=== PATIENT | female | born 1960 | race Caucasian/White ===

== ENCOUNTER 2020-11-21 08:13 | Outpatient (REF) | payer OTHER, SELFPAY ==
--- NOTE | ~2020-11-21 | XR_ITS ---
EXAMINATION: XR KNEES-BILATERAL FRONTAL XR LEFT KNEE CLINICAL INFORMATION: Left knee pain. COMPARISON: None TECHNIQUE: Upright frontal views of both knees, and lateral, and patellofemoral views of the left knee were FINDINGS: Frontal view of both knees shows satisfactory bony alignment and intact cortices. The articular margins, joint space appear relatively well-maintained. Minimal osteophyte formation is noted within the intercondylar groove region on the left side. The lateral and the patellofemoral views shows small suprapatellar effusion and nonspecific suprapatellar soft tissue swelling, and enthesopathy at the insertional site of the quadriceps tendon to the patella. No significant osteoarthrosis of the patellofemoral joint. XR/XR knee standing BI IMPRESSION: 1. Frontal views of both knees shows no significant osteoarthrosis on either side. 2. Lateral and the patellofemoral views of the left knee shows enthesopathy at the insertional site of the quadriceps tendon to the patella and suprapatellar soft tissue swelling, and small suprapatellar effusion.
--- NOTE | ~2020-11-21 | XR_ITS ---
EXAMINATION: XR KNEES-BILATERAL FRONTAL XR LEFT KNEE CLINICAL INFORMATION: Left knee pain. COMPARISON: None TECHNIQUE: Upright frontal views of both knees, and lateral, and patellofemoral views of the left knee were FINDINGS: Frontal view of both knees shows satisfactory bony alignment and intact cortices. The articular margins, joint space appear relatively well-maintained. Minimal osteophyte formation is noted within the intercondylar groove region on the left side. The lateral and the patellofemoral views shows small suprapatellar effusion and nonspecific suprapatellar soft tissue swelling, and enthesopathy at the insertional site of the quadriceps tendon to the patella. No significant osteoarthrosis of the patellofemoral joint. XR/XR knee LT 2V IMPRESSION: 1. Frontal views of both knees shows no significant osteoarthrosis on either side. 2. Lateral and the patellofemoral views of the left knee shows enthesopathy at the insertional site of the quadriceps tendon to the patella and suprapatellar soft tissue swelling, and small suprapatellar effusion.
--- NOTE | ~2020-11-21 | XR_ITS ---
EXAMINATION: XR PELVIS CLINICAL INFORMATION: Pain COMPARISON: None TECHNIQUE: AP view of the pelvis. FINDINGS: Bone alignment is normal. No fracture or dislocation is seen. There is mild joint space narrowing at both hip joints. The hip joints are otherwise normal. Bones of the pelvis are normal. There are degenerative changes of the visualized lower lumbar spine. Soft tissues are unremarkable. XR/XR pelvis 1-2V IMPRESSION: Mild joint space narrowing at both hip joints. Degenerative changes of the lower lumbar spine.
== END 2020-11-21 08:14 | disposition home or self-care (01) ==
LOC: HO.HOSX 08:13
PROVIDERS: Visit Provider Orthopaedic Surgery
DX: M25.562 Pain in left knee (principal); M25.559 Pain in unspecified hip
CPT/HCPCS: 72170; 73560; 73565; 99212

== ENCOUNTER 2020-12-13 09:36 | Outpatient (REF) | payer OTHER, SELFPAY ==
--- NOTE | ~2020-12-13 | MR_ITS ---
EXAMINATION: MR KNEE WITHOUT CONTRAST, LEFT CLINICAL INFORMATION: Knee pain. COMPARISON: None . TECHNIQUE: MRI of the knee without contrast was performed using routine sequences on a high-field scanner. FINDINGS: MENISCI: Medial Meniscus: Vertical superior surface tear in the peripheral aspect of the body. Undersurface fraying/tearing in the posterior horn/body junction. Degenerative signal otherwise in the posterior horn. Lateral Meniscus: Superior surface degenerative fraying/low-grade tear in the body. LIGAMENTS: Cruciate: Slightly thin caliber of the ACL, which may reflect normal variant changes versus partial tear. Intrasubstance signal in the PCL from mucoid degeneration plus/minus sprain. Collateral: Intact. EXTENSOR MECHANISM: Intact. ARTICULAR CARTILAGE/BONE: Patellofemoral Compartment: Mild cartilage fissuring in the central patella. No focal trochlear cartilage loss. Medial Compartment: No focal cartilage loss. Lateral Compartment: No focal cartilage loss. No fracture. JOINT FLUID AND BURSAE: Small cystic focus adjacent to the proximal medial gastrocnemius tendon, probable ganglion cyst. Small Burton's cyst. Trace joint fluid. MR/MR knee LT wo con IMPRESSION: 1. Tear of the medial meniscal body. Undersurface degenerative fraying/tear of the posterior horn/body junction. 2. Superior surface degenerative fraying/tear in the lateral meniscal body. 3. Thin caliber ACL from normal variation versus partial tear. Mucoid degeneration plus/minus sprain PCL. 4. Mild chondromalacia patella. 5. Probable small ganglion cyst adjacent to the proximal medial gastrocnemius tendon.
== END 2020-12-13 09:37 | disposition home or self-care (01) ==
LOC: HO.MRI 09:36
PROVIDERS: Visit Provider Orthopaedic Surgery
DX: M25.562 Pain in left knee (principal)
CPT/HCPCS: 73721

== ENCOUNTER → 2020-12-19 09:29 | Outpatient (BNVA) | payer OTHER, SELFPAY | PROVIDERS: PCP Internal Medicine; Visit Provider Orthopaedic Surgery | DX: M25.562 Pain in left knee (principal) | CPT/HCPCS: 20610; 99212; J1040 ==

== ENCOUNTER → 2021-01-25 10:32 | Outpatient (BNVA) | payer OTHER, SELFPAY | PROVIDERS: PCP Internal Medicine; Visit Provider Nurse Practitioner Family | DX: M25.562 Pain in left knee (principal) | CPT/HCPCS: 99212 ==

== ENCOUNTER 2021-08-30 09:44 | Outpatient (REF) | payer OTHER, SELFPAY ==
--- NOTE | ~2021-08-30 | MM_ITS ---
EXAMINATION: MM SCREENING DIGITAL BREAST TOMOSYNTHESIS, BILATERAL CLINICAL INFORMATION: Screening. Asymptomatic. The lifetime risk of breast cancer based on the Tyrer-Cuzick Model is 5%. COMPARISON: Mammography: 02/03/2019, 01/22/2018, 05/22/2017, 05/08/2016; ultrasound right breast 01/22/2018 TECHNIQUE: Digital breast tomosynthesis is performed in both the craniocaudal and mediolateral oblique views along with computer-aided detection (CAD). Synthesized 2D images are generated from the tomosynthesis. FINDINGS: There are scattered areas of fibroglandular density (ACR BI-RADS breast composition Category b). There are no significant masses, abnormal calcifications, or other abnormalities. There is scattered bilateral smooth nodularity similar to decreased. No developing density. The axilla and skin contours are unremarkable. MM/MM tomosynthesis screening BI IMPRESSION: No significant changes from prior studies. ASSESSMENT: BI-RADS 2: Benign RECOMMENDATION: Routine annual mammography screening. This patient's information was entered into a reminder system with a target due date for their next mammogram.
== END 2021-08-30 09:45 | disposition home or self-care (01) ==
LOC: HO.MAMMO 09:44
PROVIDERS: Visit Provider Internal Medicine
DX: Z12.31 Encounter for screening mammogram for malignant neoplasm of breast (principal)
CPT/HCPCS: 77063; 77067

== ENCOUNTER 2021-11-22 09:18 | Emergency (ER) | payer OTHER, SELFPAY ==
--- NOTE | ~2021-11-22 | XR_ITS ---
EXAMINATION: XR KNEE, LEFT CLINICAL INFORMATION: Knee pain COMPARISON: None TECHNIQUE: Four views of the left knee. FINDINGS: The tricompartment joint space is maintained normal. No visible acute fracture or dislocation. No loose bodies or joint effusion seen. There is anterior superior patellar enthesophyte. XR/XR knee LT 3V IMPRESSION: Small anterior superior patellar enthesophyte. Otherwise unremarkable left knee. No acute fracture or dislocation
[2021-11-22 09:36] VITALS: BP 169/100; PULSE 89; RESP 16; TEMP 36.9; O2SAT 97; BMI 27.4
[2021-11-22] MEDS: Ketorolac Tromethamine 30 MG/ML VIAL IM (11:19)
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
== END 2021-11-22 12:08 | disposition home or self-care (01) ==
PROVIDERS: Emergency Provider Emergency Medicine; PCP Internal Medicine
DX: M25.562 Pain in left knee (principal); Z79.899 Other long term (current) drug therapy
CPT/HCPCS: 73562; 96372; 99284; J1885

== ENCOUNTER → 2022-01-01 13:23 | Outpatient (BNVA) | payer OTHER, SELFPAY | PROVIDERS: PCP Internal Medicine; Visit Provider Orthopaedic Surgery | DX: S83.242D Other tear of medial meniscus, current injury, left knee, subsequent encounter (principal) | CPT/HCPCS: 99212 ==

== ENCOUNTER 2022-09-03 14:38 | Emergency (ER) | payer OTHER, SELFPAY ==
--- NOTE | ~2022-09-03 | XR_ITS ---
EXAMINATION: XR CHEST CLINICAL INFORMATION: Bilateral chest pain. COMPARISON: Chest radiographs 03/07/2017, 11/01/2015 TECHNIQUE: 2 views of the chest were obtained. FINDINGS: The lungs are clear. There is no pneumothorax, airspace consolidation, groundglass opacity, or effusion. No pneumothorax or pleural reaction. The costophrenic sulci are clear. Heart size normal. Vascularity normal. The hilar and mediastinal contours are unremarkable. No acute bony abnormality. There are multilevel degenerative changes again seen thoracic spine. XR/XR chest 2V IMPRESSION: Unremarkable examination.
[2022-09-03 14:50] VITALS: BP 153/79; PULSE 74; RESP 16; TEMP 36.8; O2SAT 95; BMI 23.8
--- NOTE | 2022-09-03 14:50 | ED.GENADULT ---
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 Patient states that both breasts hurt but her right one has a burning sensation along the lateral side. Patient states that she has a mammogram scheduled. Patient denies any history of shingles but states she had chickenpox as a child. Patient denies any dizziness, lightheadedness, abdominal pain, nausea, vomiting, fever, chills, blurry vision, double vision, loss of vision, chest pain, difficulty breathing, shortness of breath, back pain, night sweats, pain with urination, increased urinary frequency, increased urinary urgency, blood in her urine or stool, syncope or a near syncopal episode, recent trauma or falls, bowel incontinence, bladder incontinence, bowel retention, bladder retention, or any other complaints at this time. <CAROL Pinzon - Last Filed: 09/03/22 17:48> Onset (ago): week(s) (2) <CAROL Pinzon - Last Filed: 09/03/22 17:48> Severity: mild <CAROL Pinzon Last Filed: 09/03/22 17:48> Severity scale (1-10): 3 <CAROL Pinzon Last Filed: 09/03/22 17:48> Relieving factors: none <CAROL Pinzon Last Filed: 09/03/22 17:48> Exacerbating factors: none <CAROL Pinzon - Last Filed: 09/03/22 17:48> Associated symptoms: denies other symptoms <CAROL Pinzon - Last Filed: 09/03/22 17:48> Treatments prior to arrival: none <CAROL Pinzon - Last Filed: 09/03/22 17:48> Related Data Home medications: Home Medications Medication Instructions Recorded Confirmed atorvastatin 20 mg tablet 20 mg PO DAILY 11/21/20 01/25/21 cyclobenzaprine 10 mg tablet 10 mg PO TID 11/21/20 01/25/21 lisinopril 20 1 tab PO DAILY 11/21/20 01/25/21 mg-hydrochlorothiazide 12.5 mg tablet montelukast 10 mg tablet 10 mg PO QPM 11/21/20 01/25/21 naproxen 500 mg tablet 500 mg PO BID 11/21/20 01/25/21 sertraline 50 mg tablet 50 mg PO DAILY 11/21/20 01/25/21 trazodone 50 mg tablet 50 mg PO BEDTIME 11/21/20 01/25/21 amlodipine 5 mg tablet 5 mg PO DAILY 02/01/22 diclofenac sodium 1 % topical gel g topical BID 02/01/22 Previous Rx's Medication Instructions Recorded acetaminophen 500 mg tablet 500 mg PO Q6H PRN pain or fever 11/22/21 (Tylenol Extra Strength) #14 tabs naproxen 500 mg tablet 500 mg PO BID PRN pain 10 days #14 11/22/21 tabs valacyclovir 1 gram tablet 1,000 mg PO TID 7 days #21 tabs 09/03/22 <CAROL Pizano - Last Filed: 09/03/22 15:23> Allergies/adverse reactions: Allergies Allergy/AdvReac Type Severity Reaction Status Date / Time No Known Allergies Allergy Verified 09/03/22 14:54 [No Known Allergies*] <CAROL Pizano - Last Filed: 09/03/22 15:23> Review of Systems Constitutional: Constitutional: Reports no additional constitutional complaints, Denies chills, Denies fever(s) and Denies night sweats <CAROL Pinzon - Last Filed: 09/03/22 17:48> Eyes: Eyes: Reports no additional eye complaints, Denies blurry vision, Denies change in vision, Denies diplopia, Denies eye discharge, Denies loss of vision and Denies eye pain <CAROL Pinzon - Last Filed: 09/03/22 17:48> ENT: Denies dizziness <CAROL Pinzon - Last Filed: 09/03/22 17:48> Cardiovascular: Cardiovascular: Reports no additional cardiovascular complaints, Denies chest pain, Denies lightheadedness, Denies Loss of Consciousness and Denies dyspnea <CAROL Pinzon - Last Filed: 09/03/22 17:48> Respiratory: Respiratory: Reports no additional respiratory complaints and Denies dyspnea <CAROL Pinzon - Last Filed: 09/03/22 17:48> Gastrointestinal: Gastrointestinal: Reports no additional gastrointestinal complaints, Denies abdominal pain, Denies melena, Denies hematochezia, Denies change in bowel habits and Denies change in stool character <CAROL Pinzon - Last Filed: 09/03/22 17:48> Genitourinary: Genitourinary: Denies hematuria, Denies urinary frequency, Denies dysuria, Denies urinary incontinence, Denies urinary hesitancy and Denies urinary urgency <CAROL Pinzon - Last Filed: 09/03/22 17:48> Musculoskeletal: Musculoskeletal: Reports no additional musculoskeletal complaints, Denies numbness and Denies tingling <CAROL Pinzon - Last Filed: 09/03/22 17:48> Integumentary/Breasts: Comments: bilateral breast pain - right more so than left with a burning sensation on the right <CAROL Pinzon - Last Filed: 09/03/22 17:48> Neurologic: Denies dizziness, Denies loss of vision, Denies numbness and Denies tingling <CAROL Pinzon - Last Filed: 09/03/22 17:48> Psychiatric: Psychiatric: Reports no additional psychiatric complaints <CAROL Pinzon - Last Filed: 09/03/22 17:48> Endocrine: Endocrine: Reports no additional endocrine complaints <CAROL Pinzon - Last Filed: 09/03/22 17:48> Hematologic/Lymphatic: Hematologic/Lymphatic: Reports no additional hematologic/lymphatic complaints <CAROL Pinzon - Last Filed: 09/03/22 17:48> Allergic/Immunologic: Allergic/Immunologic: Reports no additional allergic/immunologic complaints <CAROL Pinzon - Last Filed: 09/03/22 17:48> PMFSH Past Medical History Attestation statement: The following information was validated with the patient. <CAROL Pinzon - Last Filed: 09/03/22 17:48> Source: old records reviewed and nursing notes reviewed <CAROL Pinzon - Last Filed: 09/03/22 17:48> Medical History: Medical History Asthma Depressed Hypertension Left knee pain <CAROL Pizano - Last Filed: 09/03/22 15:23> Social History Social History: Social History Alcohol intake: never Advance Directives: No Advance Directives Information Provided: No Current occupational status: unemployed Current occupation: left handed <CAROL Pizano - Last Filed: 09/03/22 15:23> Physical Exam ED Vital Signs: Vital Signs - 24 hr 09/03/22 14:50 Temperature 98.2 F Pulse Rate 74 Respiratory Rate 16 Blood Pressure 153/79 H Pulse Oximetry 95 Oxygen Delivery Method Room Air BMI result Body Mass Index 23.8 <CAROL Pizano - Last Filed: 09/03/22 15:23> Vital Signs - 24 hr 09/03/22 14:50 Temperature 98.2 F Pulse Rate 74 Respiratory Rate 16 Blood Pressure 153/79 H Pulse Oximetry 95 Oxygen Delivery Method Room Air BMI result Body Mass Index 23.8 <CAROL Pinzon - Last Filed: 09/03/22 17:48> Const General: cooperative, no acute distress, alert and awake <CAROL Pinzon - Last Filed: 09/03/22 17:48> Nutritional Appearance: well nourished <CAROL Pinzon - Last Filed: 09/03/22 17:48> Orientation/consciousness: patient oriented x3 <CAROL Pinzon - Last Filed: 09/03/22 17:48> Limitations: no limitations <CAROL Pinzon - Last Filed: 09/03/22 17:48> HENMT Head: Yes normal to inspection and Yes atraumatic <Megan Montoyayasmeen PA - Last Filed: 09/03/22 17:48> Ears: hearing grossly normal bilaterally and external ears normal <Megan Montoyayasmeen PA - Last Filed: 09/03/22 17:48> General nose exam: Normal external nose present, no nasal discharge noted and no epistaxis <Meganhugo Montoyayasmeen PA - Last Filed: 09/03/22 17:48> Face and sinus: Yes normal facial exam, No abrasion and No laceration <Megan Montoyayasmeen PA - Last Filed: 09/03/22 17:48> Mouth: Normal oral and palatal mucosa present, no drooling and no muffled voice <Megan Holm PA - Last Filed: 09/03/22 17:48> Eyes General: appearance normal, both eyes and all related structures <Megan Holm PA - Last Filed: 09/03/22 17:48> Periorbital: periorbital findings normal <Megan Holm PA - Last Filed: 09/03/22 17:48> Eyelids: Yes eyelids normal <Megan Montoyayasmeen PA - Last Filed: 09/03/22 17:48> Conjunctivae: conjunctivae normal <Megan Holm, PA - Last Filed: 09/03/22 17:48> Pupils: Equal, round and reactive pupils present <Megan Montoyayasmeen PA - Last Filed: 09/03/22 17:48> EOM: EOMs intact bilaterally <Megan Holm PA - Last Filed: 09/03/22 17:48> Neck Neck: Yes normal visual inspection, Yes full ROM and Yes no lymphadenopathy <Megan Mihai PA - Last Filed: 09/03/22 17:48> Chest Chest palpation & inspection: normal inspection of the chest <Megan Holm PA - Last Filed: 09/03/22 17:48> Resp Effort & Inspection: normal respiratory effort and able to speak in complete sentences <Megan Holm PA - Last Filed: 09/03/22 17:48> Auscultation: clear to auscultation bilaterally <Megan Holm PA - Last Filed: 09/03/22 17:48> Cardio Rate: regular rate <Megan Holm PA - Last Filed: 09/03/22 17:48> Rhythm: regular rhythm <Megan Holm PA - Last Filed: 09/03/22 17:48> GI Inspection: Yes normal to inspection <Megan Holm PA - Last Filed: 09/03/22 17:48> Palpation (GI): Soft to palpation, not firm, nontender, no guarding and not rigid <Megan Holm PA - Last Filed: 09/03/22 17:48> Neuro General: patient oriented x3 and moves all extremities <Megan Holm PA - Last Filed: 09/03/22 17:48> Cranial nerves: Yes Equal, round and reactive pupils present <Megan Holm PA - Last Filed: 09/03/22 17:48> Cognition (Neuro): normal cognition <Megan Holm PA - Last Filed: 09/03/22 17:48> Motor exam (neuro): 5/5 motor strength present throughout <Megan Holm PA - Last Filed: 09/03/22 17:48> Sensory Exam: Normal double simultaneous stimulation for sensation <Megan Holm PA - Last Filed: 09/03/22 17:48> Coordination: [id number] test normal <Megan Holm PA - Last Filed: 09/03/22 17:48> Extrem General: Yes normal to inspection, Yes full ROM and Yes capillary refill normal <Megan Holm PA - Last Filed: 09/03/22 17:48> Psych Appearance: grossly normal <Megan Holm PA - Last Filed: 09/03/22 17:48> Mental Status: mental status grossly normal <Megan Holm PA - Last Filed: 09/03/22 17:48> Affect: normal affect <Megan Holm PA - Last Filed: 09/03/22 17:48> Attitude: cooperative <Megan Holm PA - Last Filed: 09/03/22 17:48> Thought process: Normal thought process present <Megan HolmCAROL - Last Filed: 09/03/22 17:48> Thought content: Normal thought content present <Megan Montoyayasmeen PA - Last Filed: 09/03/22 17:48> Insight: Good insight present (Psych) <CAROL Pinzon - Last Filed: 09/03/22 17:48> Course Course Course Narrative: RME - 61 yo female presenting to the ER for evaluation of bilateral breast pain x2 weeks, right worse than left. Feels small bumps that are tender, especially right lateral breast. Reports subjective fever and chills. Brief exam in triage does not show any infection. No role in ultrasound today. Will check basic labs and CXR. d/w Dr. crane <CAROL Pizano - Last Filed: 09/03/22 15:23> Medical Decision Making Medical Decision Making [facility] Narrative: Patient is a 61 year old assigned female at with no reported medical history presenting to the emergency department today with bilateral breast pain. Patient's physical exam was unremarkable. Patient's blood work was unremarkable. Patient's chest x-ray showed no acute process. Given the patient's description of unilateral burning pain along the lateral right breast, will treat for shingles. I explained my physical exam findings as well as all test results to the patient. I answered all questions asked by the patient . I stressed the importance of the patient taking her medication as prescribed. I stressed the importance of the patient following up with her primary care provider and attending her scheduled mammogram. I stressed the importance of the patient returning to the emergency department immediately if her symptoms were to worsen or if she were to develop any dizziness, shortness of breath, difficulty breathing, chest pain, blurry vision, loss of vision, nausea, vomiting, abdominal pain, fever, chills, back pain, or any other complaints. Patient verbalized agreement and understanding with this treatment plan and discharge. <CAROL Pinzon - Last Filed: 09/03/22 17:48> Differential Diagnosis Differential Diagnoses: The differential diagnosis associated with the presentation includes <CAROL Pinzon Last Filed: 09/03/22 17:48> shingles, breast pain <CAROL Pinzon - Last Filed: 09/03/22 17:48> Lab Data [facility] Lab Attestation statement: I reviewed the patient's lab results. <CAROL Pinzon Last Filed: 09/03/22 17:48> Result Diagrams: 09/03/22 15:35 01/23/23 15:35 <CAROL Pizano - Last Filed: 09/03/22 15:23> Labs: Lab Results 09/03/22 09/03/22 Range/Units 15:35 15:35 WBC 4.7 L (4.8-10.8) X10*3/uL RBC 4.77 (4.20-5.50) X10*6/uL Hgb 13.3 (12.0-16.0) g/dl Hct 40.4 (37.0-47.0) % MCV 84.7 (80.0-98.0) fL MCH 27.9 (27.0-33.0) pg MCHC 32.9 (31.0-35.0) g/dl RDW 12.5 (11.0-16.0) % Plt Count 251 (160-400) X10*3/uL MPV 10.7 (9.4-12.3) fL Immature Gran % (Auto) 0.2 (0.0-0.4) % Neut % (Auto) 54.1 (45-73) % Lymph % (Auto) 25.3 (20-40) % [place] % (Auto) 16.6 H (2-11) % Eos % (Auto) 3.4 (0-4) % Baso % (Auto) 0.4 (0-2) % Lymph # (Auto) 1.2 (1.2-4.9) X10*3/uL [place] # (Auto) 0.8 (0.1-1.2) X10*3/uL Eos # (Auto) 0.2 (0.0-0.4) X10*3/uL Baso # (Auto) 0.0 (0.0-0.2) X10*3/uL Abs Immat Gran (auto) 0.01 (0.00-0.03) X10*3/uL Absolute Neuts (auto) 2.5 (2.0-8.3) x10*3/uL Absolute Nucleated RBC 0.000 (0.0-0.012) X10*3/uL Nucleated RBC % (auto) 0.0 (0.0-0.2) /100WBC Sodium 141 (135-145) mmol/L Potassium 3.9 (3.3-5.1) mmol/L Chloride 107 (96-108) mmol/L Carbon Dioxide 27 (22-29) mmol/L Anion Gap 11 L (12-20) BUN 20 H (9-16) mg/dL Creatinine 0.91 (0.5-1.4) mg/dL Estim Creat Clear Calc 50.0 Estimated GFR > 60 Random Glucose 96 (60-115) mg/dL Calcium 9.0 (8.4-10.2) mg/dL Magnesium 2.1 (1.6-2.6) mg/dL Total Bilirubin 0.4 (0.0-1.0) mg/dL Direct Bilirubin < 0.2 (0.0-0.5) mg/dL AST 21 (5-31) U/L ALT 10 (0-31) U/L Alkaline Phosphatase 101 (39-117) U/L Total Protein 6.9 (6.5-8.0) g/dL Albumin 4.0 (3.5-5.0) g/dL <CAROL Pizano - Last Filed: 09/03/22 15:23> Lab Results 09/03/22 09/03/22 Range/Units 15:35 15:35 WBC 4.7 L (4.8-10.8) X10*3/uL RBC 4.77 (4.20-5.50) X10*6/uL Hgb 13.3 (12.0-16.0) g/dl Hct 40.4 (37.0-47.0) % MCV 84.7 (80.0-98.0) fL MCH 27.9 (27.0-33.0) pg MCHC 32.9 (31.0-35.0) g/dl RDW 12.5 (11.0-16.0) % Plt Count 251 (160-400) X10*3/uL MPV 10.7 (9.4-12.3) fL Immature Gran % (Auto) 0.2 (0.0-0.4) % Neut % (Auto) 54.1 (45-73) % Lymph % (Auto) 25.3 (20-40) % [place] % (Auto) 16.6 H (2-11) % Eos % (Auto) 3.4 (0-4) % Baso % (Auto) 0.4 (0-2) % Lymph # (Auto) 1.2 (1.2-4.9) X10*3/uL [place] # (Auto) 0.8 (0.1-1.2) X10*3/uL Eos # (Auto) 0.2 (0.0-0.4) X10*3/uL Baso # (Auto) 0.0 (0.0-0.2) X10*3/uL Abs Immat Gran (auto) 0.01 (0.00-0.03) X10*3/uL Absolute Neuts (auto) 2.5 (2.0-8.3) x10*3/uL Absolute Nucleated RBC 0.000 (0.0-0.012) X10*3/uL Nucleated RBC % (auto) 0.0 (0.0-0.2) /100WBC Sodium 141 (135-145) mmol/L Potassium 3.9 (3.3-5.1) mmol/L Chloride 107 (96-108) mmol/L Carbon Dioxide 27 (22-29) mmol/L Anion Gap 11 L (12-20) BUN 20 H (9-16) mg/dL Creatinine 0.91 (0.5-1.4) mg/dL Estim Creat Clear Calc 50.0 Estimated GFR > 60 Random Glucose 96 (60-115) mg/dL Calcium 9.0 (8.4-10.2) mg/dL Magnesium 2.1 (1.6-2.6) mg/dL Total Bilirubin 0.4 (0.0-1.0) mg/dL Direct Bilirubin < 0.2 (0.0-0.5) mg/dL AST 21 (5-31) U/L ALT 10 (0-31) U/L Alkaline Phosphatase 101 (39-117) U/L Total Protein 6.9 (6.5-8.0) g/dL Albumin 4.0 (3.5-5.0) g/dL <CAROL Pinzon - Last Filed: 09/03/22 17:48> Radiology Impression Radiologist Impression: My interpretation is in agreement with the radiologist's impression of this imaging study. EXAMINATION: XR CHEST CLINICAL INFORMATION: Bilateral chest pain. COMPARISON: Chest radiographs 03/07/2017, 11/01/2015 TECHNIQUE: 2 views of the chest were obtained. FINDINGS: The lungs are clear. There is no pneumothorax, airspace consolidation, groundglass opacity, or effusion. No pneumothorax or pleural reaction. The costophrenic sulci are clear. Heart size normal. Vascularity normal. The hilar and mediastinal contours are unremarkable. No acute bony abnormality. There are multilevel degenerative changes again seen thoracic spine. XR/XR chest 2V IMPRESSION: Unremarkable examination. Dictated By: Aron Chamberlain MD Signed By: Electronically signed by Aron Chamberlain MD 09/03/22 1642 <CAROL Pinzon - Last Filed: 09/03/22 17:48> Discharge Plan Discharge Clinical Impression: [place] <CAROL Pizano - Last Filed: 09/03/22 15:23> Patient Disposition: Home, Self-Care <CAROL Pizano Last Filed: 09/03/22 15:23> Instructions: Vee (ED) <CAROL Pizano Last Filed: 09/03/22 15:23> Prescriptions: New valacyclovir 1 gram tablet 1,000 mg PO TID 7 Days Qty: 21 0RF No Action acetaminophen [Tylenol Extra Strength] 500 mg tablet 500 mg PO Q6H PRN (Reason: pain or fever) Qty: 14 0RF naproxen 500 mg tablet 500 mg PO BID PRN (Reason: pain) 10 Days Qty: 14 0RF naproxen 500 mg tablet 500 mg PO BID cyclobenzaprine 10 mg tablet 10 mg PO TID sertraline 50 mg tablet 50 mg PO DAILY montelukast 10 mg tablet 10 mg PO QPM lisinopril-hydrochlorothiazide 20-12.5 mg tablet 1 tab PO DAILY trazodone 50 mg tablet 50 mg PO BEDTIME atorvastatin 20 mg tablet 20 mg PO DAILY diclofenac sodium 1 % gel topical BID amlodipine 5 mg tablet 5 mg PO DAILY <CAROL Pizano - Last Filed: 09/03/22 15:23> Interventions: ED Discharge Assessment Last Done: 09/03/22 17:23 <CAROL Pizano - Last Filed: 09/03/22 15:23> Discharge Date/Time: 09/03/22 17:24 <CAROL Pizano - Last Filed: 09/03/22 15:23> Print Language: Chadian <CAROL Pizano - Last Filed: 09/03/22 15:23>
[2022-09-03 15:43] LABS: MANUAL DIFF FLAG NO
[2022-09-03 15:48] LABS: Basophils Percent Auto 0.4 % (0-2); Eosinophils Absolute Auto 0.2 X10*3/uL (0.0-0.4); Eosinophils Percent Auto 3.4 % (0-4); Hematocrit 40.4 % (37.0-47.0); Hemoglobin 13.3 g/dl (12.0-16.0); Imm Gran Abs Auto 0.01 X10*3/uL (0.00-0.03); Imm Gran Pct Auto 0.2 % (0.0-0.4); Lymphocytes Absolute Auto 1.2 X10*3/uL (1.2-4.9); Lymphocytes Percent Auto 25.3 % (20-40); Mean Corpuscular HGB Conc 32.9 g/dl (31.0-35.0); Mean Corpuscular Hemoglobin 27.9 pg (27.0-33.0); Mean Corpuscular Volume 84.7 fL (80.0-98.0); Mean Platelet Volume 10.7 fL (9.4-12.3); Monocytes Absolute Auto 0.8 X10*3/uL (0.1-1.2); Monocytes Percent Auto 16.6 % (2-11); Neutrophils Absolute Auto 2.5 x10*3/uL (2.0-8.3); Neutrophils Percent Auto 54.1 % (45-73); Platelet Count 251 X10*3/uL (160-400); Red Blood Count 4.77 X10*6/uL (4.20-5.50); Red Cell Distribution Width 12.5 % (11.0-16.0); White Blood Count 4.7 X10*3/uL (4.8-10.8)
[2022-09-03 16:04] LABS: Alanine Aminotransferase 10 U/L (0-31); Alkaline Phosphatase 101 U/L (39-117); Anion Gap 11 (12-20); Aspartate Amino Transferase 21 U/L (5-31); Bilirubin Direct < 0.2 mg/dL (0.0-0.5); Bilirubin Total 0.4 mg/dL (0.0-1.0); Blood Urea Nitrogen 20 mg/dL (9-16); Carbon Dioxide 27 mmol/L (22-29); Chloride 107 mmol/L (96-108); Estimated Glomerular Filt Rate > 60; Glucose Random 96 mg/dL (60-115); Magnesium 2.1 mg/dL (1.6-2.6); Potassium 3.9 mmol/L (3.3-5.1); Sodium 141 mmol/L (135-145); Total Protein 6.9 g/dL (6.5-8.0)
== END 2022-09-03 17:24 | disposition home or self-care (01) ==
PROVIDERS: Physician Assistant; Emergency Provider Emergency Medicine; PCP Internal Medicine
DX: B02.9 Zoster without complications (principal); N64.4 Mastodynia; Z79.02 Long term (current) use of antithrombotics/antiplatelets; Z79.899 Other long term (current) drug therapy
CPT/HCPCS: 36415; 71046; 80048; 80076; 83735; 85025; 99282; 99283

== ENCOUNTER 2023-01-03 01:06 | Emergency (ER) | payer OTHER, SELFPAY ==
--- NOTE | ~2023-01-03 | XR_ITS ---
EXAMINATION: XR CHEST CLINICAL INFORMATION: Fall. Evaluate for rib fracture. COMPARISON: None. TECHNIQUE: Portable AP view FINDINGS: Normal symmetric lung volumes. No parenchymal consolidation. No pleural effusion. No pneumothorax. Cardiomediastinal silhouette and pulmonary vascularity are within normal limits. No acute osseous abnormalities. XR/XR chest 1V IMPRESSION: Clear lungs; no pneumothorax. No displaced rib fractures.
[2023-01-03 04:39] LABS: Anion Gap 12 (12-20); Blood Urea Nitrogen 20 mg/dL (9-16); Calcium 9.5 mg/dL (8.4-10.2); Carbon Dioxide 29 mmol/L (22-29); Chloride 106 mmol/L (96-108); Estimated Glomerular Filt Rate > 60; Ethanol < 10 mg/dL; Glucose Random 129 mg/dL (60-115); MANUAL DIFF FLAG NO; Sodium 143 mmol/L (135-145); Troponin-I High Sensitivity 18.2 ng/L (<3.5-17.0)
[2023-01-03 04:59] VITALS: BP 139/74; PULSE 75; RESP 15; TEMP 37.1; O2SAT 97
[2023-01-03 04:59] LABS: Appearance Urine Clear; Color Urine Yellow; Glucose Urine UA Negative (Negative); Leukocyte Esterase Urine Moderate (2+) (Negative); Nitrite Urine Negative (Negative); PH 5.5 (5.0-9.0); UMIC TRIGGER UA YES; Urine Blood Negative (Negative); Urine Ketones Negative (Negative); Urine Protein 30 (1+) mg/dL (Neg-Trace)
[2023-01-03 05:00] LABS: Basophils Percent Auto 0.3 % (0-2); Eosinophils Absolute Auto 0.1 X10*3/uL (0.0-0.4); Hematocrit 38.8 % (37.0-47.0); Hemoglobin 12.5 g/dl (12.0-16.0); Imm Gran Abs Auto 0.21 X10*3/uL (0.00-0.03); Imm Gran Pct Auto 2.2 % (0.0-0.4); Lymphocytes Absolute Auto 1.4 X10*3/uL (1.2-4.9); Mean Corpuscular HGB Conc 32.2 g/dl (31.0-35.0); Mean Corpuscular Hemoglobin 28.2 pg (27.0-33.0); Mean Corpuscular Volume 87.4 fL (80.0-98.0); Mean Platelet Volume 9.7 fL (9.4-12.3); Monocytes Absolute Auto 1.2 X10*3/uL (0.1-1.2); Neutrophils Absolute Auto 6.8 x10*3/uL (2.0-8.3); Neutrophils Percent Auto 70.5 % (45-73); Platelet Count 327 X10*3/uL (160-400); Red Blood Count 4.44 X10*6/uL (4.20-5.50); White Blood Count 9.7 X10*3/uL (4.8-10.8)
--- NOTE | 2023-01-03 05:00 | MHC.EDTECH ---
pt vitals sign taken ,and urine sample collected and sent to lab .
[2023-01-03 05:06] LABS: Bacteria Urine None Seen (None Seen); WBC Urine 21-50 /HPF (0-5)
[2023-01-03 05:09] LABS: Amphetamine Screen Urine Not Detected (Not Detect); Barbiturates, Urine Not Detected (Not Detect); Benzodiazepines Screen Urine Not Detected (Not Detect); Cannabinoid Screen Urine Not Detected (Not Detect); Cocaine Screen Urine POSITIVE (Not Detect); Fentanyl, urine POSITIVE (Not Detect); Opiate Screen Urine Not Detected (Not Detect); Phencyclidine Screen Urine Not Detected (Not Detect)
--- NOTE | 2023-01-03 05:14 | ED_ITS ---
HPI - Overdose General Chief Complaint: Overdose Stated Complaint: OD Time Seen by Provider: 01/03/23 05:14 Source: patient and EMS Mode of arrival: EMS Limitations: other History of Present Illness HPI Narrative: Patient comes emergency room via EMS after having an overdose. Patient admits that she used 2 bags of heroin earlier today. Patient became unresponsive. Patient's family found her, started CPR. Patient awake and alert when she arrived to emergency room complaining of localized chest pain where she had chest compressions done. Patient denies suicidal ideation. Patient given denies using drugs. Related Data Home Medications Medication Instructions Recorded Confirmed atorvastatin 20 mg tablet 20 mg PO DAILY 11/21/20 01/25/21 cyclobenzaprine 10 mg tablet 10 mg PO TID 11/21/20 01/25/21 lisinopril 20 1 tab PO DAILY 11/21/20 01/25/21 mg-hydrochlorothiazide 12.5 mg tablet montelukast 10 mg tablet 10 mg PO QPM 11/21/20 01/25/21 naproxen 500 mg tablet 500 mg PO BID 11/21/20 01/25/21 sertraline 50 mg tablet 50 mg PO DAILY 11/21/20 01/25/21 trazodone 50 mg tablet 50 mg PO BEDTIME 11/21/20 01/25/21 amlodipine 5 mg tablet 5 mg PO DAILY 02/01/22 diclofenac sodium 1 % topical gel g topical BID 02/01/22 Previous Rx's Medication Instructions Recorded acetaminophen 500 mg tablet 500 mg PO Q6H PRN pain or fever 11/22/21 (Tylenol Extra Strength) #14 tabs naproxen 500 mg tablet 500 mg PO BID PRN pain 10 days #14 11/22/21 tabs valacyclovir 1 gram tablet 1,000 mg PO TID 7 days #21 tabs 09/03/22 cefuroxime axetil 500 mg tablet 500 mg PO BID #14 tabs 01/03/23 ondansetron 4 mg disintegrating 4 mg PO Q6H PRN nausea and 01/03/23 tablet vomiting #14 tabs Allergies Allergy/AdvReac Type Severity Reaction Status Date / Time No Known Allergies Allergy Verified 09/03/22 14:54 [No Known Allergies*] Review of Systems Review of Systems: Constitutional : No Weight loss, No Fever, No Chills, No Night Sweats, No Fatigue, No Malaise ENT/Mouth : No Hearing loss, No Ear Pain, No Nasal Congestion, No Sinus Pain, No Hoarseness, No sore throat, No Rhinorrhea, No Swallowing Difficulty Eyes: No Eye Pain, No Swelling, No Redness, No Foreign Body, No Discharge, No Vision Changes Cardiovascular : No Chest Pain, No SOB, No Dyspnea on Exertion, No Orthopnea, No Edema, No Palpitations Respiratory : No Cough, No Sputum, No Wheezing, No Smoke Exposure, No Dyspnea Gastrointestinal : Timing of nausea and vomiting No Diarrhea, No Constipation, No abdominal Pain, No Hematochezia, No Melena Genitourinary : no irregular bleeding, No Dysuria, No Urinary Frequency, No Hematuria, No Urinary Incontinence, No Urgency, No Flank Pain, No Urinary Flow Changes, No Hesitancy Musculoskeletal : Draining of sternal chest pain No joint pain, No Myalgias, No Joint Swelling Skin : No Skin Lesions, No rash Neuro : No Weakness, No Numbness, No Paresthesias, No Loss of Consciousness, No Dizziness, No Headache Psych : No Anxiety/Panic, No Depression, No SI/HI/AH/VH, No Social Issues, Heme/Lymph: No Bruising, No Bleeding,No Lymphadenopathy Endocrine : No Polyuria, No Polydipsia, No Temperature Intolerance [facility] Past Medical History Medical History (Updated 01/03/23 @ 06:25 by Emma Cavanaugh MD) Asthma Depressed Hypertension Left knee pain Substance abuse Social History Social History Alcohol intake: never Advance Directives: No Advance Directives Information Provided: No Current occupational status: unemployed Current occupation: left handed Physical Exam Vital Signs: Vital Signs: Last Vital Signs Temp 98.7 F 01/03/23 06:02 Pulse 66 01/03/23 06:02 Resp 17 01/03/23 06:02 BP 151/70 H 01/03/23 06:02 Pulse Ox 94 01/03/23 06:02 O2 Del Method Room Air 01/03/23 06:02 Const: Other: Appearance: Alert. Oriented X3. No acute distress. Eyes: Pupils equal, round and reactive to light. ENT: Pharynx normal. Neck: Normal inspection. Neck supple. No lymph nodes noted. No crepitus CVS: Normal heart rate and rhythm. Pulses normal. Normal S1 and S2 Respiratory: No respiratory distress. Breath sounds normal. No Wheezing. No rales Abdomen: Soft and nontender. No rigidity. No distention. Skin: Skin warm and dry. Normal skin color. Normal skin turgor. Extremities: No lower extremity edema. No Lacerations. No Rash Neuro: Oriented X 3. No motor deficit. No sensory deficit. Moving all extremities. No slurred speech. CN 2 through 12 grossly intact Psych: calm, cooperative, normal affect Medications Administered Discontinued Medications Generic Name Dose Route Start Last Admin Trade Name Freq PRN Reason Stop Dose Admin Sodium Chloride 1,000 mls @ 999 mls/hr 01/03/23 05:14 01/03/23 05:47 Ns IVCONT 01/03/23 06:14 999 mls/hr .Q1H1M ONE Administration Prochlorperazine Edisylate 10 mg 01/03/23 05:14 01/03/23 05:47 Prochlorperazine Edisylate 10 Mg/2 Ml Vial IVPUSH 01/03/23 05:15 10 mg ONCE ONE Administration Medical Decision Making Medical Decision Making MDM Narrative: -patient vomiting, received fluids, Compazine. -white blood cell count within normal limits, chemistry: Normal -troponin 1. Slightly bumped at 18.2 likely secondary from chest compressions -EKG my interpretation: Normal sinus rhythm, heart rate 77, no ST segment depression or elevation, no T-wave inversion, QTC 418. Patient's EKG has not crossed over, we are on downtime -troponin 2. To be obtained at 05:30 -note patient is awake and alert and oriented x3, patient states that this was an accident, did not mean to hurt herself. Patient states this is the 1st time that she uses drugs -patient has a UTI, Lab Data 01/03/23 02:14 01/03/23 02:14 Labs: Lab Results 01/03/23 01/03/23 01/03/23 Range/Units 02:14 02:14 02:14 WBC 9.7 (4.8-10.8) X10*3/uL RBC 4.44 (4.20-5.50) X10*6/uL Hgb 12.5 (12.0-16.0) g/dl Hct 38.8 (37.0-47.0) % MCV 87.4 (80.0-98.0) fL MCH 28.2 (27.0-33.0) pg MCHC 32.2 (31.0-35.0) g/dl RDW 13.0 (11.0-16.0) % Plt Count 327 D (160-400) X10*3/uL MPV 9.7 (9.4-12.3) fL Immature Gran % (Auto) 2.2 H (0.0-0.4) % Neut % (Auto) 70.5 (45-73) % Lymph % (Auto) 14.0 L (20-40) % [place] % (Auto) 12.0 H (2-11) % Eos % (Auto) 1.0 (0-4) % Baso % (Auto) 0.3 (0-2) % Lymph # (Auto) 1.4 (1.2-4.9) X10*3/uL [place] # (Auto) 1.2 (0.1-1.2) X10*3/uL Eos # (Auto) 0.1 (0.0-0.4) X10*3/uL Baso # (Auto) 0.0 (0.0-0.2) X10*3/uL Abs Immat Gran (auto) 0.21 H (0.00-0.03) X10*3/uL Absolute Neuts (auto) 6.8 (2.0-8.3) x10*3/uL Absolute Nucleated RBC 0.000 (0.0-0.012) X10*3/uL Nucleated RBC % (auto) 0.0 (0.0-0.2) /100WBC Sodium 143 (135-145) mmol/L Potassium 4.0 (3.3-5.1) mmol/L Chloride 106 (96-108) mmol/L Carbon Dioxide 29 (22-29) mmol/L Anion Gap 12 (12-20) BUN 20 H (9-16) mg/dL Creatinine 0.90 (0.5-1.4) mg/dL Estim Creat Clear Calc TNP Estimated GFR > 60 Random Glucose 129 H (60-115) mg/dL Calcium 9.5 (8.4-10.2) mg/dL Troponin I High Sens 18.2 H (<3.5-17.0) ng/L Urine Color Urine Appearance Urine pH (5.0-9.0) Ur Specific [place] (1.005-1.025) Urine Protein (Neg-Trace) mg/dL Urine Glucose (UA) (Negative) mg/dL Urine Ketones (Negative) mg/dL Urine Blood (Negative) Urine Nitrite (Negative) Ur Leukocyte Esterase (Negative) Urine RBC (0-2) /HPF Urine WBC (0-5) /HPF Ur Squamous Epith Cells (0-2) /HPF Urine Bacteria (None Seen) Hyaline Casts (0-2) /LPF Urine Opiates Screen (Not Detect) Urine Fentanyl Screen (Not Detect) Ur Barbiturates Screen (Not Detect) Ur Phencyclidine Scrn (Not Detect) Ur Amphetamines Screen (Not Detect) U Benzodiazepines Scrn (Not Detect) Urine Cocaine Screen (Not Detect) U Marijuana (THC) Screen (Not Detect) Ethyl Alcohol < 10 mg/dL 01/03/23 01/03/23 01/03/23 Range/Units 04:50 04:50 05:45 WBC (4.8-10.8) X10*3/uL RBC (4.20-5.50) X10*6/uL Hgb (12.0-16.0) g/dl Hct (37.0-47.0) % MCV (80.0-98.0) fL MCH (27.0-33.0) pg MCHC (31.0-35.0) g/dl RDW (11.0-16.0) % Plt Count (160-400) X10*3/uL MPV (9.4-12.3) fL Immature Gran % (Auto) (0.0-0.4) % Neut % (Auto) (45-73) % Lymph % (Auto) (20-40) % [place] % (Auto) (2-11) % Eos % (Auto) (0-4) % Baso % (Auto) (0-2) % Lymph # (Auto) (1.2-4.9) X10*3/uL [place] # (Auto) (0.1-1.2) X10*3/uL Eos # (Auto) (0.0-0.4) X10*3/uL Baso # (Auto) (0.0-0.2) X10*3/uL Abs Immat Gran (auto) (0.00-0.03) X10*3/uL Absolute Neuts (auto) (2.0-8.3) x10*3/uL Absolute Nucleated RBC (0.0-0.012) X10*3/uL Nucleated RBC % (auto) (0.0-0.2) /100WBC Sodium (135-145) mmol/L Potassium (3.3-5.1) mmol/L Chloride (96-108) mmol/L Carbon Dioxide (22-29) mmol/L Anion Gap (12-20) BUN (9-16) mg/dL Creatinine (0.5-1.4) mg/dL Estim Creat Clear Calc Estimated GFR Random Glucose (60-115) mg/dL Calcium (8.4-10.2) mg/dL Troponin I High Sens 36.9 H D (<3.5-17.0) ng/L Urine Color Yellow Urine Appearance Clear Urine pH 5.5 (5.0-9.0) Ur Specific [place] 1.020 (1.005-1.025) Urine Protein 30 (1+) H (Neg-Trace) mg/dL Urine Glucose (UA) Negative (Negative) mg/dL Urine Ketones Negative (Negative) mg/dL Urine Blood Negative (Negative) Urine Nitrite Negative (Negative) Ur Leukocyte Esterase Moderate (2+) H (Negative) Urine RBC 6-10 H (0-2) /HPF Urine WBC 21-50 H (0-5) /HPF Ur Squamous Epith Cells 11-20 (0-2) /HPF Urine Bacteria None Seen (None Seen) Hyaline Casts 6-10 (0-2) /LPF Urine Opiates Screen Not Detected (Not Detect) Urine Fentanyl Screen POSITIVE H (Not Detect) Ur Barbiturates Screen Not Detected (Not Detect) Ur Phencyclidine Scrn Not Detected (Not Detect) Ur Amphetamines Screen Not Detected (Not Detect) U Benzodiazepines Scrn Not Detected (Not Detect) Urine Cocaine Screen POSITIVE H (Not Detect) U Marijuana (THC) Screen Not Detected (Not Detect) Ethyl Alcohol mg/dL Discharge Plan Discharge Clinical Impression: Drug overdose, UTI (urinary tract infection), Nausea & vomiting Patient Disposition: Home, Self-Care Instructions: Acute Nausea and Vomiting (ED), Adult Overdose (ED) Additional Instructions: Please follow-up with your primary care physician tomorrow. If you have any worsening or new symptoms, please return to the emergency room or call 911 Prescriptions: New ondansetron 4 mg tablet,disintegrating 4 mg PO Q6H PRN (Reason: nausea and vomiting) Qty: 14 0RF cefuroxime axetil 500 mg tablet 500 mg PO BID Qty: 14 0RF No Action acetaminophen [Tylenol Extra Strength] 500 mg tablet 500 mg PO Q6H PRN (Reason: pain or fever) Qty: 14 0RF naproxen 500 mg tablet 500 mg PO BID PRN (Reason: pain) 10 Days Qty: 14 0RF valacyclovir 1 gram tablet 1,000 mg PO TID 7 Days Qty: 21 0RF naproxen 500 mg tablet 500 mg PO BID cyclobenzaprine 10 mg tablet 10 mg PO TID sertraline 50 mg tablet 50 mg PO DAILY montelukast 10 mg tablet 10 mg PO QPM lisinopril-hydrochlorothiazide 20-12.5 mg tablet 1 tab PO DAILY trazodone 50 mg tablet 50 mg PO BEDTIME atorvastatin 20 mg tablet 20 mg PO DAILY diclofenac sodium 1 % gel topical BID amlodipine 5 mg tablet 5 mg PO DAILY
[2023-01-03] MEDS: 0.9 % Sodium Chloride 1,000 ML 999 ML IVCONT (05:47)
[2023-01-03] MEDS: Prochlorperazine Edisylate 10 MG/2 ML VIAL IVPUSH (05:47)
[2023-01-03 06:02] VITALS: BP 151/70; PULSE 66; RESP 17; TEMP 37.1; O2SAT 94
[2023-01-03 06:13] LABS: Troponin-I High Sensitivity 36.9 ng/L (<3.5-17.0)
--- NOTE | 2023-01-03 06:22 | PC.NURSE ---
late entry - iv line placed, repeat troponin sent. pt medicated per mar for nausea/vomiting. on equipment monitor phototypesetting. family at bedside. will CTM
--- NOTE | 2023-01-03 07:19 | ECG_ITS ---
Test Reason : OVERDOSE Blood Pressure : / mmHG Vent. Rate : 077 BPM Atrial Rate : 077 BPM P-R Int : 178 ms QRS Dur : 090 ms QT Int : 370 ms P-R-T Axes : 000 138 146 degrees QTc Int : 418 ms Normal sinus rhythm Left posterior fascicular block Abnormal ECG When compared to the previous EKG of 01 november 2015, LPFB seen. Referred By: Emma Cavanaugh Electronically Signed By:LUIS DANIEL VENEGAS
== END 2023-01-03 06:45 | disposition home or self-care (01) ==
PROVIDERS: Emergency Provider Emergency Medicine
DX: T40.1X2A Poisoning by heroin, intentional self-harm, initial encounter (principal); T40.1X1A Poisoning by heroin, accidental (unintentional), initial encounter; R94.31 Abnormal electrocardiogram [ECG] [EKG]; N39.0 Urinary tract infection, site not specified; Y92.9 Unspecified place or not applicable; Z71.51 Drug abuse counseling and surveillance of drug abuser; Z79.899 Other long term (current) drug therapy
CPT/HCPCS: 36415; 71045; 80048; 80307; 81001; 81003; 84484; 85025; 93005; 99284

== ENCOUNTER 2023-01-04 11:45 | Emergency (ER) | payer OTHER, SELFPAY ==
--- NOTE | ~2023-01-04 | CT_ITS ---
EXAMINATION: CT CHEST WITH CONTRAST CLINICAL INFORMATION: Chest pain and left upper quadrant pain after compression COMPARISON: Previous chest x-ray from earlier the same day TECHNIQUE: Multidetector volumetric CT imaging of the chest was obtained after the administration of 85 mL of Omnipaque 350 intravenous contrast without immediate adverse reactions. Axial MIP volume rendering provided. Sagittal and coronal reformatted images were obtained. This CT examination was performed using dose optimization techniques as appropriate, variously including the following: *Automated exposure control *Adjustment of mA and/or kV according to patient size (this includes techniques or standardized protocols for targeted exams where dose is matched to indication/reason for exam; i.e. extremities or head) *Use of iterative reconstruction technique DLP: 295 mGy-cm FINDINGS: DIRECTOR SOCIAL SERVICE: LUNGS: Mild subsegmental atelectasis in the lingula. The lungs are otherwise clear. MEDIASTINUM: The mediastinum is normal. PLEURA: Tiny bilateral pleural effusions. No pneumothorax. AXILLA: No lymphadenopathy. UPPER ABDOMEN: Unremarkable OSSEOUS STRUCTURES: Left anterior minimally displaced sixth rib fracture. Question nondisplaced left anterior seventh rib fracture. Degenerative changes of the spine. CT/CT chest w IV con IMPRESSION: Minimally displaced left anterior sixth rib fracture and question nondisplaced adjacent left anterior seventh rib fracture. Fleischner guidelines were followed.
--- NOTE | ~2023-01-04 | XR_ITS ---
EXAMINATION: XR CHEST CLINICAL INFORMATION: Chest pain COMPARISON: None available. TECHNIQUE: 2 views of the chest were obtained. FINDINGS: No significant abnormality is noted involving the heart, lungs, mediastinum, bony thorax or soft tissues. XR/XR chest 2V IMPRESSION: Unremarkable chest examination.
--- NOTE | ~2023-01-04 | CT_ITS ---
EXAMINATION: CT ABDOMEN AND PELVIS WITH CONTRAST CLINICAL INFORMATION: Left upper quadrant pain after compressions. Rule out splenic injury COMPARISON: Previous CT of the abdomen and pelvis from 2013 TECHNIQUE: Multidetector volumetric images were obtained from the superior aspect of the liver through the pubic symphysis following administration 85 mL of Omnipaque 350 intravenous contrast. Sagittal and coronal reformatted images were obtained on the technologist's workstation. Oral contrast: Yes This CT examination was performed using dose optimization techniques as appropriate, variously including the following: *Automated exposure control *Adjustment of mA and/or kV according to patient size (this includes techniques or standardized protocols for targeted exams where dose is matched to indication/reason for exam; i.e. extremities or head) *Use of iterative reconstruction technique DLP: 729 mGy-cm FINDINGS: LUNG BASES: The visualized lung bases are unremarkable. LIVER, GALLBLADDER, AND BILIARY TREE: The liver is normal in size, shape, and attenuation. No focal hepatic lesion or biliary ductal dilatation is present. The gallbladder is unremarkable with no evidence of radiopaque gallstones, gallbladder wall thickening, or obvious pericholecystic inflammatory changes. PANCREAS: Unremarkable. SPLEEN: Unremarkable. No ascites. ADRENAL GLANDS: Unremarkable. KIDNEYS AND URETERS: The kidneys are normal in size, shape, and attenuation. No hydronephrosis, hydroureter, or calculi seen. No perinephric stranding. Tiny cyst in the upper pole of the left kidney. No imaging follow-up recommended. BLADDER: Unremarkable. GASTROINTESTINAL TRACT: Moderate stool burden. Diverticulosis. The small and large bowel are unremarkable. The appendix is unremarkable. ABDOMINAL WALL: Small umbilical hernia containing fat. LYMPH NODES: Normal. VASCULAR: Unremarkable. PELVIC VISCERA: Unremarkable. OSSEOUS STRUCTURES: Degenerative changes of the spine. Left anterior sixth and question seventh rib fractures as described and chest CT report. No other fracture. CT/CT abdomen pelvis w IV con IMPRESSION: No acute findings in the abdomen or pelvis. Normal-appearing spleen. Fleischner guidelines were followed.
--- NOTE | 2023-01-04 11:49 | ECG_ITS ---
Test Reason : chest pain Blood Pressure : / mmHG Vent. Rate : 081 BPM Atrial Rate : 081 BPM P-R Int : 156 ms QRS Dur : 088 ms QT Int : 368 ms P-R-T Axes : 030 066 045 degrees QTc Int : 427 ms Sinus rhythm with occasional Premature ventricular complexes Otherwise normal ECG When compared with ECG of 03-JAN-2023 02:10, Premature ventricular complexes are now Present Referred By: Generic ED Physician Electronically Signed By:LUIS DANIEL VENEGAS
[2023-01-04 12:02] VITALS: BP 140/81; PULSE 81; RESP 20; TEMP 37; O2SAT 97; BMI 26.4
--- NOTE | 2023-01-04 12:02 | ED.GENADULT ---
HPI - General Adult General Chief complaint: Dyspnea Stated complaint: Chest pain/Diff breathing/Bruised chest Time Seen by Provider: 01/04/23 12:57 Source: patient, RN notes reviewed and old records reviewed History of Present Illness HPI narrative: 62-year-old female with a past medical history of substance abuse, asthma, depression, HTN, seen & treated in our ED yesterday s/p overdose with bystander CPR performed, presenting to the ED today complaining of persistent substernal/bilateral rib and back pain since yesterday s/p CPR. Admits pain worse with breathing, movement, palpation with mild SOB. Denies fever, chills, nausea/vomiting, abdominal pain, pedal edema Onset (ago): hour(s) Related Data Home Medications Medication Instructions Recorded Confirmed atorvastatin 20 mg tablet 20 mg PO DAILY 11/21/20 01/25/21 cyclobenzaprine 10 mg tablet 10 mg PO TID 11/21/20 01/25/21 lisinopril 20 1 tab PO DAILY 11/21/20 01/25/21 mg-hydrochlorothiazide 12.5 mg tablet montelukast 10 mg tablet 10 mg PO QPM 11/21/20 01/25/21 naproxen 500 mg tablet 500 mg PO BID 11/21/20 01/25/21 sertraline 50 mg tablet 50 mg PO DAILY 11/21/20 01/25/21 trazodone 50 mg tablet 50 mg PO BEDTIME 11/21/20 01/25/21 amlodipine 5 mg tablet 5 mg PO DAILY 02/01/22 diclofenac sodium 1 % topical gel g topical BID 02/01/22 Previous Rx's Medication Instructions Recorded acetaminophen 500 mg tablet 500 mg PO Q6H PRN pain or fever 11/22/21 (Tylenol Extra Strength) #14 tabs naproxen 500 mg tablet 500 mg PO BID PRN pain 10 days #14 11/22/21 tabs valacyclovir 1 gram tablet 1,000 mg PO TID 7 days #21 tabs 09/03/22 cefuroxime axetil 500 mg tablet 500 mg PO BID #14 tabs 01/03/23 ondansetron 4 mg disintegrating 4 mg PO Q6H PRN nausea and 01/03/23 tablet vomiting #14 tabs acetaminophen 500 mg tablet 500 mg PO Q6H PRN fever or pain 01/04/23 (Tylenol Extra Strength) #14 tabs lidocaine 5 % topical patch 1 patch topical DAILY PRN pain #30 01/04/23 (Lidoderm) ea naproxen 500 mg tablet 500 mg PO BID PRN pain 10 days #20 01/04/23 tabs Allergies Allergy/AdvReac Type Severity Reaction Status Date / Time No Known Allergies Allergy Verified 01/04/23 12:05 [No Known Allergies*] Review of Systems Review of Systems: Constitutional: No Fever, No Chills, No Fatigue, No Malaise ENT/Mouth: No Ear Pain, No Nasal Congestion, No sore throat, No Rhinorrhea, No Swallowing Difficulty Eyes: No Eye Pain, No Swelling, No Redness, No Vision Changes Cardiovascular: + Chest Pain, + SOB, No Dyspnea on Exertion, No Orthopnea, No Edema Respiratory: No Cough, No Sputum, No Dyspnea Gastrointestinal: No Nausea, No Vomiting, No Diarrhea, No Constipation, No Abdominal pain Genitourinary: No irregular bleeding, No Dysuria, No Urinary Frequency, No Hematuria, No Flank Pain Musculoskeletal: No joint pain, No Myalgias, No Joint Swelling Skin: No Skin Lesions, No rash Neuro: No Weakness, No Numbness, No Dizziness, No Headache Yes all other systems are reviewed and are negative Constitutional: Constitutional: Reports as per [facility] Past Medical History Attestation statement: The following information was validated with the patient. Source: old records reviewed Medical History Asthma Depressed Hypertension Left knee pain Substance abuse Social History Social History Alcohol intake: never Smoked in Last 30 Days: No Use of substances other than those prescribed or required for medical reasons: No Advance Directives: No Advance Directives Information Provided: No Current occupational status: unemployed Current occupation: left handed Physical Exam ED Vital Signs: Vital Signs - 24 hr 01/04/23 12:02 01/04/23 16:20 Temperature 98.6 F 99.0 F Pulse Rate 81 83 Respiratory Rate 20 15 Blood Pressure 140/81 H 153/70 H Pulse Oximetry 97 98 Oxygen Delivery Method Room Air Room Air BMI result Body Mass Index 26.4 Const General: cooperative, healthy appearing and no acute distress Orientation/consciousness: patient oriented x3 Limitations: no limitations HENMT Head: Yes normal to inspection and Yes atraumatic Ears: hearing grossly normal bilaterally General nose exam: Normal external nose present Face and sinus: Yes normal facial exam Eyes General: appearance normal, both eyes and all related structures EOM: EOMs intact bilaterally Neck Neck: Yes normal visual inspection and Yes no meningeal signs Chest Other: + healing ecchymosis noted to sternum. Diffuse anterior and bilateral chest wall/rib tenderness to palpation reproducing subjective complaint. No evidence of flail chest Chest palpation & inspection: no crepitus and tenderness Resp Effort & Inspection: normal respiratory effort and no respiratory distress Auscultation: clear to auscultation bilaterally, no crackles and no wheezes Cardio Rate: regular rate Heart sounds: S1 normal heart sound present and S2 normal heart sound present GI Inspection: Yes normal to inspection Palpation (GI): Soft to palpation, Tenderness to palpation present (GI) in the epigastrum and in the LLQ; with no rebound tenderness, no guarding and not rigid Back/Spine/Pelvis Other: No midline cervical/thoracic/lumbar spinous tenderness/step-off or deformity Skin Rashes: no rashes Wounds: no wounds Neuro General: patient oriented x3, tone normal and no meningeal signs Gait exam (Neuro): Normal gait present Extrem General: Yes normal to inspection and Yes no pedal edema Course Course Course Narrative: RME performed by Megan Holm PA-C. Patient is a 62 year old assigned female at presenting to the emergency department with chest pain. Patient states that she was brought in by EMS yesterday after a heroin overdose where her family did CPR. Labs, imaging, and swab ordered. Patient placed back in the waiting room pending room availability and results. XR chest 2V IMPRESSION: Unremarkable chest examination. -troponin 18.8 > improved from yesterday -tox screen positive for fentanyl and cocaine -1630--CT chest w IV con IMPRESSION: Minimally displaced left anterior sixth rib fracture and question nondisplaced adjacent left anterior seventh rib fracture.? Fleischner guidelines were followed. CT abdomen pelvis w IV con IMPRESSION: No acute findings in the abdomen or pelvis. Normal-appearing spleen. Fleischner guidelines were followed. > will discharge patient with incentive spirometer and take home Narcan. Results discussed with patient including worrisome signs and symptoms and strict return precautions, and when to return to the emergency department. They verbalized understanding and feel safe for discharge at this time. Medications Administered Discontinued Medications Generic Name Dose Route Start Last Admin Trade Name Fregalileo PRN Reason Stop Dose Admin Sodium Chloride 1,000 mls @ 999 mls/hr 01/04/23 13:15 01/04/23 15:52 Ns IV 01/04/23 14:15 Infused .Q1H1M SHEILA Infusion Iohexol 85 ml 01/04/23 14:55 01/04/23 14:55 Iohexol 350 Mg/Ml 100 Ml Infus..Btl IV 01/04/23 14:56 85 ml ONCE ONE Administration Medical Decision Making Medical Decision Making MDM Narrative: 62-year-old female with a past medical history of substance abuse, asthma, depression, HTN, seen & treated in our ED yesterday s/p overdose with bystander CPR performed, presenting to the ED today complaining of persistent substernal/bilateral rib and back pain since yesterday s/p CPR. On exam vital signs stable, NAD, nontoxic appearing, physical exam as above with noted healing ecchymosis to sternum and anterior/bilateral rib tenderness to palpation. No evidence of flail chest. Abdomen soft epigastric/LUQ tenderness, no rebound or guarding. Concern for rib fracture/contusion vs intrathoracic/intra-abdominal injury/bleeding s/p CPR. Lower suspicion for ACS/PE Plan: EKG, labs, CXR, CT chest/abdomen/pelvis, pain control Please refer to course for remaining clinical decision making, interpretation of labs/imaging results, and discussions with consultants and/or family members. Differential Diagnosis Differential Diagnoses: The differential diagnosis associated with the presentation includes As above Admission/Observation Consideration of admission/observation: Escalation of care including admission/observation considered Lab Data [facility] Lab Attestation statement: I reviewed the patient's lab results. 01/04/23 12:54 01/04/23 12:54 Labs: Lab Results 01/04/23 01/04/23 01/04/23 Range/Units 12:33 12:54 12:54 WBC 8.1 (4.8-10.8) X10*3/uL RBC 4.41 (4.20-5.50) X10*6/uL Hgb 12.2 (12.0-16.0) g/dl Hct 39.3 (37.0-47.0) % MCV 89.1 (80.0-98.0) fL MCH 27.7 (27.0-33.0) pg MCHC 31.0 (31.0-35.0) g/dl RDW 13.2 (11.0-16.0) % Plt Count 300 (160-400) X10*3/uL MPV 9.7 (9.4-12.3) fL Immature Gran % (Auto) 0.4 (0.0-0.4) % Neut % (Auto) 72.6 (45-73) % Lymph % (Auto) 13.9 L (20-40) % [place] % (Auto) 11.9 H (2-11) % Eos % (Auto) 1.0 (0-4) % Baso % (Auto) 0.2 (0-2) % Lymph # (Auto) 1.1 L (1.2-4.9) X10*3/uL [place] # (Auto) 1.0 (0.1-1.2) X10*3/uL Eos # (Auto) 0.1 (0.0-0.4) X10*3/uL Baso # (Auto) 0.0 (0.0-0.2) X10*3/uL Abs Immat Gran (auto) 0.03 (0.00-0.03) X10*3/uL Absolute Neuts (auto) 5.9 (2.0-8.3) x10*3/uL Absolute Nucleated RBC 0.000 (0.0-0.012) X10*3/uL Nucleated RBC % (auto) 0.0 (0.0-0.2) /100WBC Sodium 142 (135-145) mmol/L Potassium 3.7 (3.3-5.1) mmol/L Chloride 102 (96-108) mmol/L Carbon Dioxide 32 H (22-29) mmol/L Anion Gap 12 (12-20) BUN 18 H (9-16) mg/dL Creatinine 0.92 (0.5-1.4) mg/dL Estim Creat Clear Calc 52.7 Estimated GFR > 60 Random Glucose 130 H (60-115) mg/dL Calcium 9.5 (8.4-10.2) mg/dL Magnesium 2.0 (1.6-2.6) mg/dL Total Bilirubin 0.6 (0.0-1.0) mg/dL AST 22 (5-31) U/L ALT 16 (0-31) U/L Alkaline Phosphatase 97 (39-117) U/L Troponin I High Sens (<3.5-17.0) ng/L Total Protein 7.2 (6.5-8.0) g/dL Albumin 4.0 (3.5-5.0) g/dL Lipase 20 (8-78) U/L Urine Opiates Screen Not Detected (Not Detect) Urine Fentanyl Screen POSITIVE H (Not Detect) Ur Barbiturates Screen Not Detected (Not Detect) Ur Phencyclidine Scrn Not Detected (Not Detect) Ur Amphetamines Screen Not Detected (Not Detect) U Benzodiazepines Scrn Not Detected (Not Detect) Urine Cocaine Screen POSITIVE H (Not Detect) U Marijuana (THC) Screen Not Detected (Not Detect) COVID-19 (LOU) (Negative) COVID-19 Clin Com 01/04/23 01/04/23 Range/Units 12:54 12:54 WBC (4.8-10.8) X10*3/uL RBC (4.20-5.50) X10*6/uL Hgb (12.0-16.0) g/dl Hct (37.0-47.0) % MCV (80.0-98.0) fL MCH (27.0-33.0) pg MCHC (31.0-35.0) g/dl RDW (11.0-16.0) % Plt Count (160-400) X10*3/uL MPV (9.4-12.3) fL Immature Gran % (Auto) (0.0-0.4) % Neut % (Auto) (45-73) % Lymph % (Auto) (20-40) % [place] % (Auto) (2-11) % Eos % (Auto) (0-4) % Baso % (Auto) (0-2) % Lymph # (Auto) (1.2-4.9) X10*3/uL [place] # (Auto) (0.1-1.2) X10*3/uL Eos # (Auto) (0.0-0.4) X10*3/uL Baso # (Auto) (0.0-0.2) X10*3/uL Abs Immat Gran (auto) (0.00-0.03) X10*3/uL Absolute Neuts (auto) (2.0-8.3) x10*3/uL Absolute Nucleated RBC (0.0-0.012) X10*3/uL Nucleated RBC % (auto) (0.0-0.2) /100WBC Sodium (135-145) mmol/L Potassium (3.3-5.1) mmol/L Chloride (96-108) mmol/L Carbon Dioxide (22-29) mmol/L Anion Gap (12-20) BUN (9-16) mg/dL Creatinine (0.5-1.4) mg/dL Estim Creat Clear Calc Estimated GFR Random Glucose (60-115) mg/dL Calcium (8.4-10.2) mg/dL Magnesium (1.6-2.6) mg/dL Total Bilirubin (0.0-1.0) mg/dL AST (5-31) U/L ALT (0-31) U/L Alkaline Phosphatase (39-117) U/L Troponin I High Sens 18.8 H (<3.5-17.0) ng/L Total Protein (6.5-8.0) g/dL Albumin (3.5-5.0) g/dL Lipase (8-78) U/L Urine Opiates Screen (Not Detect) Urine Fentanyl Screen (Not Detect) Ur Barbiturates Screen (Not Detect) Ur Phencyclidine Scrn (Not Detect) Ur Amphetamines Screen (Not Detect) U Benzodiazepines Scrn (Not Detect) Urine Cocaine Screen (Not Detect) U Marijuana (THC) Screen (Not Detect) COVID-19 (LOU) Negative (Negative) COVID-19 Clin Com See Note Radiology Impression Discussion of test interpretation with radiology: I have reviewed the radiologist's reading. External Record Review External record reviewed: Inpatient record, Office record, Outpatient record, Prior outpatient labs, Prior outpatient radiology, Primary care record and Outside ED record Tests considered The following testing was considered but not selected: As above Discharge Plan Discharge Clinical Impression: Multiple rib fractures Patient Disposition: Home, Self-Care Instructions: Rib Fracture (ED) Additional Instructions: Your blood work is reassuring. Her CT scan does show a minimally displaced left 6th anterior rib fracture and a possible left 7th rib fracture Tylenol and Motrin will help with pain In addition Lidoderm patches or numbing patches apply to painful area Follow-up with her doctor If you develop persistent or worsening pain, unbearable cane, shortness of breath, fever or cough return to the ED Cardoza an?lisis de chandan es tranquilizador. Cardoza tomograf?a computarizada muestra arnaldo fractura de la sexta jose anterior izquierda m?nimamente desplazada y arnaldo posible fractura de la s?ptima jose izquierda. Tylenol y Motrin ayudar?n con el dolor Adem?s, se aplican parches de Lidoderm o parches anest?sicos en el ?zeeshan dolorida. Seguimiento con cardoza m?dico Si desarrolla dolor persistente o que empeora, raúl?n insoportable, dificultad para respirar, fiebre o tos, regrese al servicio de urgencias. Prescriptions: New acetaminophen [Tylenol Extra Strength] 500 mg tablet 500 mg PO Q6H PRN (Reason: fever or pain) Qty: 14 0RF lidocaine [Lidoderm] 5 % adhesive patch,medicated 1 patch topical DAILY MDD remove after 12 hours PRN (Reason: pain) Qty: 30 0RF Rx Instructions: leave on most painful area for up to 12 hrs naproxen 500 mg tablet 500 mg PO BID PRN (Reason: pain) 10 Days Qty: 20 0RF No Action acetaminophen [Tylenol Extra Strength] 500 mg tablet 500 mg PO Q6H PRN (Reason: pain or fever) Qty: 14 0RF naproxen 500 mg tablet 500 mg PO BID PRN (Reason: pain) 10 Days Qty: 14 0RF valacyclovir 1 gram tablet 1,000 mg PO TID 7 Days Qty: 21 0RF ondansetron 4 mg tablet,disintegrating 4 mg PO Q6H PRN (Reason: nausea and vomiting) Qty: 14 0RF cefuroxime axetil 500 mg tablet 500 mg PO BID Qty: 14 0RF naproxen 500 mg tablet 500 mg PO BID cyclobenzaprine 10 mg tablet 10 mg PO TID sertraline 50 mg tablet 50 mg PO DAILY montelukast 10 mg tablet 10 mg PO QPM lisinopril-hydrochlorothiazide 20-12.5 mg tablet 1 tab PO DAILY trazodone 50 mg tablet 50 mg PO BEDTIME atorvastatin 20 mg tablet 20 mg PO DAILY diclofenac sodium 1 % gel topical BID amlodipine 5 mg tablet 5 mg PO DAILY Referrals: Shraddha Mustafa MD [Primary Care Provider] - 3 days Print Language: Portuguese
[2023-01-04 12:58] LABS: MANUAL DIFF FLAG NO
[2023-01-04 12:59] LABS: Basophils Percent Auto 0.2 % (0-2); Eosinophils Absolute Auto 0.1 X10*3/uL (0.0-0.4); Hematocrit 39.3 % (37.0-47.0); Hemoglobin 12.2 g/dl (12.0-16.0); Imm Gran Abs Auto 0.03 X10*3/uL (0.00-0.03); Imm Gran Pct Auto 0.4 % (0.0-0.4); Lymphocytes Absolute Auto 1.1 X10*3/uL (1.2-4.9); Lymphocytes Percent Auto 13.9 % (20-40); Mean Corpuscular Hemoglobin 27.7 pg (27.0-33.0); Mean Corpuscular Volume 89.1 fL (80.0-98.0); Mean Platelet Volume 9.7 fL (9.4-12.3); Monocytes Percent Auto 11.9 % (2-11); Neutrophils Absolute Auto 5.9 x10*3/uL (2.0-8.3); Neutrophils Percent Auto 72.6 % (45-73); Platelet Count 300 X10*3/uL (160-400); Red Blood Count 4.41 X10*6/uL (4.20-5.50); Red Cell Distribution Width 13.2 % (11.0-16.0); White Blood Count 8.1 X10*3/uL (4.8-10.8)
[2023-01-04 13:12] LABS: COVID-19 Test Negative (Negative); IDNOW Serial# 6674DD1D
[2023-01-04 13:24] LABS: Alanine Aminotransferase 16 U/L (0-31); Alkaline Phosphatase 97 U/L (39-117); Anion Gap 12 (12-20); Aspartate Amino Transferase 22 U/L (5-31); Bilirubin Total 0.6 mg/dL (0.0-1.0); Blood Urea Nitrogen 18 mg/dL (9-16); Calcium 9.5 mg/dL (8.4-10.2); Carbon Dioxide 32 mmol/L (22-29); Chloride 102 mmol/L (96-108); Creatinine Clr Calc Pharmacy 52.7; Estimated Glomerular Filt Rate > 60; Glucose Random 130 mg/dL (60-115); Potassium 3.7 mmol/L (3.3-5.1); Sodium 142 mmol/L (135-145); Total Protein 7.2 g/dL (6.5-8.0)
[2023-01-04 13:33] LABS: Troponin-I High Sensitivity 18.8 ng/L (<3.5-17.0)
[2023-01-04] MEDS: 0.9 % Sodium Chloride 1,000 ML 999 ML IV (13:39)
[2023-01-04 14:23] LABS: Lipase 20 U/L (8-78)
[2023-01-04] MEDS: iohexoL 350 MG/ML 100 ML INFUS..BTL 85 ML IV (14:55)
[2023-01-04 15:52] LABS: Amphetamine Screen Urine Not Detected (Not Detect); Barbiturates, Urine Not Detected (Not Detect); Benzodiazepines Screen Urine Not Detected (Not Detect); Cannabinoid Screen Urine Not Detected (Not Detect); Cocaine Screen Urine POSITIVE (Not Detect); Fentanyl, urine POSITIVE (Not Detect); Opiate Screen Urine Not Detected (Not Detect); Phencyclidine Screen Urine Not Detected (Not Detect)
--- NOTE | 2023-01-04 15:53 | PC.NURSE ---
Report received from tamela Escobar Pt assisted back in bed from [facility] with help from this RN. Pt is now resting on stretcher, reporting a muscular chest pain she states is due to them doing CPR on her yesterday . Pt appears well on monitor, 70s normal sinus on monitor, O2 98% on room air. Pt reports no difficulty breathing. Awaiting chest CT at this time
[2023-01-04 16:20] VITALS: BP 153/70; PULSE 83; RESP 15; TEMP 37.2; O2SAT 98
[2023-01-04] MEDS: Ketorolac Tromethamine 15 MG/ML VIAL IVPUSH (16:51)
[2023-01-04] MEDS: Lidocaine 4 % Patch ADH..PATCH 1 PATCH TRANSDERMA (16:56)
[2023-01-04] MEDS: Naloxone HCl Nasal TAKE HOME 4 MG SPRAY NOSTRILALT (16:58)
== END 2023-01-04 17:03 | disposition home or self-care (01) ==
PROVIDERS: Physician Assistant; Physician Assistant Medical; Emergency Provider Emergency Medicine; PCP Internal Medicine
DX: S22.42XA Multiple fractures of ribs, left side, initial encounter for closed fracture (principal); X58.XXXA Exposure to other specified factors, initial encounter; F19.10 Other psychoactive substance abuse, uncomplicated; I10 Essential (primary) hypertension; R06.02 Shortness of breath; Z79.02 Long term (current) use of antithrombotics/antiplatelets; Z79.899 Other long term (current) drug therapy; Z20.822 Contact with and (suspected) exposure to COVID-19; Y93.89 Activity, other specified; Y92.039 Unspecified place in apartment as the place of occurrence of the external cause; Y99.9 Unspecified external cause status
CPT/HCPCS: 71046; 71260; 74177; 80053; 80307; 83690; 83735; 84484; 85025; 87635; 93005; 94010; 96361; 96374; 99284; 99285; J1885; Q9967

== ENCOUNTER 2023-06-23 13:53 | Emergency (ER) | payer OTHER, SELFPAY ==
--- NOTE | ~2023-06-23 | XR_ITS ---
EXAMINATION: XR CHEST CLINICAL INFORMATION: Chest pain. COMPARISON: Chest x-ray 01/04/2023 TECHNIQUE: 2 views of the chest were obtained. FINDINGS: The cardiomediastinal silhouette is within normal limits. No vascular congestion or edema. Lungs are well expanded and clear. No consolidation or effusion. No pneumothorax. Mild endplate degenerative changes in the spine. XR/XR chest 2V IMPRESSION: Stable chest x-ray. No acute cardiopulmonary findings.
--- NOTE | ~2023-06-23 | CT_ITS ---
Indication: Question fractures question pneumonia bilateral lower rib pain Diarrhea, question colitis Examination; noncontrast CT of the chest abdomen pelvis. Comparison previous exams dated 01/04/2023. Axial imaging with coronal and sagittal reformatted images. This CT examination was performed using dose optimization techniques as appropriate, variously including the following: *Automated exposure control *Adjustment of mA and/or kV according to patient size (this includes techniques or standardized protocols for targeted exams where dose is matched to indication/reason for exam; i.e. extremities or head) *Use of iterative reconstruction technique. Radiation dose [address] chest; The thoracic inlet is within normal limits. Axillary regions are unremarkable. Centrally no significant coronary calcifications are seen. Minimal. There is no bulky central adenopathy. This is a noncontrast study but the hilar regions are felt to be comparable to previous. Imaging lung ventura. Right lung; This exam is significantly limited from patient motion. No significant area of infiltrate is seen. There is no effusion. Left lung; Again significant limitation from patient motion No significant area of infiltrate or effusion is seen. Upper abdomen; Liver within normal limits. Spleen normal. Region the pancreas within normal limits. The adrenal glands unremarkable. The kidneys are nonhydronephrotic. Bladder within normal limits. Diverticula disease is noted distal descending colon into the sigmoid. No evidence for diverticulitis. The appendix is normal. Atherosclerotic changes noted in the vasculature. No bulky adenopathy. No free fluid in the deep pelvis. The abdominal wall is within normal limits. Region the gallbladder fossa within normal limits. Review of the bone windows does not demonstrate a suspicious bony finding. Old fracture deformities on the right. Rib fracture is seen. Degenerative changes in the thoracic spine CT/CT abdomen pelvis wo IV con IMPRESSION: Motion significantly limits evaluation in the chest. No significant infiltrate or effusion. No acute fracture. No pneumothorax. No acute finding in the abdomen pelvis.
[2023-06-23 13:58] VITALS: BP 165/79; PULSE 88; RESP 18; TEMP 36.6; O2SAT 98; BMI 27.3
--- NOTE | 2023-06-23 13:58 | ED_ITS ---
HPI - General Adult General Chief complaint: General Medical Stated complaint: Rib pain Time Seen by Provider: 06/23/23 16:13 Source: patient Mode of arrival: ambulatory Limitations: no limitations History of Present Illness HPI narrative: 62-year-old female with past medical history of left meniscus tear, substance abuse, and bilateral rib pain due to fractures presents to the Ed for 6 months of bilateral lower rib pain and one week of coughing, bodyaches, chills, diarreha, and cold sweats. Patient denies any recent trauma. patient denies any pleurisy, leg swelling, calf pain, recent surgery, or recent trauma. Related Data Home Medications Medication Instructions Recorded Confirmed atorvastatin 20 mg tablet 20 mg PO DAILY 11/21/20 01/25/21 cyclobenzaprine 10 mg tablet 10 mg PO TID 11/21/20 01/25/21 lisinopril 20 1 tab PO DAILY 11/21/20 01/25/21 mg-hydrochlorothiazide 12.5 mg tablet montelukast 10 mg tablet 10 mg PO QPM 11/21/20 01/25/21 naproxen 500 mg tablet 500 mg PO BID 11/21/20 01/25/21 sertraline 50 mg tablet 50 mg PO DAILY 11/21/20 01/25/21 trazodone 50 mg tablet 50 mg PO BEDTIME 11/21/20 01/25/21 amlodipine 5 mg tablet 5 mg PO DAILY 02/01/22 diclofenac sodium 1 % topical gel g topical BID 02/01/22 Previous Rx's Medication Instructions Recorded acetaminophen 500 mg tablet 500 mg PO Q6H PRN pain or fever 11/22/21 (Tylenol Extra Strength) #14 tabs naproxen 500 mg tablet 500 mg PO BID PRN pain 10 days #14 11/22/21 tabs valacyclovir 1 gram tablet 1,000 mg PO TID 7 days #21 tabs 09/03/22 cefuroxime axetil 500 mg tablet 500 mg PO BID #14 tabs 01/03/23 ondansetron 4 mg disintegrating 4 mg PO Q6H PRN nausea and 01/03/23 tablet vomiting #14 tabs acetaminophen 500 mg tablet 500 mg PO Q6H PRN fever or pain 01/04/23 (Tylenol Extra Strength) #14 tabs lidocaine 5 % topical patch 1 patch topical DAILY PRN pain #30 01/04/23 (Lidoderm) ea naproxen 500 mg tablet 500 mg PO BID PRN pain 10 days #20 01/04/23 tabs ketorolac 10 mg tablet 10 mg PO Q6H PRN pain 5 days #20 06/23/23 tabs Allergies Allergy/AdvReac Type Severity Reaction Status Date / Time No Known Allergies Allergy Verified 01/04/23 12:05 [No Known Allergies*] Review of Systems 2 Review of Systems: 62 yold female presents to the ED for bi lateral lower rib pain for 6 months and one week of coughing, bodyaches, chills, fever, diarrhea, and cold sweats. Yes all other systems are reviewed and are negative PMFSH Past Medical History Medical History Asthma Depressed Hypertension Left knee pain Substance abuse Social History Social History Alcohol intake: never Smoked in Last 30 Days: No Advance Directives: No Advance Directives Information Provided: Yes Current occupational status: unemployed Current occupation: left handed Physical Exam ED Vital Signs: Vital Signs - 24 hr 06/23/23 13:58 06/23/23 19:12 06/23/23 22:31 Temperature 97.8 F 98.2 F 97.8 F Pulse Rate 88 77 75 Respiratory Rate 18 16 18 Blood Pressure 165/79 H 174/81 H 173/85 H Pulse Oximetry 98 98 100 Oxygen Delivery Method Room Air Room Air Room Air BMI result Body Mass Index 27.3 Const General: cooperative, healthy appearing, comfortable, no acute distress, well developed, alert and awake Orientation/consciousness: oriented to person, oriented to place, oriented to time and patient oriented x3 [facility] Head: Yes normal to inspection, Yes No palpable skull fracture present, Yes normocephalic, Yes atraumatic and No abrasion Eyes General: appearance normal, both eyes and all related structures Neck Neck: Yes normal visual inspection, Yes full ROM, Yes no lymphadenopathy, Yes no meningeal signs, Yes trachea midline, Yes supple, No anterior neck swelling and No tender Chest Chest palpation & inspection: normal inspection of the chest and normal palpation of entire chest wall Chest/axillae images: 2 1. positive for tenderness on palpation. Negative for crepitus, ecchymosis, deformity, erythema, or rash. 2. positive for tenderness on palpation. Negative for crepitus, ecchymosis, deformity, erythema, or rash. Resp Effort & Inspection: normal respiratory effort and able to speak in complete sentences Auscultation: clear to auscultation bilaterally Cardio Jugular venous distension: no JVD Heart sounds: S1 normal heart sound present and S2 normal heart sound present GI Inspection: Yes normal to inspection Palpation (GI): Soft to palpation, not firm, nontender, no guarding and not rigid General: No CVA tenderness and Yes no CVA tenderness Back/Spine/Pelvis Back: no CVA tenderness, No CVA tenderness and No back tenderness Skin General skin exam: no rashes or lesions noted, elasticity normal and turgor normal Neuro General: oriented to person, oriented to place, oriented to time, patient oriented x3, gait normal, tone normal, moves all extremities, Normal light touch and pain sensation, no meningeal signs, no focal motor deficits, CN's II-XI intact bilaterally and normal sensation to monofilament Extrem Other: bilateral lower extremites negative for swelling, pitting edema, or calf tenderness General: Yes normal to inspection, Yes full ROM and Yes capillary refill normal Psych Appearance: grossly normal, well kempt and not disheveled Course Course Course Narrative: RME performed by Megan Holm PA-C. Patient is a 62 year old assigned female at presenting to the emergency department with body aches, chills, and diarrhea and chronic rib pain after CPR was done on her in December. Swabs ordered. Patient placed back in the waiting room pending room availability and results. Medications Administered Discontinued Medications Generic Name Dose Route Start Last Admin Trade Name Freq PRN Reason Stop Dose Admin Ketorolac Tromethamine 30 mg 06/23/23 16:41 06/23/23 16:58 Ketorolac Tromethamine 30 Mg/Ml Vial IM 06/23/23 16:42 30 mg ONCE ONE Administration Medical Decision Making Medical Decision Making MDM Narrative: 62-year-old female presents to the ED for bilateral lower rib pain for 6 months after receiving CPR 6 months ago and then states 1 week of coughing, diarrhea, chills, body aches, and cold sweats. be given pain medication. initial labs are normal. patient will be sent for dry CT to rule out any pneumonia from coughing for [address] study sent for colitis due to diarrhea although patient has no abdominal pain or abdominal tenderness. 62: Chest CT shows chronic rib fractures. Negative for any new fratures or pneumonia. Abdominal CT scan negative for any acute etiologies. Troponi pending 11:07pm: patient's 2nd troponin came back negative ( did not increase by 50%). Patient is safe for discharge. Patient refused to give urine states she will follow-up with a primary care provider to check her UA. patient educated on urinary tract infection pyelonephritis sepsis. Differential Diagnosis Differential Diagnoses: The differential diagnosis associated with the presentation includes ( bridge fractures, chronic pain, pneumonia, colitis, diverticulitis, uti, , pneumothorax, hemothorax) Admission/Observation Consideration of admission/observation: Escalation of care including admission/observation considered Lab Data MDM Lab Attestation statement: I reviewed the patient's lab results. 06/23/23 15:30 06/23/23 15:30 Labs: Lab Results 06/23/23 06/23/23 06/23/23 Range/Units 14:07 15:30 19:24 WBC 4.6 L (4.8-10.8) X10*3/uL RBC 4.56 (4.20-5.50) X10*6/uL Hgb 12.7 (12.0-16.0) g/dl Hct 38.7 (37.0-47.0) % MCV 84.9 (80.0-98.0) fL MCH 27.9 (27.0-33.0) pg MCHC 32.8 (31.0-35.0) g/dl RDW 13.6 (11.0-16.0) % Plt Count 237 (160-400) X10*3/uL MPV 9.9 (9.4-12.3) fL Immature Gran % (Auto) 0.0 (0.0-0.4) % Neut % (Auto) 46.3 (45-73) % Lymph % (Auto) 29.5 (20-40) % Hudspeth % (Auto) 18.0 H (2-11) % Eos % (Auto) 5.5 H (0-4) % Baso % (Auto) 0.7 (0-2) % Lymph # (Auto) 1.3 (1.2-4.9) X10*3/uL [place]eth # (Auto) 0.8 (0.1-1.2) X10*3/uL Eos # (Auto) 0.3 (0.0-0.4) X10*3/uL Baso # (Auto) 0.0 (0.0-0.2) X10*3/uL Abs Immat Gran (auto) 0.00 (0.00-0.03) X10*3/uL Absolute Neuts (auto) 2.1 (2.0-8.3) x10*3/uL Absolute Nucleated RBC 0.000 (0.0-0.012) X10*3/uL Nucleated RBC % (auto) 0.0 (0.0-0.2) /100WBC Sodium 143 (135-145) mmol/L Potassium 4.0 (3.3-5.1) mmol/L Chloride 107 (96-108) mmol/L Carbon Dioxide 28 (22-29) mmol/L Anion Gap 12 (12-20) BUN 21 H (9-16) mg/dL Creatinine 0.67 (0.5-1.4) mg/dL Estim Creat Clear Calc 76.5 Estimated GFR > 60 Random Glucose 126 H (60-115) mg/dL Calcium 9.3 (8.4-10.2) mg/dL Troponin I High Sens 17.2 H (<3.5-17.0) ng/L Influenza Type A (PCR) NEGATIVE (Negative) Influenza Type B (PCR) NEGATIVE (Negative) RSV RNA Qual (PCR) NEGATIVE (Negative) SARS-CoV-2 RNA (RT-PCR) NEGATIVE (Negative) 06/23/23 Range/Units 21:00 WBC (4.8-10.8) X10*3/uL RBC (4.20-5.50) X10*6/uL Hgb (12.0-16.0) g/dl Hct (37.0-47.0) % MCV (80.0-98.0) fL MCH (27.0-33.0) pg MCHC (31.0-35.0) g/dl RDW (11.0-16.0) % Plt Count (160-400) X10*3/uL MPV (9.4-12.3) fL Immature Gran % (Auto) (0.0-0.4) % Neut % (Auto) (45-73) % Lymph % (Auto) (20-40) % Hudspeth % (Auto) (2-11) % Eos % (Auto) (0-4) % Baso % (Auto) (0-2) % Lymph # (Auto) (1.2-4.9) X10*3/uL [place]speth # (Auto) (0.1-1.2) X10*3/uL Eos # (Auto) (0.0-0.4) X10*3/uL Baso # (Auto) (0.0-0.2) X10*3/uL Abs Immat Gran (auto) (0.00-0.03) X10*3/uL Absolute Neuts (auto) (2.0-8.3) x10*3/uL Absolute Nucleated RBC (0.0-0.012) X10*3/uL Nucleated RBC % (auto) (0.0-0.2) /100WBC Sodium (135-145) mmol/L Potassium (3.3-5.1) mmol/L Chloride (96-108) mmol/L Carbon Dioxide (22-29) mmol/L Anion Gap (12-20) BUN (9-16) mg/dL Creatinine (0.5-1.4) mg/dL Estim Creat Clear Calc Estimated GFR Random Glucose (60-115) mg/dL Calcium (8.4-10.2) mg/dL Troponin I High Sens 19.7 H (<3.5-17.0) ng/L Influenza Type A (PCR) (Negative) Influenza Type B (PCR) (Negative) RSV RNA Qual (PCR) (Negative) SARS-CoV-2 RNA (RT-PCR) (Negative) Independent Interpretation I performed an independent interpretation of an: EKG (NOrmal Sinus RHythm. Negative STEMI) and CT Scan Radiology Impression Discussion of test interpretation with radiology: I have reviewed the radiologist's reading. External Record Review External record reviewed: Other (Prior visits) Prescription Management I considered prescription management with: Pain Medication Discharge Plan Discharge Clinical Impression: Rib pain, Diarrhea Patient Disposition: Home, Self-Care Instructions: Chest Pain (ED), Acute Diarrhea (ED) Additional Instructions: Regrese al servicio de urgencias inmediatamente: dolor en el pecho, dificultad para respirar, pleures?a, tos con chandan, dolor abdominal, chandan en las heces, diarrea, disuria, hematuria, dolor en el costado, dolor en el pecho, dificultad para respirar, fiebre, escalofr?os o cualquier otro s?ntoma preocupante. .No tome ángel?n otro ABEL mientras est? tomando ketorolaco. Se recomienda realizar un seguimiento con el PCP para comprobar la orina en busca de ITU. Prescriptions: New ketorolac 10 mg tablet 10 mg PO Q6H PRN (Reason: pain) 5 Days Qty: 20 0RF Rx Instructions: PATIEent RECIEVED 30MG IM toradol No Action acetaminophen [Tylenol Extra Strength] 500 mg tablet 500 mg PO Q6H PRN (Reason: pain or fever) Qty: 14 0RF naproxen 500 mg tablet 500 mg PO BID PRN (Reason: pain) 10 Days Qty: 14 0RF valacyclovir 1 gram tablet 1,000 mg PO TID 7 Days Qty: 21 0RF ondansetron 4 mg tablet,disintegrating 4 mg PO Q6H PRN (Reason: nausea and vomiting) Qty: 14 0RF cefuroxime axetil 500 mg tablet 500 mg PO BID Qty: 14 0RF acetaminophen [Tylenol Extra Strength] 500 mg tablet 500 mg PO Q6H PRN (Reason: fever or pain) Qty: 14 0RF lidocaine [Lidoderm] 5 % adhesive patch,medicated 1 patch topical DAILY MDD remove after 12 hours PRN (Reason: pain) Qty: 30 0RF Rx Instructions: leave on most painful area for up to 12 hrs naproxen 500 mg tablet 500 mg PO BID PRN (Reason: pain) 10 Days Qty: 20 0RF naproxen 500 mg tablet 500 mg PO BID cyclobenzaprine 10 mg tablet 10 mg PO TID sertraline 50 mg tablet 50 mg PO DAILY montelukast 10 mg tablet 10 mg PO QPM lisinopril-hydrochlorothiazide 20-12.5 mg tablet 1 tab PO DAILY trazodone 50 mg tablet 50 mg PO BEDTIME atorvastatin 20 mg tablet 20 mg PO DAILY diclofenac sodium 1 % gel topical BID amlodipine 5 mg tablet 5 mg PO DAILY Interventions: ED Discharge Assessment Last Done: 06/24/23 00:12 Discharge Date/Time: 06/24/23 00:17 Print Language: Arabic
[2023-06-23 14:51] LABS: Influenza A PCR NEGATIVE (Negative); Influenza B PCR NEGATIVE (Negative); Resp Syncy Virus RNA Qual PCR NEGATIVE (Negative); SARS COV2 PCR INHOUSE NEGATIVE (Negative)
[2023-06-23 15:34] LABS: MANUAL DIFF FLAG NO
[2023-06-23 15:36] LABS: Basophils Percent Auto 0.7 % (0-2); Eosinophils Absolute Auto 0.3 X10*3/uL (0.0-0.4); Eosinophils Percent Auto 5.5 % (0-4); Hematocrit 38.7 % (37.0-47.0); Hemoglobin 12.7 g/dl (12.0-16.0); Lymphocytes Absolute Auto 1.3 X10*3/uL (1.2-4.9); Lymphocytes Percent Auto 29.5 % (20-40); Mean Corpuscular HGB Conc 32.8 g/dl (31.0-35.0); Mean Corpuscular Hemoglobin 27.9 pg (27.0-33.0); Mean Corpuscular Volume 84.9 fL (80.0-98.0); Mean Platelet Volume 9.9 fL (9.4-12.3); Monocytes Absolute Auto 0.8 X10*3/uL (0.1-1.2); Neutrophils Absolute Auto 2.1 x10*3/uL (2.0-8.3); Neutrophils Percent Auto 46.3 % (45-73); Platelet Count 237 X10*3/uL (160-400); Red Blood Count 4.56 X10*6/uL (4.20-5.50); Red Cell Distribution Width 13.6 % (11.0-16.0); White Blood Count 4.6 X10*3/uL (4.8-10.8)
[2023-06-23 15:48] LABS: Anion Gap 12 (12-20); Blood Urea Nitrogen 21 mg/dL (9-16); Calcium 9.3 mg/dL (8.4-10.2); Carbon Dioxide 28 mmol/L (22-29); Chloride 107 mmol/L (96-108); Creatinine Clr Calc Pharmacy 76.5; Estimated Glomerular Filt Rate > 60; Glucose Random 126 mg/dL (60-115); Sodium 143 mmol/L (135-145)
[2023-06-23] MEDS: Ketorolac Tromethamine 30 MG/ML VIAL IM (16:58)
--- NOTE | 2023-06-23 18:12 | ECG_ITS ---
Test Reason : BILATERAL LOWER RIB PAIN Blood Pressure : / mmHG Vent. Rate : 069 BPM Atrial Rate : 069 BPM P-R Int : 178 ms QRS Dur : 086 ms QT Int : 390 ms P-R-T Axes : 032 057 055 degrees QTc Int : 417 ms Normal sinus rhythm Normal ECG When compared with ECG of 04-JAN-2023 11:51, Premature ventricular complexes are no longer Present Referred By: Krsi Vargas Electronically Signed By:LEVAR MCMAHON MD
[2023-06-23 19:12] VITALS: BP 174/81; PULSE 77; RESP 16; TEMP 36.8; O2SAT 98
[2023-06-23 19:48] LABS: Troponin-I High Sensitivity 17.2 ng/L (<3.5-17.0)
[2023-06-23 21:37] LABS: Troponin-I High Sensitivity 19.7 ng/L (<3.5-17.0)
[2023-06-23 22:31] VITALS: BP 173/85; PULSE 75; RESP 18; TEMP 36.6; O2SAT 100
== END 2023-06-24 00:17 | disposition home or self-care (01) ==
PROVIDERS: Nurse Practitioner Family; Physician Assistant; Physician Assistant Medical; Emergency Provider Student in an Organized Health Care Education/Training Program; PCP Internal Medicine
DX: R07.81 Pleurodynia (principal); R19.7 Diarrhea, unspecified; Z20.822 Contact with and (suspected) exposure to COVID-19; Z20.828 Contact with and (suspected) exposure to other viral communicable diseases
CPT/HCPCS: 0241U; 36415; 71046; 71250; 74176; 80048; 84484; 85025; 93005; 96372; 99284; J1885

== ENCOUNTER 2023-06-25 17:43 | Outpatient (REF) | payer OTHER, SELFPAY ==
[2023-06-25 18:00] LABS: Appearance Urine Clear; Color Urine Dark Yellow; Glucose Urine UA Negative (Negative); Leukocyte Esterase Urine Trace (Negative); Nitrite Urine Negative (Negative); PH 5.5 (5.0-9.0); Specific Gravity - Urine 1.025 (1.005-1.025); UMIC TRIGGER UACC YES; Urine Blood Negative (Negative); Urine Ketones Trace mg/dL (Negative); Urine Protein Trace mg/dL (Neg-Trace)
[2023-06-25 18:10] LABS: Bacteria Urine None Seen (None Seen); Calcium Oxalate Crystals Urine Present; WBC Urine 0-5 /HPF (0-5)
== END 2023-06-25 17:44 | disposition home or self-care (01) ==
LOC: HO.HHCLNP 17:43
PROVIDERS: Visit Provider Internal Medicine
DX: R39.9 Unspecified symptoms and signs involving the genitourinary system (principal); N89.8 Other specified noninflammatory disorders of vagina
CPT/HCPCS: 36415; 81001; 81513; 87086

== ENCOUNTER 2023-09-12 13:45 | Outpatient (REF) | payer OTHER, SELFPAY ==
--- NOTE | ~2023-09-12 | XR_ITS ---
EXAMINATION: XR KNEE, LEFT CLINICAL INFORMATION: Left knee pain. COMPARISON: Left knee 11/21/2020 TECHNIQUE: Four views of the left knee. FINDINGS: No fracture. Trace joint effusion. Alignment is anatomic. Joint spaces are maintained. Minimal osteophyte formation is noted within the intercondylar groove region on the lateral side. No abnormal soft tissue calcification. Quadriceps enthesopathy is noted. XR/XR knee LT 2V IMPRESSION: No acute bony abnormality.
--- NOTE | ~2023-09-12 | XR_ITS ---
EXAMINATION: XR RIBS, BILATERAL CLINICAL INFORMATION: Bilateral rib pain and left knee pain. Patient is complaining about rib pain from mid 2023 after receiving CPR. COMPARISON: PA chest 06/23/2023 TECHNIQUE: PA chest and 3 views of the bilateral ribs were obtained. FINDINGS: Lungs are clear. No consolidation, pneumothorax, or pleural effusion. The cardiomediastinal silhouette and pulmonary vasculature are normal. There is mild loss of height of lower thoracic vertebral bodies, particularly T12, which is not likely acute. Ribs are intact. No fractures are identified. XR/XR ribs BI 3V IMPRESSION: 1. No acute cardiopulmonary disease. 2. No displaced rib fracture.
== END 2023-09-12 13:46 | disposition home or self-care (01) ==
LOC: HO.HHCX 13:45
PROVIDERS: Visit Provider Internal Medicine
DX: R07.81 Pleurodynia (principal); M25.562 Pain in left knee; G89.29 Other chronic pain
CPT/HCPCS: 71110; 73560

== ENCOUNTER 2023-09-23 12:30 | Outpatient (AMB) | payer OTHER, SELFPAY ==
--- NOTE | 2023-09-23 12:34 | A.OFFVIS_ITS ---
Intake Intake Visit Reasons: ov- left knee pain Intake Note: Carina is a 63 year old female who presents today for a follow up of her left knee pain. Patient was previously booked for a left knee Arthroscopy in 2021. Patient reports her pain has been getting worse over the time. HX of using a topical cream with mild relief. Patient is interested in going to PT for her left knee. Allergies No Known Allergies [No Known Allergies*] Allergy (Verified 09/23/23 12:38) HPI ov- left knee pain HPI Details Carina is a 63 year old woman who returns to discuss her left knee pain & MMT. She was scheduled for a left knee on 02/07/22, but this did not proceed. She complains of pain with daily activity. She would like to discuss treatment options. [facility] Medical History Asthma Depressed Hypertension Left knee pain Substance abuse Social History Alcohol intake: never Current occupational status: unemployed Current occupation: left handed Review of Systems Const All systems reviewed & are unremarkable except as noted in HPI and below Physical Exam Const General: no acute distress, alert and awake Orientation/consciousness: patient oriented x3 HEENT Head: Yes normocephalic and Yes atraumatic Eyes EOM: EOMs intact bilaterally Resp Effort & Inspection: normal respiratory effort and able to speak in complete sentences Cardio Jugular venous distension: no JVD Skin General skin exam: turgor normal Rashes: no rashes Neuro General: patient oriented x3 Extrem Other: Medial jopint line ttp + Steinmen's mild gait antalgia no effusion Psych Appearance: grossly normal Affect: normal affect Attitude: cooperative Assessment & Plan Assessment & Plan (1) Tear of medial meniscus of left knee: Code(s): S83.242A - Other tear of medial meniscus, current injury, left knee, initial encounter Plan: PT ordered. Does not want injections or surgery. Plan Prepared for Edwin Egan MD by Parmjit Keating, medical charge entry specialist, on 09/23/23 at 12:41 PM, EST. Orders: Orders PT Evaluation and Treatment Today S83.242A - Other tear of medial meniscus, current injury, left knee, initial encounter Coding Level of Care Code Est Pt Level 3 (80399) Diagnoses Tear of medial meniscus of left knee S83.242A
== END 2023-09-23 12:54 | disposition home or self-care (01) ==
PROVIDERS: PCP Internal Medicine; Visit Provider Orthopaedic Surgery
DX: S83.242A Other tear of medial meniscus, current injury, left knee, initial encounter (principal)
CPT/HCPCS: 99213

== ENCOUNTER → 2023-09-23 12:30 | Outpatient (BNVA) | payer OTHER, SELFPAY | PROVIDERS: PCP Internal Medicine; Visit Provider Orthopaedic Surgery | DX: S83.242D Other tear of medial meniscus, current injury, left knee, subsequent encounter (principal) | CPT/HCPCS: 99212 ==

== ENCOUNTER 2023-11-01 14:30 | Emergency (ER) | payer OTHER, SELFPAY ==
--- NOTE | ~2023-11-01 | XR_ITS ---
EXAMINATION: XR SHOULDER, LEFT CLINICAL INFORMATION: Fall downstairs COMPARISON: None available. TECHNIQUE: Three views of the left shoulder. FINDINGS: No acute fracture or malalignment. Minimal acromioclavicular and glenohumeral osteoarthritis. XR/XR shoulder LT min 2V IMPRESSION: No acute fracture or malalignment.
--- NOTE | ~2023-11-01 | CT_ITS ---
EXAMINATION: CT CHEST, ABDOMEN AND PELVIS WITH CONTRAST CLINICAL INFORMATION: Fall. Pain. COMPARISON: None available. TECHNIQUE: Multidetector volumetric CT imaging of the chest, abdomen and pelvis was obtained after the administration of 85 mL of Omnipaque 350 intravenous contrast without immediate adverse reactions. Axial MIP volume rendering provided. Sagittal and coronal reformatted images were obtained. This CT examination was performed using dose optimization techniques as appropriate, variously including the following: *Automated exposure control *Adjustment of mA and/or kV according to patient size (this includes techniques or standardized protocols for targeted exams where dose is matched to indication/reason for exam; i.e. 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 MEDIASTINUM: The mediastinum is normal. PLEURA: There is no pleural effusion. No pleural mass or thickening. AXILLA: No lymphadenopathy. LIVER, GALLBLADDER, AND BILIARY TREE: The liver is normal in size and attenuation. No focal liver lesion is seen. There is no intrahepatic biliary duct dilatation. The gallbladder is unremarkable with no evidence of radiopaque gallstones, gallbladder wall thickening, or obvious pericholecystic inflammatory changes. PANCREAS: Unremarkable. SPLEEN: Unremarkable. ADRENAL GLANDS: Unremarkable. KIDNEYS AND URETERS: The kidneys are normal in size, shape, and attenuation. No hydronephrosis, hydroureter, or calculi seen. No perinephric stranding. BLADDER: Unremarkable. GASTROINTESTINAL TRACT: There are diverticula of the descending colon without diverticulitis. The appendix is visualized and is within normal limits. ABDOMINAL WALL: No significant hernia is appreciated. LYMPH NODES: Normal. VASCULAR: Unremarkable. PELVIC VISCERA: Unremarkable. OSSEOUS STRUCTURES: Unremarkable. CT/CT abdomen pelvis w IV con IMPRESSION: 1. No evidence of acute traumatic injury in the chest, abdomen or pelvis. 2. Diverticulosis of the descending colon without diverticulitis. Fleischner guidelines were followed.
--- NOTE | ~2023-11-01 | CT_ITS ---
EXAMINATION: CT HEAD WITHOUT CONTRAST CT CERVICAL SPINE WITHOUT CONTRAST CLINICAL INFORMATION: Fall. COMPARISON: No similar priors. TECHNIQUE: Contiguous axial imaging was performed from the skull base to vertex without intravenous administration of contrast. Contiguous axial imaging was performed from the upper chest through the skull base without intravenous administration of contrast. Coronal and sagittal reformats were obtained at the acquisition workstation. This CT examination was performed using dose optimization techniques as appropriate, variously including the following: *Automated exposure control *Adjustment of mA and/or kV according to patient size (this includes techniques or standardized protocols for targeted exams where dose is matched to indication/reason for exam; i.e. extremities or head) *Use of iterative reconstruction technique DLP: 610 and 259 mGy-cm FINDINGS: Head: There is no evidence of acute intracranial hemorrhage or edematous territorial infarction. A few foci of hypoattenuation in the periventricular and deep white matter are consistent with mild microangiopathy. Marley-white matter differentiation is preserved. The ventricles are normal in size and configuration. No evidence for obstructive hydrocephalus. No abnormal mass effect or midline shift. No extra-axial fluid collections. No acute soft tissue or osseous abnormalities. The mastoid air cells and paranasal sinuses are clear. Cervical Spine: The atlantooccipital and atlantoaxial articulations remain well aligned. Straightening of the normal cervical lordosis. Otherwise, there is anatomic alignment of the vertebral bodies and posterior elements. No evidence of acute fracture or subluxation. Mild multilevel cervical spondylosis. There is no prevertebral soft tissue swelling. Coarse calcification in the left lobe of the thyroid. Remaining cervical soft tissues are normal in appearance. The lung apices demonstrate no abnormalities. CT/CT cervical spine wo IV con IMPRESSION: 1. No acute intracranial pathology. 2. No acute cervical spinal fractures or malalignment.
--- NOTE | ~2023-11-01 | CT_ITS ---
EXAMINATION: CT CHEST, ABDOMEN AND PELVIS WITH CONTRAST CLINICAL INFORMATION: Fall. Pain. COMPARISON: None available. TECHNIQUE: Multidetector volumetric CT imaging of the chest, abdomen and pelvis was obtained after the administration of 85 mL of Omnipaque 350 intravenous contrast without immediate adverse reactions. Axial MIP volume rendering provided. Sagittal and coronal reformatted images were obtained. This CT examination was performed using dose optimization techniques as appropriate, variously including the following: *Automated exposure control *Adjustment of mA and/or kV according to patient size (this includes techniques or standardized protocols for targeted exams where dose is matched to indication/reason for exam; i.e. 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 MEDIASTINUM: The mediastinum is normal. PLEURA: There is no pleural effusion. No pleural mass or thickening. AXILLA: No lymphadenopathy. LIVER, GALLBLADDER, AND BILIARY TREE: The liver is normal in size and attenuation. No focal liver lesion is seen. There is no intrahepatic biliary duct dilatation. The gallbladder is unremarkable with no evidence of radiopaque gallstones, gallbladder wall thickening, or obvious pericholecystic inflammatory changes. PANCREAS: Unremarkable. SPLEEN: Unremarkable. ADRENAL GLANDS: Unremarkable. KIDNEYS AND URETERS: The kidneys are normal in size, shape, and attenuation. No hydronephrosis, hydroureter, or calculi seen. No perinephric stranding. BLADDER: Unremarkable. GASTROINTESTINAL TRACT: There are diverticula of the descending colon without diverticulitis. The appendix is visualized and is within normal limits. ABDOMINAL WALL: No significant hernia is appreciated. LYMPH NODES: Normal. VASCULAR: Unremarkable. PELVIC VISCERA: Unremarkable. OSSEOUS STRUCTURES: Unremarkable. CT/CT chest w IV con IMPRESSION: 1. No evidence of acute traumatic injury in the chest, abdomen or pelvis. 2. Diverticulosis of the descending colon without diverticulitis. Fleischner guidelines were followed.
[2023-11-01 15:00] VITALS: BP 153/77; PULSE 90; RESP 19; TEMP 36.5; O2SAT 98; BMI 27.3
--- NOTE | 2023-11-01 15:03 | ED_ITS ---
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 Patient states that on Saturday she slipped and fell her entire staircase, hitting her head multiple times. She is also endorsing that she lost consciousness. She states that since this fall, she has had many episodes of nausea, vomiting, headaches as well as fevers. Also endorsing left shoulder and left-sided neck pain. She has not on blood thinners. Denies taking any medications prior to her arrival. She denies any diarrhea, bloody or black stool. She denies any shortness of breath. She reports that the chest pain has been constant over the last several days. Worsens with palpation. No other complaints or concerns at this time. MD elicited complaint: other (Pain) Onset (ago): day(s) Exacerbating factors: nothing Relieving factors: nothing Associated symptoms: chills, abdominal pain and extremity pain Treatments prior to arrival fever: none Related Data Home Medications Medication Instructions Recorded Confirmed atorvastatin 20 mg tablet 20 mg PO DAILY 11/21/20 01/25/21 cyclobenzaprine 10 mg tablet 10 mg PO TID 11/21/20 01/25/21 lisinopril 20 1 tab PO DAILY 11/21/20 01/25/21 mg-hydrochlorothiazide 12.5 mg tablet montelukast 10 mg tablet 10 mg PO QPM 11/21/20 01/25/21 naproxen 500 mg tablet 500 mg PO BID 11/21/20 01/25/21 sertraline 50 mg tablet 50 mg PO DAILY 11/21/20 01/25/21 trazodone 50 mg tablet 50 mg PO BEDTIME 11/21/20 01/25/21 amlodipine 5 mg tablet 5 mg PO DAILY 02/01/22 diclofenac sodium 1 % topical gel g topical BID 02/01/22 Previous Rx's Medication Instructions Recorded acetaminophen 500 mg tablet 500 mg PO Q6H PRN pain or fever 11/22/21 (Tylenol Extra Strength) #14 tabs naproxen 500 mg tablet 500 mg PO BID PRN pain 10 days #14 11/22/21 tabs valacyclovir 1 gram tablet 1,000 mg PO TID 7 days #21 tabs 09/03/22 cefuroxime axetil 500 mg tablet 500 mg PO BID #14 tabs 01/03/23 ondansetron 4 mg disintegrating 4 mg PO Q6H PRN nausea and 01/03/23 tablet vomiting #14 tabs acetaminophen 500 mg tablet 500 mg PO Q6H PRN fever or pain 01/04/23 (Tylenol Extra Strength) #14 tabs lidocaine 5 % topical patch 1 patch topical DAILY PRN pain #30 01/04/23 (Lidoderm) ea naproxen 500 mg tablet 500 mg PO BID PRN pain 10 days #20 01/04/23 tabs ketorolac 10 mg tablet 10 mg PO Q6H PRN pain 5 days #20 06/23/23 tabs cyclobenzaprine 10 mg tablet 10 mg PO TID PRN Shouler pain #14 11/02/23 tabs Allergies Allergy/AdvReac Type Severity Reaction Status Date / Time No Known Allergies Allergy Verified 09/23/23 12:38 [No Known Allergies*] Review of Systems 2 Review of Systems: Yes all other systems are reviewed and are negative Constitutional: Constitutional: Reports as per [facility] Past Medical History Medical History Asthma Depressed Hypertension Left knee pain Substance abuse Social History Social History Alcohol intake: never Advance Directives: No Advance Directives Information Provided: No Current occupational status: unemployed Current occupation: left handed Physical Exam 2 Vital Signs: Vital Signs: Last Vital Signs Temp 97.6 F 11/01/23 19:24 Pulse 77 11/01/23 19:24 Resp 18 11/01/23 19:24 BP 180/88 H 11/01/23 19:24 Pulse Ox 98 11/01/23 19:24 O2 Del Method Room Air 11/01/23 19:24 BMI result Body Mass Index 27.3 Const: General: cooperative, comfortable and no acute distress O rientation/consciousness: patient oriented x3 Limitations: no limitations HEENT: Head: Yes normal to inspection, Yes normocephalic, Yes atraumatic and No Hobbs's sign Ears: hearing grossly normal bilaterally and TM's normal bilaterally General nose exam: Normal external nose present Face and sinus: Yes normal facial exam Mouth: Normal oral and palatal mucosa present, oropharynx normal and moist mucous membranes Throat: Yes posterior oropharynx normal Eyes: General: appearance normal, both eyes and all related structures E yelids: Yes eyelids normal Conjunctivae: conjunctivae normal Sclerae: s clerae normal Pupils: Equal, round and reactive pupils present EOM: EOMs intact bilaterally Neck: Neck: Yes normal visual inspection, Yes full ROM and Yes no lymphadenopathy Lymphatic: no lymphadenopathy noted Chest: Other: Tenderness palpation along the anterior chest wall, no ecchymosis, step-off or crepitus noted. Chest palpation & inspection: normal inspection of the chest Resp: Effort & Inspection: normal respiratory effort and able to speak in complete sentences Auscultation: clear to auscultation bilaterally, no crackles, no rales, no rhonchi and no wheezes Cardio: Rate: regular rate Rhythm: regular rhythm Heart sounds: S1 normal heart sound present and S2 normal heart sound present GI: Other: Abdomen is soft, with tenderness palpation in the left upper quadrant as well as left side of ribs. No step-off or crepitus, no rebound or guarding. No ecchymosis seen. Inspection: Yes normal to inspection Skin: General skin exam: no rashes or lesions noted Trauma: no lacerations or abrasions Wounds: no wounds Neuro: General: patient oriented x3 and moves all extremities Cranial nerves: Yes Equal, round and reactive pupils present Extrem: General: Yes normal to inspection Right upper extremity: normal to inspection Left upper extremity: normal to inspection Right lower extremity: normal to inspection Left lower extremity: normal to inspection Course Course Course Narrative: This is a rapid medical exam: Additional HPI, ROS, PE not included below will be deferred to primary provider. C/o generalized body aches, headache, fever, n/v/d for the past several days. Fell down the stairs four days ago and reports loss of consciousness and left shoulder and arm pain Reevaluation(s) Reevaluation #1: Troponin returns, is elevated at 19.3. She does have a history of elevated troponins in the past. Patient's chest pain has been constant since this fall, I do not believe that this is cardiac in nature. Will repeat in 3 hours. All other labs within normal limits. CT head, C-spine, and shoulder x-ray are unremarkable. EKG normal sinus rhythm with no acute ST elevation or depression. Patient has remained stable, resting comfortably in room. Sign-out was given to my colleague, Dr. Abbott, pending CT chest, CT abdomen and pelvis and 2nd troponin. Time: 22:05 Reevaluation #2: The patient was signed out to me by the previous provider. The patient was signed out pending results of a CT of the chest and a CT of the abdomen and pelvis to evaluate for possible traumatic injuries from the patient's fall. Both of the CTs are negative. The patient was informed that her CTs are negative. She is very concerned about her left shoulder pain. She seems to have diffuse left shoulder pain and tenderness without deformity. She will be given a sling. I will also prescribe cyclobenzaprine. Medications Administered Discontinued Medications Generic Name Dose Route Start Last Admin Trade Name Makq PRN Reason Stop Dose Admin Acetaminophen 650 mg 11/01/23 20:02 11/01/23 21:52 Acetaminophen 325 Mg Tablet PO 11/01/23 20:03 650 mg ONCE ONE Administration Iohexol 85 ml 11/01/23 21:21 11/01/23 21:21 Iohexol 350 Mg/Ml 100 Ml Infus..Btl IV 11/01/23 21:22 85 ml ONCE ONE Administration Medical Decision Making Medical Decision Making MDM Narrative: This is a 63-year-old female presenting to the emergency department for evaluation of headache, neck pain, chest wall pain, abdominal pain, nausea, vomiting, and subjective fevers status post mechanical fall which occurred 4 days ago. Patient reports that she fell down an entire flight of stairs and lost consciousness. She states that she has had multiple episodes of vomiting. During my assessment, patient is alert and oriented, no focal deficits found on examination. CT head, C-spine, and left shoulder x-ray was obtained, without any acute findings. Upon further review, patient does have tenderness palpation in the left upper quadrant as well as along the anterior chest wall. Given findings as well as traumatic fall, CT chest and abdomen with IV contrast was obtained. Basic labs were also ordered. Plan: CT head, CT neck, CT chest, CT abdomen and pelvis, shoulder x-ray, EKG, labs, viral swabs Differential Diagnosis Differential Diagnoses: The differential diagnosis associated with the presentation includes Cervical spine fracture, ICH, subdural hematoma, shoulder dislocation, ACS- unlikely Admission/Observation Consideration of admission/observation: Escalation of care including admission/observation considered Lab Data MDM Lab Attestation statement: I reviewed the patient's lab results. No leukocytosis, H&H within normal limits. Creatinine with no evidence of MONICA. Troponin is elevated at 19.3. Patient does have a history of elevated troponins in the past 11/01/23 20:05 11/01/23 20:05 Labs: Lab Results 11/01/23 11/01/23 11/01/23 Range/Units 16:03 20:05 22:59 WBC 6.5 (4.8-10.8) X10*3/uL RBC 4.89 (4.20-5.50) X10*6/uL Hgb 13.6 (12.0-16.0) g/dl Hct 42.6 (37.0-47.0) % MCV 87.1 (80.0-98.0) fL MCH 27.8 (27.0-33.0) pg MCHC 31.9 (31.0-35.0) g/dl RDW 12.5 (11.0-16.0) % Plt Count 298 D (160-400) X10*3/uL MPV 10.1 (9.4-12.3) fL Immature Gran % (Auto) 0.2 (0.0-0.4) % Neut % (Auto) 44.2 L (45-73) % Lymph % (Auto) 37.5 (20-40) % Alfalfa % (Auto) 13.6 H (2-11) % Eos % (Auto) 4.0 (0-4) % Baso % (Auto) 0.5 (0-2) % Lymph # (Auto) 2.5 (1.2-4.9) X10*3/uL Alfalfa # (Auto) 0.9 (0.1-1.2) X10*3/uL Eos # (Auto) 0.3 (0.0-0.4) X10*3/uL Baso # (Auto) 0.0 (0.0-0.2) X10*3/uL Abs Immat Gran (auto) 0.01 (0.00-0.03) X10*3/uL Absolute Neuts (auto) 2.9 (2.0-8.3) x10*3/uL Absolute Nucleated RBC 0.000 (0.0-0.012) X10*3/uL Nucleated RBC % (auto) 0.0 (0.0-0.2) /100WBC PT 11.2 (11.1-13.3) SEC INR 0.9 (0.9-1.1) APTT 28.8 (26.0-36.8) SEC Sodium 142 (135-145) mmol/L Potassium 3.6 (3.3-5.1) mmol/L Chloride 102 (96-108) mmol/L Carbon Dioxide 31 H (22-29) mmol/L Anion Gap 13 (12-20) BUN 21 H (9-16) mg/dL Creatinine 0.76 (0.5-1.4) mg/dL Estim Creat Clear Calc 66.5 Estimated GFR > 60 Random Glucose 90 (60-115) mg/dL Calcium 9.7 (8.4-10.2) mg/dL Magnesium 2.1 (1.6-2.6) mg/dL Total Bilirubin 0.4 (0.0-1.0) mg/dL Direct Bilirubin 0.2 (0.0-0.5) mg/dL AST 25 (5-31) U/L ALT 16 (0-31) U/L Alkaline Phosphatase 99 (39-117) U/L Troponin I High Sens 19.3 H 21.0 H (<3.5-17.0) ng/L Total Protein 8.1 H (6.5-8.0) g/dL Albumin 4.4 (3.5-5.0) g/dL Lipase 35 (8-78) U/L Influenza Type A (PCR) NEGATIVE (Negative) Influenza Type B (PCR) NEGATIVE (Negative) RSV RNA Qual (PCR) NEGATIVE (Negative) SARS-CoV-2 RNA (RT-PCR) NEGATIVE (Negative) Independent Interpretation I performed an independent interpretation of an: EKG Interpretation: EKG normal sinus rhythm at a ventricular rate of 69 beats per minute, ME interval 172, QT QTC 380/415. No ST elevation or depression. Radiology Impression Discussion of test interpretation with radiology: I have reviewed the radiologist's reading. Radiologist Impression: FINDINGS: Head: There is no evidence of acute intracranial hemorrhage or edematous territorial infarction. A few foci of hypoattenuation in the periventricular and deep white matter are consistent with mild microangiopathy. Marley-white matter differentiation is preserved. The ventricles are normal in size and configuration. No evidence for obstructive hydrocephalus. No abnormal mass effect or midline shift. No extra-axial fluid collections. No acute soft tissue or osseous abnormalities. The mastoid air cells and paranasal sinuses are clear. Cervical Spine: The atlantooccipital and atlantoaxial articulations remain well aligned. Straightening of the normal cervical lordosis. Otherwise, there is anatomic alignment of the vertebral bodies and posterior elements. No evidence of acute fracture or subluxation. Mild multilevel cervical spondylosis. There is no prevertebral soft tissue swelling. Coarse calcification in the left lobe of the thyroid. Remaining cervical soft tissues are normal in appearance. The lung apices demonstrate no abnormalities. CT/CT cervical spine wo IV con IMPRESSION: 1. No acute intracranial pathology. 2. No acute cervical spinal fractures or malalignment. EXAMINATION: XR SHOULDER, LEFT CLINICAL INFORMATION: Fall downstairs COMPARISON: None available. TECHNIQUE: Three views of the left shoulder. FINDINGS: No acute fracture or malalignment. Minimal acromioclavicular and glenohumeral osteoarthritis. XR/XR shoulder LT min 2V IMPRESSION: No acute fracture or malalignment. Dictated By: Dakotah Pandya MD Independent Historian Clinical information obtained from an independent historian. History obtained from or confirmed by: Spouse Discharge Plan Discharge Clinical Impression: Closed head injury, Cervical paraspinal muscle spasm, Fall, Muscle contusion, Acute pain of left shoulder Patient Disposition: Home, Self-Care Instructions: Head Injury (ED), Muscle Spasm (ED), Bone Bruise (ED) Additional Instructions: You were seen in the emergency department after a fall. Your CT of your head and neck were normal. Your x-ray of your left shoulder was normal. Your workup was reassuring. Please follow-up with your primary care physician. Drink plenty of fluids get plenty of rest. Alternate between ibuprofen or Tylenol as needed for pain. I have sent a prescription for cyclobenzaprine, a muscle relaxant, to your pharmacy. You may use this for the left shoulder pain. Use the sling provided to help rest the arm. Ice can also be helpful. If any new or worsening symptoms occur including but not limited to chest pain, shortness of breath, please return for re-evaluation. Prescriptions: New cyclobenzaprine 10 mg tablet 10 mg PO TID PRN (Reason: Shouler pain) Qty: 14 0RF No Action acetaminophen [Tylenol Extra Strength] 500 mg tablet 500 mg PO Q6H PRN (Reason: pain or fever) Qty: 14 0RF naproxen 500 mg tablet 500 mg PO BID PRN (Reason: pain) 10 Days Qty: 14 0RF valacyclovir 1 gram tablet 1,000 mg PO TID 7 Days Qty: 21 0RF ondansetron 4 mg tablet,disintegrating 4 mg PO Q6H PRN (Reason: nausea and vomiting) Qty: 14 0RF cefuroxime axetil 500 mg tablet 500 mg PO BID Qty: 14 0RF ketorolac 10 mg tablet 10 mg PO Q6H PRN (Reason: pain) 5 Days Qty: 20 0RF Rx Instructions: PATIEent RECIEVED 30MG IM toradol acetaminophen [Tylenol Extra Strength] 500 mg tablet 500 mg PO Q6H PRN (Reason: fever or pain) Qty: 14 0RF lidocaine [Lidoderm] 5 % adhesive patch,medicated 1 patch topical DAILY MDD remove after 12 hours PRN (Reason: pain) Qty: 30 0RF Rx Instructions: leave on most painful area for up to 12 hrs naproxen 500 mg tablet 500 mg PO BID PRN (Reason: pain) 10 Days Qty: 20 0RF naproxen 500 mg tablet 500 mg PO BID cyclobenzaprine 10 mg tablet 10 mg PO TID sertraline 50 mg tablet 50 mg PO DAILY montelukast 10 mg tablet 10 mg PO QPM lisinopril-hydrochlorothiazide 20-12.5 mg tablet 1 tab PO DAILY trazodone 50 mg tablet 50 mg PO BEDTIME atorvastatin 20 mg tablet 20 mg PO DAILY diclofenac sodium 1 % gel topical BID amlodipine 5 mg tablet 5 mg PO DAILY Referrals: Shraddha Mustafa MD [Primary Care Provider] - (fall)
[2023-11-01 16:44] LABS: Influenza A PCR NEGATIVE (Negative); Influenza B PCR NEGATIVE (Negative); Resp Syncy Virus RNA Qual PCR NEGATIVE (Negative); SARS COV2 PCR INHOUSE NEGATIVE (Negative)
[2023-11-01 19:24] VITALS: BP 180/88; PULSE 77; RESP 18; TEMP 36.4; O2SAT 98
--- NOTE | 2023-11-01 19:39 | ECG_ITS ---
Test Reason : FALL Blood Pressure : / mmHG Vent. Rate : 069 BPM Atrial Rate : 069 BPM P-R Int : 172 ms QRS Dur : 084 ms QT Int : 388 ms P-R-T Axes : 028 039 037 degrees QTc Int : 415 ms Normal sinus rhythm Normal ECG When compared with ECG of 23-JUN-2023 18:24, No significant change was found Referred By: Carolynn Crowley Electronically Signed By:LUIS DANIEL VENEGAS
[2023-11-01 20:10] LABS: MANUAL DIFF FLAG NO
[2023-11-01 20:12] LABS: Basophils Percent Auto 0.5 % (0-2); Eosinophils Absolute Auto 0.3 X10*3/uL (0.0-0.4); Hematocrit 42.6 % (37.0-47.0); Hemoglobin 13.6 g/dl (12.0-16.0); Imm Gran Abs Auto 0.01 X10*3/uL (0.00-0.03); Imm Gran Pct Auto 0.2 % (0.0-0.4); Lymphocytes Absolute Auto 2.5 X10*3/uL (1.2-4.9); Lymphocytes Percent Auto 37.5 % (20-40); Mean Corpuscular HGB Conc 31.9 g/dl (31.0-35.0); Mean Corpuscular Hemoglobin 27.8 pg (27.0-33.0); Mean Corpuscular Volume 87.1 fL (80.0-98.0); Mean Platelet Volume 10.1 fL (9.4-12.3); Monocytes Absolute Auto 0.9 X10*3/uL (0.1-1.2); Monocytes Percent Auto 13.6 % (2-11); Neutrophils Absolute Auto 2.9 x10*3/uL (2.0-8.3); Neutrophils Percent Auto 44.2 % (45-73); Platelet Count 298 X10*3/uL (160-400); Red Blood Count 4.89 X10*6/uL (4.20-5.50); Red Cell Distribution Width 12.5 % (11.0-16.0); White Blood Count 6.5 X10*3/uL (4.8-10.8)
[2023-11-01 20:17] LABS: INTERNATIONAL NORM RATIO 0.9 (0.9-1.1); Prothrombin Time 11.2 SEC (11.1-13.3)
[2023-11-01 20:20] LABS: Partial Thromboplastin Time 28.8 SEC (26.0-36.8)
[2023-11-01 20:28] LABS: Alanine Aminotransferase 16 U/L (0-31); Albumin Level 4.4 g/dL (3.5-5.0); Alkaline Phosphatase 99 U/L (39-117); Anion Gap 13 (12-20); Aspartate Amino Transferase 25 U/L (5-31); Bilirubin Direct 0.2 mg/dL (0.0-0.5); Bilirubin Total 0.4 mg/dL (0.0-1.0); Blood Urea Nitrogen 21 mg/dL (9-16); Calcium 9.7 mg/dL (8.4-10.2); Carbon Dioxide 31 mmol/L (22-29); Chloride 102 mmol/L (96-108); Creatinine Clr Calc Pharmacy 66.5; Estimated Glomerular Filt Rate > 60; Glucose Random 90 mg/dL (60-115); Lipase 35 U/L (8-78); Magnesium 2.1 mg/dL (1.6-2.6); Potassium 3.6 mmol/L (3.3-5.1); Sodium 142 mmol/L (135-145); Total Protein 8.1 g/dL (6.5-8.0)
[2023-11-01 20:35] LABS: Troponin-I High Sensitivity 19.3 ng/L (<3.5-17.0)
[2023-11-01] MEDS: iohexoL 350 MG/ML 100 ML INFUS..BTL 85 ML IV (21:21)
[2023-11-01] MEDS: Acetaminophen 325 MG TABLET 650 MG PO (21:52)
[2023-11-02] MEDS: Cyclobenzaprine HCl 10 MG TABLET PO (00:43)
[2023-11-02 00:49] VITALS: BP 160/76; PULSE 78; RESP 19; TEMP 36.6; O2SAT 98
== END 2023-11-02 00:50 | disposition home or self-care (01) ==
PROVIDERS: Nurse Practitioner Family; Physician Assistant Medical; Emergency Provider Emergency Medicine; PCP Internal Medicine
DX: S09.90XA Unspecified injury of head, initial encounter (principal); T14.8XXA Other injury of unspecified body region, initial encounter; M62.830 Muscle spasm of back; M25.512 Pain in left shoulder; I10 Essential (primary) hypertension; W10.9XXA Fall (on) (from) unspecified stairs and steps, initial encounter; Y93.9 Activity, unspecified; Y92.9 Unspecified place or not applicable; Y99.9 Unspecified external cause status; Z11.52 Encounter for screening for COVID-19; Z20.828 Contact with and (suspected) exposure to other viral communicable diseases
CPT/HCPCS: 0241U; 36415; 70450; 71260; 72125; 73030; 74177; 80048; 80076; 83690; 83735; 84484; 85025; 85610; 85730; 93005; 99284; Q9967

== ENCOUNTER → 2023-11-01 19:39 | Outpatient (BNV) | payer OTHER, SELFPAY | PROVIDERS: Emergency Provider Emergency Medicine; PCP Internal Medicine; Visit Provider Internal Medicine | DX: R55 Syncope and collapse (principal) | CPT/HCPCS: 93010 ==

== ENCOUNTER 2024-02-06 13:26 | Outpatient (REF) | payer OTHER, SELFPAY ==
[2024-02-07 12:14] LABS: RPR Rapid Plasma Reagin NON-REACTIVE (NON-REACTIVE)
== END 2024-02-06 13:27 | disposition home or self-care (01) ==
LOC: HO.HHCL 13:26
PROVIDERS: Visit Provider Emergency Medicine
DX: R21 Rash and other nonspecific skin eruption (principal)
CPT/HCPCS: 36415; 86592

== ENCOUNTER 2024-03-04 14:49 | Outpatient (REF) | payer OTHER, SELFPAY ==
--- NOTE | ~2024-03-04 | XR_ITS ---
EXAMINATION: XR HIP, RIGHT CLINICAL INFORMATION: Pain in the right hip COMPARISON: CT abdomen and pelvis from 11/01/2023 and AP pelvis from 11/21/2020 TECHNIQUE: Two views of the right hip. FINDINGS: No fracture. Alignment is anatomic. Hip joint space is maintained. Soft tissues are unremarkable. XR/XR hip RT min 2V IMPRESSION: Normal right hip.
== END 2024-03-04 14:50 | disposition home or self-care (01) ==
LOC: HO.HHCX 14:49
PROVIDERS: Visit Provider Student in an Organized Health Care Education/Training Program
DX: M25.551 Pain in right hip (principal)
CPT/HCPCS: 73502

== ENCOUNTER 2024-04-28 13:11 | Outpatient (REF) | payer OTHER, SELFPAY ==
--- NOTE | ~2024-04-28 | XR_ITS ---
Study: PA chest and right rib series INDICATION: Right-sided chest pain and fall 6 months ago, intermittent asthma, chest wall pain and cough TECHNIQUE: PA chest and 3 view right rib series COMPARISON: 11/01/[address] FINDINGS: Heart, mediastinum and vascularity within normal limits. Minor increased markings at the lung bases. No consolidations, effusions or pneumothoraces. No displaced fracture. XR/XR chest 2V IMPRESSION: Minor bibasilar atelectasis. No displaced fractures. Electronically signed by: Robina Dominguez MD 04/28/2024 05:59 PM EDT
--- NOTE | ~2024-04-28 | XR_ITS ---
Study: PA chest and right rib series INDICATION: Right-sided chest pain and fall 6 months ago, intermittent asthma, chest wall pain and cough TECHNIQUE: PA chest and 3 view right rib series COMPARISON: 11/01/[address] FINDINGS: Heart, mediastinum and vascularity within normal limits. Minor increased markings at the lung bases. No consolidations, effusions or pneumothoraces. No displaced fracture. XR/XR ribs BI 3V IMPRESSION: Minor bibasilar atelectasis. No displaced fractures. Electronically signed by: Robina Dominguez MD 04/28/2024 05:59 PM EDT
== END 2024-04-28 13:12 | disposition home or self-care (01) ==
LOC: HO.HHCX 13:11
PROVIDERS: Visit Provider Internal Medicine
DX: R07.81 Pleurodynia (principal); J45.20 Mild intermittent asthma, uncomplicated
CPT/HCPCS: 71046; 71110

== ENCOUNTER 2024-04-29 | Outpatient (REF) | payer OTHER, SELFPAY ==
[2024-04-30 15:13] LABS: Bacterial Vaginosis PCR NEGATIVE (Negative); Candida Group PCR DETECTED (Not Detect); Candida glab krusei PCR NOT DETECTED (Not Detect); Trichomonas vaginalis PCR NOT DETECTED (Not Detect)
[2024-04-30 15:45] LABS: CT PCR NOT DETECTED (Not Detect.); NG PCR NOT DETECTED (Not Detect.)
== END 2024-04-29 00:01 | disposition home or self-care (01) ==
LOC: HO.HHCLNP
PROVIDERS: Visit Provider Emergency Medicine
DX: N89.8 Other specified noninflammatory disorders of vagina (principal)
CPT/HCPCS: 0352U; 87491; 87591

== ENCOUNTER 2024-07-13 14:28 | Outpatient (AMB) | payer OTHER, SELFPAY ==
[2024-07-13 14:38] VITALS: BP 122/78; BMI 27.8
--- NOTE | 2024-07-13 14:38 | MHC.OFFVIS ---
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 Film Touch Up Inspector Required: Yes Film Touch Up Inspector Services: Film Touch Up Inspector Present Film Touch Up Inspector Name: Samaria [id number] Information Interpreted: clinical only Spooling Machine Operator: Spooling Machine Operator Present (Hieu) Allergies No Known Allergies [No Known Allergies*] Allergy (Verified 07/13/24 14:41) Medication List - Last Reconciled 07/13/24 by Leonarda Peralta CNM amlodipine 5 mg PO DAILY atorvastatin 20 mg PO DAILY cefuroxime axetil 500 mg PO BID cyclobenzaprine 10 mg PO TID PRN cyclobenzaprine 10 mg PO TID lisinopril-hydrochlorothiazide 20-12.5 mg 1 tab PO DAILY montelukast 10 mg PO QPM sertraline 50 mg PO DAILY trazodone 50 mg PO BEDTIME valacyclovir 1,000 mg PO TID 7 days Post menopausal: Yes (unknown) 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 She says she normally sees Dr. Cohen on but she has had vaginal itching for years but she says she has not discussed it with her. She says the last time she was sexually active was a year ago and she wonders if that partner gave her something. The records indicate that she was checked for STIs at the visit at the walk-in clinic at the [facility] where she was referred from. Records of past Paps are not available. Referral indicates differently pigmented vaginal mucosa and attention to be paid to that today. Patient speaks only Northern Irish tablet translation used today to augment my communication in Northern Irish. She says she does not know what material her panties are and she uses a white so and whether she has panties on or off she itches all the time and has done so for years. She denies having diabetes. She says she is on most of her medications for depression and asthma. [facility] Medical History Substance abuse Left knee pain Asthma Depressed Hypertension Social History Alcohol intake: never Current occupational status: unemployed Current occupation: left handed Female Reproductive History Menstrual control method: none Total pregnancies: 5 Full term: 5 History of abnormal pap smear: No (unknown ?) Physical Exam Vital Signs: Last Vital Signs BP 122/78 07/13/24 14:38 BMI result Body Mass Index 27.8 Other: External vulva atrophic consistent with age. There is deep pigmentation at the upper part of her labia minora and bordering on mons pubis surrounding clitoral area which maybe consistent with lichen sclerosis. Evidence of some varicose veins vagina is appropriately atrophic slightly reddened cervix small atrophic. Uterus difficult to palpate nontender nonenlarged fair tone with Kegel adnexa not enlarged. Assessment & Plan Assessment & Plan (1) Vaginal itching: Comment: Steroid cream prescribed at [facility] did not aubrie symptoms. Will try antifungal well patient is awaiting visit rubber down Code(s): N89.8 - Other specified noninflammatory disorders of vagina Category: Medical (2) Lichen sclerosus: Comment: Possible not fully diagnosed. Patient found no relief with steroid cream that was prescribed from [facility]. We will refer for definitive diagnosis. Code(s): L90.0 - Lichen sclerosus et atrophicus Category: Medical Plan While vulva has appearance of lichen sclerosis I did not make that diagnosis, and steroid cream that she was given that the [facility] did not aubrie her symptoms at all. We will try Monistat to see if that makes a difference is in her symptoms while she awaits visit w rubber down for definitive diagnosis and treatment. Orders: Orders Bacterial Vaginosis Panel Today N89.8 - Other specified noninflammatory disorders of vagina CT NG by PCR Today N89.8 - Other specified noninflammatory disorders of vagina Medications: New miconazole nitrate 2% (Miconazole-7) 1 appful vaginal BEDTIME 7 days 45 grams 1RF Coding Level of Care Code New Pt Level 3 (26332) Diagnoses Vaginal itching N89.8 Lichen sclerosus L90.0
== END 2024-07-13 15:31 | disposition home or self-care (01) ==
LOC: HO.HWSM 14:28
PROVIDERS: PCP Internal Medicine; Visit Provider Advanced Practice Midwife
DX: N89.8 Other specified noninflammatory disorders of vagina (principal); L90.0 Lichen sclerosus et atrophicus
CPT/HCPCS: 99203

== ENCOUNTER 2024-07-13 14:28 | Outpatient (REF) | payer OTHER, SELFPAY ==
[2024-07-14 11:37] LABS: Bacterial Vaginosis PCR NEGATIVE (Negative); Candida Group PCR NOT DETECTED (Not Detect); Candida glab krusei PCR NOT DETECTED (Not Detect); Trichomonas vaginalis PCR NOT DETECTED (Not Detect)
[2024-07-14 12:06] LABS: CT PCR NOT DETECTED (Not Detect.); NG PCR NOT DETECTED (Not Detect.)
== END 2024-07-13 14:29 | disposition home or self-care (01) ==
LOC: HO.LAB 14:28
PROVIDERS: PCP Internal Medicine; Visit Provider Advanced Practice Midwife
DX: N89.8 Other specified noninflammatory disorders of vagina (principal); L90.0 Lichen sclerosus et atrophicus
CPT/HCPCS: 0352U; 87491; 87591; 99202

== ENCOUNTER 2024-07-20 13:46 | Outpatient (AMB) | payer OTHER, SELFPAY ==
--- NOTE | 2024-07-20 14:11 | A.OFFVIS_ITS ---
Intake Visit Reasons: vulva eval Orange Peel Operator Required: Yes Orange Peel Operator Language: Photogravure Press Operator Services: Orange Peel Operator Present (in person) Orange Peel Operator Name: ANU Marshall Information Interpreted: non-clinical & clinical Back Maker: Back Maker Present (Rema ANU Moody) Accompanied by: Self / Same As Patient Allergies No Known Allergies [No Known Allergies*] Allergy (Verified 07/20/24 14:21) HPI Comments Details: Presenting referred from Leonarda Peralta CNM regarding vulvovaginal itching/bilateral vulvar leukoplakia. The patient gives a history of bilateral itching no other associated symptoms PFSH Medical History Substance abuse Left knee pain Asthma Depressed Hypertension Social History Alcohol intake: never Current occupational status: unemployed Current occupation: left handed Review of Systems Const All systems reviewed & are unremarkable except as noted in HPI and below Card Reports as per HPI and Reports no additional complaints Resp Reports as per HPI and Reports no additional complaints GI Reports as per HPI and Reports no additional complaints Reports as per HPI Physical Exam Const General: cooperative, healthy appearing and comfortable General: Yes bladder normal to palpation External Female Exam: lesion (Bilateral up labia majora leukoplakias) Speculum Exam - Vagina: normal appearance of the vagina, normal vaginal discharge and not erythematous Speculum Exam - Cervix: Cervix absent Bimanual exam- vagina & uterus: bladder normal to palpation and uterus absent Bimanual Exam- Adnexa, other: Other (No masses detected) Assessment & Plan Assessment & Plan (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 Instructions given to patient to schedule an appointment within 2 weeks for vu lvar biopsy . All questions answered, the patient verbalized understanding. 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
== END 2024-07-20 14:32 | disposition home or self-care (01) ==
LOC: HO.HWS 13:46
PROVIDERS: PCP Internal Medicine; Visit Provider Obstetrics & Gynecology
DX: N90.4 Leukoplakia of vulva (principal)
CPT/HCPCS: 99213

== ENCOUNTER → 2024-07-20 13:46 | Outpatient (BNVA) | payer OTHER, SELFPAY | PROVIDERS: PCP Internal Medicine; Visit Provider Obstetrics & Gynecology | DX: N90.4 Leukoplakia of vulva (principal) | CPT/HCPCS: 99212 ==

== ENCOUNTER 2024-08-18 09:54 | Outpatient (REF) | payer OTHER, SELFPAY ==
[2024-08-18 12:00] LABS: Alanine Aminotransferase 18 U/L (0-31); Albumin Level 4.1 g/dL (3.5-5.0); Anion Gap 10 (12-20); Aspartate Amino Transferase 28 U/L (5-31); Bilirubin Total 0.5 mg/dL (0.0-1.0); Blood Urea Nitrogen 15 mg/dL (9-16); Calcium 8.9 mg/dL (8.4-10.2); Carbon Dioxide 28 mmol/L (22-29); Chloride 107 mmol/L (96-108); Cholesterol 246 mg/dL (<200); Estimated Glomerular Filt Rate > 60; Glucose Random 137 mg/dL (60-115); HDL Cholesterol 44 mg/dL (>40); LDL Cholesterol Calculated 153 mg/dL (<100); Potassium 3.9 mmol/L (3.3-5.1); Sodium 141 mmol/L (135-145); Total Protein 7.4 g/dL (6.5-8.0); Triglycerides 249 mg/dL (<150)
[2024-08-18 12:21] LABS: Alkaline Phosphatase 117 U/L (39-117); TSH reflex Free T4 1.54 uIU/mL (0.32-4.0)
[2024-08-18 13:20] LABS: Reflex LDLD? No
== END 2024-08-18 09:55 | disposition home or self-care (01) ==
LOC: HO.HHCL 09:54
PROVIDERS: Visit Provider Internal Medicine
DX: I10 Essential (primary) hypertension (principal)
CPT/HCPCS: 36415; 80053; 80061; 84443

== ENCOUNTER 2024-08-21 12:43 | Outpatient (REF) | payer OTHER, SELFPAY | END 2024-08-21 12:44 | disposition home or self-care (01) | LOC: HO.LNP 12:43 | PROVIDERS: PCP Internal Medicine; Visit Provider Obstetrics & Gynecology | DX: N90.4 Leukoplakia of vulva (principal) | CPT/HCPCS: 56605; 88305; 88312 ==

== ENCOUNTER 2024-08-21 12:43 | Outpatient (AMB) | payer OTHER, SELFPAY ==
--- NOTE | 2024-08-21 13:05 | A.OFFVIS_ITS ---
Intake Visit Reasons: vulva biopsy Pork Cutlet Maker Required: Yes Pork Cutlet Maker Language: Motorcycle Subassembler Services: Pork Cutlet Maker Present (in person) Pork Cutlet Maker Name: Rema MedranoANU larios Information Interpreted: non-clinical & clinical Traffic Signal Mechanic: Traffic Signal Mechanic Present (ANU Marshall) Accompanied by: Self / Same As Patient Allergies No Known Allergies [No Known Allergies*] Allergy (Verified 08/21/24 13:06) HPI Comments Details: Presenting for vulvar biopsy for vulvar leukoplakia [facility] Medical History Substance abuse Left knee pain Asthma Depressed Hypertension Social History Alcohol intake: never Current occupational status: unemployed Current 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 Preop dx: Bilateral vulvar leukoplakia Op: Right periclitoral labia Majora leukoplakia biopsy Post op: Same Anesthesia: Lidocaine 1% 3cc used Procedure: Using betadine the area was scrubbed and draped in the usual manner. 3 cc of lidocaine was used for anesthesia at the Right periclitoral labia Majora leukoplakia area ; using punch biopsy and pickup the left Right periclitoral labia Majora leukoplakia was biopsied. Pressure was used for hemostasis. The patient tolerated the procedure well. Discharge Instructions: The patient was instructed to schedule an appointment in 2 weeks for follow-up and to call if temp>100.4, area of the biopsy redness or pain, nausea/vomiting. This note was generated with a voice recognition program. Some errors may have been overlooked during the review of this note. Sometimes these errors may affect the content or meaning of a given sentence. 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
== END 2024-08-21 13:12 | disposition home or self-care (01) ==
LOC: HO.HWS 12:43
PROVIDERS: PCP Internal Medicine; Visit Provider Obstetrics & Gynecology
DX: N90.4 Leukoplakia of vulva (principal)
CPT/HCPCS: 56605

== ENCOUNTER 2024-08-24 11:51 | Emergency (ER) | payer OTHER, SELFPAY ==
[2024-08-24 13:45] VITALS: BP 169/98; PULSE 73; RESP 16; TEMP 36.4; O2SAT 99; BMI 27.4
--- NOTE | 2024-08-24 13:45 | ED_ITS ---
HPI - General Adult General Chief complaint: General Medical Stated complaint: Vag Pain X 4 Days Time Seen by Provider: 08/24/24 17:30 Source: patient Mode of arrival: ambulatory Limitations: no limitations History of Present Illness ED Provider: Kris simpson HPI narrative: 63-year-old female history of meniscus tear, depressed, HTN, asthma, substance abuse presents to the ED for vaginal irritation/evaluation. Patient had vaginal labia biopsy done by Dr. Fawn rangel on the and patient states ever since have had discomfort in the area. Patient denies any fever or chills, abdominal pain, nausea, vomiting, vaginal discharge, vaginal bleeding, or vaginal swelling. Related Data Home Medications ?Medication ?Instructions ?Recorded ?Confirmed atorvastatin 20 mg tablet 20 mg PO DAILY 11/21/20 07/13/24 cyclobenzaprine 10 mg tablet 10 mg PO TID 11/21/20 07/13/24 lisinopril 20 1 tab PO DAILY 11/21/20 07/13/24 mg-hydrochlorothiazide 12.5 mg tablet montelukast 10 mg tablet 10 mg PO QPM 11/21/20 07/13/24 sertraline 50 mg tablet 50 mg PO DAILY 11/21/20 07/13/24 trazodone 50 mg tablet 50 mg PO BEDTIME 11/21/20 07/13/24 amlodipine 5 mg tablet 5 mg PO DAILY 02/01/22 07/13/24 Previous Rx's ?Medication ?Instructions ?Recorded valacyclovir 1 gram tablet 1,000 mg PO TID 7 days #21 tabs 09/03/22 cefuroxime axetil 500 mg tablet 500 mg PO BID #14 tabs 01/03/23 cyclobenzaprine 10 mg tablet 10 mg PO TID PRN Shouler pain #14 11/02/23 tabs miconazole nitrate 2 % vaginal 1 appful vaginal BEDTIME 7 days 07/13/24 cream (Miconazole-7) #45 grams Allergies Allergy/AdvReac Type Severity Reaction Status Date / Time No Known Allergies Allergy Verified 08/24/24 13:48 [No Known Allergies*] Review of Systems 2 Review of Systems: Vaginal evaluation Yes all other systems are reviewed and are negative PMFSH Past Medical History Medical History Substance abuse Left knee pain Asthma Depressed Hypertension Social History Social History Alcohol intake: never Advance Directives: No Advance Directives Information Provided: Yes Do you have a plan to hurt others: No Plan Current occupational status: unemployed Current occupation: left handed Physical Exam ED Vital Signs: Vital Signs - 24 hr 08/24/24 13:45 08/24/24 18:50 08/24/24 19:06 Temperature 97.6 F 98.1 F 98.1 F Pulse Rate 73 74 74 Respiratory Rate 16 20 20 Blood Pressure 169/98 H 162/88 H 162/88 H Pulse Oximetry 99 99 99 Oxygen Delivery Method Room Air Room Air Room Air BMI result Body Mass Index 27.4 Const General: cooperative, healthy appearing, comfortable, no acute distress, well developed, alert, awake and Physically active [facility] Head: Yes normal to inspection, Yes No palpable skull fracture present, Yes normocephalic and Yes atraumatic Eyes General: appearance normal, both eyes and all related structures Neck Neck: Yes normal visual inspection, Yes full ROM, Yes no lymphadenopathy, Yes no meningeal signs, Yes trachea midline, Yes supple, No anterior neck swelling and No tender Chest Chest palpation & inspection: normal inspection of the chest and normal palpation of entire chest wall Resp Effort & Inspection: normal respiratory effort and able to speak in complete sentences Auscultation: clear to auscultation bilaterally Cardio Jugular venous distension: no JVD Heart sounds: S1 normal heart sound present and S2 normal heart sound present GI Inspection: Yes normal to inspection Palpation (GI): Soft to palpation, not firm, nontender, no guarding and not rigid Other: Upper valvulas appears like valvular leukoplakia or Lichen Sclerosus General: Yes no CVA tenderness Female genitals images: 2 1. Area of biopsy negative for any erythema, tenderness, pus discharge, ecchymosis, fluctulance, mass, lesions foul odor. Rest of outer vaginal labia is negative for bluish black discoloration, erythema, mass, deformity, lesions, and sores. Inner vaginal exam is negative for any vaginal discharge, lesions, or bleeding. Negative for any cervical motion tenderness or adnexal tenderness. Back/Spine/Pelvis Back: no CVA tenderness and No back tenderness Skin General skin exam: no rashes or lesions noted, elasticity normal and turgor normal Neuro General: gait normal, tone normal, moves all extremities, Normal light touch and pain sensation, no meningeal signs, no focal motor deficits, CN's II-XI intact bilaterally and normal sensation to monofilament Extrem General: Yes normal to inspection, Yes full ROM and Yes capillary refill normal Psych Appearance: grossly normal, well kempt and not disheveled Course Course Course Narrative: This is a rapid medical exam performed by Miladis Dominguez NP: Additional HPI, ROS, PE not included below will be deferred to primary provider. Patient is a 63-year-old female presenting to the ED with complaint of vaginal pain, small amount of bleeding since vulvar biopsy on 08/[address] Augustine. Has not called Dr. Augustine's office. Plan: UA Medical Decision Making Medical Decision Making [facility] Narrative: 63-year-old female presents to ED for evaluation vaginal pain after biopsy. Patient has history of lichen planus involved low leukoplakia being evaluated by Dr. Augustine. Exam negative for signs of infection around biopsy site. No signs of abscess. No lesions or sores. Intra vaginal exam normal negative for any abnormal vaginal discharge, foul odor, or vaginal bleeding. Negative for cervical motion tenderness on palpation or adnexal tenderness. Abdominal exam benign. UA clean. Trich BV GC NG ordered. Patient prefers to wait to be called with results if positive instead of receiving emperic STI treatment. Patient explained worrisome signs and informed to return to the ED immediately. Patient informed to call Dr. Augustine tomorrow for earlier follow-up appointment to re-evlaute patient and manage vulva leukoplakia/Lichen sclerosus. Not suspecting any intra-abdominal emergent etiology, abdominal/uterine peforation, ovarian torsion, ovarian abscess, or any other life-threatening etiology. Differential Diagnosis Differential Diagnoses: The differential diagnosis associated with the presentation includes (UTI) Admission/Observation Consideration of admission/observation: Escalation of care including admission/observation considered Lab Data [facility] Lab Attestation statement: I reviewed the patient's lab results. Labs: Lab Results 08/24/24 Range/Units 18:34 Urine Color Yellow Urine Appearance Clear Urine pH 6.5 (5.0-9.0) Ur Specific [place] 1.025 (1.005-1.025) Urine Protein Trace (Neg-Trace) mg/dL Urine Glucose (UA) Negative (Negative) mg/dL Urine Ketones Negative (Negative) mg/dL Urine Blood Negative (Negative) Urine Nitrite Negative (Negative) Ur Leukocyte Esterase Small (1+) H (Negative) Urine RBC 0-2 (0-2) /HPF Urine WBC 0-5 (0-5) /HPF Ur Squamous Epith Cells 6-10 (0-2) /HPF Urine Bacteria Trace (None Seen) Hyaline Casts 0-2 (0-2) /LPF Independent Historian Clinical information obtained from an independent historian. History obtained from or confirmed by: Other (patient) Discharge Plan Discharge Clinical Impression: Vulvar leukoplakia, Vaginal itching Patient Disposition: Home, Self-Care Instructions: Vaginal Discharge (ED) Additional Instructions: Recommend follow-up with primary care provider and OBGYN. Return to the ED immediately for any vaginal swelling, redness, bluish black discoloration, vaginal discharge, vaginal bleeding, dysuria, hematuria, flank pain, abdominal pain, nausea, or any other concerning symptoms. We recommend calling Dr. Augustine for earlier appointment. Prescriptions: No Action valacyclovir 1 gram tablet 1,000 mg PO TID 7 Days Qty: 21 0RF cefuroxime axetil 500 mg tablet 500 mg PO BID Qty: 14 0RF cyclobenzaprine 10 mg tablet 10 mg PO TID PRN (Reason: Shouler pain) Qty: 14 0RF cyclobenzaprine 10 mg tablet 10 mg PO TID sertraline 50 mg tablet 50 mg PO DAILY montelukast 10 mg tablet 10 mg PO QPM lisinopril-hydrochlorothiazide 20-12.5 mg tablet 1 tab PO DAILY trazodone 50 mg tablet 50 mg PO BEDTIME atorvastatin 20 mg tablet 20 mg PO DAILY amlodipine 5 mg tablet 5 mg PO DAILY miconazole nitrate [Miconazole-7] 2 % cream 1 appful vaginal BEDTIME 7 Days Qty: 45 1RF Referrals: Kenyon Augustine MD [Physician] - (Recommend follow-up for evaluation of post vulvula biopsy vulva leukoplakia) Interventions: ED Discharge Assessment Last Done: 08/24/24 19:06 Discharge Date/Time: 08/24/24 19:06 Print Language: Bhutanese
[2024-08-24 18:42] LABS: Appearance Urine Clear; Color Urine Yellow; Glucose Urine UA Negative (Negative); Leukocyte Esterase Urine Small (1+) (Negative); Nitrite Urine Negative (Negative); PH 6.5 (5.0-9.0); Specific Gravity - Urine 1.025 (1.005-1.025); UMIC TRIGGER UACC YES; Urine Blood Negative (Negative); Urine Ketones Negative (Negative); Urine Protein Trace mg/dL (Neg-Trace)
[2024-08-24 18:50] VITALS: BP 162/88; PULSE 74; RESP 20; TEMP 36.7; O2SAT 99
[2024-08-24 18:52] LABS: Bacteria Urine Trace (None Seen); Hyaline Casts Urine 0-2 /LPF (0-2); RBC Urine 0-2 /HPF (0-2); UACC Culture Trigger YES; WBC Urine 0-5 /HPF (0-5)
[2024-08-24 19:06] VITALS: BP 162/88; PULSE 74; RESP 20; TEMP 36.7; O2SAT 99
[2024-08-25 05:54] LABS: CT PCR NOT DETECTED (Not Detect.); NG PCR NOT DETECTED (Not Detect.)
[2024-08-25 13:05] LABS: Bacterial Vaginosis PCR NEGATIVE (Negative); Candida Group PCR NOT DETECTED (Not Detect); Candida glab krusei PCR NOT DETECTED (Not Detect); Trichomonas vaginalis PCR NOT DETECTED (Not Detect)
== END 2024-08-24 19:06 | disposition home or self-care (01) ==
PROVIDERS: Physician Assistant; Registered Nurse Emergency; Emergency Provider Internal Medicine; PCP Internal Medicine
DX: N90.4 Leukoplakia of vulva (principal); N89.8 Other specified noninflammatory disorders of vagina; R10.2 Pelvic and perineal pain; I10 Essential (primary) hypertension; J45.909 Unspecified asthma, uncomplicated; F19.10 Other psychoactive substance abuse, uncomplicated; Z79.899 Other long term (current) drug therapy
CPT/HCPCS: 81001; 81515; 87086; 87147; 87491; 87591; 99283

== ENCOUNTER 2024-09-01 13:27 | Outpatient (REF) | payer OTHER, SELFPAY ==
--- OUTSIDE RECORDS SUMMARY | 2024-09-01 15:13 | XMS_ITS | Encounter Summary ---
Author Organization [employer] Address [address] [place] [address] Care Team Providers Care Glue Jointer Operator Name Role Phone Shraddha Mustafa MD Primary Care Provider + Mike Kang PharmD Unavailable [phone] Reason for Visit * Reason Onset Date Comments Chart prep 08/18/2024 Encounter Details Date Type Department Care Team ([facility] st Contact Info) Description 08/18/2024 Telephone [facility] [address], [place] [phone] Shraddha Mustafa MD [address] [place], [place] [phone] Chart prep Social History Tobacco Use Types Packs/Day Years Used Date Smoking Tobacco: Former Cigarettes Q uit: 2002 Smokeless Tobacco: Never Alcohol Use Standard Drinks/Week Comments Never 0 (1 standard drink = 0.6 oz pur e alcohol) Housing Stability Answer Date Recorded What is your housing situation today? I have hellen deidra 04/28/[address] you li ve. Do you have problems with any of the following? None of the above 04/28/2024 Food Insecurity Answer Date Recorded Within the past 12 months, y ou worried that your food would run out before you got money to buy more: Never True 04/28/2024 Within the past 12 months,th e food you bought just didn't last and you didn't have enough money to get more: Never True Transportation Answer Date Recorded In the past 12 months, has l ack of transportation kept you from medical appts, meetings, work or from getting things needed for daily living? No 04/28/2024 Utilities Answer Date Recorded In the past 12 months, has t he electric, gas, oil or water company threatened to shut off services in your home? No 04/28/2024 Depression Answer Date Recorded Patient Health Questionnaire-2 Score 4 04/28/2024 Internet Access Answer Date Recorded Internet Access Q1 No 04/28/2024 Internet Access Q2 I do not want or need it 04/12 Comments No Sex and Gender Information Value Date Recorded Sex Assigned at Female 06/11/2022 10:17 AM EDT Legal Sex Female 10:17 AM EDT Gender Identity Female 06/11/2022 10:17 AM EDT Sexual Orientation Choose not to disclose 2021 10:17 AM EDT documented as of this encounter Miscellaneous Notes * Telephone Encounter - Evelia Carlos MA - 08/18/2024 1:57 PM EST Chart Prep Labs: done Images: done Vaccines due: yes Referrals: pending appt Screenings: colonoscopy , mammogram Overdue care gaps: Up to date documented in this encounter Plan of Treatment Not on file documented as of this encounter Goals Goal Patient Goal Type Associated Problems Recent Progress Patient-Stated? Author Blood Pressure < 150/90 Blood Pressure 120/80(2023 2:53 PM EST) No Mike Kang, Tamara Note: Per JNC-8 : Age>60, No history of DM or CKD documented as of this encounter Visit Diagnoses Not on filedocumented in this encounter Care Teams Glue Jointer Operator Relationship Specialty Start Date End Date Shraddha Mustafa MD [address] [place] [address] PCP - General Family Medicine 03/21/17 Mike Kang PharmD [address] [place] [id number] Pharmacist Internal Medicine 12/10/22 documented as of this encounter
--- OUTSIDE RECORDS SUMMARY | 2024-09-01 15:13 | XMS_ITS | Encounter Summary ---
Author Organization [employer] Address [address] [facility] 7[address] [place] [address] Care Team Providers Care Firer Low Pressure Name Role Phone Shraddha Mustafa MD Primary Care Provider + Mike Kang PharmD Unavailable [phone] Encounter Details Date Type Department Care Team (Latest Contact Info) Description 08/19/2024 1:30 PM EST Clinical Support [facility] [address] [place], [place] [phone] Cecy Calvo LPN Exposure to confirmed case of COVID-19 (Primary Dx) Social History Tobacco Use Types Packs/Day Years Used Date Smoking Tobacco: Former Cigarettes Q uit: 2002 Smokeless Tobacco: Never Alcohol Use Standard Drinks/Week Comments Never 0 (1 standard drink = 0.6 oz pur e alcohol) Housing Stability Answer Date Recorded What is your housing situation today? I have hellen gay 04/28/[address] you li [...] AM EDT documented as of this encounter Progress Notes * Cecy Calvo LPN - 08/19/2024 1:30 PM EST Subjective Patient ID: Carina Rivas is a 63 y.o. female who presents for rapid Covid-19 testing done in our Drive[facility] test[facility] site. Pt informed of NEGATIVE test result indicating the ABSENCE of Covid-19 viralparticles. Pt advised to seek immediate medical attention if shortness of breath/chest pain develops. Pt informed of current CDC protocol regarding current isolation/masking recommendations regardingCovid-19 infections. Patient was verified by and name. Education was provided with most up to date CDC Covid-19 materials. Patient expresses understanding and agrees to plan of care. * Shraddha Mustafa MD - 08/19/2024 1:30 PM EST Covid test results reviewed with patient. I told her to continue same precautions as dicussed over the phone, to keep mask on when around people for the next 5d. She will seed cone picker rx for viral syndrome and fu with me prn or go to [facility] if sxs do not improve within next 4d documented in this encounter Plan of Treatment Not on file documented as of this encounter Goals Goal Patient Goal Type Associated Problems Recent Progress Patient-Stated? Author Blood Pressure < 150/90 Blood Pressure 120/80(2023 2:53 PM EST) No Mike Kang, PharmD Note: Per JNC-8 : Age>60, No history of DM or CKD documented as of this encounter Procedures Procedure Name Priority Date/Time Associated Diagnosis Comments POCT RAPID COVID ANTIGEN Routine 08/19/2024 1:45 PM EST Exposure to confirmed case of COVID-19 documented in this encounter Results * POCT Rapid COVID Ag (08/19/2024 1:45 PM EST) Rapid COVID Ag Negative Swab 08/19/2024 1:45 PM EST Tennille Horowitz MD POINT OF CARE TEST ENTER/ED IT ORDERABLES Final Result documented in this encounter Visit Diagnoses Diagnosis Exposure to confirmed case of COVID-19- Primary documented in this encounter Care Teams Firer Low Pressure Relationship Specialty Start Date End Date Shraddha Mustafa MD [address] [place] [address] PCP - General Family Medicine 03/21/17 Mike Kang PharmD [address] [place] [phone] Pharmacist Internal Medicine 12/10/22 documented as of this encounter
--- OUTSIDE RECORDS SUMMARY | 2024-09-01 15:13 | XMS_ITS | Encounter Summary ---
Author Organization [employer] Address [address] [facility] 7t [place] [address] Care Team Providers Care Certified Control Systems Technician Name Role Phone Shraddha Mustafa MD Primary Care Provider + Mike Kang PharmD Unavailable [phone] Encounter Details Date Type Department Care Team (Late st Contact Info) Description 08/24/2024 Orders Only GENERIC EXTERNAL DATA DEPARTMENT Provider, Generic External Data Social History Tobacco Use Types Packs/Day Years Used Date Smoking Tobacco: Former Cigarettes Q uit: 2002 Smokeless Tobacco: Never Alcohol Use Standard Drinks/Week Comments Never 0 (1 standard drink = 0.6 oz pur e alcohol) Housing Stability Answer Date Recorded What is your housing situation today? I have hellen sing 04/28/[address] you li [...] AM EDT documented as of this encounter Plan of Treatment Not on file documented as of this encounter Goals Goal Patient Goal Type Associated Problems Recent Progress Patient-Stated? Author Blood Pressure < 150/90 Blood Pressure 120/80(2023 2:53 PM EST) No Mike Kang, Tamara Note: Per JNC-8 : Age>60, No history of DM or CKD documented as of this encounter Procedures Procedure Name Priority Date/Time Associated Diagnosis Comments CULTURE, URINE, ROUTINE Routine 08/24/2024 6:52 PM EST BACTERIAL VAGINOSIS PANEL Routine 08/24/2024 6:34 PM EST URINALYSIS, COMPLETE, WITH REFLEX TO CULTURE Routine 08/24/2024 6:34 PM EST CHLAMYDIA/N. GONORRHOEAE RNA, TMA, UROGENITAL Routine 08/24/2024 6:34 PM EST WET PREP, GENITAL Routine 08/24/2024 6:3 4 PM EST documented in this encounter Results * Culture, Urine, Routine (08/24/2024 6:52 PM EST) Urine Urine specimen obtained by clean catch procedure / Unknown 08/24/2024 6:52 PM EST 08/24/2024 6:52 PM EST Comment:[facility] - 08/26/2024 10:51 AM EST Strep agalactiae (Grp B) Quant > 100,000 cfu/mL Susc N/A Susceptibility not routinely performed on this isolate. Specimen Source: Urine clean catch us Generic External Data Provider LAB MICROBIOLOGY - GENERAL ORDERABLES Final Result [facility] [address] [place] [phone] * Bacterial Vaginosis (08/24/2024 6:34 PM EST) Pathologist [facility] TRICHOMONAS VAGINALIS DETECTION BY PCR NOT DETECTED Not Detect [facility] BACTERIAL VAGINOSIS DETECTION BY PCR NEGATIVE Negative [facility] Comment:The BV organism targ ets of the Xpert Xpress MVP test can becommensal in women; Xpert Xpress MVP positive results forbacterial vaginosis should be considered in conjunction withother clinical and patient information to determine thedisease status. Organisms that are not detected by the XpertXpress MVP test have also been reported to be associatedwith BV and aerobic vaginitis.The Xpert Xpress MVP test performance has not been evaluatedin patients under the age of 14. BIANKA GROUP DETECTION BY PCR NOT DETECTED Not Detect [facility] Bianka glab krusei PCR NOT DETECTED Not Detect [facility] 08/24/2024 6:34 PM EST 08/24/2024 6:38 PM EST Generic External Data Provider LAB MICROBIOLOGY - GENERAL ORDERABLES Final Result Performing Organization Address [facility]/ZIP Co de Phone Number [facility] [address] [place] [phone] * Chlamydia/N. Gonorrhoeae RNA, TMA, Urogenitial (08/24/2024 6:34 PM EST) Pathologist [facility] CT PCR NOT DETECTED Not Detect. [facility] Comment:A not detected test result does not exclude the possibilityof infection because test results can be affected byimproper specimen collection, concurrent antibiotic therapy,or the number of organisms in the specimen which may bebelow the sensitivity of the test. As with many diagnostictests, results from the Xpert CT/NG assay should beinterpreted in conjunction with other laboratory andclinical data available to the clinician.Xpert CT/NG performance has not been evaluated in patientsless than 14 years of age. The assay should not be used forthe evaluationof suspected sexual abuse or for other medico-legalindications. Additional testing is recommended in anycircumstance when false positive or false negative resultscould lead to adverse medical, social or psychologicalconsequences. NG PCR NOT DETECTED Not Detect. [facility] Comment:A not detected test result does not exclude the possibilityof infection because test results can be affected byimproper specimen collection, concurrent antibiotic therapy,or the number of organisms in the specimen which may bebelow the sensitivity of the test. As with many diagnostictests, results from the Xpert CT/NG assay should beinterpreted in conjunction with other laboratory andclinical data available to the clinician.Xpert CT/NG performance has not been evaluated in patientsless than 14 years of age. The assay should not be used forthe evaluationof suspected sexual abuse or for other medico-legalindications. Additional testing is recommended in anycircumstance when false positive or false negative resultscould lead to adverse medical, social or psychologicalconsequences. 08/24/2024 6:34 PM EST 08/24/2024 6:38 PM EST Narrative [facility] - 08/25/2024 5:54 AM EST Vaginal Generic External Data Provider LAB MICROBIOLOGY - GENERAL ORDERABLES Final Result Performing Organization Address [facility] Co de Phone Number [facility] [address] [place] [phone] * Wet prep, genital (08/24/2024 6:34 PM EST) Vaginal Fluid Vaginal structure / Unknown 08/24/2024 6:34 PM EST 08/24/2024 6:38 PM EST Comment:Vaginal [facility] - 08/24/2024 6:44 PM EST Trichomonas Prep Direct Microscopic Exam Trichomonas Prep No trichomonads or yeast seen Specimen Source: Vaginal Generic External Data Provider LAB MICROBIOLOGY - GENERAL ORDERABLES Final Result Performing Organization Address City/[facility] Co de Phone Number [facility] [address] [place] [phone] * (ABNORMAL) Urinalysis, Complete, with Reflex to Culture (08/24/2024 6:34 PM EST) Color Urine Yellow [facility] Appearance Urine Clear [facility] PH 6.5 5.0 - 9.0 [facility] Glucose Urine UA Negative Negative mg/dL [facility] Urine Blood Negative Negative [facility] Specific [place] - Urine 1.025 1.005 - 1.025 [facility] Urine Protein Trace Neg-Trace mg/dL [facility] Urine Ketones Negative Negative mg/dL [facility] Nitrite Urine Negative Negative [facility] Leukocyte Esterase Urine Small (1+)(A) Negative [facility] RBC Urine 0-2 0 - 2 /HPF [facility] Urine WBC 0-5 0 - 5 /HPF [facility] Urine Squamous Epithelial Cell 6-10 0 - 2 /HPF [facility] Urine Bacteria Trace None Seen [facility] Hyaline Casts, Urine 0-2 0 - 2 /LPF [facility] 08/24/2024 6:34 PM EST 08/24/2024 6:38 PM EST Narrative [facility] - 08/24/2024 6:52 PM EST Urine, Clean Catch us Generic External Data Provider LAB URINE ORDERAB LES Final Result Performing Organization Address City/State/[facility] Co de Phone Number [facility] [address] [place] [phone] documented in this encounter Visit Diagnoses Not on filedocumented in this encounter Care Teams Certified Control Systems Technician Relationship Specialty Start Date End Date Shraddha Mustafa MD [address] [place] [phone] PCP - General Family Medicine 03/21/17 Mike Kang, Tamara [address] [place] [phone] Pharmacist Internal Medicine 12/10/22 documented as of this encounter
--- OUTSIDE RECORDS SUMMARY | 2024-09-01 15:13 | XMS_ITS | Encounter Summary ---
Author Organization [employer] Address [address] [facility] 7t [place] [address] Care Team Providers Care Appointment Setter Name Role Phone Shraddha Mustafa MD Primary Care Provider + Mike Kang PharmD Unavailable [phone] Encounter Details Date Type Department Care Team (Late st Contact Info) Description 08/21/2024 Orders Only GENERIC EXTERNAL DATA DEPARTMENT Provider, [...] Pressure 120/80(2023 2:53 PM EST) No Mike Kang PharmD Note: Per JNC-8 : Age>60, No history of DM or CKD documented as of this encounter Procedures Procedure Name Priority Date/Time Associated Diagnosis Comments HEMATOXYLIN AND EOSIN STAIN Routine 08/21/2024 1:43 PM EST documented in this encounter Results * Hematoxylin and Eosin Stain (08/21/2024 1:43 PM EST) 08/21/2024 1:43 PM EST 08/24/2024 8:03 AM EST Narrative [facility] - 08/27/2024 3:07 PM EST ----- ------- Name: Carina Rivas ? Age/Sex: 63/F ? : 1960 Unit#: [id number] ?? Attend Dr: Kenyon Augustine MD ?Re08/21/24 ?Status: DEP REF ? Location: HO.LNP ?Disch: ? ----- ------- SPEC : [id number] ?RECD: 08/24/24 ? STATUS: ??SOUT ? REQ NUM: [id number] ? CARLO: 08/21/24 ? SUBM DR: Kenyon Augustine MD ? ENTERED: ??08/24/24 ?SP TYPE: Surgical ? OTHR DR: Shraddha Mustafa MD ? ORDERED: ??HE Stain/3, Gross Micro L4 ? Diagnosis ?? Vulva, biopsy: ??Small fragment of spongiotic skin with mild chronic inflammation and ?? features of lichen simplex chronicus; no atypia seen. ??See comment. ? Comment: ??Multiple additional levels are examined through the block. ??The sample is quite ?? small; insufficient tissue remains for fungal studies. ??If there is a persistent lesion ?? or if there are other concerns, consider resampling (as clinically appropriate). ?Clinical History Vulvar lesion ?Microscopic Description Microscopic sections reviewed. ??No fungi are seen with PAS stain. ? Material Received ?? Vulvar lesion ? Gross Description Received in formalin labeled ?r. labia lesion? is a 0.1 cm in diameter punch biopsy of barrera- bruno skin versus squamous mucosa and subjacent fibrous tissue excised to a maximum depth of 0.2cm, submitted in toto a cassette labeled A. ??CEDS Special studies ordered and performed: PAS stain Copies To: ?? Shraddha Mustafa MD ?? [facility] ?? [address] ?? [place] [address] ?? [phone] ?? Kenyon Augustine MD ?? [facility] ?? [address] ?? [place] [address] ?? [phone] ? CONTINUED ON NEXT PAGE ----- ------- Name: Carina Rivas ? Age/Sex: 63/F ? : 1960 Unit#: [id number] ?? Attend Dr: Kenyon Augustine MD ?Re08/21/24 ?Status: DEP REF ? Location: HO.LNP ?Disch: ? ----- ------- SPEC : [id number] ?RECD: 08/24/24 ? STATUS: ??SOUT ? REQ NUM: [id number] ? CARLO: 08/21/24-1342 ? SUBM DR: Kenyon Augustine MD ? ENTERED: ??08/24/24 ?SP TYPE: Surgical ? OTHR DR: Shraddha Mustafa MD ? ORDERED: ??HE Stain/3, Gross Micro L4 ? ----- ------- Signed (signature on file) Teofilo Nuñez MD 08/27/24 [id number] ? ----- ------- ? END OF REPORT ? us Generic External Data Provider LAB BLOOD ORDERAB LES Final Result Performing Organization Address City/State/[facility] Co de Phone Number [facility] [address] [place] [address] [phone] documented in this encounter Visit Diagnoses Not on filedocumented in this encounter Care Teams Appointment Setter Relationship Specialty Start Date End Date Shraddha Mustafa MD [address] [place] [phone] PCP - General Family Medicine 03/21/17 Mike Kang PharmD [address] [place] [phone] Pharmacist Internal Medicine 12/10/22 documented as of this encounter
--- OUTSIDE RECORDS SUMMARY | 2024-09-01 15:13 | XMS_ITS | Encounter Summary ---
Author Organization [employer] Address [address] [facility] [address] [place] [address] Care Team Providers Care Strap Machine Operator Name Role Phone Shraddha Mustafa MD Primary Care Provider + Mike Kang PharmD Unavailable [phone] Encounter Details Date Type Department Care Team (Latest Contact Info) Description 08/19/2024 Travel Social History Tobacco Use Types Packs/Day Years [...] on filedocumented in this encounter Care Teams Strap Machine Operator Relationship Specialty Start Date End Date Shraddha Mustafa MD [address] [place] [address] PCP - General Family Medicine 03/21/17 Mike Kang, PharmD [address] [place] [phone] Pharmacist Internal Medicine 12/10/22 documented as of this encounter
--- OUTSIDE RECORDS SUMMARY | 2024-09-01 15:13 | XMS_ITS | Encounter Summary ---
Author Organization [employer] Address [address] [facility] [address] [place] [address] Care Team Providers Care Gis Physical Scientist Name Role Phone Shraddha Mustafa MD Primary Care Provider + Mike Kang PharmD Unavailable [phone] Reason for Visit * Reason Comments Lab Orders Encounter Details Date Type Department Care Team (Late st Contact Info) Description 08/19/2024 11:30 AM EST Telemedicine [facility] [address] [place], [place] [phone] Shraddha Mustafa MD [address] [place], [place] [phone] Mild intermittent asthma without complication (Primary Dx); Viral gastroenteritis; Viral URI Social History Tobacco Use Types Packs/Day Years Used Date Smoking Tobacco: Former Cigarettes Q uit: 2002 Smokeless Tobacco: Never Tobacco Cessation:Counseling Given: Not Answered Alcohol Use Standard Drinks/Week Comments Never 0 [...] as of this encounter Progress Notes * Shraddha Mustafa MD - 08/19/2024 11:30 AM EST SUBJECTIVE: Carina Rivas is a 63 y.o. year old female who presents for follow up of Asthma. Denies recent illness, injury, or hospitalization. Patient today on a telehelath visit for fu on Asthma and labs completed. Labs on 08/18/2024 showed normal CMP except for IFG, hyperlipidemia, and normal TSH. Acute Concerns: Viral infection - Patient states that she has a viral infection causing her to have fever, chills, nausea, vomiting, diarrhea for the past 2-3 days. There are no sick contacts in her household. Pt has not gone to [facility] to be checked out. She also reports decreased appetite. Social History Social History Narrative Not on file Patient Active Problem List Diagnosis Allergic conjunctivitis Arthritis of knee Benign essential hypertension Calcaneal spur Chronic constipation Mild intermittent asthma IFG (impaired fasting glucose) Obstructive sleep apnea syndrome Pain of breast Photosensitivity dermatitis due to sun Primary osteoarthritis of left knee Pruritus of vagina Recurrent major depression in partial remission (CMS/HCC) Seasonal allergic rhinitis Ulcer of nasal septum Varicose veins of lower extremity Vasomotor rhinitis Weight loss Missing teeth, acquired Dental plaque Dental calculus Periodontal disease Localized gingival recession Other chest pain Dyspnea on exertion UTI symptoms Colitis Rib pain Chronic pain of left knee Atelectasis of both lungs Overweight Viral gastroenteritis Viral URI No family history on file. Review of Systems Constitutional: Positive for appetite change (decreased), chills and fever. Negative for fatigue. HENT: Positive for congestion. Negative for ear pain, nosebleeds, rhinorrhea, sinus pressure, sore throat and trouble swallowing. Eyes: Negative for pain and discharge. Respiratory: Negative for cough, chest tightness and shortness of breath. Cardiovascular: Negative for chest pain, palpitations and leg swelling. Gastrointestinal: Positive for diarrhea and nausea. Negative for abdominal pain, blood in stool andconstipation. Endocrine: Negative for polydipsia and polyuria. Genitourinary: Negative for dysuria, frequency, genital sores, pelvic pain and vaginal discharge. Musculoskeletal: Negative for back pain and neck pain. Skin: Negative for rash. Allergic/Immunologic: Negative for environmental allergies. Neurological: Negative for dizziness, seizures, weakness, light-headedness and headaches. Hematological: Negative for adenopathy. Psychiatric/Behavioral: Negative for agitation, behavioral problems, self-injury and suicidal ideas. OBJECTIVE: There were no vitals filed for this visit. Physical Exam ASSESSMENT/PLAN Problem List Items Addressed This Visit Mild intermittent asthma - Primary Patient seems to be doing better on Dulera, no change in medications. Use Albuterol PRN asthma exacerbations only. Patient does not have Flu or COVID immunizations at this time. FU in 3 months. Viral gastroenteritis Patient most likely has Norovirus, rule out COVID or Flu. Prescription for Zofran 8mg/TID AC meals PRN nausea or vomiting. Advised liquid diet today and advance to BRAT diet as tolerated once diarrhea stops. Advised to come in person and get tested for COVID and Flu at the vaccine clinic. Patient is advised to come between 1-3pm today and call phone number listed at the entrance of the vaccine clinic. Viral URI Pt advised to be tested for Covid and flu as above. Rest (sleep at least 8 hours a night). Hydrate with plenty of water (avoid caffeine and alcohol). Use saline nose drops to loosen mucus + Flonase. Take Acetaminophen (Tylenol??)/Ibuprofen as needed to reduce fever, headache, body aches or discomfort Gargle with salt water and use throat sprays/lozenges for throat pain. Use heated, humidified air. If you do not have a humidifier, take hot showers. Cover coughs and sneezes using the crook of your elbow. If you have a fever, stay home and away from others (self isolation) until fever-free for 72 hours (temperature should be less than 100??F without medication). Will call pt prn positive viral results and prescribe medications if needed. Relevant Medications acetaminophen (Tylenol) 500 MG tablet Other Visit Diagnoses Symptomatic irreversible pulpitis Follow Up: Current Outpatient Medications on File Prior to Visit Medication Sig Dispense Refill albuterol (2.5 MG/3ML) 0.083% nebulizer solution INHALE 1 AMPULE USING A NEBULIZER THREE TIMES DAILY NEEDED FOR ASTHMA / SHORTNESS OF BREATH 90 mL 5 amLODIPine (Norvasc) 5 MG tablet TAKE 1 TABLET BY MOUTH EVERY DAY 30 tablet 3 atorvastatin (Lipitor) 20 MG tablet TAKE 1 TABLET BY MOUTH EVERY DAY 90 tablet 1 cetirizine (ZyrTEC) 10 MG tablet TAKE 1 TABLET BY MOUTH EVERY MORNING 90 tablet 1 chlorhexidine (Peridex) 0.12 % solution Swish 15 mL morning and night for 1 minute. Spit, do not swallow. Do not eat or drink for 30 minutes following use. 473 mL 0 Diclofenac Sodium 1 % gel APPLY 2 GRAMS TOPICALLY TWICE DAILY 100 g 3 docusate sodium (Colace) 100 MG capsule TAKE 1 CAPSULE BY MOUTH TWICE DAILY NEEDED hydrocortisone 2.5 % cream APPLY TO THE AFFECTED AREA(S) TWICE DAILY 20 g 1 lidocaine (Lidoderm) 5 % patch Apply 1 patch topically in the morning. Remove & discard patch within 12 hours or as directed by MD. 30 patch 0 meloxicam (Mobic) 7.5 MG tablet Take 1 tablet (7.5 mg) by mouth 2 times daily. 60 tablet 11 mometasone-formoterol (Dulera 100) 100-5 MCG/ACT inhaler Inhale 2 puffs in the morning and at bedtime. Rinse mouth with water after use to reduce aftertaste and incidence of candidiasis. Do not swallow. 13 g 11 montelukast (Singulair) 10 MG tablet TAKE 1 TABLET BY MOUTH EVERY EVENING 90 tablet 1 naproxen (Naprosyn) 500 MG tablet TAKE 1 TABLET BY MOUTH TWICE DAILY WITH BREAKFAST AND WITH OMMODU70 tablet 1 sertraline (Zoloft) 50 MG tablet TAKE 1 TABLET BY MOUTH EVERY DAY 30 tablet 3 traZODone (Desyrel) 50 MG tablet TAKE 1 TABLET BY MOUTH AT BEDTIME 30 tablet 3 triamcinolone (Kenalog) 0.1 % cream Apply topically 2 times daily. 15 g 1 valACYclovir (Valtrex) 1 g tablet TAKE 1 TABLET BY MOUTH THREE TIMES DAILY FOR 7 DAYS Ventolin HFA 108 (90 Base) MCG/ACT inhaler INHALE 2 PUFFS BY MOUTH EVERY 4 TO 6 HOURS NEEDED 18 g 3 [DISCONTINUED] acetaminophen (Tylenol) 500 MG tablet Take 1 tablet (500 mg) by mouth every 6 (six) hours if needed for mild pain for up to 20 doses. 20 tablet 0 No current facility-administered medications on file prior to visit. I, Elise German, am serving as a scribe to document services personally performed by Dr. Shraddha Mustafa, based on the patient's response to questions by provider and provider's statements to me. documented in this encounter Miscellaneous Notes * Assessment & Plan Note - Elise German MA - 08/19/2024 1:59 PM EST Associated Problem(s): Viral gastroenteritis Patient most likely has Norovirus, rule out COVID or Flu. Prescription for Zofran 8mg/TID AC meals PRN nausea or vomiting. Advised liquid diet today and advance to BRAT diet as tolerated once diarrhea stops. Advised to come in person and get tested for COVID and Flu at the vaccine clinic. Patient is advised to come between 1-3pm today and call phone number listed at the entrance of the vaccine clinic. * Assessment & Plan Note - Elise German MA - 08/19/2024 1:55 PM EST Associated Problem(s): Mild intermittent asthma Patient seems to be doing better on Dulera, no change in medications. Use Albuterol PRN asthma exacerbations only. Patient does not have Flu or COVID immunizations at this time. FU in 3 months. * Assessment & Plan Note - Claire Dorantes - 08/19/2024 11:48 AM ESTAssociated Problem(s): Viral URI Pt advised to be tested for Covid and flu as above. Rest (sleep at least 8 hours a night). Hydrate with plenty of water (avoid caffeine and alcohol). Use saline nose drops to loosen mucus + Flonase. Take Acetaminophen (Tylenol??)/Ibuprofen as needed to reduce fever, headache, body aches or discomfort Gargle with salt water and use throat sprays/lozenges for throat pain. Use heated, humidified air. If you do not have a humidifier, take hot showers. Cover coughs and sneezes using the crook of your elbow. If you have a fever, stay home and away from others (self isolation) until fever-free for 72 hours (temperature should be less than 100??F without medication). Will call pt prn positive viral results and prescribe medications if needed. documented in this encounter Plan of Treatment Not on file documented as of this encounter Goals Goal Patient Goal Type Associated Problems Recent Progress Patient-Stated? Author Blood Pressure < 150/90 Blood Pressure 120/80(2023 2:53 PM EST) No Mike Kang PharmD Note: Per JNC-8 : Age>60, No history of DM or CKD documented as of this encounter Visit Diagnoses Diagnosis Mild intermittent asthma without complication- Primary Viral gastroenteritis Intestinal infection due to other organism, NEC Viral URI Acute upper respiratory infections of unspecified site documented in this encounter Care Teams Gis Physical Scientist Relationship Specialty Start Date End Date Shraddha Mustafa MD [address] [place] [address] PCP - General Family Medicine 03/21/17 Mike Kang PharmD [address] [place] [address] Pharmacist Internal Medicine 12/10/22 documented as of this encounter
--- OUTSIDE RECORDS SUMMARY | 2024-09-01 15:13 | XMS_ITS | Encounter Summary ---
Author Organization [employer] Address [address] [facility] [address] [place] [address] Care Team Providers Care Retail Security Professional Name Role Phone Shraddha Mustafa MD Primary Care Provider + Mike Kang PharmD Unavailable [phone] Reason for Visit * Reason Onset Date Comments Call Back Request 05/06/2024 Encounter Details Date Type Department Care Team ([facility] st Contact Info) Description 05/06/2024 Telephone [facility] [address] [place], [place] [phone] Shraddha Mustafa MD [address] [place], [place] [phone] Call Back Request Social History Tobacco Use Types Packs/Day Years [...] encounter Miscellaneous Notes * Telephone Encounter - Pancho Pal - 05/06/2024 10:28 AM EDT Tc from Kathrine from [facility] requesting a call back to obtain any information regarding the patients mental stability states is under the suspension of Hoarding and is planning to enter the patient residency on or after 05/08 any information would help please call Kathrine at [phone] documented in this encounter Plan of Treatment Not on file documented as of this encounter Goals Goal Patient Goal Type Associated Problems Recent Progress Patient-Stated? Author Blood Pressure < 150/90 Blood Pressure 120/80(2023 2:53 PM EST) No Mike aKng PharmD Note: Per JNC-8 : Age>60, No history of DM or CKD documented as of this encounter Visit Diagnoses Not on filedocumented in this encounter Care Teams Retail Security Professional Relationship Specialty Start Date End Date Shraddha Mustafa MD [address] [place] [address] PCP - General Family Medicine 03/21/17 Mike Kang PharmD [address] [place] [address] Pharmacist Internal Medicine 12/10/22 documented as of this encounter
--- OUTSIDE RECORDS SUMMARY | 2024-09-01 15:13 | XMS_ITS | Encounter Summary ---
Author Organization [employer] Address [address] [facility] [address] [place] [address] Care Team Providers Care Locum Tenens Psychiatrist Name Role Phone Shraddha Mustafa MD Primary Care Provider + Mike Kang PharmD Unavailable [phone] Reason for Visit * Reason Comments Med Refill Encounter Details Date Type Department Care Team ([facility] st Contact Info) Description 12/10/2022 Refill [facility] [address] [place] [address] Trish Gonzalez MD [address] [place] [address] Social History Tobacco Use Types Packs/Day Years Used Date Smoking Tobacco: Former Cigarettes Q uit: 2002 Smokeless Tobacco: Never Alcohol Use Standard Drinks/Week Comments Never 0 (1 standard drink = 0.6 oz pur e alcohol) Comments Unknown Sex and Gender Information Value Date Recorded Sex Assigned at Female 06/11/2022 10:17 AM EDT Legal Sex Female 10:17 AM EDT Gender Identity Female 06/11/2022 10:17 AM EDT Sexual Orientation Choose not to disclose 2021 10:17 AM EDT COVID-19 Exposure Response Date Recorded In the last 10 days, have yo u been in contact with someone who was confirmed or suspected to have Coronavirus/COVID-19? No / Unsure 12/07/2022 11:02 AM EDT documented as of this encounter [...] on filedocumented in this encounter Care Teams Locum Tenens Psychiatrist Relationship Specialty Start Date End Date Shraddha Mustafa MD [address] [place] [address] PCP - General Family Medicine 03/21/17 Mike Kang, JuliánD [address] [place] [id number] Pharmacist Internal Medicine 12/10/22 documented as of this encounter
--- OUTSIDE RECORDS SUMMARY | 2024-09-01 15:13 | XMS_ITS | Encounter Summary ---
Author Organization [email or web address] Address [address] [facility] [address]t [place] [address] Care Team Providers Care Auto Body Service Mechanic Name Role Phone Shraddha Mustafa MD Primary Care Provider + Mike Kang PharmD Unavailable [phone] Reason for Visit * Reason Comments Med Refill Encounter Details Date Type Department Care Team (Late st Contact Info) Description 08/03/2024 Refill [facility] [address] [place] [address] Shraddha Mustafa MD [address] [place] [address] Social History Tobacco Use Types Packs/Day Years [...] on filedocumented in this encounter Care Teams Auto Body Service Mechanic Relationship Specialty Start Date End Date Shraddha Mustafa MD [address] [place] [address] PCP - General Family Medicine 03/21/17 Mike Kang, PharmD [address] [place] [address] Pharmacist Internal Medicine 12/10/22 documented as of this encounter
--- OUTSIDE RECORDS SUMMARY | 2024-09-01 15:13 | XMS_ITS | Clinical Summary ---
Author Organization [employer] Address [address] [facility] [address] [place] [address] Care Team Providers Care Recruiter Name Role Phone Shraddha Mustafa MD Primary Care Provider + Mike Kang PharmD Unavailable [phone] Allergies No known active allergies Medications docusate sodium (Colace) 100 MG capsule TAKE 1 CAPSULE BY MOUTH TWICE DAILY NEEDED 06/07/20 22 Active valACYclovir (Valtrex) 1 g tablet TAKE 1 TABLET BY MOUTH THREE TIMES DAILY FOR 7 DAYS 09/03/19 23 Active Diclofenac Sodium 1 % gelIndications: Chronic low back pain, unspecified back pain laterality, unspecified whether sciatica present APPLY 2 GRAMS TOPICALLY TWICE DAILY 100 g 3 05/27/20 23 Active lidocaine (Lidoderm) 5 % patchIndication s:Rib pain Apply 1 patch topically in the morning. Remove & discard patch within 12 hours or as directed by . 30 patch 09/12/19 24 Active naproxen (Naprosyn) 500 MG tabletIndicatio ns:Chronic pain of left knee,Rib pain TAKE 1 TABLET BY MOUTH TWICE DAILY WITH BREAKFAST AND WITH DINNER 30 tablet 1 11/12/19 24 Active chlorhexidine (Peridex) 0.12 % solutionIndicat ions:Symptomati c irreversible pulpitis Swish 15 mL morning and night for 1 minute. Spit, do not swallow. Do not eat or drink for 30 minutes following use. 473 mL 01/16/20 24 Active atorvastatin (Lipitor) 20 MG tablet TAKE 1 TABLET BY MOUTH EVERY DAY 90 tablet 1 01/27/20 24 Active montelukast (Singulair) 10 MG tablet TAKE 1 TABLET BY MOUTH EVERY EVENING 90 tablet 1 01/27/20 24 Active triamcinolone (Kenalog) 0.1 % cream Apply topically 2 times daily. 15 g 1 02/06/20 24 Active meloxicam (Mobic) 7.5 MG tablet Take 1 tablet (7.5 mg) by mouth 2 times daily. 60 tablet 11 03/04/20 24 025 Active amLODIPine (Norvasc) 5 MG tablet TAKE 1 TABLET BY MOUTH EVERY DAY 30 tablet 3 03/27/20 24 Active sertraline (Zoloft) 50 MG tablet TAKE 1 TABLET BY MOUTH EVERY DAY 30 tablet 3 03/27/20 24 Active albuterol (2.5 MG/3ML) 0.083% nebulizer solution INHALE 1 AMPULE USING A NEBULIZER THREE TIMES DAILY NEEDED FOR ASTHMA / SHORTNESS OF BREATH 90 mL 5 03/31/20 24 Active cetirizine (ZyrTEC) 10 MG tabletIndicatio ns:Influenza A TAKE 1 TABLET BY MOUTH EVERY MORNING 90 tablet 1 04/15/20 24 Active hydrocortisone 2.5 % cream APPLY TO THE AFFECTED AREA(S) TWICE DAILY 20 g 1 05/18/20 24 Active mometasone-form oterol (Dulera 100) 100-5 MCG/ACT inhaler Inhale 2 puffs in the morning and at bedtime. Rinse mouth with water after use to reduce aftertaste and incidence of candidiasis. Do not swallow. 13 g 11 06/30/20 24 025 Active traZODone (Desyrel) 50 MG tablet TAKE 1 TABLET BY MOUTH AT BEDTIME 30 tablet 3 07/24/20 24 Active Ventolin HFA 108 (90 Base) MCG/ACT inhaler INHALE 2 PUFFS BY MOUTH EVERY 4 TO 6 HOURS NEEDED 18 g 3 08/04/20 24 Active fluticasone (Flonase) 50 MCG/ACT nasal spray Administer 1 spray into each nostril Once per day. 16 g 2 08/19/19 25 025 Active sodium chloride ([place] Nasal [place]) 0.65 % nasal spray Administer 1 spray into each nostril if needed for congestion. 30 mL 08/19/19 25 026 Active acetaminophen (Tylenol) 500 MG tabletIndicatio ns:Viral URI Take 1 tablet (500 mg) by mouth every 6 (six) hours if needed for mild pain, headaches or fever. 60 tablet 08/19/19 25 Active acetaminophen (Tylenol) 500 MG tabletIndicatio ns:Symptomatic irreversible pulpitis Take 1 tablet (500 mg) by mouth every 6 (six) hours if needed for mild pain for up to 20 doses. 20 tablet 01/16/20 24 025 Discontinued(R eorder (will not trigger notification to Pharmacy)) Ventolin HFA 108 (90 Base) MCG/ACT inhaler INHALE 2 PUFFS BY MOUTH EVERY 4 TO 6 HOURS NEEDED 18 g 3 04/08/20 24 024 Discontinued pseudoephedrine -Naproxen Na ER (Sinus & Cold-D) 120-220 MG tablet sustained-relea se 12 hour Take 1 tablet by mouth if needed in the morning and at bedtime (cold/sinus symptoms) for up to 3 days. 6 tablet 08/19/19 25 025 ondansetron (Zofran) 8 MG tablet Take 1 tablet (8 mg) by mouth every 8 (eight) hours if needed for nausea or vomiting for up to 7 days. 20 tablet 08/19/19 25 025 loperamide (Imodium A-D) 2 MG tablet Take 1-2 tablets (2-4 mg) by mouth if needed in the morning, at noon, in the evening, and at bedtime for diarrhea for up to 10 days. 30 tablet 08/19/19 25 025 Active Problems Problem Noted Date Diagnosed Date Viral gastroenteritis 08/19/2024 Assessment & Plan (08/19/2024 2:04 PM EST): Patient most likely has Norovirus, rule out [...] entrance of the vaccine clinic. Viral URI 08/19/2024 Assessment & Plan (08/19/2024 11:48 AM EST): Pt advised to be tested for Covid [...] viral results and prescribe medications if needed. Overweight 06/30/2024 Assessment & Plan (06/30/2024 1:25 PM EST): Discussed re weight reduction options including exercise, life style modifications, and diet. Recommended to decrease soda and sugary beverage consumption, increase protein intake with meals (at least 1 portion of protein with each meal) to assist with satiety, increase dietary fiber Recommended at least 150 min/week of moderate intensity exercise. Atelectasis of both lungs 05/07/2024 Assessment & Plan (06/30/2024 1:29 PM EST): Pt needs to use incentive spirometer, we gave her information regarding DME provider to call for delivery. Advised regarding optimal control of asthma. Re consult prn increased phlegm, pleuritic chest pain, or worsening cough. Chronic pain of left knee 09/12/2023 Assessment & Plan (04/28/2024 10:40 AM EDT): - declined total knee replacement and additional steroid injections - refer to PT - take Tylenol or Naproxen PRN Other chest pain 06/25/2023 Dyspnea on exertion 06/25/2023 UTI symptoms 06/25/2023 Colitis 06/25/2023 Rib pain 06/25/2023 Assessment & Plan (04/28/2024 11:15 AM EDT): - could be related to asthama, r/o fracture from last year's fall - order x-ray of ribs - f/u at next appointment, take Tylenol PRN Assessment & Plan (06/25/2023 3:37 PM EST): Take ketorolac as prescribed by ED provider Missing teeth, acquired 04/19/2023 Dental plaque 04/19/2023 Dental calculus 04/19/2023 Periodontal disease 04/19/2023 Localized gingival recession 04/19/2023 Allergic conjunctivitis 10/16/2022 Arthritis of knee 10/16/2022 Chronic constipation 10/16/2022 Obstructive sleep apnea syndrome 10/16/2022 Primary osteoarthritis of left knee 10/16/2022 Pruritus of vagina 10/16/2022 Recurrent major depression in partial remission 10/16/2022 Assessment & Plan (04/28/2024 11:16 AM EDT): - advised to f/u closely with therapist - continue Sertraline same dose and f/u in 3 months - pt feels safe at home and is able to reach out for safety - denies drug use, unable to explain previous positive urine tox - discussed importance of avoiding any inadvertent drug use Weight loss 10/16/2022 Calcaneal spur 01/09/2019 Vasomotor rhinitis 12/11/2018 Seasonal allergic rhinitis 11/13/2018 Ulcer of nasal septum 11/13/2018 Pain of breast 11/04/2018 IFG (impaired fasting glucose) 09/09/2018 Varicose veins of lower extremity 09/09/2018 Photosensitivity dermatitis due to sun 8 Benign essential hypertension 12/30/2017 Assessment & Plan (06/30/2024 2:55 PM EST): Controlled. Compliant w/meds Continue amlodipine same dose Counseled re low salt diet/increase moderate physical activity. Check home BP BIW and prn CP/SALCEDO/HERNANDEZ Non smoking patient. Order labs to evaluate CV risk Fu in 4 weeks. Assessment & Plan (04/28/2024 11:14 AM EDT): Uncontrolled today, she did not take her medications Advised to take medications daily, bring medications to next appointment Continue amlodipine 5 mg same dose Counseled re low salt diet/increase moderate physical activity. Check home BP BIW and prn CP/SALCEDO/HERNANDEZ Non smoking patient. Mild intermittent asthma 12/30/2017 Assessment & Plan (08/19/2024 2:07 PM EST): Patient seems to be doing better on Dulera, no change in medications. Use Albuterol PRN asthma exacerbations only. Patient does not have Flu or COVID immunizations at this time. FU in 3 months. Assessment & Plan (06/30/2024 2:54 PM EST): Will start Dulera BID, advised to continue using Albuterol prn only. Fu in 4 weeks. We gave her information regarding nebulizer, she has not gotten it delivered yet. She needs to use it prn for asthma attacks. She declined Covid immunization. Assessment & Plan (04/28/2024 3:08 PM EDT): - seems to be doing well, has approx. 1 exacerbation per month - continue Albuterol PRN, advised to use nebulizer at home Q 4 hours PRN SOB to prevent ED visits, I will rx one as hers apparently broke. - order chest x-ray - agreed to have PCV 20 + influenza IZ today Resolved Problems Problem Noted Date Diagnosed Date Resolved Date Acute rhinosinusitis 11/04/2018 024 Encounters Date Type Department Care Team Description 08/24/2024 Orders Only GENERIC EXTERNAL DATA DEPARTMENT Provider, Generic External Data 08/21/2024 Orders Only GENERIC EXTERNAL DATA DEPARTMENT Provider, Generic External Data 08/19/2024 1:30 PM EST Clinical Support [address] [address] Cecy Calvo LPN Exposure to confirmed case of COVID-19 (Primary Dx) 08/19/2024 11:30 AM EST Telemedicine [address] [address] Shraddha Mustafa MD Mild intermittent asthma without complication (Primary Dx); Viral gastroenteritis; Viral URI 08/19/2024 Travel 08/18/[address] [address] Shraddha Mustafa MD Chart prep 08/03/2024 Refill [facility] [address] [place] [phone] Shraddha Mustafa MD 07/23/2024 Refill [facility] [address] [place] [phone] Shraddha Mustafa MD 07/22/2024 Telephone [facility] [address] [place] [phone] Shraddha Mustafa MD Durable Medical Equipment 07/21/[address] [address] Evelia Carlos [place] Durable Medical Equipment 07/14/[address] [address] Evelia Carlos [place] Durable Medical Equipment 07/13/2024 Orders Only GENERIC EXTERNAL DATA DEPARTMENT Provider, Generic External Data 07/08/[address] [address] Shraddha Mustafa MD Durable Medical Equipment 06/30/2024 11:15 AM EST Office Visit [address] [address] Shraddha Mustafa MD Benign essential hypertension (Primary Dx); Dietary counseling; Exercise counseling; Overweight; Mild intermittent asthma without complication; Atelectasis of both lungs 06/30/2024 Travel from Last 3 Months Immunizations Name Administration Dates Next Due Influenza injectable quadriv alent IIV4 with preservative 06/17/2018 Influenza injectable quadrivalent preservative f ree 06/07/2022 Influenza, High Dose Seasonal, Preservative Free 04/28/2024 Pneumococcal Conjugate PCV 20 04/28/2024 Rabies, intramuscular 04/25/2013,04/11/2013 Td (adult), 5 Lf tetanus tox oid, preservative free, adsorbed 04/11/2013 Tdap 02/27/2018 Zoster, Recombinant 11/29/2022,09/27/2022 Social History Tobacco Use Types Packs/Day Years Used Date Smoking Tobacco: Former Cigarettes Q uit: 2003 Smokeless Tobacco: Never Tobacco Cessation:Counseling Given: Not [...] not to disclose 2021 10:17 AM EDT Last Filed Vital Signs Vital Sign Reading Time Taken Comments Blood Pressure 120/80 06/30/2024 2:53 PM EST Pulse 88 06/30/2024 11:20 AM EST Temperature 35.9 ??C (96.6 ??F) 06/30/2024 11:[address] Respiratory Rate 12 06/30/2024 11:20 AM EST Oxygen Saturation 98% 06/30/2024 11:20 AM EST Inhaled Oxygen Concentration - - Weight 68.2 kg (150 lb 6 oz) 06/30/2024 11:20 AM EST Height 157.5 cm (5' 2 ) 06/30/2024 11:20 AM EST Body Mass Index 27.5 06/30/2024 11:20 AM EST Plan of Treatment Health Maintenance Due Date Last Done Comments CT Colonography 1960 Colonoscopy 1960 Colorectal Cancer Screening 1960 FIT DNA/Cologuard 1960 FIT 1960 FOBT 1960 Sigmoidoscopy 1960 Alcohol/Substance Use Screening 1970 Hepatitis C Screening 1976 RSV Patients and Patients Aged 60 years or older (1 - Risk 60-74 years 1-dose series) 2018 Mammogram 08/30/2023 08/30/2021, 02/04/2019, 01/22/2018 Dental Oral Exam 10/19/2023 04/19/2023, 05/15/2021, 03/11/2012 Dental Prophylaxis 10/19/2023 04/19/2023, 05/15/2021 COVID-19 Vaccine (2023-2 5 season) 2024 06/07/2022, 11/01/2020, 10/11/2020 Dental X-Ray: Full Mouth 04/22/2024 021, 03/11/2012 Dental X-Ray: Bitewings 01/16/2025 01/16/20 24, 05/09/2023, 03/11/2012 Depression Screening 04/28/2025 04/28/2024, 04/28/2024 SDOH Screening 04/28/2025 04/28/2024 Tobacco Screening 08/19/2025 08/19/2024 DTaP/Tdap/Td Vaccines (2 - T d or Tdap) 02/28/2028 02/27/2018, 04/11/2013 Lipid Panel 08/18/2029 08/18/2024 Zoster Vaccines Completed 11/29/2022, 09/27/2022 Influenza Vaccine Completed 04/28/2024, 06/07/2022, 06/17/2018 Pneumococcal Vaccine: 65+ Years Completed 04/28/2024 HIB Vaccines Aged Out No longer eligi ble based on patient's age to complete this topic HPV Vaccines Aged Out No longer eligi ble based on patient's age to complete this topic Hepatitis A Vaccines Aged Out No long er eligible based on patient's age to complete this topic Hepatitis B Vaccines Aged Out No long er eligible based on patient's age to complete this topic IPV Vaccines Aged Out No longer eligi ble based on patient's age to complete this topic Meningococcal Vaccine Aged Out No ihma david eligible based on patient's age to complete this topic RSV under 20 months Aged Out No longe r eligible based on patient's age to complete this topic Rotavirus Vaccines Aged Out No longer eligible based on patient's age to complete this topic Goals Goal Patient Goal Type Associated Problems Recent Progress Patient-Stated? Author Blood Pressure < 150/90 Blood Pressure 120/80(2023 2:53 PM EST) No Mike Kang, PharmD Note: Per JNC-8 : Age>60, No history of DM or CKD Procedures Procedure Name Priority Date/Time Associated Diagnosis Comments CULTURE, URINE, ROUTINE Routine 08/24/2024 6:52 PM EST URINALYSIS, COMPLETE, WITH REFLEX TO CULTURE Routine 08/24/2024 6:34 PM EST BACTERIAL VAGINOSIS PANEL Routine 08/24/2024 6:34 PM EST CHLAMYDIA/N. GONORRHOEAE RNA, TMA, UROGENITAL Routine 08/24/2024 6:34 PM EST WET PREP, GENITAL Routine 08/24/2024 6:3 4 PM EST HEMATOXYLIN AND EOSIN STAIN Routine 08/21/2024 1:43 PM EST POCT RAPID COVID ANTIGEN Routine 08/19/2024 1:45 PM EST Exposure to confirmed case of COVID-19 TSH W/REFLEX TO FT4 Routine 08/18/2024 9 :56 AM EST Benign essential hypertension LIPID PANEL WITH REFLEX TO DIRECT LDL Routine 08/18/2024 9:56 AM EST Benign essential hypertension COMPREHENSIVE METABOLIC PANEL Routine 08/18/2024 9:56 AM EST Benign essential hypertension CHLAMYDIA/N. GONORRHOEAE RNA, TMA, UROGENITAL Routine 07/13/2024 12:00 AM EST BACTERIAL VAGINOSIS PANEL Routine 07/13/2024 12:00 AM EST BITEWING - SINGLE RADIOGRAPHIC IMAGE Routine 01/16/2024 3:30 PM EDT Vertical fracture of root of tooth Full PROPHYLAXIS - ADULT Routine 04/19/2023 3:00 PM EDT Missing teeth, acquired Dental plaque Dental calculus Periodontal disease PERIODIC ORAL EVALUATION - ESTABLISHED PATIENT Routine 04/19/2023 3:00 PM EDT MAMMOGRAM GENERIC Routine 08/30/2021 10: 14 AM EST PANORAMIC RADIOGRAPHIC IMAGE Routine 04/21/2021 12:00 AM EDT from Last 3 Months or Most Recently Relevant to Health Maintenance Results * Culture, Urine, Routine (08/24/2024 6:52 PM EST) Urine Urine specimen obtained by clean catch procedure / Unknown 08/24/2024 6:52 PM EST 08/24/2024 6:52 PM EST Comment:UACC Narrative [facility] - 08/26/2024 10:51 AM EST Strep agalactiae (Grp B) Quant > 100,000 cfu/mL Susc N/A Susceptibility not routinely performed on this isolate. Specimen Source: Urine clean catch us Generic External Data Provider LAB MICROBIOLOGY - GENERAL ORDERABLES Final Result [facility] [address] [place] [phone] * Bacterial Vaginosis (08/24/2024 6:34 PM EST) Only the most recent of2 resultswithin the time period is included. TRICHOMONAS VAGINALIS DETECTION BY PCR NOT DETECTED Not Detect [facility] BACTERIAL VAGINOSIS DETECTION BY PCR NEGATIVE Negative [facility] Comment:The BV organism targ ets of [...] DETECTION BY PCR NOT DETECTED Not Detect [facility] Bianka glab krusei PCR NOT DETECTED Not Detect [facility] 08/24/2024 6:34 PM EST 08/24/2024 6:38 PM EST us Generic External Data Provider LAB MICROBIOLOGY - GENERAL ORDERABLES Final Result [facility] [address] [place] [phone] * (ABNORMAL) Urinalysis, Complete, with Reflex to Culture (08/24/2024 6:34 PM EST) Color Urine Yellow [facility] Appearance Urine Clear [facility] PH 6.5 5.0 - 9.0 [facility] Glucose Urine UA Negative Negative mg/dL [facility] Urine Blood Negative Negative [facility] Specific [place] - Urine 1.025 1.005 - 1.025 [facility] Urine Protein Trace Neg-Trace mg/dL [facility] Urine Ketones Negative Negative mg/dL [facility] Nitrite Urine Negative Negative [facility] Leukocyte Esterase Urine Small (1+)(A) Negative [facility] RBC Urine 0-2 0 - 2 /HPF [facility] Urine WBC 0-5 0 - 5 /HPF [facility] Urine Squamous Epithelial Cell 6-10 0 - 2 /HPF [facility] Urine Bacteria Trace None Seen [facility] Hyaline Casts, Urine 0-2 0 - 2 /LPF [facility] 08/24/2024 6:34 PM EST 08/24/2024 6:38 PM EST Narrative [facility] - 08/24/2024 6:52 PM EST Urine, Clean Catch us Generic External Data Provider LAB URINE ORDERAB LES Final Result [facility] [address] [place] [phone] * Chlamydia/N. Gonorrhoeae RNA, TMA, Urogenitial (08/24/2024 6:34 PM EST) Only the most recent of2 resultswithin the time period is included. CT PCR NOT DETECTED Not Detect. [facility] Comment:A not detected test result does [...] psychologicalconsequences. NG PCR NOT DETECTED Not Detect. [facility] Comment:A not detected test result does [...] PM EST 08/24/2024 6:38 PM EST Narrative [facility] - 08/25/2024 5:54 AM EST Vaginal Generic External Data Provider LAB MICROBIOLOGY - GENERAL ORDERABLES Final Result Performing Organization Address [facility] de Phone Number [facility] [address] [place] [phone] * Wet prep, genital (08/24/2024 6:34 PM EST) Vaginal Fluid Vaginal structure / Unknown 08/24/2024 6:34 PM EST 08/24/2024 6:38 PM EST Comment:Vaginal Narrative [facility] - 08/24/2024 6:44 PM EST Trichomonas Prep Direct Microscopic Exam Trichomonas Prep No trichomonads or yeast seen Specimen Source: Vaginal Generic External Data Provider LAB MICROBIOLOGY - GENERAL ORDERABLES Final Result Performing Organization Address [facility] de Phone Number [facility] [address] [place] [phone] * Hematoxylin and Eosin Stain (08/21/2024 1:43 PM EST) 08/21/2024 1:43 PM EST 08/24/2024 8:03 AM EST [facility] - 08/27/2024 3:07 PM EST ----- ------- Name: Carina Rivas ? Age/Sex: 63/F ? : 1960 Unit#: [id number] ?? Attend Dr: Kenyon Augustine MD ?Re08/21/24 ?Status: DEP REF ? Location: HO.LNP ?Disch: ? ----- ------- SPEC : [id number] ?RECD: 08/24/24 ? STATUS: ??SOUT ? REQ NUM: [id number] ? CARLO: 08/21/243 ? SUBM DR: Kenyon Augustine MD ? [...] Copies To: ?? Shraddha Mustafa MD ?? [facility] ?? [address] ?? [place] [address] ?? [phone] ?? Kenyon Augustine MD ?? [facility] ?? [address] ?? [place] [address] ?? [phone] ? CONTINUED ON NEXT PAGE ----- ------- Name: Carina Rivas ? Age/Sex: 63/F ? : 1960 Unit#: [id number] ?? Attend Dr: Kenyon Augustine MD ?Re08/21/24 ?Status: DEP REF ? Location: HO.LNP ?Disch: ? ----- ------- SPEC : [id number] ?RECD: 08/24/24 ? STATUS: ??SOUT ? REQ NUM: [id number] ? CARLO: 08/21/24-0516 ? SUBM DR: Kenyon Augustine MD ? ENTERED: ??08/24/24 ?SP TYPE: Surgical ? OTHR : Shraddha Mustafa MD ? ORDERED: ??LAURE Stain/3, Gross Micro L4 ? ----- ------- Signed (signature on file) Teofilo Nuñez MD 08/27/24 0522 ? ----- ------- ? END OF REPORT ? us Generic External Data Provider LAB BLOOD ORDERAB LES Final Result Performing Organization Address [facility]/ZIP Co de Phone Number [facility] [address] [place] [phone] * POCT Rapid COVID Ag (08/19/2024 1:45 PM EST) Rapid COVID Ag Negative Swab 08/19/2024 1:45 PM EST us Tennille Horowitz MD POINT OF CARE TEST ENTER/ED IT ORDERABLES Final Result * TSH with Reflex to Free T4 (08/18/2024 9:56 AM EST) Pathologist [facility] TSH reflex Free T4 1.54 0.32 - 4.0 uIU/mL [facility] Blood 08/18/2024 9:56 AM EST 08/18/2024 11:15 AM EST us Shraddha Mustafa MD LAB BLOOD ORDERABLES Fin al Result Performing Organization Address [facility]/ZIP Co de Phone Number [facility] [address] [place] [phone] * (ABNORMAL) Lipid Panel with Reflex to Direct LDL (08/18/2024 9:56 AM EST) Pathologist [facility] Triglycerides 249(H) <150 mg/dL [facility] Comment:Desirable Triglyceri de: less than 150 mg/dLBorderline High Triglyceride 150-199 mg/dLHigh Triglyceride: 200-499 mg/dLVery High Triglyceride: greater than or equal to 5OO mg/dL Cholesterol 246(H) <200 mg/dL [facility] Comment:Desirable Cholestero l: less than 200 mg/dLBorderline High Cholesterol: 200-239 mg/dLHigh Cholesterol: greater than 239 mg/dL LDL Cholesterol Calculated 153(H) <100 mg/dL [facility] Comment:Desirable LDL: less than 100 mg/dLNear Optimal/Above Optimal LDL: 110- 129 mg/dLBorderline High LDL: 130-159 mg/dLHigh LDL: 160-189 mg/dLVery High LDL: greater than or equal to 190 mg/dL HDL Cholesterol 44 >40 mg/dL [facility] Comment:Desirable HDL: great er than 40 mg/dL Note: This HDL assay may give artificially low results in patients with liver disease. Blood 08/18/2024 9:56 AM EST 08/18/2024 11:15 AM EST us Shraddha Mustafa MD LAB BLOOD ORDERABLES Fin al Result [facility] [address] [place] [phone] * (ABNORMAL) Comprehensive Metabolic Panel (08/18/2024 9:56 AM EST) Sodium 141 135 - 145 mmol/L [facility] Potassium 3.9 3.3 - 5.1 mmol/L [facility] Chloride 107 96 - 108 mmol/L [facility] Carbon Dioxide 28 22 - 29 mmol/L [facility] Anion Gap 10(L) 12 - 20 [facility] Urea Nitrogen (BUN) 15 9 - 16 mg/dL [facility] Creatinine, Serum 0.77 0.5 - 1.4 mg/dL [facility] Estimated Glomerular Filt Rate >60 [facility] Comment:Chronic Kidney Disea se: Estimated GFR < 60 mL/min/1.01u0[place] Kidney Disease: Estimated GFR < 15 mL/min/1.73m2 Glucose 137(H) 60 - 115 mg/dL [facility] Calcium 8.9 8.4 - 10.2 mg/dL [facility] Bilirubin, Total 0.5 0.0 - 1.0 mg/dL [facility] Aspartate Amino Transferase 28 5 - 31 U/L [facility] Alanine Aminotransferase 18 0 - 31 U/L [facility] Total Protein 7.4 6.5 - 8.0 g/dL [facility] Albumin Level 4.1 3.5 - 5.0 g/dL [facility] Alkaline Phosphatase 117 39 - 117 U/L [facility] Blood Venous blood specimen / Unknown 08/18/2024 9:56 AM EST 08/18/2024 11:15 AM EST Shraddha Mustafa MD LAB BLOOD ORDERABLES Fin al Result Performing Organization Address City/State/[facility] Co de Phone Number [facility] [address] [place] [address] [phone] * Mammography Report 1 (08/30/2021 10:14 AM EST) Anatomical Region Laterality Modality Breast Bilateral Mammography 08/30/2021 10:1 4 AM EST Narrative 08/31/2021 8:16 AM EST Refer to the Notes tab for result details Legacy Procedure: Mammography Report 1 Procedure Note Provider, MD Lauren - 11/04/2022 Refer to the Notes tab for result details Legacy Procedure: Mammography Report 1 us Shraddha Mustafa MD IMG BI PROCEDURES Final Result from Last 3 Months or Most Recently Relevant to Health Maintenance Insurance [facility] - ONE CARE * Guarantor: Carina Rivas Account Type Relation to Patient Date of Phone Billing Address Dental Self [address] [place] [address] DENTAL - [facility] Care Teams Recruiter Relationship Specialty Start Date End Date Shraddha Mustafa MD [address] [place] [address] PCP - General Family Medicine 03/21/17 Mike Kang, Tamara [address] [place] [address] Pharmacist Internal Medicine 12/10/22
--- OUTSIDE RECORDS SUMMARY | 2024-09-01 15:13 | XMS_ITS | Encounter Summary ---
Author Organization [employer] Address [address] [facility] [address] [place] [address] Care Team Providers Care Pig Machine Operator Helper Name Role Phone Shraddha Mustafa MD Primary Care Provider + Mike Kang PharmD Unavailable [phone] Encounter Details Date Type Department Care Team (Late st Contact Info) Description 09/19/2022 Orders Only [facility] [address] [place], [place] [phone] Nohemi Panchal LPN Social History Tobacco Use Types Packs/Day Years Used Date Smoking Tobacco: Never Assessed Comments Unknown Sex and Gender Information Value Date Recorded Sex Assigned at Female 06/11/2022 10:17 AM EDT Legal Sex Female 10:17 AM EDT Gender Identity Female 06/11/2022 10:17 AM EDT Sexual Orientation Choose not to disclose 2021 10:17 AM EDT documented as of this encounter Plan of Treatment Not on file documented as of this encounter Visit Diagnoses Not on filedocumented in this encounter Care Teams Pig Machine Operator Helper Relationship Specialty Start Date End Date Shraddha Mustafa MD [address] [place] [address] PCP - General Family Medicine 03/21/17 Mike Kang, PharmD [address] [place], [place] [phone] Pharmacist Internal Medicine 12/10/22 documented as of this encounter
--- OUTSIDE RECORDS SUMMARY | 2024-09-01 15:13 | XMS_ITS | Encounter Summary ---
Author Organization [employer] Address [address] [facility] 7t [place] [address] Care Team Providers Care Teacher Education Instructor Name Role Phone Shraddha Mustafa MD Primary Care Provider + Mike Kang PharmD Unavailable [phone] Encounter Details Date Type Department Care Team (Late st Contact Info) Description 04/25/2023 Abstract [facility] [address] [place] [address] Gordy Calderon DDS [address] [place], [place] [phone] Social History Tobacco Use Types Packs/Day Years [...] on filedocumented in this encounter Care Teams Teacher Education Instructor Relationship Specialty Start Date End Date Shraddha Mustafa MD [address] [place] [address] PCP - General Family Medicine 03/21/17 Mike Kang, JuliánD [address] [place] [address] Pharmacist Internal Medicine 12/10/22 documented as of this encounter
--- OUTSIDE RECORDS SUMMARY | 2024-09-01 15:13 | XMS_ITS | Encounter Summary ---
Author Organization [facility] Address [address] [facility] 7t [place] [address] Care Team Providers Care Endless Belt Finisher Name Role Phone Shraddha Mustafa MD Primary Care Provider + Mike Kang PharmD Unavailable [phone] Encounter Details Date Type Department Care Team (Latest Contact Info) Description 05/15/2021 Abstract [facility] CONVERSIONS Dental, Provider, DDS Social History Tobacco Use Types Packs/Day Years [...] on filedocumented in this encounter Care Teams Endless Belt Finisher Relationship Specialty Start Date End Date Shraddha Mustafa MD [address] [place] [address] PCP - General Family Medicine 03/21/17 Mike Kang, PharmD [address] [place], [place] [phone] Pharmacist Internal Medicine 12/10/22 documented as of this encounter
--- OUTSIDE RECORDS SUMMARY | 2024-09-01 15:13 | XMS_ITS | Encounter Summary ---
Author Organization [employer] Address [address] [facility] 7t [place] [address] Care Team Providers Care Sewing Machines Salesperson Name Role Phone Shraddha Mustafa MD Primary Care Provider + Mike Kang PharmD Unavailable [phone] Encounter Details Date Type Department Care Team (Late st Contact Info) Description 04/30/2024 Orders Only [facility] [address] [place], [place] [phone] Bala Mcdonald MD [address] [place], [place] [phone] Social History Tobacco Use Types Packs/Day Years [...] on filedocumented in this encounter Care Teams Sewing Machines Salesperson Relationship Specialty Start Date End Date Shraddha Mustafa MD [address] [place] [address] PCP - General Family Medicine 03/21/17 Mike Kang, PharmD [address] [place] [address] Pharmacist Internal Medicine 12/10/22 documented as of this encounter
== END 2024-09-01 13:28 | disposition home or self-care (01) ==
LOC: HO.MAMMO 13:27
PROVIDERS: PCP Internal Medicine; Visit Provider Internal Medicine
DX: Z12.31 Encounter for screening mammogram for malignant neoplasm of breast (principal)
CPT/HCPCS: 77063; 77067

== ENCOUNTER → 2024-09-01 14:00 | Outpatient (BNV) | payer OTHER, SELFPAY | PROVIDERS: PCP Internal Medicine; Visit Provider Internal Medicine | DX: Z12.31 Encounter for screening mammogram for malignant neoplasm of breast (principal) | CPT/HCPCS: 77063; 77067 ==

== ENCOUNTER 2024-09-03 13:13 | Outpatient (REF) | payer OTHER, SELFPAY ==
[2024-09-03 19:24] LABS: Bacterial Vaginosis PCR NEGATIVE (Negative); Candida Group PCR NOT DETECTED (Not Detect); Candida glab krusei PCR NOT DETECTED (Not Detect); Trichomonas vaginalis PCR NOT DETECTED (Not Detect)
== END 2024-09-03 13:14 | disposition home or self-care (01) ==
LOC: HO.LAB 13:13
PROVIDERS: PCP Internal Medicine; Visit Provider Advanced Practice Midwife
DX: N89.8 Other specified noninflammatory disorders of vagina (principal)
CPT/HCPCS: 81515; 99212

== ENCOUNTER 2024-09-03 13:13 | Outpatient (AMB) | payer OTHER, SELFPAY ==
[2024-09-03 13:27] VITALS: BP 116/66; BMI 30.2
--- NOTE | 2024-09-03 13:27 | A.OFFVIS_ITS ---
Vital Signs 09/03/24 13:27 Height 5 ft 2 in Weight 165 lb BMI 30.2 BP 116/66 Intake Visit Reasons: vaginal itching Revenue Accounting Manager Services: Revenue Accounting Manager Present Information Interpreted: clinical only Highway Painter: Highway Painter Present Allergies No Known Allergies [No Known Allergies*] Allergy (Verified 08/24/24 13:48) Medication List - Last Reconciled 09/03/24 by Leonarda Peralta CNM amlodipine 5 mg PO DAILY atorvastatin 20 mg PO DAILY cyclobenzaprine 10 mg PO TID PRN cyclobenzaprine 10 mg PO TID lisinopril-hydrochlorothiazide 20-12.5 mg 1 tab PO DAILY miconazole nitrate 2% (Miconazole-7) 1 appful vaginal BEDTIME 7 days montelukast 10 mg PO QPM sertraline 50 mg PO DAILY trazodone 50 mg PO BEDTIME valacyclovir 1,000 mg PO TID 7 days Post menopausal: Yes HPI HPI vaginal itching: Details: Patient was seen by this provider for complaint of vaginal itching in early July. Exam revealed changes to labia that I could not evaluate so I referred her to manager of photography for evaluation she saw Dr. Augustine and she subsquently had a biopsy done with him 13 days ago, but the appointment for results has not occurred at this juncture yet, and is scheduled. Meanwhile the patient says that the cream that I gave her which was Monistat did help her but she still is having itching elsewhere out side on her labia majora and mons pubis and it abbott her. She had previously been given hydrocortisone cream of some strength which had not relieved any of her symptoms at all. Her primary care provider's here at the [facility], Dr. Gary, the patient denies any diabetes [facility] Medical History Substance abuse Left knee pain Asthma Depressed Hypertension Social History Alcohol intake: never Current occupational status: unemployed Current occupation: left handed Female Reproductive History Menstrual control method: none Total pregnancies: 5 Full term: 5 Physical Exam Vital Signs: Last Vital Signs BP 116/66 09/03/24 13:27 BMI result Body Mass Index 30.2 Other: Vagina atrophic postmenopausal clear discharge with scant white internally. External labia exhibit deep pigmentation in upper labia majora and clitoral area. This is the area the patient complains of most itching. Results Reviewed Results Reviewed: Name: Carina Rivas Age/Sex: 63/F Attending: Kenyon Augustine MD : 1960 Submitted by: Kenyon Augustine MD Copies to: Shraddha Mustafa MD MR #: [id number] Status: DEP REF Collected: 08/21/24 Location: [facility] Received: 08/24/24 Diagnosis Vulva, biopsy: Small fragment of spongiotic skin with mild chronic inflammation and features of lichen simplex chronicus; no atypia seen. See comment. Comment: Multiple additional levels are examined through the block. The sample is quite small; insufficient tissue remains for fungal studies. If there is a persistent lesion or if there are other concerns, consider resampling (as clinically appropriate). Clinical History Vulvar lesion Microscopic Description Microscopic sections reviewed. No fungi are seen with PAS stain. Material Received Vulvar lesion Gross Description Received in formalin labeled ?r. labia lesion? is a 0.1 cm in diameter punch biopsy of barrera-bruno skin versus squamous mucosa and subjacent fibrous tissue excised to a maximum depth of 0.2cm, submitted in toto a cassette labeled A. CEDS Special studies ordered and performed: PAS stain Copies To Shraddha Mustafa MD [address] [address] Kenyon Augustine MD [facility] Women's Services [address] [place] [address] [address] [place] [id number] Patient: Carina Rivas Age/Sex: 63/F MR#: [id number] Page 1 of 2 Surgical Pathology [id number] NOTE: Unless otherwise stated, all tissue is formalin-fixed and paraffin- embedded. Some or all of the immunohistochemical tests reported herein may have been developed and their performance characteristics determined by [facility]. They have not been cleared or approved by the U.S. Food and Drug Administration (FDA). However, the FDA has determined that such clearance or approval is not necessary. This laboratory is certified under the Clinical Laboratory Improvement Amendments of 1988 (CLIA) as qualified to perform high complexity clinical laboratory testing. Electronically Signed By: Teofilo Nuñez MD 08/27/24 8833 Patient: Carina Rivas Age/Sex: 63/F MR#: [id number] Assessment & Plan Assessment & Plan (1) Vaginal itching: Comment: Steroid cream prescribed at [facility] did not aubrie symptoms. 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 Patient found no relief with steroid cream that was prescribed from [facility]. We will refer for definitive diagnosis. Code(s): L90.0 - Lichen sclerosus et atrophicus Category: Medical Plan Patient needs to complete follow-up with Dr. Augustine and have the follow-up visit as scheduled to review the results of his biopsy and discuss any other plan he might recommend.. In the meantime, I will repeat the Monistat cream which she says did help her and consider what could help her with the external symptoms. We will treat with clotrimazole azole betamethasone cream externally pending follow-up visit with manager of photography. Really stressed the importance of keeping the follow-up appointment with him to review the results. Keep/possibly move up follow-up appointment with Dr. Augustine for results Medications: New clotrimazole-betamethasone 1-0.05 % 1 appl topical BID 2 weeks 45 grams 1RF Coding Level of Care Code Est Pt Level 3 (48856) Diagnoses Vaginal itching N89.8 Vulvar leukoplakia N90.4 Lichen sclerosus L90.0
== END 2024-09-03 15:09 | disposition home or self-care (01) ==
LOC: HO.HWSM 13:13
PROVIDERS: PCP Internal Medicine; Visit Provider Advanced Practice Midwife
DX: N89.8 Other specified noninflammatory disorders of vagina (principal); N90.4 Leukoplakia of vulva; L90.0 Lichen sclerosus et atrophicus
CPT/HCPCS: 99213

== ENCOUNTER 2024-09-16 09:32 | Outpatient (REF) | payer OTHER, SELFPAY ==
--- NOTE | ~2024-09-16 | XR_ITS ---
EXAMINATION: XR HIP, LEFT CLINICAL INFORMATION: PAIN COMPARISON: 03/04/2024. TECHNIQUE: AP pelvis, and single view left hip of the left hip. FINDINGS: No fracture, dislocation, or suspicious bone lesion. Normal alignment. Suspect subtle chondrocalcinosis in both hip joints with hazy calcification of the superior hip labrum. Findings suggest CPPD. Minimal degenerative arthritis in both hip joints. Normal acetabular coverage. Femoral heads are normal in contour without AVN. Sacrum is intact. SI joints demonstrate mild degenerative changes. Soft tissues demonstrate mild vascular calcifications. XR/XR hip LT w PEL1V IMPRESSION: 1. No acute findings left hip. 2. 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 Electronically signed by: Shawn Steen MD 09/16/2024 10:01 AM SHAI
--- OUTSIDE RECORDS SUMMARY | 2024-09-16 10:03 | XMS_ITS | Encounter Summary ---
Author Organization [employer] Address 75 [facility] 7t [place] [address] Care Team Providers Care Airplane Pilot Commercial Name Role Phone Shraddha Mustafa MD Primary Care Provider + Mike Kang PharmD Unavailable [phone] Encounter Details Date Type Department Care Team (Late st Contact Info) Description 09/01/2024 Orders Only [facility] [address] [place], [place] [phone] Shraddha Mustafa MD [address] [place], [place] [phone] Social History Tobacco Use Types Packs/Day Years Used Date Smoking Tobacco: Former Cigarettes Q uit: 2002 Smokeless Tobacco: Never Alcohol Use Standard Drinks/Week Comments Never 0 (1 standard drink = 0.6 oz pur e alcohol) Housing Stability Answer Date Recorded What is your housing situation today? I have [employer] 04/28/[address] you [...] Author Blood Pressure < 150/90 Blood Pressure 180/96(2024 2:58 PM EST) Mike Crook, PharmD Note: Per JNC-8 : Age>60, No history of DM or CKD documented as of this encounter Procedures Procedure Name Priority Date/Time Associated Diagnosis Comments BI MAMMOGRAM SCREENING TOMOSYNTHESIS BILATERAL Routine 09/01/2024 1:35 PM EST documented in this encounter Results * BI Mammogram Screening Tomosynthesis Bilateral (09/01/2024 1:35 PM EST) Anatomical Region Laterality Modality Breast Bilateral Mammography 09/01/2024 1:35 PM EST Narrative 09/10/2024 9:58 AM EST ? [facility] [place] [facility] [address] [facility] ?[place] [address] ? Mammography Report ? Signed ? Patient: Rob,Carina ?MR#: [id number] ?? 1500 ? : 1960 ?Acct:[id number] ? Age/Sex: 63 / F ?ADM Date: 01/21/25 ? Loc: HO.MAMMO ? Attending Dr: Shraddha Mustafa MD ? Ordering Physician: Shraddha Mustafa MD ?Results: 2Be ?? nign Findings ? Date of Service: 09/01/24 ?Follow Up: 1 Year From Orig ?? inal Mammogram ? Procedure(s): MM tomosynthesis screening BI ?? Accession Number(s): [id number] ? cc: Shraddha Mustafa MD ? EXAMINATION: ?? MM SCREENING DIGITAL BREAST TOMOSYNTHESIS, BILATERAL ? CLINICAL INFORMATION: ? Screening. Asymptomatic. ? COMPARISON: ?? Mammography: Comparison is made with available priors ? TECHNIQUE: ?? Digital breast mammography with tomosynthesis is performed in both the ?? craniocaudal and mediolateral oblique views along with computer-aided ?? detection (CAD). ? FINDINGS: ?? There are scattered areas of fibroglandular density (ACR BI-RADS breast ?? composition Category b). ?? Bilateral circumscribed oval masses are stable. ?? There are no significant masses, abnormal calcifications, or other ?? abnormalities. ? MM/MM tomosynthesis screening BI ?? IMPRESSION: ?? No mammographic evidence of malignancy. ? ASSESSMENT: ? BI-RADS BI-RADS 2 - Benign Findings ? RECOMMENDATION: ?? Routine annual mammography screening. ? 1 year F/U ? This examination should not preclude the clinical evaluation of a ?? suspicious palpable abnormality. ? This patient's information was entered into a reminder system with a ?? target due date for their next mammogram. ? Electronically signed by: ??Loly Cuello DO ??09/10/2024 09:55 AM EST ?? RP ? Dictated By: ?Loly Cuello DO ? Signed By: ?<Electronically signed by Loly Cuello, DO in OV> ? 09/10/24 0955 ? DD/ 1335 ? TD/TT: 09/01/24 1350 ? Piling Cutter: ? Procedure Note Donotchiquitainterpreter, Image - 09/10/2024 [facility] [address] [place] [address] Mammography Report Signed Patient: Jakub Rivas#: [id number] 1500 : 9Acct:[id number] Age/Sex: 63 / FADM Date: 09/01/24 Loc: HO.MAMMO Attending Dr: Shraddha Mustafa MD Ordering Physician: Shraddha Mustafa MDResults: 2Be nign Findings Date of Service: 09/01/24Follow Up: 1 Year From Orig inal Mammogram Procedure(s): MM tomosynthesis screening BI Accession Number(s): [id number] cc: Shraddha Mustafa MD EXAMINATION: MM SCREENING DIGITAL BREAST TOMOSYNTHESIS, BILATERAL CLINICAL INFORMATION: Screening. Asymptomatic. COMPARISON: Mammography: Comparison is made with available priors TECHNIQUE: Digital breast mammography with tomosynthesis is performed in both the craniocaudal and mediolateral oblique views along with computer-aided detection (CAD). FINDINGS: There are scattered areas of fibroglandular density (ACR BI-RADS breast composition Category b). Bilateral circumscribed oval masses are stable. There are no significant masses, abnormal calcifications, or other abnormalities. MM/MM tomosynthesis screening BI IMPRESSION: No mammographic evidence of malignancy. ASSESSMENT: BI-RADS BI-RADS 2 - Benign Findings RECOMMENDATION: Routine annual mammography screening. 1 year F/U This examination should not preclude the clinical evaluation of a suspicious palpable abnormality. This patient's information was entered into a reminder system with a target due date for their next mammogram. Electronically signed by: Loly Cuello DO 09/10/2024 09:55 AM EST Dictated By: Loly Cuello DO Signed By: <Electronically signed by Loly Cuello DO in OV> 09/10/24 0955 DD/ 1335 TD/TT: 09/01/24 1350 Piling Cutter: Shraddha Mustafa MD IMG BI PROCEDURES Final Result documented in this encounter Visit Diagnoses Not on filedocumented in this encounter Care Teams Airplane Pilot Commercial Relationship Specialty Start Date End Date Shraddha Mustafa MD [address] [place] [address] PCP - General Family Medicine 03/21/17 Mike Kang PharmD [address] [place] [address] Pharmacist Internal Medicine 12/10/22 documented as of this encounter
--- OUTSIDE RECORDS SUMMARY | 2024-09-16 10:03 | XMS_ITS | Encounter Summary ---
Author Organization [employer] Address 75 [facility] 7t [place] [address] Care Team Providers Care Production Weigher Name Role Phone Shraddha Mustafa MD Primary Care Provider + Mike Kang PharmD Unavailable Reason for Visit * Reason Comments Med Refill Encounter Details Date Type Department Care Team (Late st Contact Info) Description 09/15/2024 Refill [facility] [address] [place] [address] Shraddha Mustafa MD [address] [place], [place] [phone] Social History Tobacco Use Types Packs/Day Years [...] 150/90 Blood Pressure 180/96(2024 2:58 PM EST) No Mike Kang, PharmD Note: Per JNC-8 : Age>60, No history of DM or CKD documented as of this encounter Visit Diagnoses Not on filedocumented in this encounter Care Teams Production Weigher Relationship Specialty Start Date End Date Shraddha Mustafa MD [address] [place] [address] PCP - General Family Medicine 03/21/17 Mike Kang, PharmD [address] [place] [address] Pharmacist Internal Medicine 12/10/22 documented as of this encounter
--- OUTSIDE RECORDS SUMMARY | 2024-09-16 10:03 | XMS_ITS | Encounter Summary ---
Author Organization [employer] Address 75 [facility] 7t [place] [address] Care Team Providers Care Hotel Or Motel Receptionist Name Role Phone Shraddha Mustafa MD Primary Care Provider + Mike Kang PharmD Unavailable [phone] Encounter Details Date Type Department Care Team (Late st Contact Info) Description 09/15/2024 2:40 PM EST Office Visit [facility] [address] [place] [address] Luz Neville MD [address] [place], [place] [phone] Acute pain of left thigh (Primary Dx); Bilateral leg edema; Hypertension, essential Social History Tobacco Use Types Packs/Day Years [...] AM EDT documented as of this encounter Last Filed Vital Signs Vital Sign Reading Time Taken Comments Blood Pressure 180/96 09/15/2024 2:58 PM EST Pulse 70 09/15/2024 2:57 PM EST Temperature 36.2 ??C (97.1 ??F) 09/15/2024 2:57 PM ES T Respiratory Rate 20 09/15/2024 2:57 PM EST Oxygen Saturation 97% 09/15/2024 2:57 PM EST Inhaled Oxygen Concentration - - Weight 70.2 kg (154 lb 12.8 oz) 09/15/2024 2:57 PM EST Height 157.5 cm (5' 2 ) 09/15/2024 2:57 PM EST Body Mass Index 28.31 09/15/2024 2:57 PM EST documented in this encounter Progress Notes * Luz Neville MD - 09/15/2024 2:40 PM EST Subjective Patient ID: Carina Rivas is a 64 y.o. female who presents for left lower extremity pain. [facility] is here because of marked pain in her right thigh, knee and leg for the past 2 weeks. Painstarted gradually without any clear precipitant. Pain is constant, worse with walking. Says it feels like a pinched nerve or poor circulation but denies numbness. Also reports cramps in both legs at night and swelling in both ankles. Had an injury to her left knee a few years ago and reports that she has arthritis in that knee and may have it in her hands because they get stiff at times. Has somemild back pain. No weakness, bladder or bowel incontinence. Review of Systems Constitutional: Negative for chills and fever. Cardiovascular: Positive for leg swelling. Negative for palpitations. Gastrointestinal: Negative for constipation. Genitourinary: Negative for difficulty urinating. Musculoskeletal: Positive for back pain. Left lower extremity pain per HPI. Leg cramps per HPI Skin: Negative for pallor and rash. Neurological: Negative for numbness. Objective BP (!) 180/96 (BP Location: Left arm, Patient Position: Sitting, BP Cuff Size: Adult) Pulse 70 Temp 97.1 ??F (36.2 ??C) (Temporal) Resp 20 Ht 5' 2 (1.575 m) Wt 154 lb 12.8 oz (70.2 kg) SpO2 97% BMI 28.31 kg/m?? Physical Exam Constitutional: General: She is in acute distress (mild). Appearance: She is not toxic-appearing. HENT: Mouth/Throat: Mouth: Mucous membranes are moist. Cardiovascular: Rate and Rhythm: Normal rate and regular rhythm. Comments: Multiple superficial varicosities present R>L lower extremities. Pulmonary: Effort: Pulmonary effort is normal. Musculoskeletal: General: Tenderness (bilateral calf, left medial thigh) present. Lumbar back: No tenderness or bony tenderness. Negative right straight leg raise test and negative left straight leg raise test. Right hip: No bony tenderness or crepitus. Normal range of motion. Left hip: No bony tenderness or crepitus. Normal range of motion. Left upper leg: Tenderness (medial thigh) present. Right lower leg: Edema (1+) present. Left lower leg: Edema (1+) present. Skin: General: Skin is warm. Capillary Refill: Capillary refill takes less than 2 seconds. Neurological: General: No focal deficit present. Mental Status: She is alert. Psychiatric: Mood and Affect: Mood normal. Behavior: Behavior normal. Assessment/Plan Diagnoses and all orders for this visit: Acute pain of left thigh: Pain not c/w lumbar radiculopathy and she has tenderness of left thigh. Tenderness in left groin as well. Pain could be due to left hip OA, less likely statin-induced myositis. Will check hip x-ray and CK. Advised Tylenol 1000 mg every 12 hours - Creatine Kinase, Total; Future - XR Hip left with Pelvis 1 view; Future Bilateral leg edema: Has bilateral leg edema which could be due to amlodipine or possible renal or liver disease. Had normal thyroid and normal albumin one month ago. Will check BMP to see if she hashad an acute worsening or renal function (normal one month ago) and check UA for renal disease. - Basic Metabolic Panel; Future - Urinalysis Complete; Future Essential hypertension BP uncontrolled today. Reports not taking her antihypertensives today. Urgedher to take her medications daily and to f/u with her PCP to re-evaluate. documented in this encounter Plan of Treatment Scheduled Orders Name Type Priority Associated Diagnoses Orde r Schedule Basic Metabolic Panel Lab Routine Bilateral leg edema Expected: 09/15/2024 (Approximate), Expires: 09/15/2025 Creatine Kinase, Total Lab Routine Acute pain of left thigh Expected: 09/15/2024, Expires: 09/15/2025 Urinalysis Complete Lab Routine Bilateral leg edema Expected: 09/15/2024, Expires: 09/15/2025 XR Hip left with Pelvis 1 view Imaging Routine Acute pain of left thigh Expected: 09/15/2024, Expires: 09/15/2025 documented as of this encounter Goals Goal Patient Goal Type Associated Problems Recent Progress Patient-Stated? Author Blood Pressure < 150/90 Blood Pressure 180/96(2024 2:58 PM EST) Mike Crook, Tamara Note: Per JNC-8 : Age>60, No history of DM or CKD documented as of this encounter Visit Diagnoses Diagnosis Acute pain of left thigh- Primary Bilateral leg edema Edema Hypertension, essential Unspecified essential hypertension documented in this encounter Care Teams Hotel Or Motel Receptionist Relationship Specialty Start Date End Date Shraddha Mustafa MD [address] [place] [address] PCP - General Family Medicine 03/21/17 Mike Kang, PharmD [address] [place] [address] Pharmacist Internal Medicine 12/10/22 documented as of this encounter
--- OUTSIDE RECORDS SUMMARY | 2024-09-16 10:03 | XMS_ITS | Encounter Summary ---
Author Organization [employer] Address [address] [facility] [address] [place] [address] Care Team Providers Care Ict Business Analyst Name Role Phone Shraddha Mustafa MD Primary Care Provider + Mike Kang PharmD Unavailable [phone] Encounter Details Date Type Department Care Team [...] Pressure 180/96(2024 2:58 PM EST) No Mike Kang PharmD Note: Per JNC-8 : Age>60, No history of DM or CKD documented as of this encounter Procedures Procedure Name Priority Date/Time Associated Diagnosis Comments HEMATOXYLIN AND EOSIN STAIN Routine 08/21/2024 1:43 PM EST documented in this encounter Results * Hematoxylin and Eosin Stain (08/21/2024 1:43 PM EST) 08/21/2024 1:43 PM EST 08/24/2024 8:03 AM EST Narrative [facility] - 08/27/2024 3:07 PM EST ----- ------- Name: Carina Rivas ? Age/Sex: 63/F ? : 1960 Unit#: [id number] ?? Attend Dr: Kenyon Augustine MD ?Re08/21/24 ?Status: DEP REF ? Location: HO.LNP ?Disch: ? ----- ------- SPEC : [id number] ?RECD: 08/24/24 ? STATUS: ??SOUT ? REQ NUM: [id number] ? CARLO: 08/21/24 ? SUBM DR: Kenyon [...] To: ?? Shraddha Mustafa MD ?? [facility] ?? [address] ?? [place] [address] ?? [phone] ?? Kenyon Augustine MD ?? [facility] ?? [address] ?? [place] [address] ?? [phone] ? CONTINUED ON NEXT PAGE ----- ------- Name: Carina Rivas ? Age/Sex: 63/F ? : 1960 Unit#: [id number] ?? Attend Dr: Kenyon Augustine MD ?Re08/21/24 ?Status: DEP REF ? Location: HO.LNP ?Disch: ? ----- ------- SPEC : [id number] ?RECD: 08/24/24 ? STATUS: ??SOUT ? REQ NUM: [id number] ? CARLO: 08/21/24-1342 ? SUBM DR: Kenyon Augustine MD ? ENTERED: ??08/24/24 ?SP TYPE: Surgical ? OTHR DR: Shraddha Mustafa MD ? ORDERED: ??HE Stain/3, Gross Micro L4 ? ----- ------- Signed (signature on file) Teofilo Nuñez MD 08/27/24 0177 ? ----- ------- ? END OF REPORT ? us Generic External Data Provider LAB BLOOD ORDERAB LES Final Result Performing Organization Address City/State/[facility] Co de Phone Number [facility] [address] [place] [address] [phone] documented in this encounter Visit Diagnoses Not on filedocumented in this encounter Care Teams Ict Business Analyst Relationship Specialty Start Date End Date Shraddha Mustafa MD [address] [place] [phone] PCP - General Family Medicine 03/21/17 Mike Kang PharmD [address] [place] [address] Pharmacist Internal Medicine 12/10/22 documented as of this encounter
--- OUTSIDE RECORDS SUMMARY | 2024-09-16 10:03 | XMS_ITS | Encounter Summary ---
Author Organization [employer] Address [address] [facility] 7t [place] [address] Care Team Providers Care Medical Technologist Hematology Name Role Phone Shraddha Mustafa MD Primary Care Provider + Mike Kang PharmD Unavailable [phone] Reason for Visit * Reason Onset Date Comments Chart prep 08/18/2024 Encounter Details Date Type Department Care Team ([facility] st Contact Info) Description 08/18/2024 Telephone [facility] [address] [place], [place] [phone] Shraddha Mustafa MD [address] [place], [place] [phone] Chart prep Social History Tobacco Use Types [...] 180/96(2024 2:58 PM EST) No Mike Kang, Tamara Note: Per JNC-8 : Age>60, No history of DM or CKD documented as of this encounter Visit Diagnoses Not on filedocumented in this encounter Care Teams Medical Technologist Hematology Relationship Specialty Start Date End Date Shraddha Mustafa MD [address] [place] [address] PCP - General Family Medicine 03/21/17 Mike Kang, Tamara [address] [place] [address] Pharmacist Internal Medicine 12/10/22 documented as of this encounter
--- OUTSIDE RECORDS SUMMARY | 2024-09-16 10:03 | XMS_ITS | Encounter Summary ---
Author Organization [employer] Address [address] [facility] 7t [place] [address] Care Team Providers Care Quarter Folder Name Role Phone Shraddha Mustafa MD Primary Care Provider + Mike Kang PharmD Unavailable [phone] Encounter Details Date Type Department Care [...] 6:52 PM EST 08/24/2024 6:52 PM EST Comment:[facility] - 08/26/2024 10:51 AM EST Strep agalactiae (Grp B) Quant > 100,000 cfu/mL Susc N/A Susceptibility not routinely performed on this isolate. Specimen Source: Urine clean catch us Generic External Data Provider LAB MICROBIOLOGY - GENERAL ORDERABLES Final Result [facility] [address] [place] [phone] * Bacterial Vaginosis (08/24/2024 6:34 PM EST) Pathologist [facility] TRICHOMONAS VAGINALIS DETECTION BY PCR NOT DETECTED Not Detect [facility] BACTERIAL VAGINOSIS DETECTION BY PCR NEGATIVE Negative [facility] Comment:The BV organism targ ets of [...] DETECTION BY PCR NOT DETECTED Not Detect [facility] Bianka glab krusei PCR NOT DETECTED Not Detect [facility] 08/24/2024 6:34 PM EST 08/24/2024 6:38 PM EST Generic External Data Provider LAB MICROBIOLOGY - GENERAL ORDERABLES Final Result Performing Organization Address [facility]/ZIP Co de Phone Number [facility] [address] [place] [phone] * Chlamydia/N. Gonorrhoeae RNA, TMA, Urogenitial (08/24/2024 6:34 PM EST) Pathologist [facility] CT PCR NOT DETECTED Not Detect. [facility] Comment:A not detected test result does [...] psychologicalconsequences. NG PCR NOT DETECTED Not Detect. [facility] Comment:A not detected test result does [...] PM EST 08/24/2024 6:38 PM EST Narrative [facility] - 08/25/2024 5:54 AM EST Vaginal Generic External Data Provider LAB MICROBIOLOGY - GENERAL ORDERABLES Final Result Performing Organization Address [facility] Co de Phone Number [facility] [address] [place] [phone] * Wet prep, genital (08/24/2024 6:34 PM EST) Vaginal Fluid Vaginal structure / Unknown 08/24/2024 6:34 PM EST 08/24/2024 6:38 PM EST Comment:Vaginal [facility] - 08/24/2024 6:44 PM EST Trichomonas Prep Direct Microscopic Exam Trichomonas Prep No trichomonads or yeast seen Specimen Source: Vaginal Generic External Data Provider LAB MICROBIOLOGY - GENERAL ORDERABLES Final Result Performing Organization Address City/[facility] Co de Phone Number [facility] [address] [place] [phone] * (ABNORMAL) Urinalysis, Complete, with Reflex to Culture (08/24/2024 6:34 PM EST) Color Urine Yellow [facility] Appearance Urine Clear [facility] PH 6.5 5.0 - 9.0 [facility] Glucose Urine UA Negative Negative mg/dL [facility] Urine Blood Negative Negative [facility] Specific [place] - Urine 1.025 1.005 - 1.025 [facility] Urine Protein Trace Neg-Trace mg/dL [facility] Urine Ketones Negative Negative mg/dL [facility] Nitrite Urine Negative Negative [facility] Leukocyte Esterase Urine Small (1+)(A) Negative [facility] RBC Urine 0-2 0 - 2 /HPF [facility] Urine WBC 0-5 0 - 5 /HPF [facility] Urine Squamous Epithelial Cell 6-10 0 - 2 /HPF [facility] Urine Bacteria Trace None Seen [facility] Hyaline Casts, Urine 0-2 0 - 2 /LPF [facility] 08/24/2024 6:34 PM EST 08/24/2024 6:38 PM EST Narrative [facility] - 08/24/2024 6:52 PM EST Urine, Clean Catch us Generic External Data Provider LAB URINE ORDERAB LES Final Result Performing Organization Address City/State/[facility] Co de Phone Number [facility] [address] [place] [phone] documented in this encounter Visit Diagnoses Not on filedocumented in this encounter Care Teams Quarter Folder Relationship Specialty Start Date End Date Shraddha Mustafa MD [address] [place] [address] PCP - General Family Medicine 03/21/17 Mike Kang, Tamara [address] [place] [address] Pharmacist Internal Medicine 12/10/22 documented as of this encounter
--- OUTSIDE RECORDS SUMMARY | 2024-09-16 10:03 | XMS_ITS | Encounter Summary ---
Author Organization [employer] Address [address] [facility] [address] [place] [address] Care Team Providers Care Western Felt Hat Blocker Name Role Phone Shraddha Mustafa MD Primary Care Provider + Mike Kang PharmD Unavailable [phone] Encounter Details Date Type Department Care Team (Late st Contact Info) Description 09/19/2022 Orders Only [facility] [address] [place], [place] [phone] Nohemi Panchal LPN Social History Tobacco Use [...] on filedocumented in this encounter Care Teams Western [employer] Hat Blocker Relationship Specialty Start Date End Date Shraddha Mustafa MD [address] [place] [phone] PCP - General Family Medicine 03/21/17 Mike Kang, PharmD [address] [place], [place] [phone] Pharmacist Internal Medicine 12/10/22 documented as of this encounter
--- OUTSIDE RECORDS SUMMARY | 2024-09-16 10:03 | XMS_ITS | Encounter Summary ---
Author Organization [employer] Address [address] [facility] 7t [place] [address] Care Team Providers Care System Support Administrator Name Role Phone Shraddha Mustafa MD Primary Care Provider + Mike Kang PharmD Unavailable [phone] Reason for Visit * Reason Comments Med Refill Encounter Details Date Type Department Care Team (Late st Contact Info) Description 09/09/2024 Refill [facility] [address] [place], [place] [phone] Shraddha Mustafa MD [address] [place], [place] [phone] Social History Tobacco Use Types Packs/Day Years [...] on filedocumented in this encounter Care Teams System Support Administrator Relationship Specialty Start Date End Date Shraddha Mustafa MD [address] [place] [address] PCP - General Family Medicine 03/21/17 Mike Kang, PharmD [address] [place] [address] Pharmacist Internal Medicine 12/10/22 documented as of this encounter
--- OUTSIDE RECORDS SUMMARY | 2024-09-16 10:03 | XMS_ITS | Encounter Summary ---
Author Organization [employer] Address [address] [facility] 7t [place] [address] Care Team Providers Care [employer] Union Business Representative Name Role Phone Shraddha Mustafa MD Primary Care Provider + Mike Kang PharmD Unavailable [phone] Reason for Visit * Reason Onset Date Comments Call Back Request 05/06/2024 Encounter Details Date Type Department Care Team ([facility] st Contact Info) Description 05/06/2024 Telephone [facility] [address] [place], [place] [phone] Shraddha Mustafa MD [address] [place], [place] [phone] Call Back Request Social History Tobacco Use [...] 10:28 AM EDT Tc from Kathrine from [facility] requesting a call back to obtain any information regarding the patients mental stability states is under the suspension of Hoarding and is planning to enter the patient residency on or after 05/08 any information would help please call Kathrine at [phone] documented in this encounter Plan of Treatment Not on file documented as of this encounter Goals Goal Patient Goal Type Associated Problems Recent Progress Patient-Stated? Author Blood Pressure < 150/90 Blood Pressure 180/96(2024 2:58 PM EST) Mike Crook PharmD Note: Per JNC-8 : Age>60, No history of DM or CKD documented as of this encounter Visit Diagnoses Not on filedocumented in this encounter Care Teams [employer] Business Representative Relationship Specialty Start Date End Date Shraddha Mustafa MD [address] [place] [address] PCP - General Family Medicine 03/21/17 Mike Kang PharmD [address] [place] [address] Pharmacist Internal Medicine 12/10/22 documented as of this encounter
--- OUTSIDE RECORDS SUMMARY | 2024-09-16 10:03 | XMS_ITS | Encounter Summary ---
Author Organization [employer] Address [address] [facility] [address] [place] [address] Care Team Providers Care Train Operator Name Role Phone Shraddha Mustafa MD Primary Care Provider + Mike Kang PharmD Unavailable [phone] Encounter Details Date Type Department Care [...] on filedocumented in this encounter Care Teams Train Operator Relationship Specialty Start Date End Date Shraddha Mustafa MD [address] [place] [address] PCP - General Family Medicine 03/21/17 Mike Kang, PharmD [address] [place] [address] Pharmacist Internal Medicine 12/10/22 documented as of this encounter
--- OUTSIDE RECORDS SUMMARY | 2024-09-16 10:03 | XMS_ITS | Clinical Summary ---
Author Organization [employer] Address [address] [facility] 7[address] [place] [address] Care Team Providers Care Ecologist Technician Name Role Phone Shraddha Mustafa MD Primary Care Provider + Mike Kang PharmD Unavailable [phone] Allergies No known active allergies Medications docusate [...] or as directed by MD. 30 patch 09/12/19 24 Active chlorhexidine (Peridex) 0.12 % solutionIndicat [...] 60 tablet 11 03/04/20 24 025 Active albuterol (2.5 MG/3ML) 0.083% nebulizer solution [...] 2 08/19/19 25 025 Active sodium chloride ([place] Nasal [place]) 0.65 % nasal spray Administer 1 spray into each nostril if needed for congestion. 30 mL 08/19/19 25 026 Active acetaminophen (Tylenol) 500 MG tabletIndicatio ns:Viral URI Take 1 tablet (500 mg) by mouth every 6 (six) hours if needed for mild pain, headaches or fever. 60 tablet 08/19/19 25 Active amLODIPine (Norvasc) 5 MG tablet TAKE 1 TABLET BY MOUTH EVERY DAY 30 tablet 3 09/09/19 25 Active sertraline (Zoloft) 50 MG tablet TAKE 1 TABLET BY MOUTH EVERY DAY 30 tablet 3 09/09/19 25 Active naproxen (Naprosyn) 500 MG tabletIndicatio ns:Chronic pain of left knee,Rib pain TAKE 1 TABLET BY MOUTH TWICE DAILY WITH BREAKFAST AND WITH DINNER 30 tablet 1 11/12/19 025 Discontinued(I neffective) acetaminophen (Tylenol) 500 MG tabletIndicatio ns:Symptomatic irreversible pulpitis Take 1 tablet (500 mg) by mouth every 6 (six) hours if needed for mild pain for up to 20 doses. 20 tablet 01/16/20 24 025 Discontinued(R eorder (will not trigger notification to Pharmacy)) amLODIPine (Norvasc) 5 MG tablet TAKE 1 TABLET BY MOUTH EVERY DAY 30 tablet 3 03/27/20 24 025 Discontinued sertraline (Zoloft) 50 MG tablet TAKE 1 TABLET BY MOUTH EVERY DAY 30 tablet 3 03/27/20 24 025 Discontinued pseudoephedrine -Naproxen Na ER (Sinus & [...] Encounters Date Type Department Care Team Description 09/15/2024 2:40 PM EST Office Visit [facility] [address], [place] [phone] Luz Neville MD Acute pain of left thigh (Primary Dx); Bilateral leg edema; Hypertension, essential 09/15/2024 Refill [facility] [address], [place] [phone] Shraddha Mustafa MD 09/09/2024 Refill [facility] [address] [place] [address] Shraddha Mustafa MD 09/03/2024 Orders Only GENERIC EXTERNAL DATA DEPARTMENT Provider, Generic External Data 09/01/2024 Orders Only [facility] [address] [place] [address] Shraddha Mustafa MD 08/24/2024 Orders Only GENERIC EXTERNAL DATA DEPARTMENT Provider, Generic External Data 08/21/2024 Orders Only GENERIC EXTERNAL DATA DEPARTMENT Provider, Generic External Data 08/19/2024 1:30 PM EST Clinical Support [facility] [address] [place] [address] Cecy Calvo LPN Exposure to confirmed case of COVID-19 (Primary Dx) 08/19/2024 11:30 AM EST Telemedicine [facility] [address] [place] [address] Shraddha Mustafa MD Mild intermittent asthma without complication (Primary Dx); Viral gastroenteritis; Viral URI 08/19/2024 Travel 08/18/2024 Telephone [facility] [address] [place] [phone] Shraddha Mustafa MD Chart prep 08/03/2024 Refill [facility] [address] [place] [address] Shraddha Mustafa MD 07/23/2024 Refill [facility] [address] [place] [address] Shraddha Mustafa MD 07/22/2024 Telephone [facility] [address] [place] [address] Shraddha Mustafa MD Durable Medical Equipment 07/21/2024 Telephone [facility] [address] [place] [address] Evelia Carlos MA Durable Medical Equipment 07/14/2024 Telephone [facility] [address] [place] [address] Evelia Carlos MA Durable Medical Equipment 07/13/2024 Orders Only GENERIC EXTERNAL DATA DEPARTMENT Provider, Generic External Data 07/08/2024 Telephone [facility] [address] [place] [address] Shraddha Mustafa MD Durable Medical Equipment 06/30/2024 11:15 AM EST Office Visit [facility] [address] [place] [address] Shraddha Mustafa MD Benign essential hypertension (Primary [...] Mass Index 28.31 09/15/2024 2:57 PM EST Plan of Treatment Health Maintenance Due Date Last Done Comments CT Colonography 1960 Colonoscopy 1960 Colorectal Cancer Screening 1960 FIT DNA/Cologuard 1960 FIT 1960 FOBT 1960 Sigmoidoscopy 1960 Alcohol/Substance Use Screening 1970 Hepatitis C Screening 1976 RSV Patients and Patients Aged 60 years or older (1 - Risk 60-74 years 1-dose series) 2018 Dental Oral Exam 10/19/2023 04/19/2023, 11/2020, 03/11/2012 Dental Prophylaxis 10/19/2023 04/19/2023, 05/15/2021 COVID-19 Vaccine ( season) 2024 06/07/2022, 11/01/2020, 10/11/2020 Dental X-Ray: Full Mouth 04/22/2024 04/21/2021, 02/11 Dental X-Ray: Bitewings 01/16/2025 01/16/20 24, 05/09/2023, 03/11/2012 Depression Screening 04/28/2025 04/28/2024, 04/28/20 SDOH Screening 04/28/2025 04/28/2024 Mammogram 09/01/2025 09/01/2024, 08/12, 02/04/2019, Additional history exists Tobacco Screening 09/15/2025 09/15/2024 DTaP/Tdap/Td Vaccines (2 - Td or Tdap) 02/28/2028 02/27/2018, 04/11/2013 Lipid Panel 08/18/2029 08/18/2024 Zoster Vaccines Completed 11/29/2022, 09/27/2022 Influenza Vaccine Completed 04/28/2024, , 06/17/2018 Pneumococcal Vaccine: 50+ Years Completed 04/28/2024 HIB Vaccines Aged Out [...] this topic Meningococcal Vaccine Aged Out No hima david eligible based on patient's age to [...] Procedure Name Priority Date/Time Associated Diagnosis Comments BACTERIAL VAGINOSIS PANEL Routine 09/03/2024 12:00 AM EST BI MAMMOGRAM SCREENING TOMOSYNTHESIS BILATERAL Routine 09/01/2024 1:35 PM EST CULTURE, URINE, ROUTINE Routine 08/24/2024 6:52 PM [...] ESTABLISHED PATIENT Routine 04/19/2023 3:00 PM EDT PANORAMIC RADIOGRAPHIC IMAGE Routine 04/21/2021 12:00 AM EDT from Last 3 Months or Most Recently Relevant to Health Maintenance Results * Bacterial Vaginosis (09/03/2024 12:00 AM EST) Only the most recent of3 resultswithin the time period is included. TRICHOMONAS VAGINALIS DETECTION BY PCR NOT DETECTED Not Detect [facility] BACTERIAL VAGINOSIS DETECTION BY PCR NEGATIVE Negative [facility] Comment:The BV organism targ ets of [...] DETECTION BY PCR NOT DETECTED Not Detect [facility] Bianka glab krusei PCR NOT DETECTED Not Detect [facility] 09/03/2024 09/03/2024 us Generic External Data Provider LAB MICROBIOLOGY - GENERAL ORDERABLES Final Result [facility] [address] [place] [phone] [phone] * BI Mammogram Screening Tomosynthesis Bilateral (09/01/2024 1:35 PM EST) Anatomical Region Laterality Modality Breast Bilateral Mammography 09/01/2024 1:35 PM EST Narrative 09/10/2024 9:58 AM EST ? [facility] ? [address] ?[place] [address] ? Mammography Report ? Signed ? Patient: Rob,Carina ?MR#: [id number] ?? 1500 ? : 1960 ?Acct:[id number] ? Age/Sex: 63 / F ?ADM Date: 01/21/25 ? Loc: HO.MAMMO ? Attending Dr: Shraddha Mustafa MD ? Ordering Physician: Shraddha Mustafa MD ?Results: 2Be ?? nign Findings ? Date of Service: 09/01/24 ?Follow Up: 1 Year From Orig ?? inal Mammogram ? Procedure(s): MM tomosynthesis screening BI ?? Accession Number(s): [id number] ? cc: Shraddha Mustafa MD ? EXAMINATION: [...] by Loly Cuello, DO in OV> ? 09/10/24954 ? DD/ 1335 ? TD/TT: 09/01/24 1350 ? Gear Grinding Machine Operator: ? Procedure Note Donotuseinterpreter, Image - 09/10/2024 Dontae [facility] [address] [place] [address] Mammography Report Signed Patient: Jakub Rivas#: [id number] 1500 : 9Acct:[id number] Age/Sex: 63 / FADM Date: 09/01/24 Loc: HO.MAMMO Attending Dr: Shraddha Mustafa MD Ordering Physician: Shraddha Mustafa MDResults: 2Be nign Findings Date of Service: 09/01/24Follow Up: 1 Year From Orig inal Mammogram Procedure(s): MM tomosynthesis screening BI Accession Number(s): [id number] cc: Sharddha Mustafa MD EXAMINATION: MM SCREENING DIGITAL BREAST [...] by: Loly Cuello DO 09/10/2024 09:55 AM [facility] Dictated By: Loly Cuello DO Signed By: <Electronically signed by Loly Cuello DO in OV> 09/10/24 0955 DD/ 1335 TD/TT: 09/01/24 1350 Gear Grinding Machine Operator: us Shraddha Mustafa MD IMG BI PROCEDURES Final Result * Culture, Urine, Routine (08/24/2024 6:52 PM EST) Urine Urine specimen obtained by clean catch procedure / Unknown 08/24/2024 6:52 PM EST 08/24/2024 6:52 PM EST Comment:UACC Narrative [facility] - 08/26/2024 10:51 AM EST Strep agalactiae (Grp B) Quant > 100,000 cfu/mL Susc N/A Susceptibility not routinely performed on this isolate. Specimen Source: Urine clean catch us Generic External Data Provider LAB MICROBIOLOGY - GENERAL ORDERABLES Final Result Performing Organization Address City/State/[facility] Co de Phone Number [facility] [address] [place] [phone] * (ABNORMAL) Urinalysis, Complete, with Reflex to Culture (08/24/2024 6:34 PM EST) Color Urine Yellow [facility] Appearance Urine Clear [facility] PH 6.5 5.0 - 9.0 [facility] Glucose Urine UA Negative Negative mg/dL [facility] Urine Blood Negative Negative [facility] Specific [place] - Urine 1.025 1.005 - 1.025 [facility] Urine Protein Trace Neg-Trace mg/dL [facility] Urine Ketones Negative Negative mg/dL [facility] Nitrite Urine Negative Negative [facility] Leukocyte Esterase Urine Small (1+)(A) Negative [facility] RBC Urine 0-2 0 - 2 /HPF [facility] Urine WBC 0-5 0 - 5 /HPF [facility] Urine Squamous Epithelial Cell 6-10 0 - 2 /HPF [facility] Urine Bacteria Trace None Seen [facility] Hyaline Casts, Urine 0-2 0 - 2 /LPF [facility] 08/24/2024 6:34 PM EST 08/24/2024 6:38 PM EST Narrative [facility] - 08/24/2024 6:52 PM EST Urine, Clean Catch us Generic External Data Provider LAB URINE ORDERAB LES Final Result [facility] [address] [place] [address] [phone] * Chlamydia/N. Gonorrhoeae RNA, TMA, Urogenitial (08/24/2024 6:34 PM EST) Only the most recent of2 resultswithin the time period is included. CT PCR NOT DETECTED Not Detect. [facility] Comment:A not detected test result does [...] psychologicalconsequences. NG PCR NOT DETECTED Not Detect. [facility] Comment:A not detected test result does [...] 6:34 PM EST 08/24/2024 6:38 PM EST [facility] - 08/25/2024 5:54 AM EST Vaginal Generic External Data Provider LAB MICROBIOLOGY - GENERAL ORDERABLES Final Result Performing Organization Address [facility] de Phone Number [facility] [address] [place] [phone] * Wet prep, genital (08/24/2024 6:34 PM EST) Vaginal Fluid Vaginal structure / Unknown 08/24/2024 6:34 PM EST 08/24/2024 6:38 PM EST Comment:Vaginal [facility] - 08/24/2024 6:44 PM EST Trichomonas Prep Direct Microscopic Exam Trichomonas Prep No trichomonads or yeast seen Specimen Source: Vaginal Generic External Data Provider LAB MICROBIOLOGY - GENERAL ORDERABLES Final Result Performing Organization Address [facility] de Phone Number [facility] [address] [place] [phone] * Hematoxylin and Eosin Stain (08/21/2024 1:43 PM EST) 08/21/2024 1:43 PM EST 08/24/2024 8:03 AM EST [facility] - 08/27/2024 3:07 PM EST ----- ------- Name: Carina Rivas ? Age/Sex: 63/F ? : 1960 Unit#: [id number] ?? Attend Dr: Kenyon Augustine MD ?Re08/21/24 ?Status: DEP REF ? Location: HO.LNP ?Disch: ? ----- ------- SPEC : [id number] ?RECD: 08/24/24 ? STATUS: ??SOUT ? REQ NUM: [id number] ? CARLO: 08/21/24 ? SUBM DR: Kenyon [...] Copies To: ?? Shraddha Mustafa MD ?? [facility] ?? [address] ?? [place] [address] ?? [phone] ?? Kenyon Augustine MD ?? [facility] ?? [address] ?? [place] [address] ?? [phone] ? CONTINUED ON NEXT PAGE ----- ------- Name: Carina Rivas ? Age/Sex: 63/F ? : 1960 Unit#: [id number] ?? Attend Dr: Kenyon Augustine MD ?Re08/21/24 ?Status: DEP REF ? Location: HO.LNP ?Disch: ? ----- ------- SPEC : [id number] ?RECD: 08/24/24 ? STATUS: ??SOUT ? REQ NUM: [id number] ? CARLO: 08/21/24 ? SUBM DR: Kenyon Augustine MD ? ENTERED: ??08/24/24 ?SP TYPE: Surgical ? OTHR DR: Shraddha Mustafa MD ? ORDERED: ??HE Stain/3, Gross Micro L4 ? ----- ------- Signed (signature on file) Teofilo Nuñez MD 08/27/24 1507 ? ----- ------- ? END OF REPORT ? us Generic External Data Provider LAB BLOOD ORDERAB LES Final Result Performing Organization Address [facility] de Phone Number [facility] [address] [place] [address] [phone] * POCT Rapid COVID Ag (08/19/2024 1:45 PM EST) [facility] Rapid COVID Ag Negative Swab 08/19/2024 1:45 PM EST us Tennille Horowitz MD POINT OF CARE TEST ENTER/ED IT ORDERABLES Final Result * TSH with Reflex to Free T4 (08/18/2024 9:56 AM EST) [facility] TSH reflex Free T4 1.54 0.32 - 4.0 uIU/mL [facility] Blood 08/18/2024 9:56 AM EST 08/18/2024 11:15 AM EST us Shraddha Mustafa MD LAB BLOOD ORDERABLES Fin al Result Performing Organization Address [facility] Co de Phone Number [facility] [address] [place] [address] [phone] * (ABNORMAL) Lipid Panel with Reflex to Direct LDL (08/18/2024 9:56 AM EST) Triglycerides 249(H) <150 mg/dL [facility] Comment:Desirable Triglyceri de: less than 150 mg/dLBorderline High Triglyceride 150-199 mg/dLHigh Triglyceride: 200-499 mg/dLVery High Triglyceride: greater than or equal to 5OO mg/dL Cholesterol 246(H) <200 mg/dL [facility] Comment:Desirable Cholestero l: less than 200 mg/dLBorderline High Cholesterol: 200-239 mg/dLHigh Cholesterol: greater than 239 mg/dL LDL Cholesterol Calculated 153(H) <100 mg/dL [facility] Comment:Desirable LDL: less than 100 mg/dLNear Optimal/Above Optimal LDL: 110- 129 mg/dLBorderline High LDL: 130-159 mg/dLHigh LDL: 160-189 mg/dLVery High LDL: greater than or equal to 190 mg/dL HDL Cholesterol 44 >40 mg/dL [facility] Comment:Desirable HDL: great er than 40 mg/dL Note: This HDL assay may give artificially low results in patients with liver disease. Blood 08/18/2024 9:56 AM EST 08/18/2024 11:15 AM EST us Shraddha Mustafa MD LAB BLOOD ORDERABLES Fin al Result [facility] [address] [place] [phone] * (ABNORMAL) Comprehensive Metabolic Panel (08/18/2024 9:56 AM EST) Sodium 141 135 - 145 mmol/L [facility] Potassium 3.9 3.3 - 5.1 mmol/L [facility] Chloride 107 96 - 108 mmol/L [facility] Carbon Dioxide 28 22 - 29 mmol/L [facility] Anion Gap 10(L) 12 - 20 [facility] Urea Nitrogen (BUN) 15 9 - 16 mg/dL [facility] Creatinine, Serum 0.77 0.5 - 1.4 mg/dL [facility] Estimated Glomerular Filt Rate >60 [facility] Comment:Chronic Kidney Disea se: Estimated GFR < 60 mL/min/1.69c1Awfery Kidney Disease: Estimated GFR < 15 mL/min/1.73m2 Glucose 137(H) 60 - 115 mg/dL [facility] Calcium 8.9 8.4 - 10.2 mg/dL [facility] Bilirubin, Total 0.5 0.0 - 1.0 mg/dL [facility] Aspartate Amino Transferase 28 5 - 31 U/L [facility] Alanine Aminotransferase 18 0 - 31 U/L [facility] Total Protein 7.4 6.5 - 8.0 g/dL [facility] Albumin Level 4.1 3.5 - 5.0 g/dL [facility] Alkaline Phosphatase 117 39 - 117 U/L [facility] Blood Venous blood specimen / Unknown 08/18/2024 9:56 AM EST 08/18/2024 11:15 AM EST us Shraddha Mustafa MD LAB BLOOD ORDERABLES Fin al Result [facility] [address] [place] [phone] from Last 3 Months Insurance [facility] * Guarantor: Carina Rivas Account Type Relation to Patient Date of Phone Billing Address Dental Self 1960 [address] [place] [address] [facility] Care Teams Ecologist Technician Relationship Specialty Start Date End Date Shraddha Mustafa MD [address] [place] [address] PCP - General Family Medicine 03/21/17 Mike Kang PharmD [address] [place] [address] Pharmacist Internal Medicine 12/10/22
--- OUTSIDE RECORDS SUMMARY | 2024-09-16 10:03 | XMS_ITS | Encounter Summary ---
Author Organization [employer] Address [address] [facility] [place] [address] Care Team Providers Care Surplus Property Disposal Agent Name Role Phone Shraddha Mustafa MD Primary Care Provider + Mike Kang PharmD Unavailable [phone] Reason for Visit * Reason Comments Med Refill Encounter Details Date Type Department Care Team ([facility] st Contact Info) Description 12/10/2022 Refill [facility] [address] [place] [address] Trish Gonzalez MD [address] [place] [address] Social History Tobacco Use Types Packs/Day Years [...] on filedocumented in this encounter Care Teams Surplus Property Disposal Agent Relationship Specialty Start Date End Date Shraddha Mustafa MD [address] [place] [address] PCP - General Family Medicine 03/21/17 Mike Kang, JuliánD [address] [place] [phone] Pharmacist Internal Medicine 12/10/22 documented as of this encounter
--- OUTSIDE RECORDS SUMMARY | 2024-09-16 10:03 | XMS_ITS | Encounter Summary ---
Author Organization [employer] Address [address] [facility] [address]t [place] [address] Care Team Providers Care Repairer Kiln Car Name Role Phone Shraddha Mustafa MD Primary Care Provider + Mike Kang PharmD Unavailable [phone] Encounter Details Date Type Department Care Team (Latest Contact Info) Description 08/19/2024 1:30 PM EST Clinical Support [facility] [address] [place], [place] [phone] Cecy Calvo LPN Exposure to confirmed case of COVID-19 (Primary Dx) Social History Tobacco Use Types Packs/Day Years Used Date Smoking Tobacco: Former Cigarettes Q uit: 2002 Smokeless Tobacco: Never Alcohol Use Standard Drinks/Week Comments Never 0 (1 standard drink = 0.6 oz pur e alcohol) Housing Stability Answer Date Recorded What is your housing situation today? I have hellen agy 04/28/[address] you li [...] people for the next 5d. She will medicinal plant picker rx for viral syndrome and fu [...] Primary documented in this encounter Care Teams Repairer Kiln Car Relationship Specialty Start Date End Date Shraddha Mustafa MD [address] [place] [address] PCP - General Family Medicine 03/21/17 Mike Kang PharmD [address] [place] [address] Pharmacist Internal Medicine 12/10/22 documented as of this encounter
--- OUTSIDE RECORDS SUMMARY | 2024-09-16 10:03 | XMS_ITS | Encounter Summary ---
Author Organization [employer] Address [address] [facility] [address] [place] [address] Care Team Providers Care Accountancy Professor Name Role Phone Shraddha Mustafa MD Primary Care Provider + Mike Kang PharmD Unavailable [phone] Encounter Details Date Type Department Care Team (Late st Contact Info) Description 04/25/2023 Abstract [facility] [address] [place] [address] Gordy Calderon DDS [address] [place], [place] [phone] Social History Tobacco Use Types Packs/Day Years [...] on filedocumented in this encounter Care Teams Accountancy Professor Relationship Specialty Start Date End Date Shraddha Mustafa MD [address] [place] [address] PCP - General Family Medicine 03/21/17 Mike Kang, JuliánD [address] [place] [phone] Pharmacist Internal Medicine 12/10/22 documented as of this encounter
--- OUTSIDE RECORDS SUMMARY | 2024-09-16 10:03 | XMS_ITS | Encounter Summary ---
Author Organization [employer] [facility] Address [address] [place] [address] Care Team Providers Care Fountain Attendant Name Role Phone Shraddha Mustafa MD Primary Care Provider + Mike Kang PharmD Unavailable [phone] Encounter Details Date Type Department Care Team (Latest Contact Info) Description 05/15/2021 Abstract [facility] Dental, Provider, DDS Social History [...] on filedocumented in this encounter Care Teams Fountain Attendant Relationship Specialty Start Date End Date Shraddha Mustafa MD [address] [place] [address] PCP - General Family Medicine 03/21/17 Mike Kang, PharmD [address] [place], [place] [phone] Pharmacist Internal Medicine 12/10/22 documented as of this encounter
--- OUTSIDE RECORDS SUMMARY | 2024-09-16 10:03 | XMS_ITS | Encounter Summary ---
Author Organization [employer] Address [address] [facility] [address] [place] [address] Care Team Providers Care Ict Customer Support Officer Name Role Phone Shraddha Mustafa MD Primary Care Provider + Mike Kang PharmD Unavailable [phone] Encounter Details Date Type Department Care Team (Late st Contact Info) Description 04/30/2024 Orders Only [facility] [address] [place], [place] [phone] Bala Mcdonald MD [address] [place], [place] [phone] Social History Tobacco Use Types Packs/Day Years [...] filedocumented in this encounter Care Teams Ict Customer Support Officer Relationship Specialty Start Date End Date Shraddha Mustafa MD [address] [place] [address] PCP - General Family Medicine 03/21/17 Mike Kang, PharmD [address] [place] [address] Pharmacist Internal Medicine 12/10/22 documented as of this encounter
--- OUTSIDE RECORDS SUMMARY | 2024-09-16 10:03 | XMS_ITS | Encounter Summary ---
Author Organization [employer] Address [address] [facility] [address] [place] [address] Care Team Providers Care Metal Spray Operator Name Role Phone Shraddha Mustafa MD Primary Care Provider + Mike Kang PharmD Unavailable [phone] Encounter Details Date Type Department Care Team (Late st Contact Info) Description 09/03/2024 Orders Only GENERIC EXTERNAL DATA DEPARTMENT [...] VAGINOSIS PANEL Routine 09/03/2024 12:00 AM EST documented in this encounter Results * Bacterial Vaginosis (09/03/2024 12:00 AM EST) TRICHOMONAS VAGINALIS DETECTION BY PCR NOT DETECTED Not Detect [facility] BACTERIAL VAGINOSIS DETECTION BY PCR NEGATIVE Negative [facility] Comment:The BV organism targ ets of [...] DETECTION BY PCR NOT DETECTED Not Detect [facility] Bianka glab krusei PCR NOT DETECTED Not Detect [facility] 09/03/2024 09/03/2024 us Generic External Data Provider LAB MICROBIOLOGY - GENERAL ORDERABLES Final Result [facility] [address] [place] [phone] documented in this encounter Visit Diagnoses Not on filedocumented in this encounter Care Teams Metal Spray Operator Relationship Specialty Start Date End Date Shraddha Mustafa MD [address] [place] [address] PCP - General Family Medicine 03/21/17 Mike Kang, JuliánD [address] [place] [address] Pharmacist Internal Medicine 12/10/22 documented as of this encounter
--- OUTSIDE RECORDS SUMMARY | 2024-09-16 10:03 | XMS_ITS | Encounter Summary ---
Author Organization [employer] Address [address] [facility] 7t [place] [address] Care Team Providers Care Satellite Communications Engineer Name Role Phone Shraddha Mustafa MD Primary Care Provider + Mike aKng PharmD Unavailable [phone] Reason for Visit * Reason Comments Lab Orders Encounter Details Date Type Department Care Team (Late st Contact Info) Description 08/19/2024 11:30 AM EST Telemedicine [facility] [address] [place], [place] [phone] Shraddha Mustafa MD [address] [place], [place] [phone] Mild intermittent asthma without complication (Primary Dx); [...] MOUTH TWICE DAILY WITH BREAKFAST AND WITH [id number] tablet 1 sertraline (Zoloft) 50 MG tablet [...] site documented in this encounter Care Teams Satellite Communications Engineer Relationship Specialty Start Date End Date Shraddha Mustafa MD [address] [place] [address] PCP - General Family Medicine 03/21/17 Mike Kang PharmD [address] [place] [address] Pharmacist Internal Medicine 12/10/22 documented as of this encounter
== END 2024-09-16 09:33 | disposition home or self-care (01) ==
LOC: HO.HHCX 09:32
PROVIDERS: Visit Provider Internal Medicine
DX: Z13.89 Encounter for screening for other disorder (principal)
CPT/HCPCS: 73502

== ENCOUNTER → 2024-09-16 09:33 | Outpatient (BNV) | payer OTHER, SELFPAY | PROVIDERS: Visit Provider Radiology Diagnostic Radiology | DX: M16.0 Bilateral primary osteoarthritis of hip (principal) | CPT/HCPCS: 73502 ==

== ENCOUNTER 2024-09-16 10:02 | Outpatient (REF) | payer OTHER, SELFPAY ==
--- OUTSIDE RECORDS SUMMARY | 2024-09-16 10:54 | XMS_ITS | Encounter Summary ---
Author Organization [employer] [facility] Address [address] [facility] 7t [place] [address] Care Team Providers Care Obiee Architect Name Role Phone Shraddha Mustafa MD Primary Care Provider + Mike Kang PharmD Unavailable [phone] Encounter Details Date Type Department Care Team (Latest Contact Info) Description 05/15/2021 Abstract [facility] CONVERSIONS Dental, Provider, DDS Social [...] on filedocumented in this encounter Care Teams Obiee Architect Relationship Specialty Start Date End Date Shraddha Mustafa MD 230 [place] [address] PCP - General Family Medicine 03/21/17 Mike Kang, PharmD 230 [place], [place] [phone] Pharmacist Internal Medicine 12/10/22 documented as of this encounter
--- OUTSIDE RECORDS SUMMARY | 2024-09-16 10:54 | XMS_ITS | Encounter Summary ---
Author Organization [employer] Address [address] [facility] 7t [place] [address] Care Team Providers Care Cotton Machine Operator Name Role Phone Shraddha Mustafa MD Primary Care Provider + Mike Kang PharmD Unavailable Reason for Visit * Reason Comments Med Refill Encounter Details Date Type Department Care Team (Late st Contact Info) Description 09/15/[address] [facility] MEDICINE [address] [place] [address] Shraddha Mustafa MD 230 [place], [place] [phone] Social History Tobacco Use Types Packs/Day Years [...] on filedocumented in this encounter Care Teams Cotton Machine Operator Relationship Specialty Start Date End Date Shraddha Mustafa MD [address] [place] [address] PCP - General Family Medicine 03/21/17 Mike Kang, PharmD [address] [place] [address] Pharmacist Internal Medicine 12/10/22 documented as of this encounter
--- OUTSIDE RECORDS SUMMARY | 2024-09-16 10:55 | XMS_ITS | Encounter Summary ---
Author Organization [employer] Address [address] [facility] 7t [place] [address] Care Team Providers Care Wirer Name Role Phone Shraddha Mustafa MD Primary Care Provider + Mike Kang PharmD Unavailable [phone] Encounter Details Date Type Department Care Team (Late st Contact Info) Description 09/01/2024 Orders Only [facility] MEDICINE 230 [place], [place] [phone] Shraddha Mustafa MD [address] [place], [place] [phone] Social History Tobacco Use Types Packs/Day Years [...] EST Narrative 09/10/2024 9:58 AM EST ? [facility] [place] ? [facility] ?[place] [address] ? Mammography Report ? Signed ? Patient: Rob,Carina ?MR#: [id number] ?? 1500 ? : 1960 ?Acct:[id number] ? Age/Sex: 63 / F ?ADM Date: 01/21/25 ? Loc: HO.MAMMO ? Attending Dr: Shraddha Mustafa MD ? Ordering Physician: Shraddha Mustafa MD ?Results: 2Be ?? nign Findings ? Date of Service: 09/01/24 ?Follow Up: 1 Year From Orig ?? inal Mammogram ? Procedure(s): MM tomosynthesis screening BI ?? Accession Number(s): [id number] ? cc: Shraddha Mustafa MD ? EXAMINATION: [...] DD/ 1335 ? TD/TT: 09/01/24 1350 ? Desktop Publishing Operator: ? Procedure Note Donotchiquitainterpreter, Image - 09/10/2024 [facility] [address] [place] [address] Mammography Report Signed Patient: Jakub Rivas#: [id number] 1500 : 9Acct:[id number] Age/Sex: 63 / FADM Date: 09/01/24 Loc: HO.MAMMO Attending Dr: Shraddha Mustafa MD Ordering Physician: Shraddha Mustafa MDResults: 2Be nign Findings Date of Service: 09/01/24Follow Up: 1 Year From Orig inal Mammogram Procedure(s): MM tomosynthesis screening BI Accession Number(s): [id number] cc: Shraddha Mustafa MD EXAMINATION: MM SCREENING [...] 09/10/24 0955 DD/ 1335 TD/TT: 09/01/24 1350 Desktop Publishing Operator: Shraddha Mustafa MD IMG BI PROCEDURES Final Result documented in this encounter Visit Diagnoses Not on filedocumented in this encounter Care Teams Wirer Relationship Specialty Start Date End Date Shraddha Mustafa MD [address] [place] [address] PCP - General Family Medicine 03/21/17 Mike Kang PharmD [address] [place] [address] Pharmacist Internal Medicine 12/10/22 documented as of this encounter
--- OUTSIDE RECORDS SUMMARY | 2024-09-16 10:55 | XMS_ITS | Encounter Summary ---
Author Organization [employer] Address 75 [facility] 7t [place] [address] Care Team Providers Care Claim Service Representative Name Role Phone Shraddha Mustafa MD Primary Care Provider + Mike Kang PharmD Unavailable [phone] Encounter Details Date Type Department Care Team (Late st Contact Info) Description 04/25/2023 Abstract [facility] [address] [place] [address] Gordy Calderon DDS [address] [place], [place] [phone] Social History Tobacco Use Types Packs/Day Years [...] on filedocumented in this encounter Care Teams Claim Service Representative Relationship Specialty Start Date End Date Shraddha Mustafa MD 230 [place] [address] PCP - General Family Medicine 03/21/17 Mike Kang, JuliánD [address] [place] [address] Pharmacist Internal Medicine 12/10/22 documented as of this encounter
--- OUTSIDE RECORDS SUMMARY | 2024-09-16 10:55 | XMS_ITS | Encounter Summary ---
Author Organization [employer] Address 75 [facility] 7t [place] [address] Care Team Providers Care Pulmonologist Name Role Phone Shraddha Mustafa MD Primary Care Provider + Mike Kang PharmD Unavailable [phone] Encounter Details Date Type Department Care Team [...] 6:52 PM EST 08/24/2024 6:52 PM EST Comment:[facility] - 08/26/2024 10:51 AM EST Strep agalactiae (Grp B) Quant > 100,000 cfu/mL Susc N/A Susceptibility not routinely performed on this isolate. Specimen Source: Urine clean catch us Generic External Data Provider LAB MICROBIOLOGY - GENERAL ORDERABLES Final Result [facility] [address] [place] [phone] * Bacterial Vaginosis (08/24/2024 6:34 PM EST) Pathologist [facility] TRICHOMONAS VAGINALIS DETECTION BY PCR NOT DETECTED Not Detect [facility] BACTERIAL VAGINOSIS DETECTION BY PCR NEGATIVE Negative [facility] Comment:The BV organism [...] DETECTION BY PCR NOT DETECTED Not Detect [facility] Bianka glab krusei PCR NOT DETECTED Not Detect [facility] 08/24/2024 6:34 PM EST 08/24/2024 6:38 PM EST Generic External Data Provider LAB MICROBIOLOGY - GENERAL ORDERABLES Final Result Performing Organization Address [facility]/ZIP Co de Phone Number [facility] [address] [place] [phone] * Chlamydia/N. Gonorrhoeae RNA, TMA, Urogenitial (08/24/2024 6:34 PM EST) Pathologist [facility] CT PCR NOT DETECTED Not Detect. [facility] Comment:A not detected [...] psychologicalconsequences. NG PCR NOT DETECTED Not Detect. [facility] Comment:A not detected [...] PM EST 08/24/2024 6:38 PM EST Narrative [facility] - 08/25/2024 5:54 AM EST Vaginal Generic External Data Provider LAB MICROBIOLOGY - GENERAL ORDERABLES Final Result Performing Organization Address [facility] Co de Phone Number [facility] [address] [place] [phone] * Wet prep, genital (08/24/2024 6:34 PM EST) Vaginal Fluid Vaginal structure / Unknown 08/24/2024 6:34 PM EST 08/24/2024 6:38 PM EST Comment:Vaginal [facility] - 08/24/2024 6:44 PM EST Trichomonas Prep Direct Microscopic Exam Trichomonas Prep No trichomonads or yeast seen Specimen Source: Vaginal Generic External Data Provider LAB MICROBIOLOGY - GENERAL ORDERABLES Final Result Performing Organization Address City/[facility] Co de Phone Number [facility] [address] [place] [phone] * (ABNORMAL) Urinalysis, Complete, with Reflex to Culture (08/24/2024 6:34 PM EST) Color Urine Yellow [facility] Appearance Urine Clear [facility] PH 6.5 5.0 - 9.0 [facility] Glucose Urine UA Negative Negative mg/dL [facility] Urine Blood Negative Negative [facility] Specific [place] - Urine 1.025 1.005 - 1.025 [facility] Urine Protein Trace Neg-Trace mg/dL [facility] Urine Ketones Negative Negative mg/dL [facility] Nitrite Urine Negative Negative [facility] Leukocyte Esterase Urine Small (1+)(A) Negative [facility] RBC Urine 0-2 0 - 2 /HPF [facility] Urine WBC 0-5 0 - 5 /HPF [facility] Urine Squamous Epithelial Cell 6-10 0 - 2 /HPF [facility] Urine Bacteria Trace None Seen [facility] Hyaline Casts, Urine 0-2 0 - 2 /LPF [facility] 08/24/2024 6:34 PM EST 08/24/2024 6:38 PM EST Narrative [facility] - 08/24/2024 6:52 PM EST Urine, Clean Catch us Generic External Data Provider LAB URINE ORDERAB LES Final Result Performing Organization Address City/State/[facility] Co de Phone Number [facility] [address] [place] [phone] documented in this encounter Visit Diagnoses Not on filedocumented in this encounter Care Teams Pulmonologist Relationship Specialty Start Date End Date Shraddha Mustafa MD [address] [place] [address] PCP - General Family Medicine 03/21/17 Mike Kang, Tamara [address] [place] [address] Pharmacist Internal Medicine 12/10/22 documented as of this encounter
--- OUTSIDE RECORDS SUMMARY | 2024-09-16 10:55 | XMS_ITS | Encounter Summary ---
Author Organization [employer] Address [address] [facility] [address] 7t [place] [address] Care Team Providers Care Veneer Stock Grader Name Role Phone Shraddha Mustafa MD Primary Care Provider + Mike Kang PharmD Unavailable [phone] Encounter Details Date Type Department Care [...] on filedocumented in this encounter Care Teams Veneer Stock Grader Relationship Specialty Start Date End Date Shraddha Mustafa MD [address] [place] [address] PCP - General Family Medicine 03/21/17 Mike Kang, PharmD [address] [place] [address] Pharmacist Internal Medicine 12/10/22 documented as of this encounter
--- OUTSIDE RECORDS SUMMARY | 2024-09-16 10:55 | XMS_ITS | Encounter Summary ---
Author Organization [employer] Address 75 [facility] 7t [place] [address] Care Team Providers Care Silverware Supervisor Name Role Phone Shraddha Mustafa MD Primary Care Provider + Mike Kang PharmD Unavailable [phone] Reason for Visit * Reason Onset Date Comments Chart prep 08/18/2024 Encounter Details Date Type Department Care Team ([facility] st Contact Info) Description 08/18/2024 Telephone [facility] MEDICINE 230 [place], [place] [phone] Shraddha Mustafa MD 230 [place], [place] [phone] Chart prep Social History Tobacco Use Types [...] on filedocumented in this encounter Care Teams Silverware Supervisor Relationship Specialty Start Date End Date Shraddha Mustafa MD 230 [place] [address] PCP - General Family Medicine 03/21/17 Mike Kang, Tamara [address] [place] [address] Pharmacist Internal Medicine 12/10/22 documented as of this encounter
--- OUTSIDE RECORDS SUMMARY | 2024-09-16 10:55 | XMS_ITS | Encounter Summary ---
Author Organization [employer] Address 75 [facility] 7t [place] [address] Care Team Providers Care Medicaid Service Coordinator Name Role Phone Shraddha Mustafa MD Primary Care Provider + Mike Kang PharmD Unavailable [phone] Reason for Visit * Reason Comments Med Refill Encounter Details Date Type Department Care Team (Late st Contact Info) Description 09/09/[address] [facility] MEDICINE 230 [place], [place] [phone] Shraddha Mustafa MD [address] [place], [place] [phone] Social History Tobacco Use Types Packs/Day Years [...] on filedocumented in this encounter Care Teams Medicaid Service Coordinator Relationship Specialty Start Date End Date Shraddha Mustafa MD [address] [place] [address] PCP - General Family Medicine 03/21/17 Mike Kang, PharmD [address] [place] [address] Pharmacist Internal Medicine 12/10/22 documented as of this encounter
--- OUTSIDE RECORDS SUMMARY | 2024-09-16 10:55 | XMS_ITS | Encounter Summary ---
Author Organization [employer] Address [address] [facility] 7t [place] [address] Care Team Providers Care Stove Refinisher Name Role Phone Shraddha Mustafa MD Primary Care Provider + Mike Kang PharmD Unavailable [phone] Reason for Visit * Reason Comments Lab Orders Encounter Details Date Type Department Care Team (Late st Contact Info) Description 08/19/2024 11:30 AM EST Telemedicine [facility] MEDICINE 230 [place], [place] [phone] Shraddha Mustafa MD [address] [place], [place] [phone] Mild intermittent asthma without complication (Primary Dx); [...] MOUTH TWICE DAILY WITH BREAKFAST AND WITH [id number] tablet 1 sertraline (Zoloft) 50 MG tablet [...] site documented in this encounter Care Teams Stove Refinisher Relationship Specialty Start Date End Date Shraddha Mustafa MD [address] [place] [address] PCP - General Family Medicine 03/21/17 Mike Kang PharmD [address] [place] [address] Pharmacist Internal Medicine 12/10/22 documented as of this encounter
--- OUTSIDE RECORDS SUMMARY | 2024-09-16 10:55 | XMS_ITS | Encounter Summary ---
Author Organization [employer] Address [address] [facility] 7[address] [place] [address] Care Team Providers Care Window Shade Installer Name Role Phone Shraddha Mustafa MD Primary Care Provider + Mike Kang PharmD Unavailable [phone] Encounter Details Date Type Department Care Team (Late st Contact Info) Description 09/19/2022 Orders Only [facility] [address] [place], [place] [phone] Nohemi Panchal LPN Social History Tobacco Use [...] on filedocumented in this encounter Care Teams Window Shade Installer Relationship Specialty Start Date End Date Shraddha Mustafa MD [address] [place] [address] PCP - General Family Medicine 03/21/17 Mike Kang, PharmD [address] [place], [place] [phone] Pharmacist Internal Medicine 12/10/22 documented as of this encounter
--- OUTSIDE RECORDS SUMMARY | 2024-09-16 10:55 | XMS_ITS | Encounter Summary ---
Author Organization [employer] Address 75 [facility] 7t [place] [address] Care Team Providers Care Conservation Biology Professor Name Role Phone Shraddha Mustafa MD Primary Care Provider + Mike Kang PharmD Unavailable [phone] Encounter Details Date Type Department Care Team (Late st Contact Info) Description 09/15/2024 2:40 PM EST Office Visit [facility] [address] [place] [address] Luz Neville MD [address] [place], [place] [phone] Acute pain of left thigh (Primary Dx); [...] Bilateral leg edema Expected: 09/15/2024, Expires: 09/15/2025 documented as of this encounter Goals Goal Patient Goal Type Associated Problems Recent Progress Patient-Stated? Author Blood Pressure < 150/90 Blood Pressure 180/96(2024 2:58 PM EST) No Mike Kang, PharmD Note: Per JNC-8 : Age>60, No history of DM or CKD documented as of this encounter Procedures Procedure Name Priority Date/Time Associated Diagnosis Comments XR HIP LEFT WITH PELVIS 1 VIEW Routine 09/16/2024 9:33 AM EST Acute pain of left thigh documented in this encounter Results * XR Hip left with Pelvis 1 view (09/16/2024 9:33 AM EST) Anatomical Region Laterality Modality Lower Extremities, Hip Bilateral Radiograp hic Imaging 09/16/2024 9:33 AM EST Narrative 09/16/2024 10:04 AM EST ?[facility] ?[address] ?[place] [address] ?XRay Report ? Signed ? Patient: Rob,Carina ?MR#: [id number] ?? 1500 ? : 1960 ?Acct:[id number] ? Age/Sex: 64 / F ?ADM Date: 09/16/24 ? Loc: HO.HHCX ? Attending Dr: Luz Neville MD ? Ordering Physician: Luz Neville MD ?? Date of Service: 09/16/24 ?? Procedure(s): XR hip LT w PEL1V ?? Accession Number(s): [id number] ? cc: Luz Neville MD ? EXAMINATION: ?? XR HIP, LEFT ? CLINICAL INFORMATION: ?? PAIN ? COMPARISON: ?? 03/04/2024. ? TECHNIQUE: ?? AP pelvis, and single view left hip of the left hip. ? FINDINGS: ?? No fracture, dislocation, or suspicious bone lesion. Normal alignment. ?? Suspect subtle chondrocalcinosis in both hip joints with hazy ?? calcification of the superior hip labrum. Findings suggest CPPD. ?? Minimal degenerative arthritis in both hip joints. ?? Normal acetabular coverage. ?? Femoral heads are normal in contour without AVN. ? Sacrum is intact. SI joints demonstrate mild degenerative changes. ? Soft tissues demonstrate mild vascular calcifications. ? XR/XR hip LT w PEL1V ?? IMPRESSION: ?? 1. No acute findings left hip. ?? 2. 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 suspect CPPD. ? Electronically signed by: ??Shawn Steen MD ??09/16/2024 10:01 AM EST RP ? Dictated By: ?Shawn Steen MD ? Signed By: ?<Electronically signed by Shawn Steen MD in OV> ?09/16/24 1001 ? DD/ 0933 ? TD/TT: 09/16/24 0940 ? [place] Attorney: ? Procedure Note Debra Greene - 09/16/[address] [address] XRay Report Signed Patient: Jakub Rivas#: [id number] 1500 : 9Acct:[id number] Age/Sex: 64 / FADM Date: 09/16/24 Loc: HO.HHCX Attending Dr: Luz Neville MD Ordering Physician: Luz Neville MD Date of Service: 09/16/24 Procedure(s): XR hip LT w PEL1V Accession Number(s): [id number] cc: Luz Neville MD EXAMINATION: XR HIP, LEFT CLINICAL INFORMATION: PAIN COMPARISON: 03/04/2024. TECHNIQUE: AP pelvis, and single view left hip of the left hip. FINDINGS: No fracture, dislocation, or suspicious bone lesion. Normal alignment. Suspect subtle chondrocalcinosis in both hip joints with hazy calcification of the superior hip labrum. Findings suggest CPPD. Minimal degenerative arthritis in both hip joints. Normal acetabular coverage. Femoral heads are normal in contour without AVN. Sacrum is intact. SI joints demonstrate mild degenerative changes. Soft tissues demonstrate mild vascular calcifications. XR/XR hip LT w PEL1V IMPRESSION: 1. No acute findings left hip. 2. 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 Electronically signed by: Shawn Steen MD 09/16/2024 10:01 AM EST Dictated By: Shawn Steen MD Signed By: <Electronically signed by Shawn Steen MD in OV> 09/16/24 1001 DD/ 0933 TD/TT: 09/16/24 0940 [place] Attorney: Luz Neville MD IMG XR PROCEDURES Edited Resu lt - Final documented in this encounter Visit Diagnoses Diagnosis Acute pain of left thigh- Primary Bilateral leg edema Edema Hypertension, essential Unspecified essential hypertension documented in this encounter Care Teams Conservation Biology Professor Relationship Specialty Start Date End Date Shraddha Mustafa MD [address] [place] [address] PCP - General Family Medicine 03/21/17 Mike Kang, Tamara [address] [place] [address] Pharmacist Internal Medicine 12/10/22 documented as of this encounter
--- OUTSIDE RECORDS SUMMARY | 2024-09-16 10:55 | XMS_ITS | Encounter Summary ---
Author Organization [employer] Address 75 [facility] 7[place] [address] Care Team Providers Care Engraved Roller Inspector Name Role Phone Shraddha Mustafa MD Primary Care Provider + Mike Kang PharmD Unavailable [phone] Reason for Visit * Reason Comments Med Refill Encounter Details Date Type Department Care Team ([facility] st Contact Info) Description 12/10/2022 Refill [facility] MEDICINE 230 [place] [address] Trish Gonzalez MD [address] [place] [address] Social History Tobacco Use Types Packs/Day Years [...] on filedocumented in this encounter Care Teams Engraved Roller Inspector Relationship Specialty Start Date End Date Shraddha Mustafa MD [address] [place] [address] PCP - General Family Medicine 03/21/17 Mike Kang, JuliánD [address] [place] [address] Pharmacist Internal Medicine 12/10/22 documented as of this encounter
--- OUTSIDE RECORDS SUMMARY | 2024-09-16 10:55 | XMS_ITS | Encounter Summary ---
Author Organization [employer] Address 75 [facility] 7t [place] [address] Care Team Providers Care Microfilm Equipment Inspector Name Role Phone Shraddha Mustafa MD Primary Care Provider + Mike Kang PharmD Unavailable [phone] Encounter Details Date Type Department Care Team [...] DETECTION BY PCR NOT DETECTED Not Detect [facility] BACTERIAL VAGINOSIS DETECTION BY PCR NEGATIVE Negative [facility] Comment:The BV organism targ ets [...] DETECTION BY PCR NOT DETECTED Not Detect [facility] Bianka glab krusei PCR NOT DETECTED Not Detect [facility] 09/03/2024 09/03/2024 us Generic External Data Provider LAB MICROBIOLOGY - GENERAL ORDERABLES Final Result [facility] [address] [place] [phone] documented in this encounter Visit Diagnoses Not on filedocumented in this encounter Care Teams Microfilm Equipment Inspector Relationship Specialty Start Date End Date Shraddha Mustafa MD 230 [place] [address] PCP - General Family Medicine 03/21/17 Mike Kang, JuliánD [address] [place] [address] Pharmacist Internal Medicine 12/10/22 documented as of this encounter
--- OUTSIDE RECORDS SUMMARY | 2024-09-16 10:55 | XMS_ITS | Encounter Summary ---
Author Organization [employer] Address 75 [facility] 7t [place] [address] Care Team Providers Care Aerial Lineman Name Role Phone Shraddha Mustafa MD Primary Care Provider + Mike Kang PharmD Unavailable [phone] Reason for Visit * Reason Onset Date Comments Call Back Request 05/06/2024 Encounter Details Date Type Department Care Team ([facility] st Contact Info) Description 05/06/2024 Telephone [facility] [address] [place], [place] [phone] Shraddha Mustafa MD [address] [place], [place] [phone] Call Back Request Social History Tobacco Use [...] 10:28 AM EDT Tc from Kathrine from [facility] requesting a call back to obtain any information regarding the patients mental stability states is under the suspension of Hoarding and is planning to enter the patient residency on or after 05/08 any information would help please call Kathrine at [phone] documented in this encounter Plan of Treatment [...] on filedocumented in this encounter Care Teams Aerial Lineman Relationship Specialty Start Date End Date Shraddha Mustafa MD [address] [place] [address] PCP - General Family Medicine 03/21/17 Mike Kang PharmD [address] [place] [address] Pharmacist Internal Medicine 12/10/22 documented as of this encounter
--- OUTSIDE RECORDS SUMMARY | 2024-09-16 10:55 | XMS_ITS | Encounter Summary ---
Author Organization [employer] Address [address] [facility] 7t [place] [address] Care Team Providers Care Philosophy Lecturer Name Role Phone Shraddha Mustafa MD Primary Care Provider + Mike Kang PharmD Unavailable [phone] Encounter Details Date Type Department Care Team (Late st Contact Info) Description 04/30/2024 Orders Only [facility] [address] [place], [place] [phone] Bala Mcdonald MD [address] [place], [place] [phone] Social History Tobacco Use Types Packs/Day Years [...] on filedocumented in this encounter Care Teams Philosophy Lecturer Relationship Specialty Start Date End Date Shraddha Mustafa MD [address] [place] [address] PCP - General Family Medicine 03/21/17 Mike Kang, PharmD [address] [place] [address] Pharmacist Internal Medicine 12/10/22 documented as of this encounter
--- OUTSIDE RECORDS SUMMARY | 2024-09-16 10:55 | XMS_ITS | Clinical Summary ---
Author Organization [employer] Address 75 [facility] 7t [place] [address] Care Team Providers Care Commercial Announcer Name Role Phone Shraddha Mustafa MD Primary Care Provider + Mike Kang PharmD Unavailable Allergies No known active allergies Medications docusate [...] 2 08/19/19 25 025 Active sodium chloride (Nye Nasal [place]) 0.65 % nasal spray Administer 1 spray [...] Description 09/15/2024 2:40 PM EST Office Visit [facility] [address] [place], [place] [phone] Luz Neville MD Acute pain of left thigh (Primary Dx); Bilateral leg edema; Hypertension, essential 09/15/2024 Refill [facility] [address] [place], [place] [phone] Shraddha Mustafa MD 09/09/2024 Refill [facility] [address] [place] [address] Shraddha Mustafa MD 09/03/2024 Orders Only GENERIC EXTERNAL DATA DEPARTMENT Provider, Generic External Data 09/01/2024 Orders Only [facility] [address] [place] [address] Shraddha Mustafa MD 08/24/2024 Orders Only GENERIC EXTERNAL DATA DEPARTMENT Provider, Generic External Data 08/21/2024 Orders Only GENERIC EXTERNAL DATA DEPARTMENT Provider, Generic External Data 08/19/2024 1:30 PM EST Clinical Support [facility] [address] [place] [address] Cecy Calvo LPN Exposure to confirmed case of COVID-19 (Primary Dx) 08/19/2024 11:30 AM EST Telemedicine [facility] [address] [place] [address] Shraddha Mustafa MD Mild intermittent asthma without complication (Primary Dx); Viral gastroenteritis; Viral URI 08/19/2024 Travel 08/18/2024 Telephone [facility] [address] [place] [phone] Shraddha Mustafa MD Chart prep 08/03/2024 Refill [facility] [address] [place] [address] Shraddha Mustafa MD 07/23/2024 Refill [facility] [address] [place] [address] Shraddha Mustafa MD 07/22/2024 Telephone [facility] [address] [place] [phone] Shraddha Mustafa MD Durable Medical Equipment 07/21/2024 Telephone [facility] [address] [place] [address] Evelia Carlos MA Durable Medical Equipment 07/14/2024 Telephone [facility] [address] [place] [address] Evelia Carlos MA Durable Medical Equipment 07/13/2024 Orders Only GENERIC EXTERNAL DATA DEPARTMENT Provider, Generic External Data 07/08/2024 Telephone [facility] [address] [place] [phone] Shraddha Mustafa MD Durable Medical Equipment 06/30/2024 11:15 AM EST Office Visit [facility] [address] [place] [address] Shraddha Mustafa MD Benign essential hypertension (Primary [...] AM EST Acute pain of left thigh BACTERIAL VAGINOSIS PANEL Routine 09/03/2024 12:00 AM [...] Recently Relevant to Health Maintenance Results * XR Hip left with Pelvis 1 view (09/16/2024 9:33 AM EST) Anatomical Region Laterality Modality Lower Extremities, Hip Bilateral Radiograp hic Imaging 09/16/2024 9:33 AM EST Narrative 09/16/2024 10:04 AM EST ?[facility] ?[address] ?[place] [address] ?XRay Report ? Signed ? Patient: Rob,Carina ?MR#: [id number] ?? 1500 ? : 1960 ?Acct:[id number] ? Age/Sex: 64 / F ?ADM Date: 09/16/24 ? Loc: HO.HHCX ? Attending Dr: Luz Neville MD ? Ordering Physician: Luz Neville MD ?? Date of Service: 09/16/24 ?? Procedure(s): XR hip LT w PEL1V ?? Accession Number(s): [id number] ? cc: Luz Neville MD ? EXAMINATION: [...] DD/ 0933 ? TD/TT: 09/16/24 0940 ? Curriculum Manager: ? Procedure Note Donotlubater, Image - 09/16/2024 [facility] [address] [place] [address] XRay Report Signed Patient: Jakub Rivas#: [id number] 1500 : 9Acct:[id number] Age/Sex: 64 / FADM Date: 09/16/24 Loc: HO.HHCX Attending Dr: Luz Neville MD Ordering Physician: Luz Neville MD Date of Service: 09/16/24 Procedure(s): XR hip LT w PEL1V Accession Number(s): [id number] cc: Luz Neville MD EXAMINATION: XR HIP, [...] 09/16/24 1001 DD/ 0933 TD/TT: 09/16/24 0940 Curriculum Manager: Luz Neville MD IMG XR PROCEDURES Edited Resu lt - Final * Bacterial Vaginosis (09/03/2024 12:00 AM EST) Only the most recent of3 resultswithin the time period is included. TRICHOMONAS VAGINALIS DETECTION BY PCR NOT DETECTED Not Detect [facility] BACTERIAL VAGINOSIS DETECTION BY PCR NEGATIVE Negative [facility] Comment:The BV organism targ ets [...] DETECTION BY PCR NOT DETECTED Not Detect [facility] Bianka glab krusei PCR NOT DETECTED Not Detect [facility] 09/03/2024 09/03/2024 us Generic External Data Provider LAB MICROBIOLOGY - GENERAL ORDERABLES Final Result [facility] [address] [place] [phone] [phone] * BI Mammogram Screening Tomosynthesis Bilateral (09/01/2024 1:35 PM EST) Anatomical Region Laterality Modality Breast Bilateral Mammography 09/01/2024 1:35 PM EST Narrative 09/10/2024 9:58 AM EST ? [facility] ? [address] ?[place] [address] ? Mammography Report ? Signed ? Patient: Rob,Carina ?MR#: [id number] ?? 1500 ? : 1960 ?Acct:[id number] ? Age/Sex: 63 / F ?ADM Date: 01/21/25 ? Loc: HO.MAMMO ? Attending Dr: Shraddha Mustafa MD ? Ordering Physician: Shraddha Mustafa MD ?Results: 2Be ?? nign Findings ? Date of Service: 09/01/24 ?Follow Up: 1 Year From Orig ?? inal Mammogram ? Procedure(s): MM tomosynthesis screening BI ?? Accession Number(s): [id number] ? cc: Shraddha Mustafa MD ? EXAMINATION: [...] Loly Cuello, DO in OV> ? 09/10/24 09 ? DD/ 1335 ? TD/TT: 09/01/24 1350 ? Curriculum Manager: ? Procedure Note Donotuseinterpreter, Image - 09/10/2024 [facility] [address] [place] [address] Mammography Report Signed Patient: Jakub Rivas#: [id number] 1500 : 9Acct:[id number] Age/Sex: 63 / FADM Date: 09/01/24 Loc: HO.MAMMO Attending Dr: Shraddha Mustafa MD Ordering Physician: Shraddha Mustafa MDResults: 2Be nign Findings Date of Service: 09/01/24Follow Up: 1 Year From Orig [facility] Mammogram Procedure(s): MM tomosynthesis screening BI Accession Number(s): [id number] cc: Shraddha Mustafa MD EXAMINATION: MM SCREENING [...] DO Signed By: <Electronically signed by Loly Cuello, in OV> 09/10/24 0955 DD/ 1335 TD/TT: 09/01/24 1350 Curriculum Manager: us Shraddha Mustafa MD IMG BI PROCEDURES Final Result * Culture, Urine, Routine (08/24/2024 6:52 PM EST) Urine Urine specimen obtained by clean catch procedure / Unknown 08/24/2024 6:52 PM EST 08/24/2024 6:52 PM EST Comment:UA Narrative [facility] - 08/26/2024 10:51 AM EST Strep agalactiae (Grp B) Quant > 100,000 cfu/mL Susc N/A Susceptibility not routinely performed on this isolate. Specimen Source: Urine clean catch us Generic External Data Provider LAB MICROBIOLOGY - GENERAL ORDERABLES Final Result [facility] [address] [place] [phone] * (ABNORMAL) Urinalysis, Complete, with Reflex to Culture (08/24/2024 6:34 PM EST) Color Urine Yellow [facility] Appearance Urine Clear [facility] PH 6.5 5.0 - 9.0 [facility] Glucose Urine UA Negative Negative mg/dL [facility] Urine Blood Negative Negative [facility] Specific [place] - Urine 1.025 1.005 - 1.025 [facility] Urine Protein Trace Neg-Trace mg/dL [facility] Urine Ketones Negative Negative mg/dL [facility] Nitrite Urine Negative Negative [facility] Leukocyte Esterase Urine Small (1+)(A) Negative [facility] RBC Urine 0-2 0 - 2 /HPF [facility] Urine WBC 0-5 0 - 5 /HPF [facility] Urine Squamous Epithelial Cell 6-10 0 - 2 /HPF [facility] Urine Bacteria Trace None Seen [facility] Hyaline Casts, Urine 0-2 0 - 2 /LPF [facility] 08/24/2024 6:34 PM EST 08/24/2024 6:38 PM EST Narrative [facility] - 08/24/2024 6:52 PM EST Urine, Clean Catch us Generic External Data Provider LAB URINE ORDERAB LES Final Result [facility] [address] [place] [phone] * Chlamydia/N. Gonorrhoeae RNA, TMA, Urogenitial (08/24/2024 6:34 PM EST) Only the most recent of2 resultswithin the time period is included. CT PCR NOT DETECTED Not Detect. [facility] Comment:A not detected test result [...] psychologicalconsequences. NG PCR NOT DETECTED Not Detect. [facility] Comment:A not detected test result [...] 6:34 PM EST 08/24/2024 6:38 PM EST [facility] - 08/25/2024 5:54 AM EST Vaginal Generic External Data Provider LAB MICROBIOLOGY - GENERAL ORDERABLES Final Result Performing Organization Address [facility] Co de Phone Number [facility] [address] [place] [phone] * Wet prep, genital (08/24/2024 6:34 PM EST) Vaginal Fluid Vaginal structure / Unknown 08/24/2024 6:34 PM EST 08/24/2024 6:38 PM EST Comment:Vaginal [facility] - 08/24/2024 6:44 PM EST Trichomonas Prep Direct Microscopic Exam Trichomonas Prep No trichomonads or yeast seen Specimen Source: Vaginal Generic External Data Provider LAB MICROBIOLOGY - GENERAL ORDERABLES Final Result Performing Organization Address [facility] de Phone Number [facility] [address] [place] [phone] * Hematoxylin and Eosin Stain (08/21/2024 1:43 PM EST) 08/21/2024 1:43 PM EST 08/24/2024 8:03 AM EST [facility] - 08/27/2024 3:07 PM EST ----- ------- Name: Carina Rivas ? Age/Sex: 63/F ? : 1960 Unit#: [id number] ?? Attend Dr: Kenyon Augustine MD ?Re08/21/24 ?Status: DEP REF ? Location: HO.LNP ?Disch: ? ----- ------- SPEC : [id number] ?RECD: 08/24/24 ? STATUS: ??SOUT ? REQ NUM: [id number] ? CARLO: 08/21/24 ? SUBM DR: Kenyon [...] Copies To: ?? Shraddha Mustafa MD ?? [facility] ?? [address] [facility] ?? [place] [address] ?? [phone] ?? Kenyon Augustine MD ?? [facility] ?? [address] [facility] [address] ?? [place] [address] ?? [phone] ? CONTINUED ON NEXT PAGE ----- ------- Name: Carina Rivas ? Age/Sex: 63/F ? : 1960 Unit#: [id number] ?? Attend Dr: Kenyon Augustine MD ?Re08/21/24 ?Status: DEP REF ? Location: HO.LNP ?Disch: ? ----- ------- SPEC : [id number] ?RECD: 08/24/24 ? STATUS: ??SOUT ? REQ NUM: [id number] ? CARLO: 08/21/24 ? SUBM DR: Kenyon Augustine MD ? ENTERED: ??08/24/24 ?SP TYPE: Surgical ? OTHR DR: Shraddha Mustafa MD ? ORDERED: ??HE Stain/3, Gross Micro L4 ? ----- ------- Signed (signature on file) Teofilo Nuñez MD 08/27/24 1507 ? ----- ------- ? END OF REPORT ? us Generic External Data Provider LAB BLOOD ORDERAB LES Final Result Performing Organization Address [facility] Co de Phone Number [facility] [address] [place] [phone] * POCT Rapid COVID Ag (08/19/2024 1:45 PM EST) Rapid COVID Ag Negative Swab 08/19/2024 1:45 PM EST us Tennille Horowitz MD POINT OF CARE TEST ENTER/ED IT ORDERABLES Final Result * TSH with Reflex to Free T4 (08/18/2024 9:56 AM EST) TSH reflex Free T4 1.54 0.32 - 4.0 uIU/mL [facility] Blood 08/18/2024 9:56 AM EST 08/18/2024 11:15 AM EST us Shraddha Mustafa MD LAB BLOOD ORDERABLES Fin al Result Performing Organization Address [facility] Co de Phone Number [facility] [address] [place] [address] [phone] * (ABNORMAL) Lipid Panel with Reflex to Direct LDL (08/18/2024 9:56 AM EST) Triglycerides 249(H) <150 mg/dL [facility] Comment:Desirable Triglyceri de: less than 150 mg/dLBorderline High Triglyceride 150-199 mg/dLHigh Triglyceride: 200-499 mg/dLVery High Triglyceride: greater than or equal to 5OO mg/dL Cholesterol 246(H) <200 mg/dL [facility] Comment:Desirable Cholestero l: less than 200 mg/dLBorderline High Cholesterol: 200-239 mg/dLHigh Cholesterol: greater than 239 mg/dL LDL Cholesterol Calculated 153(H) <100 mg/dL [facility] Comment:Desirable LDL: less than 100 mg/dLNear Optimal/Above Optimal LDL: 110- 129 mg/dLBorderline High LDL: 130-159 mg/dLHigh LDL: 160-189 mg/dLVery High LDL: greater than or equal to 190 mg/dL HDL Cholesterol 44 >40 mg/dL [facility] Comment:Desirable HDL: great er than 40 mg/dL Note: This HDL assay may give artificially low results in patients with liver disease. Blood 08/18/2024 9:56 AM EST 08/18/2024 11:15 AM EST us Shraddha Mustafa MD LAB BLOOD ORDERABLES Fin al Result [facility] [address] [place] [phone] * (ABNORMAL) Comprehensive Metabolic Panel (08/18/2024 9:56 AM EST) Sodium 141 135 - 145 mmol/L [facility] Potassium 3.9 3.3 - 5.1 mmol/L [facility] Chloride 107 96 - 108 mmol/L [facility] Carbon Dioxide 28 22 - 29 mmol/L [facility] Anion Gap 10(L) 12 - 20 [facility] Urea Nitrogen (BUN) 15 9 - 16 mg/dL [facility] Creatinine, Serum 0.77 0.5 - 1.4 mg/dL [facility] Estimated Glomerular Filt Rate >60 [facility] Comment:Chronic Kidney Disea se: Estimated GFR < 60 mL/min/1.53s2Dptder Kidney Disease: Estimated GFR < 15 mL/min/1.73m2 Glucose 137(H) 60 - 115 mg/dL [facility] Calcium 8.9 8.4 - 10.2 mg/dL [facility] Bilirubin, Total 0.5 0.0 - 1.0 mg/dL [facility] Aspartate Amino Transferase 28 5 - 31 U/L [facility] Alanine Aminotransferase 18 0 - 31 U/L [facility] Total Protein 7.4 6.5 - 8.0 g/dL [facility] Albumin Level 4.1 3.5 - 5.0 g/dL [facility] Alkaline Phosphatase 117 39 - 117 U/L [facility] Blood Venous blood specimen / Unknown 08/18/2024 9:56 AM EST 08/18/2024 11:15 AM EST us Shraddha Mustafa MD LAB BLOOD ORDERABLES Fin al Result [facility] [address] [place] [phone] [phone] from Last 3 Months Insurance [facility] - ONE CARE * Guarantor: Carina Rivas Account Type Relation to Patient Date of Phone Billing Address Dental Self [address] [place] [address] DENTAL - [facility] Care Teams Commercial Announcer Relationship Specialty Start Date End Date Shraddha Mustafa MD [address] [place] [address] PCP - General Family Medicine 03/21/17 Mike Kang, JuliánD [address] [place] [address] Pharmacist Internal Medicine 12/10/22
--- OUTSIDE RECORDS SUMMARY | 2024-09-16 10:55 | XMS_ITS | Encounter Summary ---
Author Organization [employer] Address 75 [facility] 7t [place] [address] Care Team Providers Care Accounting Administrator Name Role Phone Shraddha Mustafa MD Primary Care Provider + Mike Kang PharmD Unavailable [phone] Encounter Details Date Type Department Care [...] PM EST 08/24/2024 8:03 AM EST Narrative [facility] - 08/27/2024 3:07 PM EST ----- ------- Name: Carina Rivsa ? Age/Sex: 63/F ? : 1960 Unit#: [id number] ?? Attend Dr: Kenyon Augustine MD ?Re08/21/24 ?Status: DEP REF ? Location: HO.LNP ?Disch: ? ----- ------- SPEC : [id number] ?RECD: 08/24/24 ? STATUS: ??SOUT ? REQ NUM: [id number] ? CARLO: 08/21/24 ? SUBM DR: Kenyon [...] Copies To: ?? Shraddha Mustafa MD ?? [facility] ?? [address] ?? [place] [address] ?? [phone] ?? Kenyon Augustine MD ?? [facility] ?? [address] [facility] [address] [facility] [address] ?? [place] [address] ?? [phone] ? CONTINUED ON NEXT PAGE ----- ------- Name: Carina Rivas ? Age/Sex: 63/F ? : 1960 Unit#: [id number] ?? Attend Dr: Kenyon Augustine MD ?Re08/21/24 ?Status: DEP REF ? Location: HO.LNP ?Disch: ? ----- ------- SPEC : [id number] ?RECD: 08/24/24 ? STATUS: ??SOUT ? REQ NUM: [id number] ? CALRO: 08/21/24-1342 ? SUBM DR: Kenyon Augustine MD ? ENTERED: ??08/24/24 ?SP TYPE: Surgical ? OTHR DR: Shraddha Mustafa MD ? ORDERED: ??HE Stain/3, Gross Micro L4 ? ----- ------- Signed (signature on file) Teofilo Nuñez MD 08/27/24 0077 ? ----- ------- ? END OF REPORT ? us Generic External Data Provider LAB BLOOD ORDERAB LES Final Result Performing Organization Address City/State/[facility] Co de Phone Number [facility] [address] [place] [phone] documented in this encounter Visit Diagnoses Not on filedocumented in this encounter Care Teams Accounting Administrator Relationship Specialty Start Date End Date Shraddha Mustafa MD [address] [place] [phone] PCP - General Family Medicine 03/21/17 Mike Kang PharmD [address] [place] [phone] Pharmacist Internal Medicine 12/10/22 documented as of this encounter
--- OUTSIDE RECORDS SUMMARY | 2024-09-16 10:55 | XMS_ITS | Encounter Summary ---
Author Organization [employer] Address [address] [facility] 7t [place] [address] Care Team Providers Care Product Controller Name Role Phone Shraddha Mustafa MD Primary Care Provider + Mike Kang PharmD Unavailable [phone] Encounter Details Date Type Department Care Team (Latest Contact Info) Description 08/19/2024 1:30 PM EST Clinical Support [facility] [address] [place], [place] [phone] Cecy Calvo LPN Exposure to confirmed case [...] people for the next 5d. She will pharmacy picking tech rx for viral syndrome and fu with [...] Primary documented in this encounter Care Teams Product Controller Relationship Specialty Start Date End Date Shraddha Mustafa MD [address] [place] [address] PCP - General Family Medicine 03/21/17 Mike Kang PharmD [address] [place] [address] Pharmacist Internal Medicine 12/10/22 documented as of this encounter
[2024-09-16 11:12] LABS: Anion Gap 10 (12-20); Blood Urea Nitrogen 19 mg/dL (9-16); Calcium 9.3 mg/dL (8.4-10.2); Carbon Dioxide 29 mmol/L (22-29); Chloride 104 mmol/L (96-108); Estimated Glomerular Filt Rate > 60; Glucose Random 134 mg/dL (60-115); Potassium 4.4 mmol/L (3.3-5.1); Sodium 139 mmol/L (135-145)
[2024-09-16 11:21] LABS: Appearance Urine Clear; Color Urine Yellow; Glucose Urine UA Negative (Negative); Leukocyte Esterase Urine Moderate (2+) (Negative); Nitrite Urine Negative (Negative); Specific Gravity - Urine 1.025 (1.005-1.025); UMIC TRIGGER UA YES; Urine Blood Negative (Negative); Urine Ketones Negative (Negative); Urine Protein 30 (1+) mg/dL (Neg-Trace)
[2024-09-16 11:28] LABS: Bacteria Urine Trace (None Seen); Hyaline Casts Urine 0-2 /LPF (0-2); RBC Urine 0-2 /HPF (0-2)
== END 2024-09-16 10:03 | disposition home or self-care (01) ==
LOC: HO.HHCL 10:02
PROVIDERS: Visit Provider Internal Medicine
DX: M79.652 Pain in left thigh (principal); R60.0 Localized edema; R82.90 Unspecified abnormal findings in urine
CPT/HCPCS: 36415; 73502; 80048; 81001; 82550; 87086; 87147

== ENCOUNTER 2024-12-02 13:31 | Outpatient (AMB) | payer OTHER, SELFPAY ==
--- NOTE | 2024-12-02 13:37 | MHC.OFFVIS ---
Vital Signs 12/02/24 13:42 Height 5 ft 2 in Weight 165 lb BMI 30.2 Intake Visit Reasons: biopsy results [employer] Special Education Teacher Required: Yes [employer] Special Education Teacher Language: Core Winder Services: [employer] Special Education Teacher Present (in person) [employer] Special Education Teacher Name: Rema BRENNAN Information Interpreted: non-clinical & clinical Accompanied by: Self / Same As Patient Allergies No Known Allergies [No Known Allergies*] Allergy (Verified 12/02/24 13:42) Post menopausal: Yes HPI Comments Details: Presenting post vulvar biopsy with no complaints. The pathology showed the following: Vulva, biopsy: Small fragment of spongiotic skin with mild chronic inflammation and features of lichen simplex chronicus; no atypia seen PFS Medical History Substance abuse Left knee pain Asthma Depressed Hypertension Social History Alcohol intake: never Current occupational status: unemployed Current occupation: left handed Review of Systems Const All systems reviewed & are unremarkable except as noted in HPI and below Reports as per HPI and Reports no additional complaints GI Reports no additional complaints Reports no additional complaints Physical Exam Vital Signs: BMI result Body Mass Index 30.2 Assessment & Plan Assessment & Plan (1) Lichen sclerosus: Code(s): L90.0 - Lichen sclerosus et atrophicus Category: Medical Plan: Discussed with the patient the pathology results showing lichen sclerosis. Explained to the patient that Lichen sclerosus refers to a benign, chronic, progressive dermatologic condition characterized by marked inflammation, epithelial thinning accompanied by pruritus and pain. In addition, discussed with the patient that there is a small increased risk of squamous cell cancer of the vulva in patients with lichen sclerosus. Adequate treatment of the disease seems to be associated with a reduced risk of development of neoplasia. Instructed the patient to schedule an appointment in a year to examine the affected area, with possible biopsy of suspicious lesions, in addition explained to the patient that she should look at the skin of the affected area and touch with fingertips monthly to search for thickened lumps or sores that do not heal & to report such findings for inspection & possible biopsy to rule out vulvar cancer Will prescribe Clobetasol propionate 0.05% ointment to be applied daily at night for 2 weeks, followed by maintenance therapy two to three times per week . Instructions given the patient is schedule 1 year inspection appointment. Medications: New clobetasol 0.05% Then maintenance therapy for 2-3 times per week 1 appl topical BID 2 weeks 45 grams 1RF Discontinued clotrimazole-betamethasone 1-0.05 % Use externally only Discontinued Reason: Doctor's Order 1 appl topical BID 2 weeks 45 grams 1RF Coding Level of Care Code Est Pt Level 3 (07422) Diagnoses Lichen sclerosus L90.0
[2024-12-02 13:42] VITALS: BMI 30.2
--- OUTSIDE RECORDS SUMMARY | 2024-12-02 16:02 | XMS_ITS | Encounter Summary ---
Author Organization [employer] Address [address] [facility] [address] [place] [address] Care Team Providers Care Hot Repairman Name Role Phone Shraddha Mustafa MD Primary Care Provider + Mike Kang PharmD Unavailable [phone] Reason for Visit * Reason Comments Med Refill Encounter Details Date Type Department Care Team ([facility] st Contact Info) Description 12/10/2022 Refill [facility] MEDICINE [address] [place] [address] Trish Gonzalez MD [address] [place] [address] Social History Tobacco Use Types Packs/Day Years [...] on filedocumented in this encounter Care Teams Hot Repairman Relationship Specialty Start Date End Date Shraddha Mustafa MD [address] [place] [address] PCP - General Family Medicine 03/21/17 Mike Kang, JuliánD [address] [place] [address] Pharmacist Internal Medicine 12/10/22 documented as of this encounter
--- OUTSIDE RECORDS SUMMARY | 2024-12-02 16:02 | XMS_ITS | Encounter Summary ---
Author Organization [employer] [facility] Address [address] [facility] [address] [place] [address] Care Team Providers Care Front Office Associate Name Role Phone Shraddha Mustafa MD Primary Care Provider + Mike Kang PharmD Unavailable [phone] Encounter Details Date Type Department Care Team (Latest Contact Info) Description 05/15/2021 Abstract [facility] CONVERSIONS Dental, Provider, DDS Social History Tobacco [...] on filedocumented in this encounter Care Teams Front Office Associate Relationship Specialty Start Date End Date Shraddha Mustafa MD [address] [place] [address] PCP - General Family Medicine 03/21/17 Mike Kang, PharmD [address] [place], [place] [phone] Pharmacist Internal Medicine 12/10/22 documented as of this encounter
--- OUTSIDE RECORDS SUMMARY | 2024-12-02 16:02 | XMS_ITS | Encounter Summary ---
Author Organization [employer] Address [address] [facility] [address] [place] [address] Care Team Providers Care Green Building Architect Name Role Phone Shraddha Mustafa MD Primary Care Provider + Mike Kang PharmD Unavailable [phone] Reason for Visit * Reason Comments Med Refill Encounter Details Date Type Department Care Team (Late st Contact Info) Description 09/23/2024 Refill [facility] MEDICINE [address] [place] [address] Shraddha Mustafa MD [address] [place], [place] [phone] Social History Tobacco Use Types Packs/Day Years [...] on filedocumented in this encounter Care Teams Green Building Architect Relationship Specialty Start Date End Date Shraddha Mustafa MD [address] [place] [address] PCP - General Family Medicine 03/21/17 Mike Kang, PharmD [address] [place] [address] Pharmacist Internal Medicine 12/10/22 documented as of this encounter
--- OUTSIDE RECORDS SUMMARY | 2024-12-02 16:02 | XMS_ITS | Encounter Summary ---
Author Organization [employer] Address [address] [facility] [address] [place] [address] Care Team Providers Care Lan Manager Name Role Phone Shraddha Mustafa MD Primary Care Provider + Mike Kang PharmD Unavailable [phone] Reason for Visit * Reason Comments Med Refill Encounter Details Date Type Department Care Team (Late st Contact Info) Description 09/17/2024 Refill [facility] MEDICINE [address] [place] [address] Shraddha Mustafa MD [address] [place], [place] [phone] Social History Tobacco Use Types Packs/Day Years [...] on filedocumented in this encounter Care Teams Lan Manager Relationship Specialty Start Date End Date Shraddha Mustafa MD [address] [place] [address] PCP - General Family Medicine 03/21/17 Mike Kang, PharmD [address] [place] [address] Pharmacist Internal Medicine 12/10/22 documented as of this encounter
--- OUTSIDE RECORDS SUMMARY | 2024-12-02 16:02 | XMS_ITS | Encounter Summary ---
Author Organization [employer] Address [address] [facility] [address] [place] [address] Care Team Providers Care Baby Formula Mixer Name Role Phone Shraddha Mustafa MD Primary Care Provider + Mike Kang PharmD Unavailable [phone] Encounter Details Date Type Department Care Team (Late st Contact Info) Description 09/19/2022 Orders Only [facility] MED & PEDS [address] [place], [place] [phone] Nohemi Panchal LPN Social History Tobacco Use [...] on filedocumented in this encounter Care Teams Baby Formula Mixer Relationship Specialty Start Date End Date Shraddha Mustafa MD [address] [place] [address] PCP - General Family Medicine 03/21/17 Mike Kang, PharmD [address] [place], [place] [phone] Pharmacist Internal Medicine 12/10/22 documented as of this encounter
--- OUTSIDE RECORDS SUMMARY | 2024-12-02 16:02 | XMS_ITS | Encounter Summary ---
Author Organization [employer] Address [address] [facility] [address] [place] [address] Care Team Providers Care Freight Coordinator Name Role Phone Shraddha Mustafa MD Primary Care Provider + Mike Kang PharmD Unavailable [phone] Reason for Visit * Reason Comments Med Refill Encounter Details Date Type Department Care Team (Late st Contact Info) Description 09/15/2024 Refill [facility] MEDICINE [address] [place] [address] Shraddha Mustafa MD [address] [place], [place] [phone] Social History Tobacco Use Types Packs/Day Years [...] on filedocumented in this encounter Care Teams Freight Coordinator Relationship Specialty Start Date End Date Shraddha Mustafa MD [address] [place] [address] PCP - General Family Medicine 03/21/17 Mike Kang, PharmD [address] [place] [address] Pharmacist Internal Medicine 12/10/22 documented as of this encounter
--- OUTSIDE RECORDS SUMMARY | 2024-12-02 16:02 | XMS_ITS | Encounter Summary ---
Author Organization [employer] Address [address] [facility] [address] [place] [address] Care Team Providers Care Department Head Name Role Phone Shraddha Mustafa MD Primary Care Provider + Mike Kang PharmD Unavailable [phone] Reason for Visit * Reason Comments Med Refill Encounter Details Date Type Department Care Team ([facility] st Contact Info) Description 09/23/2024 Refill [facility] MED & PEDS [address] [place], [place] [phone] Luz Neville MD [address] [place], [place] [phone] Social History Tobacco Use Types Packs/Day Years [...] on filedocumented in this encounter Care Teams Department Head Relationship Specialty Start Date End Date Shraddha Mustafa MD [address] [place] [address] PCP - General Family Medicine 03/21/17 Mike Kang, PharmD [address] [place] [address] Pharmacist Internal Medicine 12/10/22 documented as of this encounter
--- OUTSIDE RECORDS SUMMARY | 2024-12-02 16:02 | XMS_ITS | Encounter Summary ---
Author Organization [employer] Address [address] [facility] [address] [place] [address] Care Team Providers Care Bead Maker Name Role Phone Shraddha Mustafa MD Primary Care Provider + Mike Kang PharmD Unavailable [phone] Encounter Details Date Type Department Care Team (Late st Contact Info) Description 04/25/2023 Abstract [facility] [address] [place] [address] Gordy Calderon DDS [address] [place], [place] [phone] Social History Tobacco Use Types Packs/Day Years [...] on filedocumented in this encounter Care Teams Bead Maker Relationship Specialty Start Date End Date Shraddha Mustafa MD [address] [place] [address] PCP - General Family Medicine 03/21/17 Mike Kang, JuliánD [address] [place] [address] Pharmacist Internal Medicine 12/10/22 documented as of this encounter
--- OUTSIDE RECORDS SUMMARY | 2024-12-02 16:02 | XMS_ITS | Encounter Summary ---
Author Organization [employer] Address [address] [facility] [address] [place] [address] Care Team Providers Care Process Mechanic Name Role Phone Shraddha Mustafa MD Primary Care Provider + Mike Kang PharmD Unavailable [phone] Encounter Details Date Type Department Care Team (Late st Contact Info) Description 04/30/2024 Orders Only [facility] [address] [place], [place] [phone] Bala Mcdonald MD [address] [place], [place] [phone] Social History Tobacco Use Types Packs/Day Years [...] on filedocumented in this encounter Care Teams Process Mechanic Relationship Specialty Start Date End Date Shraddha Mustafa MD [address] [place] [address] PCP - General Family Medicine 03/21/17 Mike Kang, PharmD [address] [place] [address] Pharmacist Internal Medicine 12/10/22 documented as of this encounter
--- OUTSIDE RECORDS SUMMARY | 2024-12-02 16:02 | XMS_ITS | Encounter Summary ---
Author Organization [employer] Address [address] [facility] [address] [place] [address] Care Team Providers Care Data Capture Specialist Name Role Phone Shraddha Mustafa MD Primary Care Provider + Mike Kang PharmD Unavailable [phone] Reason for Visit * Reason Onset Date Comments Call Back Request 05/06/2024 Encounter Details Date Type Department Care Team ([facility] st Contact Info) Description 05/06/2024 Telephone [facility] MEDICINE [address] [place], [place] [phone] Shraddha Mustafa MD [address] [place], [place] [phone] Call Back Request Social History Tobacco Use [...] 10:28 AM EDT Tc from Kathrine from [facility] requesting a call back to obtain any information regarding the patients mental stability states is under the suspension of Hoarding and is planning to enter the patient residency on or after 05/08 any information would help please call Kathrine at [phone] documented in this encounter Plan of Treatment [...] on filedocumented in this encounter Care Teams Data Capture Specialist Relationship Specialty Start Date End Date Shraddha Mustafa MD [address] [place] [address] PCP - General Family Medicine 03/21/17 Mike Kang PharmD [address] [place] [address] Pharmacist Internal Medicine 12/10/22 documented as of this encounter
--- OUTSIDE RECORDS SUMMARY | 2024-12-02 16:02 | XMS_ITS | Clinical Summary ---
Author Organization [employer] Address [address] [facility] [address] [place] [address] Care Team Providers Care Last Scourer Name Role Phone Shraddha Mustafa MD Primary Care Provider + Mike Kang PharmD Unavailable Allergies No known active allergies Medications docusate sodium (Colace) 100 MG capsule TAKE 1 CAPSULE BY MOUTH TWICE DAILY NEEDED 06/07/20 22 Active valACYclovir (Valtrex) 1 g tablet TAKE 1 TABLET BY MOUTH THREE TIMES DAILY FOR 7 DAYS 09/03/19 23 Active Diclofenac Sodium 1 % gelIndications:C hronic low back pain, unspecified back pain laterality, unspecified whether sciatica present APPLY 2 GRAMS TOPICALLY TWICE DAILY 100 g 3 05/27/20 23 Active lidocaine (Lidoderm) 5 % patchIndications :Rib pain Apply 1 patch topically in the morning. Remove & discard patch within 12 hours or as directed by MD. 30 patch 09/12/19 24 Active chlorhexidine (Peridex) 0.12 % solutionIndicati ons:Symptomatic irreversible pulpitis Swish 15 mL morning and night for 1 minute. Spit, do not swallow. Do not eat or drink for 30 minutes following use. 473 mL 01/16/20 24 Active triamcinolone (Kenalog) 0.1 % cream Apply topically 2 times daily. 15 g 1 02/06/20 24 Active meloxicam (Mobic) 7.5 MG tablet Take 1 tablet (7.5 mg) by mouth 2 times daily. 60 tablet 11 03/04/20 24 025 Active mometasone-formo terol (Dulera 100) 100-5 MCG/ACT inhaler Inhale 2 [...] per day. 16 g 2 08/19/19 25 Active sodium chloride (Nambe Nasal Bovill) 0.65 % nasal spray Administer 1 spray into each nostril if needed for congestion. 30 mL 08/19/19 25 026 Active acetaminophen (Tylenol) 500 MG tabletIndication s:Viral URI Take 1 tablet (500 mg) by mouth every 6 (six) hours if needed for mild pain, headaches or fever. 60 tablet 08/19/19 25 Active amLODIPine (Norvasc) 5 MG tablet TAKE 1 TABLET BY MOUTH EVERY DAY 30 tablet 3 09/09/19 25 Active sertraline (Zoloft) 50 MG tablet TAKE 1 TABLET BY MOUTH EVERY DAY 30 tablet 3 09/09/19 25 Active albuterol (2.5 MG/3ML) 0.083% nebulizer solution INHALE 1 AMPULE USING A NEBULIZER THREE TIMES DAILY NEEDED FOR ASTHMA / SHORTNESS OF BREATH 90 mL 5 09/18/19 25 Active atorvastatin (Lipitor) 20 MG tablet TAKE 1 TABLET BY MOUTH EVERY DAY 90 tablet 1 09/22/19 25 Active montelukast (Singulair) 10 MG tablet TAKE 1 TABLET BY MOUTH EVERY DAY IN THE EVENING 90 tablet 1 09/22/19 25 Active hydrocortisone 2.5 % cream APPLY TO THE AFFECTED AREA(S) TWICE DAILY 20 g 1 10/06/19 25 Active cetirizine (ZyrTEC) 10 MG tabletIndication s:Influenza A TAKE 1 TABLET BY MOUTH EVERY DAY IN THE MORNING 90 tablet 1 11/10/19 25 Active cetirizine (ZyrTEC) 10 MG tabletIndication s:Influenza A TAKE 1 TABLET BY MOUTH EVERY MORNING 90 tablet 1 04/15/20 24 03/31/2 025 Discontinued Active Problems Problem Noted Date Diagnosed Date [...] Encounters Date Type Department Care Team Description 11/08/[address] [facility] [address] [place] [address] [phone] Shraddha Mustafa MD Influenza A 10/05/[address] [facility] [address] [place] [address] [phone] Shraddha Mustafa MD 09/24/[address] [facility] [address] [place] [address] [phone] Shraddha Mustafa MD May recall 09/23/2024 Refill [facility] [address] [place] [address] Luz Neville MD 09/23/[address] [facility] [address] [place] [phone] Shraddha Mustafa MD 09/21/[address] [facility] [address] [place] [phone] Shraddha Mustafa MD 09/18/[address] [facility] [address] [place] [phone] Katerin Diaz, WILLIAM Results 09/18/2024 Orders Only [facility] [address] [place] [address] Luz Neville MD Group B streptococcal UTI (Primary Dx) 09/18/[address] [facility] [address] [place] [phone] Shraddha Mustafa MD 09/17/[address] [facility] [address] [place] [phone] Shraddha Mustafa MD 09/16/[address] [facility] [address] [place] [phone] Sofia Michel FNP Results 09/15/2024 2:40 PM EST Office Visit [facility] [address] [place] [phone] Luz Neville MD Acute pain of left thigh (Primary Dx); Bilateral leg edema; Hypertension, essential 09/15/[address] [facility] [address] [facility] [place] [address] Shraddha Mustafa MD 09/09/[address] [facility] [address] [facility] [place] [address] Shraddha Mustafa MD 09/03/2024 Orders Only GENERIC EXTERNAL DATA DEPARTMENT Provider, Generic External Data from Last 3 Months Immunizations Name Administration [...] PM ES T Respiratory Rate 20 09/15/2024 2:5 7 PM EST Oxygen Saturation 97% 09/15/2024 2:57 [...] Procedure Name Priority Date/Time Associated Diagnosis Comments URINALYSIS, COMPLETE Routine 09/16/2024 10:05 AM EST Bilateral leg edema CREATINE KINASE, TOTAL Routine 09/16/2024 10:05 AM EST Acute pain of left thigh BASIC METABOLIC PANEL Routine 09/16/2024 10:05 AM EST Bilateral leg edema CULTURE, URINE, ROUTINE Routine 09/16/2024 10:05 AM EST Abnormal urinalysis XR HIP LEFT WITH PELVIS 1 VIEW Routine 09/16/2024 9:33 AM EST Acute pain of left thigh BACTERIAL VAGINOSIS PANEL Routine 09/03/2024 12:00 AM EST BI MAMMOGRAM SCREENING TOMOSYNTHESIS BILATERAL Routine 09/01/2024 1:35 PM EST LIPID PANEL WITH REFLEX TO DIRECT LDL Routine 08/18/2024 9:56 AM EST Benign essential hypertension BITEWING - SINGLE RADIOGRAPHIC IMAGE Routine 01/16/2024 [...] Recently Relevant to Health Maintenance Results * (ABNORMAL) Urinalysis Complete (09/16/2024 10:05 AM EST) Color Urine Yellow [facility] Appearance Urine Clear [facility] PH 6.0 5.0 - 9.0 [facility] Glucose Urine UA Negative Negative mg/dL [facility] Urine Blood Negative Negative [facility] Specific [place] - Urine 1.025 1.005 - 1.025 [facility] Urine Protein 30 (1+)(A) Neg-Trace mg/dL [facility] Urine Ketones Negative Negative mg/dL [facility] Nitrite Urine Negative Negative [facility] Leukocyte Esterase Urine Moderate (2+)(A) Negative [facility] RBC Urine 0-2 0 - 2 /HPF [facility] Urine WBC 6-10(A) 0 - 5 /HPF [facility] Urine Squamous Epithelial Cell 11-20 0 - 2 /HPF [facility] Urine Bacteria Trace None Seen [facility] Hyaline Casts, Urine 0-2 0 - 2 /LPF [facility] Urine (Urine, Random) 09/16/2024 10:05 AM EST 09/16/2024 10:56 AM EST us Luz Neville MD LAB URINE ORDERABLES Final Re sult Performing Organization Address City/[facility]/ZIP Co de Phone Number [facility] [address] [place] [phone] * Culture, Urine, Routine (09/16/2024 10:05 AM EST) Urine Urine specimen obtained by clean catch procedure / Unknown 09/16/2024 10:05 AM EST 09/16/2024 5:26 PM EST Comment:UACC Narrative [facility] - 09/18/2024 1:42 PM EST Strep agalactiae (Grp B) Quant > 100,000 cfu/mL Susc N/A Susceptibility not routinely performed on this isolate. Specimen Source: Urine clean catch us Sofia Michel [employer] LAB MICROBIOLOGY - GENERAL ORD ERABLES Final Result Performing Organization Address [facility] Co de Phone Number [facility] [address] [place] [phone] * (ABNORMAL) Creatine Kinase, Total (09/16/2024 10:05 AM EST) Creatine Kinase Total 155(H) 26 - 140 U/L [facility] Blood Venous blood specimen / Unknown 09/16/2024 10:05 AM EST 09/16/2024 10:51 AM EST us Luz Neville MD LAB BLOOD ORDERABLES Final Re sult [facility] [address] [place] [phone] [phone] * (ABNORMAL) Basic Metabolic Panel (09/16/2024 10:05 AM EST) Sodium 139 135 - 145 mmol/L [facility] Potassium 4.4 3.3 - 5.1 mmol/L [facility] Chloride 104 96 - 108 mmol/L [facility] Carbon Dioxide 29 22 - 29 mmol/L [facility] Anion Gap 10(L) 12 - 20 [facility] Urea Nitrogen (BUN) 19(H) 9 - 16 mg/dL [facility] Creatinine, Serum 0.76 0.5 - 1.4 mg/dL [facility] Estimated Glomerular Filt Rate >60 [facility] Comment:Chronic Kidney Disea se: Estimated GFR < 60 mL/min/1.05n7Hrlcld Kidney Disease: Estimated GFR < 15 mL/min/1.73m2 Glucose 134(H) 60 - 115 mg/dL [facility] Calcium 9.3 8.4 - 10.2 mg/dL [facility] Blood Venous blood specimen / Unknown 09/16/2024 10:05 AM EST 09/16/2024 10:51 AM EST us Luz Neville MD LAB BLOOD ORDERABLES Final Re sult [facility] [address] [place] [phone] * XR Hip left with Pelvis 1 view (09/16/2024 9:33 AM EST) Anatomical Region Laterality Modality Lower Extremities, Hip Bilateral Radiograp hic Imaging 09/16/2024 9:33 AM EST Narrative 09/16/2024 10:04 AM EST ?[facility] ?[address] ?[place] [address] ?XRay Report ? Signed ? Patient: Rob,Carina ?MR#: [id number] ?? 1500 ? : 1960 ?Acct:[id number] ? Age/Sex: 64 / F ?ADM Date: 09/16/24 ? Loc: HO.HHCX ? Attending Dr: Luz Neville MD ? Ordering Physician: Luz Neville MD ?? Date of Service: 09/16/24 ?? Procedure(s): XR hip LT w PEL1V ?? Accession Number(s): [id number] ? cc: Luz Neville MD ? EXAMINATION: [...] DD/ 0933 ? TD/TT: 09/16/24 0940 ? Deliver Driver: ? Procedure Note Ramona, Image - 09/16/[address] [address] XRay Report Signed Patient: Jakub Rivas#: [id number] 1500 : 9Acct:[id number] Age/Sex: 64 / FADM Date: 09/16/24 Loc: HO.HHCX Attending Dr: Luz Neville MD Ordering Physician: Luz Neville MD Date of Service: 09/16/24 Procedure(s): XR hip LT w PEL1V Accession Number(s): [id number] cc: Luz Neville MD EXAMINATION: XR HIP, [...] 09/16/24 1001 DD/ 0933 TD/TT: 09/16/24 0940 Deliver Driver: Luz Neville MD IMG XR PROCEDURES Edited Resu lt - Final * Bacterial Vaginosis (09/03/2024 12:00 AM EST) TRICHOMONAS VAGINALIS DETECTION BY PCR NOT DETECTED Not Detect [facility] BACTERIAL VAGINOSIS DETECTION BY PCR NEGATIVE Negative [facility] Comment:The BV organism targ ets [...] DETECTION BY PCR NOT DETECTED Not Detect [facility] Bianka glab krusei PCR NOT DETECTED Not Detect [facility] 09/03/2024 09/03/2024 us Generic External Data Provider LAB MICROBIOLOGY - GENERAL ORDERABLES Final Result [facility] [address] [place] [phone] * BI Mammogram Screening Tomosynthesis Bilateral (09/01/2024 1:35 PM EST) Anatomical Region Laterality Modality Breast Bilateral Mammography 09/01/2024 1:35 PM EST Narrative 09/10/2024 9:58 AM EST ? [facility] ? [address] ?[place] [address] ? Mammography Report ? Signed ? Patient: Rob,Carina ?MR#: [id number] ?? 1500 ? : 1960 ?Acct:[id number] ? Age/Sex: 63 / F ?ADM Date: 09/01/ ? Loc: HO.MAMMO ? Attending Dr: Shraddha Mustafa MD ? Ordering Physician: Shraddha Mustafa MD ?Results: 2Be ?? nign Findings ? Date of Service: 09/01/ ?Follow Up: 1 Year From Orig ?? inal Mammogram ? Procedure(s): MM tomosynthesis screening BI ?? Accession Number(s): [id number] ? cc: Shraddha Mustafa MD ? EXAMINATION: [...] DD/ 1335 ? TD/TT: 09/01/24 1350 ? Deliver Driver: ? Procedure Note Ramona, Debra - 09/10/2024 [facility] [address] [place] [address] Dr. [place]gs, ONI [address] Mammography Report Signed Patient: Jakub Rivas#: [id number] 1500 : 9Acct:[id number] Age/Sex: 63 / FADM Date: 09/01/24 Loc: HO.MAMMO Attending Dr: Shraddha Mustafa MD Ordering Physician: Shraddha Mustafa MDResults: 2Be nign Findings Date of Service: 09/01/24Follow Up: 1 Year From Orig ina Mammogram Procedure(s): MM tomosynthesis screening BI Accession Number(s): [id number] cc: Shraddha Mustafa MD EXAMINATION: MM SCREENING [...] 09/10/24 0955 DD/ 1335 TD/TT: 09/01/24 1350 Deliver Driver: us Shraddha Mustafa MD IMG BI PROCEDURES Final Result * (ABNORMAL) Lipid Panel with Reflex to Direct LDL (08/18/2024 9:56 AM EST) Triglycerides 249(H) <150 mg/dL [facility] Comment:Desirable Triglyceri de: less than 150 mg/dLBorderline High Triglyceride 150-199 mg/dLHigh Triglyceride: 200-499 mg/dLVery High Triglyceride: greater than or equal to 5OO mg/dL Cholesterol 246(H) <200 mg/dL [facility] Comment:Desirable Cholestero l: less than 200 mg/dLBorderline High Cholesterol: 200-239 mg/dLHigh Cholesterol: greater than 239 mg/dL LDL Cholesterol Calculated 153(H) <100 mg/dL [facility] Comment:Desirable LDL: less than 100 mg/dLNear Optimal/Above Optimal LDL: 110- 129 mg/dLBorderline High LDL: 130-159 mg/dLHigh LDL: 160-189 mg/dLVery High LDL: greater than or equal to 190 mg/dL HDL Cholesterol 44 >40 mg/dL [facility] Comment:Desirable HDL: great er than 40 mg/dL Note: This HDL assay may give artificially low results in patients with liver disease. Blood 08/18/2024 9:56 AM EST 08/18/2024 11:15 AM EST Shraddha Mustafa MD LAB BLOOD ORDERABLES Fin al Result [facility] [address] [place] [address] [phone] from Last 3 Months or Most Recently Relevant to Health Maintenance Insurance [facility] - [facility] Care Teams Last Scourer Relationship Specialty Start Date End Date Shraddha Mustafa MD [address] [place] [address] PCP - General Family Medicine 03/21/17 Mike Kang, JuliánD [address] [place] [address] Pharmacist Internal Medicine 12/10/22
== END 2024-12-02 13:54 | disposition home or self-care (01) ==
LOC: HO.HWS 13:31
PROVIDERS: Visit Provider Obstetrics & Gynecology
DX: L90.0 Lichen sclerosus et atrophicus (principal)
CPT/HCPCS: 99213

== ENCOUNTER → 2024-12-02 13:31 | Outpatient (BNVA) | payer OTHER, SELFPAY | PROVIDERS: Visit Provider Obstetrics & Gynecology | DX: L90.0 Lichen sclerosus et atrophicus (principal) | CPT/HCPCS: 99212 ==

== ENCOUNTER 2024-12-04 15:04 | Emergency (ER) | payer OTHER, SELFPAY ==
[2024-12-04] VITALS (9 sets, daily range): BP systolic 152–178; BP diastolic 80–91; PULSE 64–81; RESP 16–20; TEMP 36.6–37.1; O2SAT 95–99; BMI 25.8
--- NOTE | ~2024-12-04 | XR_ITS ---
EXAMINATION: XR RIBS, BILATERAL CLINICAL INFORMATION: Bilateral lower rib pain hx fractures no new injur COMPARISON: 04/28/2024. TECHNIQUE: PA chest, and 3 views of the bilateral ribs were obtained. FINDINGS: Lungs are clear. No consolidation, pneumothorax, or pleural effusion. The cardiomediastinal silhouette and pulmonary vasculature are normal. Acute appearing minimally displaced fractures of the right anterolateral fourth through seventh ribs. No definitive left rib fractures identified. XR/XR ribs BI min 4V w CXR1V IMPRESSION: 1. Acute minimally displaced fractures of the right anterolateral fourth through seventh ribs. 2. No definite acute fractures of the left ribs identified. 3. The lungs are clear without pneumothorax or effusion. Electronically signed by: Shawn Steen MD 12/04/2024 04:00 PM EDT
--- NOTE | ~2024-12-04 | XR_ITS ---
CLINICAL HISTORY: pain 1 view abdomen Comparison: None Findings: No pneumoperitoneum or pneumatosis. Moderate fecal loading in the colon. No abnormal calcifications. No acute fractures. There is contrast material in the collecting systems of the kidneys, ureters and urinary bladder consistent with recent IV contrast administration. Lung bases are clear. IMPRESSION: The bowel gas pattern is normal This document has been electronically signed by: Ovi Garcia MD on 12/04/2024 19:39:27
--- NOTE | ~2024-12-04 | CT_ITS ---
CLINICAL HISTORY: atraumatic right ribfxs --- Additional Notes or Special Instructions: lytic lesions ?? CT chest with contrast Comparison: None Findings: The heart size is normal. No pericardial effusion. No aneurysm of the thoracic aorta. Evaluation of lungs limited by motion/breathing artifact. No consolidation, pleural effusion or pneumothorax. No adenopathy. Thyroid and thoracic esophagus within normal limits. The visualized upper abdomen demonstrates no acute findings. Low attenuation of liver parenchyma suggestive of steatosis. No acute fractures. No rib fracture. Degenerative changes of the thoracic spine. IMPRESSION: 1. No acute findings. No rib fracture. This document has been electronically signed by: Cecile Hernandez MD on 12/04/2024 18:45:43
--- NOTE | 2024-12-04 15:08 | ED.GENADULT ---
HPI - General Adult General Chief complaint: General Medical Stated complaint: Burning Sensation In Stomach Area Time Seen by Provider: 12/04/24 16:47 Source: patient Limitations: language barrier History of Present Illness ED Provider: Hiwot Rowe PA-C HPI narrative: 64 y/o F with hx of substance abuse, asthma, depression, HTN presents with right-sided lateral chest discomfort. Patient states she spontaneously broke her left ribs 3 years ago, and now she is having similar pain on the right side. Denies recent cough or cold symptoms, fever, shortness of breath or trauma. Pain worse with movement and palpation of chest wall. Related Data Home Medications ?Medication ?Instructions ?Recorded ?Confirmed atorvastatin 20 mg tablet 20 mg PO DAILY 11/21/20 09/03/24 cyclobenzaprine 10 mg tablet 10 mg PO TID 11/21/20 09/03/24 lisinopril 20 1 tab PO DAILY 11/21/20 09/03/24 mg-hydrochlorothiazide 12.5 mg tablet montelukast 10 mg tablet 10 mg PO QPM 11/21/20 09/03/24 sertraline 50 mg tablet 50 mg PO DAILY 11/21/20 09/03/24 trazodone 50 mg tablet 50 mg PO BEDTIME 11/21/20 09/03/24 amlodipine 5 mg tablet 5 mg PO DAILY 02/01/22 09/03/24 Previous Rx's ?Medication ?Instructions ?Recorded valacyclovir 1 gram tablet 1,000 mg PO TID 7 days #21 tabs 09/03/22 cyclobenzaprine 10 mg tablet 10 mg PO TID PRN Shouler pain #14 11/02/23 tabs miconazole nitrate 2 % vaginal 1 appful vaginal BEDTIME 7 days 09/03/24 cream (Miconazole-7) #45 grams clobetasol 0.05 % topical cream 1 appl topical BID 2 weeks #45 12/02/24 grams docusate sodium 100 mg capsule 100 mg PO BID #14 caps 12/04/24 (Colace) polyethylene glycol 3350 17 17 g PO TID #119 grams 12/04/24 gram/dose oral powder (Miralax) Allergies Allergy/AdvReac Type Severity Reaction Status Date / Time No Known Allergies Allergy Verified 12/04/24 15:10 [No Known Allergies*] Review of Systems Review of Systems: Yes all other systems are reviewed and are negative Constitutional: Constitutional: Denies fatigue and Denies fever(s) Cardiovascular: Cardiovascular: Reports chest pain and Denies dyspnea Respiratory: Respiratory: Denies cough and Denies dyspnea Gastrointestinal: Gastrointestinal: Denies abdominal pain, Denies nausea and Denies vomiting Endocrine: Endocrine: Denies fatigue [facility] Past Medical History Attestation statement: The following information was validated with the patient. Medical History Substance abuse Left knee pain Asthma Depressed Hypertension Social History Social History Alcohol intake: never Smoked in Last 30 Days: No Advance Directives: No Advance Directives Information Provided: Yes Current occupational status: unemployed Current occupation: left handed Physical Exam ED Vital Signs: Vital Signs - 24 hr 12/04/24 15:07 12/04/24 16:38 12/04/24 18:26 Temperature 97.8 F 98.7 F 98.7 F Pulse Rate 81 67 64 Respiratory Rate 20 16 16 Blood Pressure 152/83 H 168/80 H 166/80 H Pulse Oximetry 98 96 95 Oxygen Delivery Method Room Air Room Air Room Air 12/04/24 19:37 12/04/24 19:54 12/04/24 19:55 Temperature 98.4 F Pulse Rate 67 Respiratory Rate 16 Blood Pressure 178/91 H 178/91 H 178/91 H Pulse Oximetry 97 Oxygen Delivery Method Room Air 12/04/24 19:56 12/04/24 22:04 Temperature 96.5 F L Pulse Rate 79 Respiratory Rate 16 Blood Pressure 178/91 H 166/80 H Pulse Oximetry 99 Oxygen Delivery Method Room Air BMI result Body Mass Index 25.8 Const Other: Alert well-appearing Orientation/consciousness: patient oriented x3 Chest Other: No deformity no redness no ecchymosis noted over right lateral chest wall Resp Effort & Inspection: normal respiratory effort Cardio Other: Normal peripheral perfusion Skin Other: Warm dry no rash Neuro General: patient oriented x3, gait normal, no focal motor deficits and CN's II-XI intact bilaterally Psych Other: Calm cooperative Course Course Course Narrative: This is a Rapid Medical Examination (RME) performed by [place] Triana PA-C in triage. Full HPI, ROS, assessment and treatment plan per primary provider in the Main ED. 12/04/24 1515 CAROL Mccormack Hx: 64 yo syriac speaking female hx of substance abuse, asthma, depression, HTN here for eval of acute on chronic rib pain since fracturing her ribs during cardiac resuscitation in 2022. Reports pain has been intermittent over the last few years, now more severe. Located to left lower ribs radiating to right lower ribs. no new injury or trauma. Taking Tylenol Motrin at home without improvement. pain is worse w/ deep breathing PE/vitals: Vital stable. She was well-appearing speaking complete sentences Plan: xr, labs, ekg Medications Administered Discontinued Medications Generic Name Dose Route Start Last Admin Trade Name Freq PRN Reason Stop Dose Admin Amlodipine Besylate 5 mg 12/04/24 19:42 12/04/24 19:56 Amlodipine Besylate 5 Mg Tablet PO 12/04/24 19:43 5 mg ONCE ONE Administration Protocol Gabapentin 100 mg 12/04/24 17:17 12/04/24 17:41 Gabapentin 100 Mg Capsule PO 12/04/24 17:18 100 mg ONCE ONE Administration Hydrochlorothiazide 12.5 mg 12/04/24 19:42 12/04/24 19:55 Hydrochlorothiazide 12.5 Mg Tablet PO 12/04/24 19:43 12.5 mg ONCE ONE Administration Protocol Iohexol 100 ml 12/04/24 17:49 12/04/24 17:50 Iohexol 350 Mg/Ml 100 Ml Infus..Btl IV 12/04/24 17:50 65 ml ONCE ONE Administration Ketorolac Tromethamine 15 mg 12/04/24 17:17 12/04/24 17:41 Ketorolac Tromethamine 15 Mg/Ml Vial IVPUSH 12/04/24 17:18 15 mg ONCE ONE Administration Lisinopril 20 mg 12/04/24 19:42 12/04/24 19:54 Lisinopril 20 Mg Tablet PO 12/04/24 19:43 20 mg ONCE ONE Administration Protocol Oxycodone HCl 5 mg 12/04/24 17:17 12/04/24 17:41 Oxycodone Hcl Immed Release 5 Mg Tablet PO 12/04/24 17:18 5 mg ONCE ONE Administration Medical Decision Making Medical Decision Making MDM Narrative: 64 y/o F with hx of polysubstance abuse, asthma, depression, HTN presents with right-sided lateral chest discomfort. Patient states she spontaneously broke her left ribs 3 years ago, and now she is having similar pain on the right side. Denies recent cough or cold symptoms, fever, shortness of breath or trauma. Pain worse with movement and palpation of chest wall. Denies abdominal pain, nausea vomiting or postprandial discomfort. Problem: Polysubstance abuse, asthma , age hypertension History: Per patient I have considered the following differential diagnoses: Rib fracture, chest wall strain, ACS, biliary colic, cholecystitis, pneumonia Plan: Screening labs including cardiac enzymes EKG and chest x-ray were obtained from triage. This is not ACS, her pain is right lateral ribcage in his highly reproducible. Surprisingly it appears on the chest x-ray that she does have rib fractures. I am concerned for lytic lesions for her to spontaneously fracture her ribs. We will obtain a CT scan of the chest for better differentiation. Thought about underlying biliary pathology given right-sided symptoms, however she is not having abdominal pain no active GI symptoms, and no postprandial symptoms. Doubtful to be pneumonia, she has not had any cough or cold symptoms no fever. I have independently reviewed the following tests: Labs: No leukocytosis, not anemic, no electrolyte abnormality, troponin x2 are flat CXR: Findings: The heart size is normal. No pericardial effusion. No aneurysm of the thoracic aorta. Evaluation of lungs limited by motion/breathing artifact. No consolidation, pleural effusion or pneumothorax. No adenopathy. Thyroid and thoracic esophagus within normal limits. The visualized upper abdomen demonstrates no acute findings. Low attenuation of liver parenchyma suggestive of steatosis. No acute fractures. No rib fracture. Degenerative changes of the thoracic spine. IMPRESSION: 1. No acute findings. No rib fracture. CR chest: Findings: The heart size is normal. No pericardial effusion. No aneurysm of the thoracic aorta. Evaluation of lungs limited by motion/breathing artifact. No consolidation, pleural effusion or pneumothorax. No adenopathy. Thyroid and thoracic esophagus within normal limits. The visualized upper abdomen demonstrates no acute findings. Low attenuation of liver parenchyma suggestive of steatosis. No acute fractures. No rib fracture. Degenerative changes of the thoracic spine. IMPRESSION: 1. No acute findings. No rib fracture. Lab Data 12/04/24 15:32 12/04/24 15:32 Labs: Lab Results 04/25/25 04/25/25 Range/Units 15:32 19:33 WBC 5.8 (4.8-10.8) X10*3/uL RBC 4.83 (4.20-5.50) X10*6/uL Hgb 13.3 (12.0-16.0) g/dl Hct 41.4 (37.0-47.0) % MCV 85.7 (80.0-98.0) fL MCH 27.5 (27.0-33.0) pg MCHC 32.1 (31.0-35.0) g/dl RDW 12.9 (11.0-16.0) % Plt Count 243 (160-400) X10*3/uL MPV 10.3 (9.4-12.3) fL Immature Gran % (Auto) 0.3 (0.0-0.4) % Neut % (Auto) 47.9 (45-73) % Lymph % (Auto) 34.8 (20-40) % Sanborn % (Auto) 14.1 H (2-11) % Eos % (Auto) 2.4 (0-4) % Baso % (Auto) 0.5 (0-2) % Lymph # (Auto) 2.0 (1.2-4.9) X10*3/uL Sanborn # (Auto) 0.8 (0.1-1.2) X10*3/uL Eos # (Auto) 0.1 (0.0-0.4) X10*3/uL Baso # (Auto) 0.0 (0.0-0.2) X10*3/uL Abs Immat Gran (auto) 0.02 (0.00-0.03) X10*3/uL Absolute Neuts (auto) 2.8 (2.0-8.3) x10*3/uL Absolute Nucleated RBC 0.000 (0.0-0.012) X10*3/uL Nucleated RBC % (auto) 0.0 (0.0-0.2) /100WBC Sodium 139 (135-145) mmol/L Potassium 4.5 (3.3-5.1) mmol/L Chloride 105 (96-108) mmol/L Carbon Dioxide 26 (22-29) mmol/L Anion Gap 13 (12-20) BUN 20 H (9-16) mg/dL Creatinine 0.79 (0.5-1.4) mg/dL Estim Creat Clear Calc 66.4 Estimated GFR > 60 Random Glucose 80 (60-115) mg/dL Calcium 9.6 (8.4-10.2) mg/dL Magnesium 2.2 (1.6-2.6) mg/dL Total Bilirubin 0.5 (0.0-1.0) mg/dL AST 26 (5-31) U/L ALT 18 (0-31) U/L Alkaline Phosphatase 117 (39-117) U/L Troponin I High Sens 10.9 11.4 (<3.5-17.0) ng/L Total Protein 7.5 (6.5-8.0) g/dL Albumin 4.2 (3.5-5.0) g/dL Discharge Plan Discharge Clinical Impression: Chest wall pain, Constipation Patient Disposition: Home, Self-Care Additional Instructions: You did not sustain any rib fractures, this was confirmed by a CT scan of your chest. You also had no lab abnormalities, including 2 cardiac enzymes. There were no concerning changes on your EKG. You can use barf-pzz-[id number] ibuprofen 600 mg taken every 6 hours with food for your chest wall pain. On the x-ray of your abdomen it shows that you have a moderate stool burden. Use the Colace in the MiraLax as directed. Follow up with your primary care provider in 1 week. Prescriptions: New docusate sodium [Colace] 100 mg capsule 100 mg PO BID Qty: 14 0RF polyethylene glycol 3350 [Miralax] 17 gram/dose powder 17 g PO TID Qty: 119 0RF No Action valacyclovir 1 gram tablet 1,000 mg PO TID 7 Days Qty: 21 0RF cyclobenzaprine 10 mg tablet 10 mg PO TID PRN (Reason: Shouler pain) Qty: 14 0RF cyclobenzaprine 10 mg tablet 10 mg PO TID sertraline 50 mg tablet 50 mg PO DAILY montelukast 10 mg tablet 10 mg PO QPM lisinopril-hydrochlorothiazide 20-12.5 mg tablet 1 tab PO DAILY trazodone 50 mg tablet 50 mg PO BEDTIME atorvastatin 20 mg tablet 20 mg PO DAILY amlodipine 5 mg tablet 5 mg PO DAILY miconazole nitrate [Miconazole-7] 2 % cream 1 appful vaginal BEDTIME 7 Days Qty: 45 1RF clobetasol 0.05 % cream 1 appl topical BID 14 Days Qty: 45 1RF Rx Instructions: Then maintenance therapy for 2-3 times per week Interventions: ED Discharge Assessment Last Done: 12/04/24 22:35 Discharge Date/Time: 12/04/24 22:36 Print Language: [place] Citizen
--- NOTE | 2024-12-04 15:14 | ECG_ITS ---
Test Reason : rib pain Blood Pressure : */* mmHG Vent. Rate : 71 BPM Atrial Rate : 71 BPM P-R Int : 166 ms QRS Dur : 78 ms QT Int : 364 ms P-R-T Axes : 33 36 43 degrees QTcB Int : 395 ms Normal sinus rhythm Normal ECG When compared with ECG of 01-Nov-2023 19:44, No significant change was found Referred By: Alison Triana Electronically Signed By: LUIS DANIEL VENEGAS
[2024-12-04 15:36] LABS: MANUAL DIFF FLAG NO
[2024-12-04 15:37] LABS: Basophils Percent Auto 0.5 % (0-2); Eosinophils Absolute Auto 0.1 X10*3/uL (0.0-0.4); Eosinophils Percent Auto 2.4 % (0-4); Hematocrit 41.4 % (37.0-47.0); Hemoglobin 13.3 g/dl (12.0-16.0); Imm Gran Abs Auto 0.02 X10*3/uL (0.00-0.03); Imm Gran Pct Auto 0.3 % (0.0-0.4); Lymphocytes Percent Auto 34.8 % (20-40); Mean Corpuscular HGB Conc 32.1 g/dl (31.0-35.0); Mean Corpuscular Hemoglobin 27.5 pg (27.0-33.0); Mean Corpuscular Volume 85.7 fL (80.0-98.0); Mean Platelet Volume 10.3 fL (9.4-12.3); Monocytes Absolute Auto 0.8 X10*3/uL (0.1-1.2); Monocytes Percent Auto 14.1 % (2-11); Neutrophils Absolute Auto 2.8 x10*3/uL (2.0-8.3); Neutrophils Percent Auto 47.9 % (45-73); Platelet Count 243 X10*3/uL (160-400); Red Blood Count 4.83 X10*6/uL (4.20-5.50); Red Cell Distribution Width 12.9 % (11.0-16.0); White Blood Count 5.8 X10*3/uL (4.8-10.8)
[2024-12-04 15:57] LABS: Troponin-I High Sensitivity 10.9 ng/L (<3.5-17.0)
[2024-12-04 16:01] LABS: Alanine Aminotransferase 18 U/L (0-31); Albumin Level 4.2 g/dL (3.5-5.0); Alkaline Phosphatase 117 U/L (39-117); Anion Gap 13 (12-20); Aspartate Amino Transferase 26 U/L (5-31); Bilirubin Total 0.5 mg/dL (0.0-1.0); Blood Urea Nitrogen 20 mg/dL (9-16); Calcium 9.6 mg/dL (8.4-10.2); Carbon Dioxide 26 mmol/L (22-29); Chloride 105 mmol/L (96-108); Creatinine Clr Calc Pharmacy 66.4; Estimated Glomerular Filt Rate > 60; Glucose Random 80 mg/dL (60-115); Magnesium 2.2 mg/dL (1.6-2.6); Potassium 4.5 mmol/L (3.3-5.1); Sodium 139 mmol/L (135-145); Total Protein 7.5 g/dL (6.5-8.0)
--- OUTSIDE RECORDS SUMMARY | 2024-12-04 16:36 | XMS_ITS | Encounter Summary ---
Author Organization [employer] Address [address] [facility] 7t [place] [address] Care Team Providers Care Network Associate Name Role Phone Shraddha Mustafa MD Primary Care Provider + Mike Kang PharmD Unavailable [phone] Reason for Visit * Reason Comments Med Refill Encounter Details Date Type Department Care Team ([facility] st Contact Info) Description 09/23/2024 Refill [facility] CHC MED & PEDS [address] [place], [place] [phone] Luz Neville MD [address] [place], [place] [phone] Social History Tobacco Use Types Packs/Day Years [...] as of this encounter Plan of Treatment Upcoming Encounters Date Type Department Care Team (Late st Contact Info) Description 12/11/2024 12:00 PM EDT Office Visit [facility] MEDICINE [address] [place] [phone] Shraddha Mustafa MD [address] [place] [phone] documented as of this encounter Goals Goal Patient Goal Type Associated Problems Recent Progress Patient-Stated? Author Blood Pressure < 150/90 Blood Pressure 180/96(2024 2:58 PM EST) No Mike Kang PharmD Note: Per JNC-8 : Age>60, No history of DM or CKD documented as of this encounter Visit Diagnoses Not on filedocumented in this encounter Care Teams Network Associate Relationship Specialty Start Date End Date Shraddha Mustafa MD [address] [place] [phone] PCP - General Family Medicine 03/21/17 Mike Kang, Tamara [address] [place] [address] [phone] Pharmacist Internal Medicine 12/10/22 documented as of this encounter
--- OUTSIDE RECORDS SUMMARY | 2024-12-04 16:36 | XMS_ITS | Encounter Summary ---
Author Organization [employer] Address [address] [facility] 7[address] [place] [address] Care Team Providers Care Rack Puncher Name Role Phone Shraddha Mustafa MD Primary Care Provider + Mike Kang PharmD Unavailable Reason for Visit * Reason Comments Med Refill Encounter Details Date Type Department Care Team (Late st Contact Info) Description 09/15/2024 Refill [facility] MEDICINE [address] [place] [address] Shraddha Mustafa MD [address] [place], [place] [phone] Social History Tobacco Use Types Packs/Day Years [...] Description 12/11/2024 12:00 PM EDT Office Visit [facility] MEDICINE [address] [place] [phone] Shraddha Mustafa MD [address] [place] [phone] documented as of this encounter Goals Goal Patient Goal Type Associated Problems Recent Progress Patient-Stated? Author Blood Pressure < 150/90 Blood Pressure 180/96(2024 2:58 PM EST) No Mike Kang PharmD Note: Per JNC-8 : Age>60, No history of DM or CKD documented as of this encounter Visit Diagnoses Not on filedocumented in this encounter Care Teams Rack Puncher Relationship Specialty Start Date End Date Shraddha Mustafa MD [address] [place] [phone] PCP - General Family Medicine 03/21/17 Mike Kang, Tamara [address] [place] [address] [phone] Pharmacist Internal Medicine 12/10/22 documented as of this encounter
--- OUTSIDE RECORDS SUMMARY | 2024-12-04 16:36 | XMS_ITS | Encounter Summary ---
Author Organization [email or web address] [facility] Address [address] [facility] [address] [place] [address] Care Team Providers Care Fashion Stylist Name Role Phone Shraddha Mustafa MD Primary Care Provider + Mike Kang PharmD Unavailable [phone] Encounter Details Date Type Department Care Team (Latest Contact Info) Description 05/15/2021 Abstract [facility] CONVERSIONS Dental, Provider, DDS Social History [...] Description 12/11/2024 12:00 PM EDT Office Visit [facility] MEDICINE [address] [place] [phone] Shraddha Mustafa MD [address] [place] [phone] documented as of this encounter Visit Diagnoses Not on filedocumented in this encounter Care Teams Fashion Stylist Relationship Specialty Start Date End Date Shraddha Mustafa MD [address] [place] [phone] PCP - General Family Medicine 03/21/17 Mike Kang, JuliánD [address] [place] [phone] Pharmacist Internal Medicine 12/10/22 documented as of this encounter
--- OUTSIDE RECORDS SUMMARY | 2024-12-04 16:36 | XMS_ITS | Encounter Summary ---
Author Organization [employer] Address [address] [facility] 7t [place] [address] Care Team Providers Care Special Education Math Teacher Name Role Phone Shraddha Mustafa MD Primary Care Provider + Mike Kang PharmD Unavailable [phone] Reason for Visit * Reason Comments Med Refill Encounter Details Date Type Department Care Team (Late st Contact Info) Description 09/23/2024 Refill [facility] MEDICINE [address] [place] [address] Shraddha Mustafa MD [address] [place], [place] [phone] Social History Tobacco Use Types Packs/Day Years [...] Description 12/11/2024 12:00 PM EDT Office Visit [facility] MEDICINE [address] [place] [address] Shraddha Mustafa MD [address] [place] [phone] documented as of this encounter Goals Goal Patient Goal Type Associated Problems Recent Progress Patient-Stated? Author Blood Pressure < 150/90 Blood Pressure 180/96(2024 2:58 PM EST) No Mike Kang PharmD Note: Per JNC-8 : Age>60, No history of DM or CKD documented as of this encounter Visit Diagnoses Not on filedocumented in this encounter Care Teams Special Education Math Teacher Relationship Specialty Start Date End Date Shraddha Mustafa MD [address] [place] [phone] PCP - General Family Medicine 03/21/17 Mike Kang, Tamara [address] [place] [address] [phone] Pharmacist Internal Medicine 12/10/22 documented as of this encounter
--- OUTSIDE RECORDS SUMMARY | 2024-12-04 16:36 | XMS_ITS | Encounter Summary ---
Author Organization [employer] Address [address] [facility] 7t [place] [address] Care Team Providers Care Hospital Nurse Name Role Phone Shraddha Mustafa MD Primary Care Provider + Mike Kang PharmD Unavailable [phone] Reason for Visit * Reason Comments Med Refill Encounter Details Date Type Department Care Team (Late st Contact Info) Description 09/17/2024 Refill [facility] MEDICINE [address] [place], [place] [phone] Shraddha Mustafa MD [address] [place], [place] [phone] Social History Tobacco Use Types Packs/Day Years [...] Description 12/11/2024 12:00 PM EDT Office Visit [facility] MEDICINE [address] [place] [phone] Shraddha Mustafa MD [address] [place] [phone] documented as of this encounter Goals Goal Patient Goal Type Associated Problems Recent Progress Patient-Stated? Author Blood Pressure < 150/90 Blood Pressure 180/96(2024 2:58 PM EST) No Mike Kang PharmD Note: Per JNC-8 : Age>60, No history of DM or CKD documented as of this encounter Visit Diagnoses Not on filedocumented in this encounter Care Teams Hospital Nurse Relationship Specialty Start Date End Date Shraddha Mustafa MD [address] [place] [phone] PCP - General Family Medicine 03/21/17 Mike Kang, Tamara [address] [place] [address] [phone] Pharmacist Internal Medicine 12/10/22 documented as of this encounter
--- OUTSIDE RECORDS SUMMARY | 2024-12-04 16:37 | XMS_ITS | Encounter Summary ---
Author Organization [employer] Address [address] [facility] [place] [address] [place] [address] Care Team Providers Care Crm Specialist Name Role Phone Shraddha Mustafa MD Primary Care Provider + Mike Kang PharmD Unavailable [phone] Encounter Details Date Type Department Care Team (Late st Contact Info) Description 09/19/2022 Orders Only [facility] CHC MED & PEDS [address] [place] [address] Nohemi Panchal LPN Social History Tobacco Use [...] Description 12/11/2024 12:00 PM EDT Office Visit [facility] MEDICINE [address] [place] [address] Shraddha Mustafa MD [address] [place] [address] documented as of this encounter Visit Diagnoses Not on filedocumented in this encounter Care Teams Crm Specialist Relationship Specialty Start Date End Date Shraddha Mustafa MD [address] [place] [phone] PCP - General Family Medicine 03/21/17 Mike Kang, PharmD [address] [place] [phone] Pharmacist Internal Medicine 12/10/22 documented as of this encounter
--- OUTSIDE RECORDS SUMMARY | 2024-12-04 16:37 | XMS_ITS | Encounter Summary ---
Author Organization [employer] Address [address] [facility] 7t [place] [address] Care Team Providers Care Wide Area Network Systems Administrator Name Role Phone Shraddha Mustafa MD Primary Care Provider + Mike Kang PharmD Unavailable [phone] Encounter Details Date Type Department Care Team (Late st Contact Info) Description 12/04/2024 Orders Only GENERIC EXTERNAL DATA DEPARTMENT Provider, [...] Description 12/11/2024 12:00 PM EDT Office Visit [facility] [address] [place] [address] Shraddha Mustafa MD [address] [place], [place] [phone] documented as of this encounter Goals Goal Patient Goal Type Associated Problems Recent Progress Patient-Stated? Author Blood Pressure < 150/90 Blood Pressure 180/96(2024 2:58 PM EST) No Mike Kang, PharmD Note: Per JNC-8 : Age>60, No history of DM or CKD documented as of this encounter Procedures Procedure Name Priority Date/Time Associated Diagnosis Comments HIGH SENSITIVITY TROPONIN I Routine 12/04/2024 3:32 PM EDT CBC WITH AUTO DIFFERENTIAL Routine 12/04/2024 3:32 PM EDT MAGNESIUM Routine 12/04/2024 3:32 PM EDT COMPREHENSIVE METABOLIC PANEL Routine 12/04/2024 3:32 PM EDT XR RIBS BILATERAL 4+ VW W PA CHEST Routine 12/04/2024 3:12 PM EDT documented in this encounter Results * Magnesium (12/04/2024 3:32 PM EDT) Magnesium 2.2 1.6 - 2.6 mg/dL [facility] 12/04/2024 3:32 PM EDT 12/04/2024 3:34 PM EDT us Generic External Data Provider LAB BLOOD ORDERAB LES Final Result [facility] [address] [place] [phone] * (ABNORMAL) Comprehensive Metabolic Panel (12/04/2024 3:32 PM EDT) Sodium 139 135 - 145 mmol/L [facility] Potassium 4.5 3.3 - 5.1 mmol/L [facility] Chloride 105 96 - 108 mmol/L [facility] Carbon Dioxide 26 22 - 29 mmol/L [facility] Anion Gap 13 12 - 20 [facility] Urea Nitrogen (BUN) 20(H) 9 - 16 mg/dL [facility] Creatinine, Serum 0.79 0.5 - 1.4 mg/dL [facility] Creatinine Clr Calc Pharmacy 66.4 [facility] Comment:Provided height and weight: 162.56 cm,68.2 kg.eGFR (calculated from the MDRD study equation) and eCrCl(calculated from the Cockcroft-Gault equation) are based ondifferent parameters and may not yield comparable results.If eCrCl result is absurd, please check patient'sheight/weight. Estimated Glomerular Filt Rate >60 [facility] Comment:Chronic Kidney Disea se: Estimated GFR < 60 mL/min/1.94c7Phuqte Kidney Disease: Estimated GFR < 15 mL/min/1.73m2 Glucose 80 60 - 115 mg/dL [facility] Calcium 9.6 8.4 - 10.2 mg/dL [facility] Bilirubin, Total 0.5 0.0 - 1.0 mg/dL [facility] Aspartate Amino Transferase 26 5 - 31 U/L [facility] Alanine Aminotransferase 18 0 - 31 U/L [facility] Total Protein 7.5 6.5 - 8.0 g/dL [facility] Albumin Level 4.2 3.5 - 5.0 g/dL [facility] Alkaline Phosphatase 117 39 - 117 U/L [facility] 12/04/2024 3:32 PM EDT 12/04/2024 3:34 PM EDT Generic External Data Provider LAB BLOOD ORDERAB LES Final Result Performing Organization Address [facility] Co de Phone Number [facility] [address] [place] [phone] * High Sensitivity Troponin I (12/04/2024 3:32 PM EDT) [facility] TROPONIN I HIGH SENSITIVITY 10.9 <3.5 - 17.0 ng/L [facility] Comment:The Brown high sens itivity Troponin-I results should beused in conjunction with other diagnostic information suchas ECG, clinical observations and information, and patientsymptoms to aid in the diagnosis of [place]. 12/04/2024 3:32 PM EDT 12/04/2024 3:34 PM EDT Generic External Data Provider LAB BLOOD ORDERAB LES Final Result Performing Organization Address [facility] Co de Phone Number [facility] [address] [place] [phone] * (ABNORMAL) CBC auto differential (12/04/2024 3:32 PM EDT) [facility] White Blood Count 5.8 4.8 - 10.8 X10*3/uL [facility] Red Blood Count 4.83 4.20 - 5.50 X10*6/uL [facility] Hemoglobin 13.3 12.0 - 16.0 g/dl [facility] Hematocrit 41.4 37.0 - 47.0 % [facility] Mean Corpuscular Volume 85.7 80.0 - 98.0 fL [facility] Mean Corpuscular Hemoglobin 27.5 27.0 - 33.0 pg [facility] Mean Corpuscular HGB Conc 32.1 31.0 - 35.0 g/dl [facility] Red Cell Distribution Width 12.9 11.0 - 16.0 % [facility] Platelet Count 243 160 - 400 X10*3/uL [facility] Mean Platelet Volume 10.3 9.4 - 12.3 fL [facility] Neutrophils Percent Auto 47.9 45 - 73 % [facility] Imm Gran Pct Auto 0.3 0.0 - 0.4 % [facility] Lymphocytes Percent Auto 34.8 20 - 40 % [facility] Monocytes Percent Auto 14.1(H) 2 - 11 % [facility] Eosinophils Percent Auto 2.4 0 - 4 % [facility] Basophils Percent Auto 0.5 0 - 2 % [facility] NRBC Pct Auto 0.0 0.0 - 0.2 /100WBC [facility] Neutrophils Absolute Auto 2.8 2.0 - 8.3 x10*3/uL [facility] Imm Gran Abs Auto 0.02 0.00 - 0.03 X10*3/uL [facility] Lymphocytes Absolute Auto 2.0 1.2 - 4.9 X10*3/uL [facility] Monocytes Absolute Auto 0.8 0.1 - 1.2 X10*3/uL [facility] Eosinophils Absolute Auto 0.1 0.0 - 0.4 X10*3/uL [facility] Basophils Absolute Auto 0.0 0.0 - 0.2 X10*3/uL [facility] NRBC Abs Auto 0.000 0.0 - 0.012 X10*3/uL [facility] 12/04/2024 3:32 PM EDT 12/04/2024 3:34 PM EDT us Generic External Data Provider LAB BLOOD ORDERAB LES Final Result [facility] [address] [place] [phone] * XR RIBS BILATERAL 4+ VW W PA CHEST (12/04/2024 3:12 PM EDT) Anatomical Region Laterality Modality Rib, Abdomen Bilateral Radiographic Tayla ging 12/04/2024 3:12 PM EDT Narrative 12/04/2024 4:03 PM EDT ? [facility] ?[address] ?[place] [address] ?XRay Report ? Signed ? Patient: Rob,Carina ?MR#: [id number] ?? 1500 ? : 1960 ?Acct:[id number] ? Age/Sex: 64 / F ?ADM Date: 12/04/24 ? Loc: HO.ED ? Attending Dr: ? Ordering Physician: Alison Triana ?? Date of Service: 12/04/24 ?? Procedure(s): XR ribs BI min 4V w CXR1V ?? Accession Number(s): [id number] ? cc: Shraddha Mustafa MD; Alison Triana ? EXAMINATION: ?? XR RIBS, BILATERAL ? CLINICAL INFORMATION: ?? Bilateral lower rib pain hx fractures no new injur ? COMPARISON: ?? 04/28/2024. ? TECHNIQUE: ?? PA chest, and 3 views of the bilateral ribs were obtained. ? FINDINGS: ?? Lungs are clear. No consolidation, pneumothorax, or pleural effusion. ?? The cardiomediastinal silhouette and pulmonary vasculature are normal. ? Acute appearing minimally displaced fractures of the right ?? anterolateral fourth through seventh ribs. No definitive left rib ?? fractures identified. ? XR/XR ribs BI min 4V w CXR1V ?? IMPRESSION: ?? 1. Acute minimally displaced fractures of the right anterolateral ?? fourth through seventh ribs. ?? 2. No definite acute fractures of the left ribs identified. ?? 3. The lungs are clear without pneumothorax or effusion. ? Electronically signed by: ??Shawn Steen MD ??12/04/2024 04:00 PM EDT RP ? Dictated By: ?Shawn Steen MD ? Signed By: ?<Electronically signed by Shawn Steen MD in OV> ?12/04/24 1600 ? DD/ 1512 ? TD/TT: 12/04/24 1545 ? Book Publisher: ? Procedure Note Ramona, Image - 12/04/2024 [facility] [address] [place] [address] XRay Report Signed Patient: Jakub Rivas#: [id number] 1500 : 1960cct:[id number] Age/Sex: 64 / FADM Date: 12/04/24 Loc: HO.ED Attending Dr: Ordering Physician: Alison Triana Date of Service: 12/04/24 Procedure(s): XR ribs BI min 4V w CXR1V Accession Number(s): [id number] cc: Shraddha Mustafa MD; Alison Triana EXAMINATION: XR RIBS, BILATERAL CLINICAL INFORMATION: Bilateral lower rib pain hx fractures no new injur COMPARISON: 04/28/2024. TECHNIQUE: PA chest, and 3 views of the bilateral ribs were obtained. FINDINGS: Lungs are clear. No consolidation, pneumothorax, or pleural effusion. The cardiomediastinal silhouette and pulmonary vasculature are normal. Acute appearing minimally displaced fractures of the right anterolateral fourth through seventh ribs. No definitive left rib fractures identified. XR/XR ribs BI min 4V w CXR1V IMPRESSION: 1. Acute minimally displaced fractures of the right anterolateral fourth through seventh ribs. 2. No definite acute fractures of the left ribs identified. 3. The lungs are clear without pneumothorax or effusion. Electronically signed by: Shawn Steen MD 12/04/2024 04:00 PM EDT Dictated By: Shawn Steen MD Signed By: <Electronically signed by Shawn Steen MD in OV> 12/04/24 1600 DD/ 1512 TD/TT: 12/04/24 1545 Book Publisher: [facility] External Provider IMG XR PROCEDURES Final Result documented in this encounter Visit Diagnoses Not on filedocumented in this encounter Care Teams Wide Area Network Systems Administrator Relationship Specialty Start Date End Date Shraddha Mustafa MD [address] [place] [phone] PCP - General Family Medicine 03/21/17 Mike Kang, PharmD [address] [place] [phone] Pharmacist Internal Medicine 12/10/22 documented as of this encounter
--- OUTSIDE RECORDS SUMMARY | 2024-12-04 16:37 | XMS_ITS | Encounter Summary ---
Author Organization [employer] Address [address] [facility] 7t [place] [address] Care Team Providers Care Supervisor Crack Off Name Role Phone Shraddha Mustafa MD Primary Care Provider + Mike Kang PharmD Unavailable [phone] Reason for Visit * Reason Onset Date Comments Call Back Request 05/06/2024 Encounter Details Date Type Department Care Team ([facility] st Contact Info) Description 05/06/2024 Telephone [facility] [address] [place], [place] [phone] Shraddha Mustafa MD [address] [place], [place] [phone] Call Back Request Social History Tobacco Use [...] 10:28 AM EDT Tc from Kathrine from [facility] requesting a call back to obtain any information regarding the patients mental stability states is under the suspension of Hoarding and is planning to enter the patient residency on or after 05/08 any information would help please call Kathrine at [phone] documented in this encounter Plan of Treatment Upcoming Encounters Date Type Department Care Team (Late st Contact Info) Description 12/11/2024 12:00 PM EDT Office Visit [facility] [address] [place] [phone] Shraddha Mustafa MD [address] [place] [phone] documented as of this encounter Goals Goal Patient Goal Type Associated Problems Recent Progress Patient-Stated? Author Blood Pressure < 150/90 Blood Pressure 180/96(2024 2:58 PM EST) Mike Crook, PharmD Note: Per JNC-8 : Age>60, No history of DM or CKD documented as of this encounter Visit Diagnoses Not on filedocumented in this encounter Care Teams Supervisor Crack Off Relationship Specialty Start Date End Date Shraddha Mustafa MD [address] [place] [phone] PCP - General Family Medicine 03/21/17 Mike Kang, JuliánD [address] [place] [phone] Pharmacist Internal Medicine 12/10/22 documented as of this encounter
--- OUTSIDE RECORDS SUMMARY | 2024-12-04 16:37 | XMS_ITS | Encounter Summary ---
Author Organization [employer] Address [address] [facility] [address] [place] [address] Care Team Providers Care Master In Chancery Name Role Phone Shraddha Mustafa MD Primary Care Provider + Mike Kang PharmD Unavailable [phone] Encounter Details Date Type Department Care Team (Late st Contact Info) Description 04/25/2023 Abstract [facility] [address] [place] [address] Gordy Calderon DDS [address] [place], [place] [phone] Social History Tobacco Use Types Packs/Day Years [...] 12/11/2024 12:00 PM EDT Office Visit [facility] [address] [place], [place] [phone] Shraddha Mustafa MD [address] [place] [phone] documented as of this encounter Goals Goal Patient Goal Type Associated Problems Recent Progress Patient-Stated? Author Blood Pressure < 150/90 Blood Pressure 180/96(2024 2:58 PM EST) No Mike Kang, PharmD Note: Per JNC-8 : Age>60, No history of DM or CKD documented as of this encounter Visit Diagnoses Not on filedocumented in this encounter Care Teams Master In Chancery Relationship Specialty Start Date End Date Shraddha Mustafa MD [address] [place] [address] PCP - General Family Medicine 03/21/17 Mike Kang, PharmD [address] [place] [phone] Pharmacist Internal Medicine 12/10/22 documented as of this encounter
--- OUTSIDE RECORDS SUMMARY | 2024-12-04 16:37 | XMS_ITS | Encounter Summary ---
Author Organization [employer] Address [address] [facility] 7t [place] [address] Care Team Providers Care Factory Focus Technician Name Role Phone Shraddha Mustafa MD Primary Care Provider + Mike Kang PharmD Unavailable [phone] Reason for Visit * Reason Comments Med Refill Encounter Details Date Type Department Care Team (Late st Contact Info) Description 12/04/2024 Refill [facility] [address] [place], [place] [phone] Shraddha Mustafa MD [address] [place], [place] [phone] Social History Tobacco Use Types Packs/Day Years [...] Description 12/11/2024 12:00 PM EDT Office Visit [facility] [address] [place] [phone] Shraddha Mustafa MD [address] [place] [phone] documented as of this encounter Goals Goal Patient Goal Type Associated Problems Recent Progress Patient-Stated? Author Blood Pressure < 150/90 Blood Pressure 180/96(2024 2:58 PM EST) No Mike Kang PharmD Note: Per JNC-8 : Age>60, No history of DM or CKD documented as of this encounter Visit Diagnoses Not on filedocumented in this encounter Care Teams Factory Focus Technician Relationship Specialty Start Date End Date Shraddha Mustafa MD [address] [place] [phone] PCP - General Family Medicine 03/21/17 Mike Kang, Tamara [address] [place] [phone] Pharmacist Internal Medicine 12/10/22 documented as of this encounter
--- OUTSIDE RECORDS SUMMARY | 2024-12-04 16:37 | XMS_ITS | Clinical Summary ---
Author Organization [employer] Address [address] [facility] [address] [place] [address] Care Team Providers Care Fun House Attendant Name Role Phone Shraddha Mustafa MD Primary Care Provider + Mike Kang PharmD Unavailable [phone] Allergies No known active allergies Medications docusate [...] BEDTIME 30 tablet 3 07/24/20 24 Active fluticasone (Flonase) 50 MCG/ACT nasal spray Administer 1 spray into each nostril Once per day. 16 g 2 08/19/19 25 Active sodium chloride ([place] Nasal [place]) 0.65 % nasal spray Administer 1 spray [...] MORNING 90 tablet 1 11/10/19 25 Active Ventolin HFA 108 (90 Base) MCG/ACT inhaler INHALE 2 PUFFS BY MOUTH EVERY 4 TO 6 HOURS NEEDED 18 g 3 12/05/19 25 Active cetirizine (ZyrTEC) 10 MG tabletIndication s:Influenza A TAKE 1 TABLET BY MOUTH EVERY MORNING 90 tablet 1 04/15/20 24 03/31/2 025 Discontinued Ventolin HFA 108 (90 Base) MCG/ACT inhaler INHALE 2 PUFFS BY MOUTH EVERY 4 TO 6 HOURS NEEDED 18 g 3 08/04/20 24 025 Discontinued Active Problems Problem Noted Date [...] Encounters Date Type Department Care Team Description 12/04/2024 Orders Only GENERIC EXTERNAL DATA DEPARTMENT Provider, Generic External Data 12/04/2024 Refill [facility] [address] [place] [address] Shraddha Mustafa MD 11/08/2024 Refill [facility] [address] [place] [phone] Shraddha Mustafa MD Influenza A 10/05/2024 Refill [facility] [address] [place] [phone] Shraddha Mustafa MD 09/24/2024 Telephone [facility] [address] [place] [phone] Shraddha Mustafa MD May recall 09/23/2024 Refill [facility] [address] [place] [address] Luz Neville MD 09/23/2024 Refill [facility] [address] [place] [address] Shraddha Mustafa MD 09/21/2024 Refill [facility] [address] [place] [phone] Shraddha Mustafa MD 09/18/2024 Telephone [facility] [address] [place] [phone] Katerin Diaz RN Results 09/18/2024 Orders Only [facility] [address] [place] [address] Luz Neville MD Group B streptococcal UTI (Primary Dx) 09/18/2024 Refill [facility] [address] [place] [address] Shraddha Mustafa MD 09/17/2024 Refill [facility] [address] [place] [address] Shraddha Mustafa MD 09/16/2024 Telephone [facility] [address] [place] [address] Sofia Michel FNP Results 09/15/2024 2:40 PM EST Office Visit [facility] [address] [place] [address] Luz Neville MD Acute pain of left thigh (Primary Dx); Bilateral leg edema; Hypertension, essential 09/15/2024 Refill [facility] [address] [place] [address] Shraddha Mustafa MD 09/09/2024 Refill [facility] [address] [place], [place] [phone] Shraddha Mustafa MD from Last 3 Months Immunizations Name Administration [...] Height 157.5 cm (5' 2 ) 09/15/2024 2:5 7 PM EST Body Mass Index 28.31 09/15/2024 2:57 PM EST Plan of Treatment Upcoming Encounters Date Type Department Care Team (Late st Contact Info) Description 12/11/2024 12:00 PM EDT Office Visit [facility] [address] [place] [address] Shraddha Mustafa MD [address] [place] [address] Health Maintenance Due Date Last Done Comments [...] 05/09/2023, 03/11/2012 Depression Screening 04/28/2025 04/28/2024, 04/28/20 24 SDOH Screening 04/28/2025 04/28/2024 Mammogram 09/01/2025 09/01/2024, [...] Procedure Name Priority Date/Time Associated Diagnosis Comments MAGNESIUM Routine 12/04/2024 3:32 PM EDT COMPREHENSIVE METABOLIC PANEL Routine 12/04/2024 3:32 PM EDT HIGH SENSITIVITY TROPONIN I Routine 12/04/2024 3:32 PM EDT CBC WITH AUTO DIFFERENTIAL Routine 12/04/2024 3:32 PM EDT XR RIBS BILATERAL 4+ VW W PA CHEST Routine 12/04/2024 3:12 PM EDT URINALYSIS, COMPLETE Routine 09/16/2024 10:05 AM EST Bilateral leg edema CREATINE KINASE, TOTAL Routine 09/16/2024 10:05 AM EST Acute pain of left thigh BASIC METABOLIC PANEL Routine 09/16/2024 10:05 AM EST Bilateral leg edema CULTURE, URINE, ROUTINE Routine 09/16/2024 10:05 AM EST Abnormal urinalysis XR HIP LEFT WITH PELVIS 1 VIEW Routine 09/16/2024 9:33 AM EST Acute pain of left thigh BI MAMMOGRAM SCREENING TOMOSYNTHESIS BILATERAL Routine 09/01/2024 [...] Recently Relevant to Health Maintenance Results * High Sensitivity Troponin I (12/04/2024 3:32 PM EDT) [facility] TROPONIN I HIGH SENSITIVITY 10.9 <3.5 - 17.0 ng/L [facility] Comment:The Brown high sens itivity Troponin-I results should beused in conjunction with other diagnostic information suchas ECG, clinical observations and information, and patientsymptoms to aid in the diagnosis of OR. 12/04/2024 3:32 PM EDT 12/04/2024 3:34 PM EDT us Generic External Data Provider LAB BLOOD ORDERAB LES Final Result [facility] [address] [place] [address] [phone] * (ABNORMAL) CBC auto differential (12/04/2024 3:32 PM EDT) [facility] White Blood Count 5.8 4.8 - 10.8 X10*3/uL [facility] Red Blood Count 4.83 4.20 - 5.50 X10*6/uL [facility] Hemoglobin 13.3 12.0 - 16.0 g/dl [facility] Hematocrit 41.4 37.0 - 47.0 % [facility] Mean Corpuscular Volume 85.7 80.0 - 98.0 fL [facility] Mean Corpuscular Hemoglobin 27.5 27.0 - 33.0 pg [facility] Mean Corpuscular HGB Conc 32.1 31.0 - 35.0 g/dl [facility] Red Cell Distribution Width 12.9 11.0 - 16.0 % [facility] Platelet Count 243 160 - 400 X10*3/uL [facility] Mean Platelet Volume 10.3 9.4 - 12.3 fL [facility] Neutrophils Percent Auto 47.9 45 - 73 % [facility] Imm Gran Pct Auto 0.3 0.0 - 0.4 % [facility] Lymphocytes Percent Auto 34.8 20 - 40 % [facility] Monocytes Percent Auto 14.1(H) 2 - 11 % [facility] Eosinophils Percent Auto 2.4 0 - 4 % [facility] Basophils Percent Auto 0.5 0 - 2 % [facility] NRBC Pct Auto 0.0 0.0 - 0.2 /100WBC [facility] Neutrophils Absolute Auto 2.8 2.0 - 8.3 x10*3/uL [facility] Imm Gran Abs Auto 0.02 0.00 - 0.03 X10*3/uL [facility] Lymphocytes Absolute Auto 2.0 1.2 - 4.9 X10*3/uL [facility] Monocytes Absolute Auto 0.8 0.1 - 1.2 X10*3/uL [facility] Eosinophils Absolute Auto 0.1 0.0 - 0.4 X10*3/uL [facility] Basophils Absolute Auto 0.0 0.0 - 0.2 X10*3/uL [facility] NRBC Abs Auto 0.000 0.0 - 0.012 X10*3/uL [facility] 12/04/2024 3:32 PM EDT 12/04/2024 3:34 PM EDT us Generic External Data Provider LAB BLOOD ORDERAB LES Final Result [facility] [address] [place] [phone] * Magnesium (12/04/2024 3:32 PM EDT) Magnesium 2.2 1.6 - 2.6 mg/dL [facility] 12/04/2024 3:32 PM EDT 12/04/2024 3:34 PM EDT us Generic External Data Provider LAB BLOOD ORDERAB LES Final Result [facility] [address] [place] [address] [phone] * (ABNORMAL) Comprehensive Metabolic Panel (12/04/2024 3:32 PM EDT) Sodium 139 135 - 145 mmol/L [facility] Potassium 4.5 3.3 - 5.1 mmol/L [facility] Chloride 105 96 - 108 mmol/L [facility] Carbon Dioxide 26 22 - 29 mmol/L [facility] Anion Gap 13 12 - 20 [facility] Urea Nitrogen (BUN) 20(H) 9 - 16 mg/dL [facility] Creatinine, Serum 0.79 0.5 - 1.4 mg/dL [facility] Creatinine Clr Calc Pharmacy 66.4 [facility] Comment:Provided height and weight: 162.56 cm,68.2 kg.eGFR (calculated from the MDRD study equation) and eCrCl(calculated from the Cockcroft-Gault equation) are based ondifferent parameters and may not yield comparable results.If eCrCl result is absurd, please check patient'sheight/weight. Estimated Glomerular Filt Rate >60 [facility] Comment:Chronic Kidney Disea se: Estimated GFR < 60 mL/min/1.25a6Anpktu Kidney Disease: Estimated GFR < 15 mL/min/1.73m2 Glucose 80 60 - 115 mg/dL [facility] Calcium 9.6 8.4 - 10.2 mg/dL [facility] Bilirubin, Total 0.5 0.0 - 1.0 mg/dL [facility] Aspartate Amino Transferase 26 5 - 31 U/L [facility] Alanine Aminotransferase 18 0 - 31 U/L [facility] Total Protein 7.5 6.5 - 8.0 g/dL [facility] Albumin Level 4.2 3.5 - 5.0 g/dL [facility] Alkaline Phosphatase 117 39 - 117 U/L [facility] 12/04/2024 3:32 PM EDT 12/04/2024 3:34 PM EDT us Generic External Data Provider LAB BLOOD ORDERAB LES Final Result [facility] [address] [place] [address] [phone] * XR RIBS BILATERAL 4+ VW W PA CHEST (12/04/2024 3:12 PM EDT) Anatomical Region Laterality Modality Rib, Abdomen Bilateral Radiographic Tayla ging 12/04/2024 3:12 PM EDT Narrative 12/04/2024 4:03 PM EDT ? [facility] ?[address] ?[place] [address] ?XRay Report ? Signed ? Patient: Rob,Carina ?MR#: [id number] ?? 1500 ? : 1960 ?Acct:[id number] ? Age/Sex: 64 / F ?ADM Date: 12/04/24 ? Loc: HO.ED ? Attending Dr: ? Ordering Physician: Alison Triana ?? Date of Service: 12/04/24 ?? Procedure(s): XR ribs BI min 4V w CXR1V ?? Accession Number(s): [id number] ? cc: Shraddha Mustafa MD; Alison Triana [...] DD/ 1512 ? TD/TT: 12/04/24 1545 ? Physician: ? Procedure Note Donmayank, Image - 12/04/[address] [address] XRay Report Signed Patient: Jakub Rivas#: [id number] 1500 : 9Acct:[id number] Age/Sex: 64 / FADM Date: 12/04/24 Loc: HO.ED Attending Dr: Ordering Physician: Alison Triana Date of Service: 12/04/24 Procedure(s): XR ribs BI min 4V w CXR1V Accession Number(s): [id number] cc: Shraddha Mustafa MD; Alison Triana EXAMINATION: [...] Shawn Steen MD 12/04/2024 04:00 PM EDT RP Dictated By: Shawn Steen MD Signed By: <Electronically signed by Shawn Steen MD in OV> 12/04/24 1600 DD/ 1512 TD/TT: 12/04/24 1545 Physician: [facility] External Provider IMG XR PROCEDURES Final Result * (ABNORMAL) Urinalysis Complete (09/16/2024 10:05 AM EST) Color Urine Yellow [facility] Appearance Urine Clear [facility] PH 6.0 5.0 - 9.0 [facility] Glucose Urine UA Negative Negative mg/dL [facility] Urine Blood Negative Negative [facility] Specific [place] - Urine 1.025 1.005 - 1.025 [facility] Urine Protein 30 (1+)(A) Neg-Trace mg/dL [facility] Urine Ketones Negative Negative mg/dL [facility] Nitrite Urine Negative Negative [facility] Leukocyte Esterase Urine Moderate (2+)(A) Negative [facility] RBC Urine 0-2 0 - 2 /HPF [facility] Urine WBC 6-10(A) 0 - 5 /HPF [facility] Urine Squamous Epithelial Cell 11-20 0 - 2 /HPF [facility] Urine Bacteria Trace None Seen [facility] Hyaline Casts, Urine 0-2 0 - 2 /LPF [facility] Urine (Urine, Random) 09/16/2024 10:05 AM EST 09/16/2024 10:56 AM EST Luz Neville MD LAB URINE ORDERABLES Final Re sult [facility] [address] [place] [address] [phone] * Culture, Urine, Routine (09/16/2024 10:05 AM EST) Urine Urine specimen obtained by clean catch procedure / Unknown 09/16/2024 10:05 AM EST 09/16/2024 5:26 PM EST Comment:UACC Narrative [facility] - 09/18/2024 1:42 PM EST Strep agalactiae (Grp B) Quant > 100,000 cfu/mL Susc N/A Susceptibility not routinely performed on this isolate. Specimen Source: Urine clean catch us Sofia Michel PRODUCT CONSULTANT LAB MICROBIOLOGY - GENERAL ORD ERABLES Final Result Performing Organization Address City/[facility]/ZIP Co de Phone Number [facility] [address] [place] [phone] * (ABNORMAL) Creatine Kinase, Total (09/16/2024 10:05 AM EST) Creatine Kinase Total 155(H) 26 - 140 U/L [facility] Blood Venous blood specimen / Unknown 09/16/2024 10:05 AM EST 09/16/2024 10:51 AM EST us Luz Neville MD LAB BLOOD ORDERABLES Final Re sult Performing Organization Address [facility] Co de Phone Number [facility] [address] [place] [phone] * (ABNORMAL) Basic Metabolic Panel (09/16/2024 10:05 AM EST) Sodium 139 135 - 145 mmol/L [facility] Potassium 4.4 3.3 - 5.1 mmol/L [facility] Chloride 104 96 - 108 mmol/L [facility] Carbon Dioxide 29 22 - 29 mmol/L [facility] Anion Gap 10(L) 12 - 20 [facility] Urea Nitrogen (BUN) 19(H) 9 - 16 mg/dL [facility] Creatinine, Serum 0.76 0.5 - 1.4 mg/dL [facility] Estimated Glomerular Filt Rate >60 [facility] Comment:Chronic Kidney Disea se: Estimated GFR < 60 mL/min/1.61z8Wblsjj Kidney Disease: Estimated GFR < 15 mL/min/1.73m2 Glucose 134(H) 60 - 115 mg/dL [facility] Calcium 9.3 8.4 - 10.2 mg/dL [facility] Blood Venous blood specimen / Unknown 09/16/2024 10:05 AM EST 09/16/2024 10:51 AM EST us Luz Neville MD LAB BLOOD ORDERABLES Final Re sult [facility] [address] [place] [address] [phone] * XR Hip left with Pelvis 1 view (09/16/2024 9:33 AM EST) Anatomical Region Laterality Modality Lower Extremities, Hip Bilateral Radiograp hic Imaging 09/16/2024 9:33 AM EST Narrative 09/16/2024 10:04 AM EST ?[facility] ?[address] ?[place] [address] ?XRay Report ? Signed ? Patient: Carina Rivas ?MR#: [id number] ?? 1500 ? : 1960 ?Acct:[id number] ? Age/Sex: 64 / F ?ADM Date: 09/16/24 ? Loc: HO.HHCX ? Attending Dr: Luz Neville MD ? Ordering Physician: Luz Neville MD ?? Date of Service: 09/16/24 ?? Procedure(s): XR hip LT w PEL1V ?? Accession Number(s): [id number] ? cc: Luz Neville MD ? EXAMINATION: [...] MD in OV> ?09/16/24 1001 ? DD/ ? TD/TT: 09/16/2440 ? Physician: ? Procedure Note Ramona, Image - 09/16/2024 [place] [address] XRay Report Signed Patient: Jakub Rivas#: [id number] 1500 : 9Acct:[id number] Age/Sex: 64 / FADM Date: 09/16/24 Loc: HO.HHCX Attending Dr: Luz Neville MD Ordering Physician: Luz Neville MD Date of Service: 09/16/24 Procedure(s): XR hip LT w PEL1V Accession Number(s): [id number] cc: Luz Neville MD EXAMINATION: XR HIP, [...] Shawn Steen MD 09/16/2024 10:01 AM EST RP Dictated By: Shawn Steen MD Signed By: <Electronically signed by Shawn Steen MD in OV> 09/16/24 1001 DD/ 0933 TD/TT: 09/16/24 0940 Physician: us Luz Neville MD IMG XR PROCEDURES Edited Resu lt - Final * BI Mammogram Screening Tomosynthesis Bilateral (09/01/2024 1:35 PM EST) Anatomical Region Laterality Modality Breast Bilateral Mammography 09/01/2024 1:35 PM EST Narrative 09/10/2024 9:58 AM EST ? [facility] [place] ? [address] ?[place] [address] ? Mammography Report ? Signed ? Patient: Rob,Carina ?MR#: [id number] ?? 1500 ? : 1960 ?Acct:[id number] ? Age/Sex: 63 / F ?ADM Date: 09/01/ ? Loc: HO.MAMMO ? Attending Dr: Shraddha Mustafa MD ? Ordering Physician: Shraddha Mustafa. MD ?Results: 2Be ?? nign Findings ? Date of Service: 09/01/ ?Follow Up: 1 Year From Orig ?? inal Mammogram ? Procedure(s): MM tomosynthesis screening BI ?? Accession Number(s): [id number] ? cc: Shraddha Mustafa MD ? EXAMINATION: [...] DD/ 1335 ? TD/TT: 09/01/24 1350 ? Physician: ? Procedure Note Ramona, Image - 09/10/2024 [facility] [address] [place] [address] [place] [address] Mammography Report Signed Patient: Jakub Rivas#: [id number] 1500 : 9Acct:[id number] Age/Sex: 63 / FADM Date: 09/01/24 Loc: HO.MAMMO Attending Dr: Shraddha Mustafa MD Ordering Physician: Shraddha Mustafa MDResults: 2Be nign Findings Date of Service: 09/01/24Follow Up: 1 Year From Orig inal Mammogram Procedure(s): MM tomosynthesis screening BI Accession Number(s): [id number] cc: Shraddha Mustafa MD EXAMINATION: MM SCREENING [...] 09/10/24 0955 DD/ 1335 TD/TT: 09/01/24 1350 Physician: us Shraddha Mustafa MD IMG BI PROCEDURES Final Result * (ABNORMAL) Lipid Panel with Reflex to Direct LDL (08/18/2024 9:56 AM EST) Triglycerides 249(H) <150 mg/dL [facility] Comment:Desirable Triglyceri de: less than 150 mg/dLBorderline High Triglyceride 150-199 mg/dLHigh Triglyceride: 200-499 mg/dLVery High Triglyceride: greater than or equal to 5OO mg/dL Cholesterol 246(H) <200 mg/dL [facility] Comment:Desirable Cholestero l: less than 200 mg/dLBorderline High Cholesterol: 200-239 mg/dLHigh Cholesterol: greater than 239 mg/dL LDL Cholesterol Calculated 153(H) <100 mg/dL [facility] Comment:Desirable LDL: less than 100 mg/dLNear Optimal/Above Optimal LDL: 110- 129 mg/dLBorderline High LDL: 130-159 mg/dLHigh LDL: 160-189 mg/dLVery High LDL: greater than or equal to 190 mg/dL HDL Cholesterol 44 >40 mg/dL [facility] Comment:Desirable HDL: great er than 40 mg/dL Note: This HDL assay may give artificially low results in patients with liver disease. Blood 08/18/2024 9:56 AM EST 08/18/2024 11:15 AM EST us Shraddha Mustafa MD LAB BLOOD ORDERABLES Fin al Result Performing Organization Address City/State/[facility] Co de Phone Number [facility] [address] [place] [phone] from Last 3 Months or Most Recently Relevant to Health Maintenance Insurance [facility] Care Teams Fun House Attendant Relationship Specialty Start Date End Date Shraddha Mustafa MD [address] [place] [address] PCP - General Family Medicine 03/21/17 Mkie Kang, Tamara [address] [place] [address] Pharmacist Internal Medicine 12/10/22
--- OUTSIDE RECORDS SUMMARY | 2024-12-04 16:37 | XMS_ITS | Encounter Summary ---
Author Organization [employer] Address [address] [facility] [address]t [place] [address] Care Team Providers Care Intern Architect Name Role Phone Shraddha Mustafa MD Primary Care Provider + Mike Kang PharmD Unavailable [phone] Encounter Details Date Type Department Care Team (Late st Contact Info) Description 04/30/2024 Orders Only [facility] [address] [place], [place] [phone] Bala Mcdonald MD [address] [place], [place] [phone] Social History Tobacco Use Types Packs/Day Years [...] Description 12/11/2024 12:00 PM EDT Office Visit [facility] [address] [place] [address] Shraddha Mustafa MD [address] [place] [address] documented as of this encounter Goals Goal Patient Goal Type Associated Problems Recent Progress Patient-Stated? Author Blood Pressure < 150/90 Blood Pressure 180/96(2024 2:58 PM EST) No Mike Kang, Tamara Note: Per JNC-8 : Age>60, No history of DM or CKD documented as of this encounter Visit Diagnoses Not on filedocumented in this encounter Care Teams Intern Architect Relationship Specialty Start Date End Date Shraddha Mustafa MD [address] [place] [phone] PCP - General Family Medicine 03/21/17 Mike Kang, JuliánD [address] [place] [address] [phone] Pharmacist Internal Medicine 12/10/22 documented as of this encounter
--- OUTSIDE RECORDS SUMMARY | 2024-12-04 16:37 | XMS_ITS | Encounter Summary ---
Author Organization [email or web address] Address [address] [facility] [address] [place] [address] Care Team Providers Care Echometer Engineer Name Role Phone Shraddha Mustafa MD Primary Care Provider + Mike Kang PharmD Unavailable Reason for Visit * Reason Comments Med Refill Encounter Details Date Type Department Care Team ([facility] Contact Info) Description 12/10/2022 Refill [facility] [address] [place] [phone] Trish Gonzalez MD [address] [place] [address] [phone] Social History Tobacco Use Types Packs/Day Years [...] Upcoming Encounters Date Type Department Care Team ([facility] Contact Info) Description 12/11/2024 12:00 PM EDT Office Visit [facility] [address] [place] [phone] Shraddha Mustafa MD [address] [place] [phone] documented as of this encounter Goals Goal Patient Goal Type Associated Problems Recent Progress Patient-Stated? Author Blood Pressure < 150/90 Blood Pressure 180/96(2024 2:58 PM EST) No Mike Kang, Tamara Note: Per JNC-8 : Age>60, No history of DM or CKD documented as of this encounter Visit Diagnoses Not on filedocumented in this encounter Care Teams Echometer Engineer Relationship Specialty Start Date End Date Shraddha Mustafa MD [address] [place] [phone] PCP - General Family Medicine 03/21/17 Mike Kang, JuliánD [address] [place] [phone] Pharmacist Internal Medicine 12/10/22 documented as of this encounter
[2024-12-04] MEDS: oxyCODONE HCl Immed Release 5 MG TABLET PO (17:41)
[2024-12-04] MEDS: Ketorolac Tromethamine 15 MG/ML VIAL IVPUSH (17:41)
[2024-12-04] MEDS: Gabapentin 100 MG CAPSULE PO (17:41)
[2024-12-04] MEDS: iohexoL 350 MG/ML 100 ML INFUS..BTL IV (17:50)
--- NOTE | 2024-12-04 19:43 | PC.NURSE ---
Notified Roxana Jackson of elevated blood pressure.
[2024-12-04] MEDS: lisinopriL 20 MG TABLET PO (19:54)
[2024-12-04] MEDS: hydroCHLOROthiazide 12.5 MG TABLET PO (19:55)
[2024-12-04] MEDS: amLODIPine Besylate 5 MG TABLET PO (19:56)
[2024-12-04 19:59] LABS: Troponin-I High Sensitivity 11.4 ng/L (<3.5-17.0)
--- NOTE | 2024-12-04 20:01 | PC.NURSE ---
pt medicated per MAR for HTN as pt sts she has not taken her B/P meds in the last 2 days
--- NOTE | 2024-12-04 22:34 | PC.NURSE ---
Reviewed discharge instructions with pt. pt verbalized understanding, no sign of distress, pt ambulated with a steady gait.
== END 2024-12-04 22:36 | disposition home or self-care (01) ==
PROVIDERS: Physician Assistant Medical; Emergency Provider Emergency Medicine; PCP Internal Medicine
DX: R07.89 Other chest pain (principal); K59.00 Constipation, unspecified; I10 Essential (primary) hypertension; J45.909 Unspecified asthma, uncomplicated; Z79.899 Other long term (current) drug therapy
CPT/HCPCS: 36415; 71111; 71260; 74018; 80053; 83735; 84484; 85025; 93005; 96374; 99284; 99285; J1885; Q9967

== ENCOUNTER → 2024-12-04 15:12 | Outpatient (BNV) | payer OTHER, SELFPAY | PROVIDERS: PCP Internal Medicine; Visit Provider Radiology Diagnostic Radiology | DX: R14.0 Abdominal distension (gaseous) (principal); S22.41XA Multiple fractures of ribs, right side, initial encounter for closed fracture; R07.89 Other chest pain | CPT/HCPCS: 71111; 71260; 74018 ==

== ENCOUNTER → 2024-12-04 15:14 | Outpatient (BNV) | payer OTHER, SELFPAY | PROVIDERS: Emergency Provider Emergency Medicine; PCP Internal Medicine; Visit Provider Internal Medicine | DX: R07.81 Pleurodynia (principal) | CPT/HCPCS: 93010 ==

== ENCOUNTER 2025-07-20 13:15 | Outpatient (REF) | payer OTHER, SELFPAY ==
[2025-07-21 11:52] LABS: Appearance Urine Clear; Glucose Urine UA Negative (Negative); PH 5.5 (5.0-9.0); Specific Gravity - Urine 1.020 (1.005-1.025); UMIC TRIGGER UACC YES
[2025-07-21 12:08] LABS: UACC Culture Trigger YES
[2025-07-21 13:01] LABS: Bacterial Vaginosis PCR NEGATIVE (Negative); Candida Group PCR NOT DETECTED (Not Detect); Candida glab krusei PCR NOT DETECTED (Not Detect); Trichomonas vaginalis PCR NOT DETECTED (Not Detect)
== END 2025-07-20 13:16 | disposition home or self-care (01) ==
LOC: HO.LAB 13:15
PROVIDERS: PCP Internal Medicine; Visit Provider Advanced Practice Midwife
DX: Z01.419 Encounter for gynecological examination (general) (routine) without abnormal findings (principal); R30.0 Dysuria; Z78.0 Asymptomatic menopausal state; N76.0 Acute vaginitis; Z80.3 Family history of malignant neoplasm of breast
CPT/HCPCS: 81001; 81515; 87086

== ENCOUNTER 2025-07-20 13:15 | Outpatient (AMB) | payer OTHER, SELFPAY ==
--- NOTE | 2025-07-20 13:23 | A.OFFVIS_ITS ---
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 Intake Note: Marketing Services Manager number [phone] Marketing Services Manager Required: Yes Marketing Services Manager Language: Patternmaker Apprentice Wood Services: Marketing Services Manager Present Marketing Services Manager Name: voice id # [id number] Information Interpreted: non-clinical & clinical Allergies No Known Allergies (No Known Allergies*) Allergy (Verified 07/20/25 14:40) Medication List - Last Reconciled 07/20/25 by Katherine Corbett CNM amlodipine 5 mg PO DAILY atorvastatin 20 mg PO DAILY clobetasol 0.05% 1 appl topical BID 2 weeks clobetasol 0.05% 1 appl topical BID 2 weeks cyclobenzaprine 10 mg PO TID PRN cyclobenzaprine 10 mg PO TID docusate sodium (Colace) 100 mg PO BID lisinopril-hydrochlorothiazide 20-12.5 mg 1 tab PO DAILY montelukast 10 mg PO QPM polyethylene glycol 3350 (Miralax) 17 grams PO TID sertraline 50 mg PO DAILY trazodone 50 mg PO BEDTIME Post menopausal: Yes HPI Comments Details: Pt presents today for ANNUAL exam She has the following concerns: itching/buringing with urination for several weeks, has not tried any otc relief willis She is not in a relationship/not sexually active. Exercise: daily walks Nutrition/calcium: limited calcium intake Contraception: hyst/post-menopause Last Pap: n/a , Last mammo: 08/2024, Results Birads 2 PFSH Medical History (Updated 07/20/25 @ 14:47 by Katherine Corbett CNM) Family history of breast cancer in first degree relative Substance abuse Left knee pain Asthma Depressed Hypertension Surgical History (Updated 07/20/25 @ 14:26 by Katherine Corbett CNM) History of hysterectomy History of left knee surgery Family History (Updated 07/20/25 @ 14:28 by Katherine Corbett CNM) Mother No problems noted. Father No problems noted. Sister Breast CA Family/Other Breast CA Social History (Updated 07/20/25 @ 14:29 by Katherine Corbett CNM) Alcohol intake: never Current occupational status: unemployed Female Reproductive History Menstrual Menopause type: surgical Age of menopause: 21 Total pregnancies: 5 Full term: 2 Number of Living Children: 2 Ab induced: 3 History of abnormal pap smear: No History of STI: No Date of Mammogram: 09/01/24 Review of Systems Const Reports no additional complaints Eyes Reports no additional complaints ENT Reports no additional complaints Card Reports no additional complaints Resp Reports no additional complaints GI Reports no additional complaints Reports as per HPI Skin/Breast Reports system reviewed and no additional complaints, except as documented Physical Exam Vital Signs: Last Vital Signs BP 110/66 07/20/25 13:30 Const General: cooperative, healthy appearing and no acute distress Orientation/consciousness: patient oriented x3 HEENT Head: Yes normocephalic Ears: external ears normal General nose exam: Normal external nose present Neck Neck: Yes normal visual inspection Chest Breast/axilla inspection: normal inspection of the breasts and normal inspection of the axillae Breast/axilla palpation: normal palpation of the breasts, normal palpation of the axillae and no axillary lymphadenopathy Resp Effort & Inspection: normal respiratory effort and able to speak in complete sentences GI Inspection: Yes distended Palpation (GI): Soft to palpation and nontender Percussion: Yes normal to percussion Rectal Exam - Female: External hemorrhoid(s) present External Female Exam: normal external appearance and normal appearance of the urethra Speculum Exam - Vagina: normal appearance of the vagina and vagina atrophic Speculum Exam - Cervix: Cervix absent (Vaginal cuff w/o lesions) Bimanual exam- vagina & uterus: uterus absent Skin General skin exam: no rashes or lesions noted Neuro General: patient oriented x3 Extrem General: Yes normal to inspection Psych Affect: normal affect Attitude: cooperative Assessment & Plan Assessment & Plan (1) Dysuria: Code(s): R30.0 - Dysuria (2) Well woman exam with routine gynecological exam: Code(s): Z01.419 - Encounter for gynecological examination (general) (routine) without abnormal findings (3) Post-menopause: Code(s): Z78.0 - Asymptomatic menopausal state (4) Acute vaginitis: Code(s): N76.0 - Acute vaginitis (5) Family history of breast cancer in first degree relative: Code(s): Z80.3 - Family history of malignant neoplasm of breast Category: Medical Plan During the visit, the following areas of concern were addressed: Regular exercise Healthy lifestyle Menopausal/luna-menopausal signs and symptoms, including nonprescription strategies for management Health Maintenance and Screening -Reviewed ASCCP guidelines for Paps and yearly (bi-yearly ) pelvic exam. -Reviewed and encouraged diet and exercise for cardiovascular and bone health -Reviewed breast self-awareness. Importance of yearly mammogram after age 40 (earlier if first-degree relative with breast cancer at a younger age ) Discuss use of 3 times per week weight-bearing exercise, vitamin D3 and servings of dietary calcium daily for bone health. -continue to follow with PCP for general medical care, immunizations. Screening strategies for colon cancer after age 50. Discussion of Kegel exercises for urinary incontinence Family and personal history of cancer reviewed. referral to genetic counseling The patient has BMI: 29 The patient is overweight. Approaches towards weight loss are discussed including burning more calories than one takes in by frequent, small meals, portion control, avoiding eating before bedtime, regular exercise with an emphasis on duration rather than intensity, strength training exercise, Enc to push po fluids, pending results will treat as needed, RTO one year or sooner amirah Corbett CNM Note about provider documentation : If you or the patient named in this chart and are reviewing your medical notes, please note that medical documentation is often written with abbreviations and medical terminology, and directed for other providers who may be involved in your care as well. Documentation is critical to record what has happened, what tests were ordered, and so they are interpreted with the resulting diagnoses. These notes have been made available for patient review but not specifically written for the patient. Important health information is always given to my patients in clinical instructions. Please review your after visit summary and our contact our clinical staff if you have any questions. Orders: Orders Bacterial Vaginosis Panel Today N76.0 - Acute vaginitis, Z01.419 - Encounter for gynecological examination (general) (routine) without abnormal findings UA CC w/rflx Micro + Cult Today R30.0 - Dysuria XR DEXA axial skeleton 1 Month Z01.419 - Encounter for gynecological examination (general) (routine) without abnormal findings, Z78.0 - Asymptomatic menopausal state Referrals Genetics Referral Z01.419 - Encounter for gynecological examination (general) (routine) without abnormal findings, Z80.3 - Family history of malignant neoplasm of breast Medications: Refilled clobetasol 0.05% Then maintenance therapy for 2-3 times per week 1 appl topical BID 45 grams 1RF 2 weeks Coding Level of Care Code Est Pt Prev Care >65y(46527) Diagnoses Dysuria R30.0 Well woman exam with routine gynecological exam Z01.419 Post-menopause Z78.0 Acute vaginitis N76.0 Family history of breast cancer in first degree relative Z80.3
[2025-07-20 13:30] VITALS: BP 148/80; BMI 29.9
--- OUTSIDE RECORDS SUMMARY | 2025-07-20 17:34 | XMS_ITS | Encounter Summary ---
Author Organization [employer] Address [address] [facility] 7t [place] [address] Care Team Providers Care Wet Room Worker Name Role Phone Shraddha Mustafa MD Primary Care Provider + Mike Kang PharmD Unavailable [phone] Reason for Visit * Reason Comments Med Refill Encounter Details Date Type Department Care Team (Late st Contact Info) Description 06/03/2025 Refill [facility] [address] [place] [address] Orlin Latham MD [address] [place], [place] [phone] Muscle spasm Social History Tobacco Use Types Packs/Day Years Used Date Smoking Tobacco: Former Cigarettes Q uit: 2002 Smokeless Tobacco: Never Alcohol Use Standard Drinks/Week Comments Never 0 (1 standard drink = 0.6 oz pur e alcohol) Depression Answer Date Recorded Patient Health Questionnaire-9 Score 17 12/11/2024 Patient Health Questionnaire-9 Score 17 12/11/2024 Last PHQ-9: Questionnaire Data Not on file 0 12/11/2024 Housing Stability Answer Date Recorded What is [...] Answer Date Recorded Patient Health Questionnaire-2 Score 5 12/11/2024 Internet Access Answer Date Recorded Internet Access [...] Care Team (Late st Contact Info) Description 09/14/2025 10:30 AM EST Office Visit [facility] [address] [place] [address] Shraddha Mustafa MD [address] [place] [phone] documented as of this encounter Goals Goal Patient Goal Type Associated Problems Recent Progress Patient-Stated? Author Blood Pressure < 150/90 Blood Pressure 160/80(2024 10:49 AM EST) No Mike Kang, Tamara Note: Per JNC-8 : Age>60, No history of DM or CKD documented as of this encounter Visit Diagnoses Diagnosis Muscle spasm Spasm of muscle documented in this encounter Additional Health Concerns Assessment Noted Time PHQ-9 Depression Total Score: 17 025 11:49 AM EDT documented as of this encounter Care Teams Wet Room Worker Relationship Specialty Start Date End Date Shraddha Mustafa MD [address] [place] [phone] PCP - General Family Medicine 03/21/17 Mike Kang, JuliánD [address] [place] [phone] Pharmacist Internal Medicine 12/10/22 documented as of this encounter
--- OUTSIDE RECORDS SUMMARY | 2025-07-20 17:34 | XMS_ITS | Encounter Summary ---
Author Organization [employer] Address [address] [facility] 7t [place] [address] Care Team Providers Care Senior Materials Planner Name Role Phone Shraddha Mustafa MD Primary Care Provider + Mike Kang PharmD Unavailable [phone] Reason for Visit * Reason Comments Med Refill Encounter Details Date Type Department Care Team (Late st Contact Info) Description 09/17/2024 Refill [facility] [address] [place] [address] Shraddha Mustafa MD [address] [place], [place] [phone] Social History Tobacco Use Types Packs/Day Years [...] Description 09/14/2025 10:30 AM EST Office Visit [facility] [address] [place] [phone] Shraddha Mustafa MD [address] [place] [phone] documented as of this encounter Goals Goal Patient Goal Type Associated Problems Recent Progress Patient-Stated? Author Blood Pressure < 150/90 Blood Pressure 160/80(2024 10:49 AM EST) No Mike Kang PharmD Note: Per JNC-8 : Age>60, No history of DM or CKD documented as of this encounter Visit Diagnoses Not on filedocumented in this encounter Care Teams Senior Materials Planner Relationship Specialty Start Date End Date Shraddha Mustafa MD [address] [place] [phone] PCP - General Family Medicine 03/21/17 Mike Kang, Tamara [address] [place] [address] [phone] Pharmacist Internal Medicine 12/10/22 documented as of this encounter
--- OUTSIDE RECORDS SUMMARY | 2025-07-20 17:34 | XMS_ITS | Encounter Summary ---
Author Organization [employer] Address [address] [facility] 7t [place] [address] Care Team Providers Care Senior Network Security Architect Name Role Phone Shraddha Mustafa MD Primary Care Provider + Mike Kang PharmD Unavailable [phone] Encounter Details Date Type Department Care Team (Latest Contact Info) Description 05/15/2021 Abstract [facility] Dental, Provider, DDS Social History [...] Description 09/14/2025 10:30 AM EST Office Visit [facility] [address] [place] [phone] Shraddha Mustafa MD [address] [place] [phone] documented as of this encounter Visit Diagnoses Not on filedocumented in this encounter Care Teams Senior Network Security Architect Relationship Specialty Start Date End Date Shraddha Mustafa MD [address] [place] [address] PCP - General Family Medicine 03/21/17 Mike Kang, PharmD [address] [place] [address] Pharmacist Internal Medicine 12/10/22 documented as of this encounter
--- OUTSIDE RECORDS SUMMARY | 2025-07-20 17:34 | XMS_ITS | Encounter Summary ---
Author Organization [employer] Address [address] [facility] 7t [place] [address] Care Team Providers Care Medical Tech Name Role Phone Shraddha Mustafa MD Primary Care Provider + Mike Kang PharmD Unavailable [phone] Reason for Visit * Reason Comments Med Refill Encounter Details Date Type Department Care Team (Late st Contact Info) Description 09/23/2024 Refill [facility] [address] [place] [address] Shraddha Mustafa MD [address] [place] [address] Social History Tobacco Use Types Packs/Day Years [...] Description 09/14/2025 10:30 AM EST Office Visit [facility] [address] [place] [phone] Shraddha Mustafa MD [address] [place] [phone] documented as of this encounter Goals Goal Patient Goal Type Associated Problems Recent Progress Patient-Stated? Author Blood Pressure < 150/90 Blood Pressure 160/80(2024 10:49 AM EST) No Mike Kang PharmD Note: Per JNC-8 : Age>60, No history of DM or CKD documented as of this encounter Visit Diagnoses Not on filedocumented in this encounter Care Teams Medical Tech Relationship Specialty Start Date End Date Shraddha Mustafa MD [address] [place] [phone] PCP - General Family Medicine 03/21/17 Mike Kang, Tamara [address] [place] [address] [phone] Pharmacist Internal Medicine 12/10/22 documented as of this encounter
--- OUTSIDE RECORDS SUMMARY | 2025-07-20 17:34 | XMS_ITS | Encounter Summary ---
Author Organization [employer] Address [address] [facility] 7t [place] [address] Care Team Providers Care Scale Clerk Name Role Phone Shraddha Mustafa MD Primary Care Provider + Mike Kang PharmD Unavailable [phone] Reason for Visit * Reason Comments Med Refill Encounter Details Date Type Department Care Team (Late st Contact Info) Description 09/15/2024 Refill [facility] [address] [place] [address] Shraddha Mustafa MD [address] [place], [place] [phone] Social History Tobacco Use Types Packs/Day Years [...] Description 09/14/2025 10:30 AM EST Office Visit [facility] [address] [place] [phone] Shraddha Mustafa MD [address] [place] [phone] documented as of this encounter Goals Goal Patient Goal Type Associated Problems Recent Progress Patient-Stated? Author Blood Pressure < 150/90 Blood Pressure 160/80(2024 10:49 AM EST) No Mike Kang PharmD Note: Per JNC-8 : Age>60, No history of DM or CKD documented as of this encounter Visit Diagnoses Not on filedocumented in this encounter Care Teams Scale Clerk Relationship Specialty Start Date End Date Shraddha Mustafa MD [address] [place] [phone] PCP - General Family Medicine 03/21/17 Mike Kang, Tamara [address] [place] [address] [phone] Pharmacist Internal Medicine 12/10/22 documented as of this encounter
--- OUTSIDE RECORDS SUMMARY | 2025-07-20 17:34 | XMS_ITS | Encounter Summary ---
Author Organization [employer] Address [address] [facility] 7t [place] [address] Care Team Providers Care Airplane Pilot Helper Name Role Phone Shraddha Mustafa MD Primary Care Provider + Mike Kang PharmD Unavailable [phone] Reason for Visit * Reason Comments Med Refill Encounter Details Date Type Department Care Team ([facility] st Contact Info) Description 09/23/2024 Refill [facility] [address] [place], [place] [phone] Luz Neville MD [address] [place], [place] [phone] Social History Tobacco Use Types Packs/Day Years [...] 10:30 AM EST Office Visit [facility] [address] [place] [phone] Shraddha Mustafa MD [address] [place] [phone] documented as of this encounter Goals Goal Patient Goal Type Associated Problems Recent Progress Patient-Stated? Author Blood Pressure < 150/90 Blood Pressure 160/80(2024 10:49 AM EST) No Mike Kang PharmD Note: Per JNC-8 : Age>60, No history of DM or CKD documented as of this encounter Visit Diagnoses Not on filedocumented in this encounter Care Teams Airplane Pilot Helper Relationship Specialty Start Date End Date Shraddha Mustafa MD [address] [place] [phone] PCP - General Family Medicine 03/21/17 Mike Kang, Tamara [address] [place] [address] [phone] Pharmacist Internal Medicine 12/10/22 documented as of this encounter
--- OUTSIDE RECORDS SUMMARY | 2025-07-20 17:35 | XMS_ITS | Encounter Summary ---
Author Organization [employer] Address [address] [facility] 7t [place] [address] Care Team Providers Care Forest Products Teacher Name Role Phone Shraddha Mustafa MD Primary Care Provider + Mike Kang PharmD Unavailable [phone] Encounter Details Date Type Department Care Team (Late st Contact Info) Description 04/30/2024 Orders Only [facility] [address] [place], [place] [phone] Bala Mcdonald MD [address] [place], [place] [phone] Social History Tobacco Use Types Packs/Day Years [...] Description 09/14/2025 10:30 AM EST Office Visit [facility] [address] [place], [place] [phone] Shraddha Mustafa MD [address] [place] [address] documented as of this encounter Goals Goal Patient Goal Type Associated Problems Recent Progress Patient-Stated? Author Blood Pressure < 150/90 Blood Pressure 160/80(2024 10:49 AM EST) No Mike Kang, Tamara Note: Per JNC-8 : Age>60, No history of DM or CKD documented as of this encounter Visit Diagnoses Not on filedocumented in this encounter Care Teams Forest Products Teacher Relationship Specialty Start Date End Date Shraddha Mustafa MD [address] [place] [phone] PCP - General Family Medicine 03/21/17 Mike Kang, JuliánD [address] [place] [address] [phone] Pharmacist Internal Medicine 12/10/22 documented as of this encounter
--- OUTSIDE RECORDS SUMMARY | 2025-07-20 17:35 | XMS_ITS | Clinical Summary ---
Author Organization [employer] Address [address] [facility] 7t [place] [address] Care Team Providers Care Travel Nurse Name Role Phone Shraddha Mustafa MD Primary Care Provider + Mike Kang PharmD Unavailable [phone] Allergies No known active allergies Medications * This document contains information received from the source organization and may not represent a complete record from that organization. Diclofenac Sodium 1 % gelIndications: Chronic low back pain, unspecified back pain laterality, unspecified whether sciatica present APPLY 2 GRAMS TOPICALLY TWICE DAILY 100 g 3 05/27/20 23 Active lidocaine (Lidoderm) 5 % patchIndication s:Rib pain Apply 1 patch topically in the morning. Remove & discard patch within 12 hours or as directed by . 30 patch 09/12/19 24 Active chlorhexidine (Peridex) 0.12 % solutionIndicat ions:Symptomati c irreversible pulpitis Swish 15 mL morning and night for 1 minute. Spit, do not swallow. Do not eat or drink for 30 minutes following use. 473 mL 01/16/20 24 Active mometasone-form oterol (Dulera 100) 100-5 MCG/ACT inhaler Inhale 2 puffs in the morning and at bedtime. Rinse mouth with water after use to reduce aftertaste and incidence of candidiasis. Do not swallow. 13 g 11 06/30/20 24 Active sodium chloride ([place] Nasal [place]) 0.65 % nasal spray Administer 1 spray into each nostril if needed for congestion. 30 mL 08/19/19 25 026 Active albuterol (2.5 MG/3ML) 0.083% nebulizer solution INHALE 1 AMPULE USING A NEBULIZER THREE TIMES DAILY NEEDED FOR ASTHMA / SHORTNESS OF BREATH 90 mL 5 09/18/19 25 Active montelukast (Singulair) 10 MG tablet TAKE 1 TABLET BY MOUTH EVERY DAY IN THE EVENING 90 tablet 1 09/22/19 25 Active cetirizine (ZyrTEC) 10 MG tabletIndicatio ns:Influenza A TAKE 1 TABLET BY MOUTH EVERY DAY IN THE MORNING 90 tablet 1 11/10/19 25 Active amLODIPine (Norvasc) 5 MG tablet Take 1 tablet (5 mg) by mouth Once per day. 30 tablet 3 5 1:26 PM EST 12/12/19 25 Active sertraline (Zoloft) 50 MG tablet Take 1 tablet (50 mg) by mouth Once per day. 30 tablet 3 5 1:08 PM EST 12/12/19 25 Active traZODone (Desyrel) 50 MG tablet Take 1 tablet (50 mg) by mouth at bedtime. 30 tablet 3 5 1:08 PM EST 12/12/19 25 Active hydrocortisone 2.5 % cream APPLY TOPICALLY TO AFFECTED AREA(S) TWICE DAILY 20 g 1 02/24/20 25 Active cyclobenzaprine (Flexeril) 5 MG tabletIndicatio ns:Muscle spasm Take 1 tablet (5 mg) by mouth 3 times daily for 10 days. 30 tablet 02/21/20 25 Active docusate sodium (Colace) 100 MG capsule TAKE 1 CAPSULE BY MOUTH EVERY DAY 90 capsule 1 03/04/20 25 Active fluticasone (Flonase) 50 MCG/ACT nasal spray INSTILL 1 SPRAY IN EACH NOSTRIL ONCE DAILY 16 g 2 04/13/20 25 Active Ventolin HFA 108 (90 Base) MCG/ACT inhaler INHALE 2 PUFFS BY MOUTH EVERY 4 TO 6 HOURS NEEDED FOR WHEEZING OR SHORTNESS OF BREATH 18 g 3 06/15/20 25 Active Calcium Carb-Cholecalci ferol (Calcium 600/Vitamin D) 600-10 MG-MCG tablet Take 1 tablet by mouth Once per day. 90 tablet 3 5 1:26 PM EST 07/01/20 25 Active acetaminophen (Tylenol) 500 MG tabletIndicatio ns:Viral URI Take 1 tablet (500 mg) by mouth every 6 (six) hours if needed for mild pain, headaches or fever. 120 tablet 5 1:26 PM EST 07/01/20 Active gabapentin (Neurontin) 100 MG capsule Take 1 capsule (100 mg) by mouth 2 times daily. 60 capsule 3 5 1:26 PM EST 07/01/20 25 026 Active atorvastatin (Lipitor) 20 MG tablet TAKE 1 TABLET BY MOUTH EVERY DAY 90 tablet 1 5 1:08 PM EST 07/06/20 Active acetaminophen (Tylenol) 500 MG tabletIndicatio ns:Viral URI Take 1 tablet (500 mg) by mouth every 6 (six) hours if needed for mild pain, headaches or fever. 60 tablet 08/19/19 25 025 Discontinued(R eorder (will not trigger notification to Pharmacy)) atorvastatin (Lipitor) 20 MG tablet TAKE 1 TABLET BY MOUTH EVERY DAY 90 tablet 1 09/22/19 25 025 Discontinued benzonatate (Tessalon) 200 MG capsule Take 1 capsule (200 mg) by mouth if needed in the morning, at noon, and at bedtime for cough for up to 7 days. Do not crush or chew. 20 capsule 07/01/20 25 025 sulfamethoxazol e-trimethoprim (Bactrim DS) 800-160 MG tablet Take 1 tablet by mouth 2 times daily for 5 days. 10 tablet 5 1:26 PM EST 07/01/20 025 Active Problems Problem Noted Date Diagnosed Date Numbness of tongue 07/01/2025 Assessment & Plan (07/01/2025 2:01 PM EST): - Intermittent, asymptomatic at this time. Differential considered includes dental etiology, TIA/vascular, and possible neurological or cardiac (associated symptoms to chest pain) event. - Recommended dental evaluation for possible oral etiology. Advised to control blood pressure, glucose, and cholesterol as preventive measures for cerebrovascular events. If symptoms worsen (e.g., inability to speak or move tongue), instructed to seek emergency care immediately. -Order CT scan of the brain Trigger middle finger of left hand 07/01/2025 Assessment & Plan (07/01/2025 2:04 PM EST): - Has intermittent numbness and difficulty using hand. - Prescribed gabapentin twice daily and follow-up in 2 months. - Referred to occupational therapy. If no improvement, consider local injection or further interventions. - Risks and side effects: Advised that gabapentin may cause drowsiness. Influenza vaccine refused 07/01/2025 Lichen simplex chronicus 12/11/2024 Assessment & Plan (02/16/2025 2:16 PM EDT): On vulvar area, status post biopsy by Dr. Augustine. Follow-up with PEDIATR[facility] GENETICIST Viral gastroenteritis 08/19/2024 Assessment & Plan (08/19/2024 [...] clinic. Viral URI 08/19/2024 Assessment & Plan (07/01/2025 1:52 PM EST): Rapid viral testing negative, MRSA some residual symptoms. Take Tylenol as needed + Tessalon capsules as needed for cough Reconsult as needed recurrence of fever, worsening of nasal congestion Assessment & Plan (08/19/2024 11:48 AM EST): Pt advised to be tested for Covid and flu as above. Rest (sleep at least 8 hours a night). Hydrate with plenty of water (avoid caffeine and alcohol). Use saline nose drops to loosen mucus + Flonase. Take Acetaminophen (Tylenol )/Ibuprofen as needed to reduce fever, headache, body [...] 72 hours (temperature should be less than 100 F without medication). Will call pt prn positive [...] of both lungs 05/07/2024 Assessment & Plan (02/16/2025 2:15 PM EDT): Most likely the reason for chronic cough. Advised to use incentive spirometer and albuterol as needed Follow-up with equipment lead Assessment & Plan (06/30/2024 1:29 PM EST): [...] chest pain 06/25/2023 Dyspnea on exertion 06/25/2023 Colitis 06/25/2023 Rib pain 06/25/2023 Assessment [...] Arthritis of knee 10/16/2022 Chronic constipation 10/16/2022 Assessment & Plan (02/16/2025 2:14 PM EDT): Continue docusate and start MiraLAX daily and adjust to have 1 bowel movement per day. She is awaiting for reschedule appointment with GI for colonoscopy, she has the prep at home. Follow-up in 3 months, if she has not had colonoscopy, will refer again as referral from last year probably . Obstructive sleep apnea syndrome 10/16/2022 Primary osteoarthritis of left knee 10/16/2022 Recurrent major depression in partial remission 10/16/2022 Assessment & Plan (07/01/2025 1:57 PM EST): - Depression exacerbated in context of recent bereavement and emotional stress. Currently taking sertraline daily, off counseling - Continue sertraline daily. Offered referral to counselor/therapist; patient declined referral but instructed to make appointment if needed, she'll reach out to [facility]. Reinforced importance of ongoing psychiatric and behavioral health follow- up. - Patient feels safe at home and is able to reach out for safety. Assessment & Plan (02/16/2025 2:14 PM EDT): Follow-up closely with therapist Deanna Stephens. Continue sertraline and follow-up with me in 3 months until she is seen by a psychiatrist or a psych prescriber. Patient feels safe at home and is able to reach out for safety. Assessment & Plan (04/28/2024 11:16 AM EDT): - advised to f/u closely with therapist - continue Sertraline same dose and f/u in 3 months - pt feels safe at home and is able to reach out for safety - denies drug use, unable to explain previous positive urine tox - discussed importance of avoiding any inadvertent drug use Calcaneal spur 01/09/2019 Vasomotor rhinitis 12/11/2018 Seasonal allergic rhinitis 11/13/2018 Ulcer of nasal septum 11/13/2018 Mastalgia 11/04/2018 Assessment & Plan (02/16/2025 2:20 PM EDT): Rt side. Pat w/ 2 close relatives (aunt and mother) with breast Ca above age 50, will refer to breast clinic for further evaluation and reassurance Recent mammo on 08/2024 was nl. IFG (impaired fasting glucose) 09/09/2018 Varicose veins of lower extremity 09/09/2018 Photosensitivity dermatitis due to sun 8 Benign essential hypertension 12/30/2017 Assessment & Plan (07/01/2025 1:52 PM EST): - Uncontrolled today,. Blood pressure increase discussed in context of recent emotional stress and low medication adherence. - Continue amlodipine 5 mg daily as prescribed, stressed importance of medication compliance. Monitor blood pressure at home. - If chest pain, tongue numbness or any neurological symptoms persists or worsens, advised to seek emergency care. -Follow-up with me in 2 or 3 months with labs Assessment & Plan (02/16/2025 2:10 PM EDT): Controlled. Compliant w/meds Continue amlodipine same dose Counseled re low salt diet/increase moderate physical activity. Check home BP BIW and prn CP/SALCEDO/HERNANDEZ Non smoking patient. Assessment & Plan (06/30/2024 2:55 PM EST): [...] Mild intermittent asthma 12/30/2017 Assessment & Plan (02/16/2025 2:15 PM EDT): Doing well on Dulera and albuterol as needed. Declined to have COVID booster, advised to have it at her earliest convenience. She is a non-smoker. Assessment & Plan (08/19/2024 2:07 PM EST): [...] Problem Noted Date Diagnosed Date Resolved Date UTI symptoms 06/25/2023 01/12/2025 Pruritus of vagina 10/16/2022 Weight loss 10/16/2022 01/12/2025 Acute rhinosinusitis 11/04/2018 024 Encounters * This document contains information received from the source organization and may not represent a complete record from that organization. Date Type Department Care Team Description 07/05/2025 Refill [facility] [address] [place] [address] Shraddha Mustafa MD 07/01/2025 10:15 AM EST Office Visit [facility] [address] [place] [address] Shraddha Mustafa MD Benign essential hypertension (Primary Dx); Recurrent major depression in partial remission (CMS/HCC); Numbness of tongue; Viral URI; Trigger middle finger of left hand; Lower urinary tract symptoms (LUTS); Screening mammogram for breast cancer; Cough, unspecified type; Nasal congestion; Influenza vaccine refused 06/30/2025 Telephone [facility] [address] [place] [address] Shraddha Mustafa MD chart prep 06/24/2025 Patient Outreach [facility] [address], [place] [phone] Shraddha Mustafa MD Pre-visit Planning ((Unable to reach for PVP screening and or LVM) to be completed in office) 06/13/2025 Refill [facility] [address], [place] [phone] Shraddha Mustafa MD 06/03/2025 Refill [facility] [address], [place] [phone] Orlin Latham MD Muscle spasm from Last 3 Months Immunizations Immunization Administration Dates Next Due Influenza injectable quadriv [...] Answer Date Recorded Patient Health Questionnaire-9 Score 12/11/2024 Patient Health Questionnaire-9 Score 12/11/2024 Last PHQ-9: Questionnaire Data Not on [...] Sign Reading Time Taken Comments Blood Pressure 160/80 07/01/2025 10:49 AM EST Pulse 72 07/01/2025 10:22 AM EST Temperature 36.7 C (98.1 F) 07/01/2025 10:22 AM EST Respiratory Rate 22 07/01/2025 10:2 2 AM EST Oxygen Saturation 98% 02/20/2025 11: 11 AM EDT Inhaled Oxygen Concentration - - Weight 66.6 kg (146 lb 12.8 oz) 025 10:22 AM EST Height 159 cm (5' 2.6 ) 07/01/2025 10:2 2 AM EST Body Mass Index 26.34 07/01/2025 10:22 AM EST Plan of Treatment Upcoming Encounters Date Type Department Care Team (Late st Contact Info) Description 09/14/2025 10:30 AM EST Office Visit [facility] [address], [place] [phone] Shraddha Mustafa MD [address] [place] [address] Health Maintenance Due Date Last Done Comments CT Colonography 1960 Colonoscopy 1960 Colorectal Cancer Screening 1960 FIT DNA/Cologuard 1960 FIT 1960 FOBT 1960 Sigmoidoscopy 1960 Hepatitis C Screening 1976 RSV Patients and Patients Aged 60 years or older (1 - Risk 50-74 years 1-dose series) 2008 Dental Oral Exam 10/19/2023 04/19/2023, 11/2020, 03/11/2012 Dental Prophylaxis 10/19/2023 04/19/2023, 05/15/2021 Dental X-Ray: Full Mouth 04/22/2024 04/21/2021, 02/11 Dental X-Ray: Bitewings 01/16/2025 01/16/20 24, 05/09/2023, 03/11/2012 COVID-19 Vaccine ( season) 2025 06/07/2022, 11/01/2020, 10/11/2020 SDOH Screening 04/28/2025 04/28/2024 Depression Monitoring 06/13/2025 12/11/2024, 025 Influenza Vaccine (#1) 2025 , 06/07/2022, 06/17/2018 Postponed from 04/12/2025 (Patient Refused) Mammogram 09/01/2025 09/01/2024, 08/12, 02/04/2019, Additional history exists Alcohol/Substance Use Screening 12/11/2025 12/11/2024 Tobacco Screening 07/01/2026 07/01/2025 DTaP/Tdap/Td Vaccines (2 - Td or Tdap) 02/28/2028 02/27/2018, 04/11/2013 Lipid Panel 08/18/2029 08/18/2024 Zoster Vaccines Completed 11/29/2022, 09/27/2022 Pneumococcal Vaccine: 50+ Years Completed 04/28/2024 HIB [...] patient's age to complete this topic Meningococcal B Vaccine Aged Out No l onger eligible based on patient's age to complete [...] 160/80(2024 10:49 AM EST) No Mike Kang, PharmD Note: Per JNC-8 : Age>60, No history of DM or CKD Procedures Procedure Name Priority Date/Time Associated Diagnosis Comments POCT SHAUN-14 URINE DRUG SCREEN Routine 07/01/2025 11:40 AM EST Recurrent major depression in partial remission (CMS/HCC) Numbness of tongue POCT URINALYSIS DIPSTICK Routine 07/01/2025 10:57 AM EST Recurrent major depression in partial remission (CMS/HCC) Numbness of tongue POCT INFLUENZA B (ID NOW RAPID MOLECULAR) Routine 07/01/2025 10:39 AM EST Cough, unspecified type Nasal congestion POCT INFLUENZA A (ID NOW RAPID MOLECULAR) Routine 07/01/2025 10:39 AM EST Cough, unspecified type Nasal congestion POCT RAPID COVID ANTIGEN Routine 07/01/2025 10:38 AM EST Cough, unspecified type Nasal congestion BI MAMMOGRAM SCREENING TOMOSYNTHESIS BILATERAL Routine 09/01/2024 [...] Recently Relevant to Health Maintenance Results * POCT SHAUN-14 Urine Drug Screen (07/01/2025 11:40 AM EST) THC Negative Negative Cocaine Screen, Urine Negative Negative Opiate Screen, Urine Negative Negative Methamphetamine Screen Urine Negative Negative Amphetamine Screen, Urine Negative Negative Benzodiazepines Screen, Urine Negative Negative Barbiturate Screen, Urine Negative Negative Methadone Screen, Urine Negative Negative Buprenophine Screen, Urine Negative Negative TCA, Urine Negative Negative MDMA Urine Negative Negative ng/mL Oxycodone Screen, Urine Negative Negative Phencyclidine (PCP), Urine Negative Negative Propoxyphene, Urine Negative Negative Fentanyl, Urine Negative Negative QC Media Lot # [id number] U Lot# Expiration Date Urine Urine specimen obtained by clean catch procedure / Unknown 07/01/2025 11:40 AM EST Shraddha Mustafa MD POINT OF CARE TEST ENTER /EDIT ORDERABLES Final Result * (ABNORMAL) POCT Urinalysis (07/01/2025 10:57 AM EST) Color, UA Yellow Clarity, UA Clear Glucose, UA Negative Bilirubin, UA Negative Ketones, UA Positive Comment:trace Spec Grav, UA 1.025 Blood, UA Negative Negative, None Detected pH, UA 6.0 Protein, UA Trace Comment:30 mg /dL Urobilinogen, UA 1.0 Leukocytes, UA Trace Negative, Rare, Trace Comment:small Nitrite, UA Negative Negative, None Detected Appearance, UA clear QC Media Lot # [id number] Lot# Expiration Date ,026 Urine (Urine, Random) 07/01/2025 10:57 AM EST Shraddha Mustafa MD POINT OF CARE TEST ENTER /EDIT ORDERABLES Final Result * POCT Rapid Influenza B GRAHAM ID NOW (07/01/2025 10:39 AM EST) Influenza B Negative Negative, Indeterminate [facility] QC Media Lot # [id number] [facility] Lot# Expiration Date [facility] Swab 07/01/2025 10:3 9 AM EST Shraddha Mustafa MD POINT OF CARE TEST ENTER /EDIT ORDERABLES Final Result Performing Organization Address [facility]/ZIP Co de Phone Number [facility] [address] [place] [phone] * POCT Rapid Influenza A GRAHAM ID NOW (07/01/2025 10:39 AM EST) Influenza A Negative Negative, Indeterminate [facility] QC Media Lot # [id number] [facility] Lot# Expiration Date [facility] Swab 07/01/2025 10:3 9 AM EST Shraddha Mustafa MD POINT OF CARE TEST ENTER /EDIT ORDERABLES Final Result Performing Organization Address [facility]/ZIP Co de Phone Number [facility] [address] [place] [phone] * POCT Rapid Covid-19 BinaxNOW (07/01/2025 10:38 AM EST) Rapid COVID Ag Negative QC Media Lot # [id number] Lot# Expiration Date ,026 Swab 07/01/2025 10:3 8 AM EST Shraddah Mustafa MD POINT OF CARE TEST ENTER /EDIT ORDERABLES Final Result * BI Mammogram Screening Tomosynthesis Bilateral (09/01/2024 1:35 PM EST) Anatomical Region Laterality Modality Breast Bilateral Mammography 09/01/2024 1:3 5 PM EST Narrative 09/10/2024 9:58 AM EST [place] [facility] [address] [place] [address] Mammography Report Signed Patient: Carina Rivas MR#: [id number] : 1960 Acct:[id number] Age/Sex: 63 / F ADM Date: 09/01/24 Loc: HO.MAMMO Attending Dr: Shraddha Mustafa MD Ordering Physician: Shraddha Mustafa MD Results: 2Be nign Findings Date of Service: 09/01/24 Follow Up: 1 Year From [facility] Mammogram Procedure(s): MM tomosynthesis screening BI Accession Number(s): [id number] cc: Shraddha Mustafa MD EXAMINATION: MM SCREENING [...] 09/10/24 0955 DD/ 1335 TD/TT: 09/01/24 1350 Deputy Building Guard: Procedure Note Donotuseinterpreter, Image - 09/10/2024 [facility] [address] [place] [place] [address] Mammography Report Signed Patient: Jakub Rivas#: [id number] : 9Acct:[id number] Age/Sex: 63 / FADM Date: 09/01/24 Loc: HO.MAMMO Attending Dr: Shraddha Mustafa MD Ordering Physician: Shraddha Mustafa MDResults: 2Be nign Findings Date of Service: 09/01/24Follow Up: 1 Year From Orig ina Mammogram Procedure(s): MM tomosynthesis screening BI Accession Number(s): [id number] cc: Shraddha Mustafa MD EXAMINATION: MM SCREENING [...] 09/10/24 0955 DD/ 1335 TD/TT: 09/01/24 1350 Deputy Building Guard: us Shraddha Mustafa MD IMG BI PROCEDURES Final Result * (ABNORMAL) Lipid Panel with Reflex to Direct LDL (08/18/2024 9:56 AM EST) Triglycerides 249(H) <150 mg/dL [facility] Comment:Desirable Triglyceri de: less than 150 mg/dLBorderline High Triglyceride 150-199 mg/dLHigh Triglyceride: 200-499 mg/dLVery High Triglyceride: greater than or equal to 5OO mg/dL Cholesterol 246(H) <200 mg/dL [facility] Comment:Desirable Cholestero l: less than 200 mg/dLBorderline High Cholesterol: 200-239 mg/dLHigh Cholesterol: greater than 239 mg/dL LDL Cholesterol Calculated 153(H) <100 mg/dL [facility] Comment:Desirable LDL: less than 100 mg/dLNear Optimal/Above Optimal LDL: 110- 129 mg/dLBorderline High LDL: 130-159 mg/dLHigh LDL: 160-189 mg/dLVery High LDL: greater than or equal to 190 mg/dL HDL Cholesterol 44 >40 mg/dL [facility] Comment:Desirable HDL: great er than 40 mg/dL Note: This HDL assay may give artificially low results in patients with liver disease. Blood 08/18/2024 9:56 AM EST 08/18/2024 11:15 AM EST us Shraddha Mustafa MD LAB BLOOD ORDERABLES Fin al Result [facility] [address] [place], [place] [phone] from Last 3 Months or Most Recently Relevant to Health Maintenance Insurance [facility] ST[facility] [employer] OPTIONS (HMO D-SNP) * Guarantor: Carina Rivas Account Type Relation to Patient Date of Phone Billing Address Dental Self [address] [place] [address] [facility] Care Teams Travel Nurse Relationship Specialty Start Date End Date Shraddha Mustafa MD [address] [place] [address] PCP - General Family Medicine 03/21/17 Mike Kang, JuliánD [address] [place] [phone] Pharmacist Internal Medicine 12/10/22
--- OUTSIDE RECORDS SUMMARY | 2025-07-20 17:35 | XMS_ITS | Encounter Summary ---
Author Organization [email or web address] Address [address] [facility] 7t [place] [address] Care Team Providers Care Coffee Grower Name Role Phone Shraddha Mustafa MD Primary Care Provider + Mike Kang PharmD Unavailable [phone] Reason for Visit * Reason Onset Date Comments Call Back Request 05/06/2024 Encounter Details Date Type Department Care Team ([facility] st Contact Info) Description 05/06/2024 Telephone [facility] [address] [place], [place] [phone] Shraddha Mustafa MD [address] [place], [place] [phone] Call Back Request Social History Tobacco Use [...] 10:28 AM EDT Tc from Kathrine from [facility] requesting a call back to obtain any information regarding the patients mental stability states is under the suspension of Hoarding and is planning to enter the patient residency on or after 05/08 any information would help please call Kathrine at [phone] documented in this encounter Plan of Treatment Upcoming Encounters Date Type Department Care Team (Late st Contact Info) Description 09/14/2025 10:30 AM EST Office Visit [facility] [address] [place] [phone] Shraddha Mustafa MD [address] [place] [phone] documented as of this encounter Goals Goal Patient Goal Type Associated Problems Recent Progress Patient-Stated? Author Blood Pressure < 150/90 Blood Pressure 160/80(2024 10:49 AM EST) No Mike Kang, JuliánD Note: Per JNC-8 : Age>60, No history of DM or CKD documented as of this encounter Visit Diagnoses Not on filedocumented in this encounter Care Teams Coffee Grower Relationship Specialty Start Date End Date Shraddha uMstafa MD [address] [place] [phone] PCP - General Family Medicine 03/21/17 Mike Kang, JuliánD [address] [place] [phone] Pharmacist Internal Medicine 12/10/22 documented as of this encounter
--- OUTSIDE RECORDS SUMMARY | 2025-07-20 17:35 | XMS_ITS | Encounter Summary ---
Author Organization [employer] Address [address] [facility] 7t [place] [address] Care Team Providers Care Canary Breeder Name Role Phone Shraddha Mustafa MD Primary Care Provider + Mike Kang PharmD Unavailable [phone] Encounter Details Date Type Department Care Team (Late st Contact Info) Description 04/25/2023 Abstract [facility] [address] [place] [address] Gordy Calderon DDS [address] [place] [address] Social History Tobacco Use Types Packs/Day Years [...] Office Visit [facility] [address] [place] [address] Shraddha Mustafa MD [address] [place] [address] documented as of this encounter Goals Goal Patient Goal Type Associated Problems Recent Progress Patient-Stated? Author Blood Pressure < 150/90 Blood Pressure 160/80(2024 10:49 AM EST) No Mike Kang, PharmD Note: Per JNC-8 : Age>60, No history of DM or CKD documented as of this encounter Visit Diagnoses Not on filedocumented in this encounter Care Teams Canary Breeder Relationship Specialty Start Date End Date Shraddha Mustafa MD [address] [place] [address] PCP - General Family Medicine 03/21/17 Mike Kang, PharmD [address] [place] [address] Pharmacist Internal Medicine 12/10/22 documented as of this encounter
--- OUTSIDE RECORDS SUMMARY | 2025-07-20 17:37 | XMS_ITS | Encounter Summary ---
Author Organization [employer] Address [address] [place] [address] Care Team Providers Care Plant General Manager Name Role Phone Shraddha Mustafa MD Primary Care Provider + Mike Kang PharmD Unavailable [phone] Encounter Details Date Type Department Care Team (Late st Contact Info) Description 09/19/2022 Orders Only [facility] [address] [place] [address] Nohemi Panchal LPN Social History Tobacco Use [...] Description 09/14/2025 10:30 AM EST Office Visit [facility] [address] [place] [address] Shraddha Mustafa MD [address] [place] [phone] documented as of this encounter Visit Diagnoses Not on filedocumented in this encounter Care Teams Plant General Manager Relationship Specialty Start Date End Date Shraddha Mustafa MD [address] [place] [phone] PCP - General Family Medicine 03/21/17 Mike Kang, PharmD [address] [place] [address] Pharmacist Internal Medicine 12/10/22 documented as of this encounter
== END 2025-07-20 14:48 | disposition home or self-care (01) ==
LOC: HO.HWSM 13:15
PROVIDERS: PCP Internal Medicine; Visit Provider Advanced Practice Midwife
DX: Z01.419 Encounter for gynecological examination (general) (routine) without abnormal findings (principal); R30.0 Dysuria; Z78.0 Asymptomatic menopausal state; N76.0 Acute vaginitis; Z80.3 Family history of malignant neoplasm of breast
CPT/HCPCS: 99397; 99459